=== PATIENT | female | born 2000 | race Hispanic/Latino ===

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

== ENCOUNTER 2021-02-25 15:21 | Emergency (ER) | payer OTHER, SELFPAY ==
--- NOTE | ~2021-02-25 | CT_ITS ---
EXAMINATION: CT abdomen pelvis w con INDICATION: Abdominal pain TECHNIQUE: Computed tomographic images of the abdomen and pelvis were obtained after the administrati on of 100 cc of Omnipaque 350 intravenous contrast. The dose-length product (DLP) was 337.17 mGy-cm. Automated exposure control and iterative reconstruction technique were employed. COMPARISON: None available FINDINGS: The lung bases are clear. The heart size is normal. The liver, spleen, pancreas, gallbladde r, and adrenal glands are normal. The kidneys are unremarkable. No pathologically enlarged abdominal or pelvic lymph nodes are identified. There is no free intraperitoneal gas or evidence of bowel obstr uction. The appendix is normal. A retroaortic left renal vein is noted. IMPRESSION: 1. No CT correlate for the patient's symptoms. Reviewed, dictated and finalized at location A.
[2021-02-25 15:35] VITALS: BP 112/77; PULSE 81; RESP 16; TEMP 37.3; O2SAT 98
--- NOTE | 2021-02-25 15:57 | ED.ABDPAIN ---
HPI - Abdominal Pain General Chief Complaint: Abdominal Pain Stated Complaint: chest pains Time Seen by Provider: 02/25/21 15:42 Source: RN notes reviewed History of Present Illness HPI narrative: Patient presents emergency department from home for abdominal pain. Patient states symptoms began approximately 6 days ago. The pain is located in the epigastric left upper quadrant right upper quadrant described as cramping and burning in nature states that it is associated diarrhea and she had had nausea vomiting earlier but none currently she states she has taken ibuprofen the pain minimally. She denies any fevers or chills, chest pain shortness of breath or any other symptoms Related Data Allergies Allergy/AdvReac Type Severity Reaction Status Date / Time No Known Allergies Allergy Verified 02/25/21 16:06 Review of Systems Review of Systems: Gen.: Denies fevers or chills ENT: Denies congestion Respiratory: Denies shortness of breath or cough CV: Denies chest pain or palpitations GI: See HPI denies burning, urgency, frequency or hematuria Musculoskeletal: Denies back pain or muscle pain Neuro: Denies numbness, tingling, weakness or focal weakness Skin: Denies rash Except as documented, all other systems reviewed and negative [facility] Past Medical History Medical History (Updated 02/25/21 @ 19:00 by Fabrice Magdaleno DO) History of use of contraceptive intrauterine device (IUD) Tonsillitis Surgical History Surgical History No significant past surgical history Social History Social History Smoking status: Never smoker Substance use: never Gender identity (if verbalized by the patient): Female Spiritual care concerns: No Exam Narrative: APPEARANCE: No acute distress, nontoxic, resting in bed HEENT: Normocephalic, atraumatic, OMM RESPIRATORY: No respiratory distress, clear to auscultation bilaterally with no rhonchi wheezing or rales CARDIOVASCULAR: RRR s murmur ABDOMINAL: Soft nondistended tender palpation epigastric and right upper quadrant left upper quadrant no tenderness right lower quadrant left lower quadrant no rebound or guarding MUSCULOSKELETAl: Moves all extremities. No clubbing, cyanosis or edema. NEURO: Awake and alert. Following commands, speech normal, no focal deficits SKIN:: Warm, dry. Normal Color PSYCHIATRIC: Normal affect/mood Course Course Emergency Course: Patient states that they are feeling much better at this time. States abdominal pain has improved. Repeat abdominal exam shows the patient's abdomen to be soft with no surgical present discussed with patient results of workup and diagnosis. Discussed need for follow-up with primary care physician, reasons to return to the emergency department in proper use of medication. Patient understands and agrees to current treatment plan discussed with patient mildly elevated liver enzymes need for follow-up as an outpatient Vital Signs Vital signs: Vital Signs Temperature 99.1 F 02/25/21 15:35 Pulse Rate 81 02/25/21 15:35 Respiratory Rate 16 02/25/21 15:35 Blood Pressure 112/77 02/25/21 15:35 Pulse Oximetry 98 02/25/21 15:35 Temperature 99.1 F 02/25/21 15:35 Pulse Rate 84 02/25/21 17:43 Respiratory Rate 14 02/25/21 17:43 Blood Pressure 112/65 02/25/21 17:43 Pulse Oximetry 99 02/25/21 17:43 MDM - Abdominal Pain MDM Narrative Medical decision making narrative: Patient's abdomen is soft without significant pain or signs of surgical abdomen on serial exams. Lab and x-ray evaluations are reviewed and patient is felt to be a reasonable candidate for outpatient management. Patient was instructed as to limitations of x-ray and laboratory evaluation and encouraged to return to ED or primary physician for repeat exam in 12 hours if continued or worsening pain Lab Data Result diagrams: 02/25/21 15:55
[2021-02-25 16:02] LABS: Basophils Percent Auto 0.5 % (0.2-1.2); Eosinophils Absolute Auto 0.1 K/mm3 (0-0.3); Eosinophils Percent Auto 1.8 % (0-4.4); Hematocrit 43.9 % (37.0-47.0); Hemoglobin 15.1 g/dL (12.0-15.0); Immature Granulocyte Absolute 0.01 K/mm3 (0.00-0.031); Immature Granulocyte Percent A 0.2 % (0-0.5); Lymphocytes Absolute Auto 2.26 K/mm3 (0.9-3.2); Lymphocytes Percent Auto 37.5 % (18.3-44.2); Mean Corpuscular HGB Conc 34.4 g/dl (32-36); Mean Corpuscular Hemoglobin 28.7 pg (26-34); Mean Corpuscular Volume 83.5 fl (80-100); Mean Platelet Volume 10.3 fl (7.4-10.4); Monocytes Absolute Auto 0.7 K/mm3 (0.1-0.6); Platelet Count Result 227 k/mm3 (150-375); Red Blood Count 5.26 M/mm3 (4.2-5.4); Red Cell Distribution Width 13.2 % (11.5-14.5)
[2021-02-25] MEDS: FAMOTIDINE 20 MG/2 ML VIAL IV PUSH (16:11)
[2021-02-25] MEDS: SODIUM CHLORIDE 0.9% IV 1,000 ML 999 ML IV CONT (16:11)
[2021-02-25 16:20] LABS: Add Urine Microscopic? NO; Appearance Urine Clear (Clear); Bilirubin Urine Negative (Negative); Blood Urine Negative (Negative); Color Urine Yellow (Yellow); Glucose Urine UA Negative (Negative); Ketones Urine Negative (Negative); Leukocyte Esterase Ur Negative LEU/UL (Negative); Nitrate Urine Negative (Negative); Protein Urine Negative (Negative); Specific Grav Ur 1.018 (1.001-1.035); Urobilinogen Urine Negative mg/dL (<2.0)
[2021-02-25 16:24] LABS: Alanine Aminotransferase 162 U/L (4-35); Albumin Level 4.6 g/dL (3.7-5.6); Alkaline Phosphatase 64 U/L (45-116); Anion Gap 13 mmol/L (8-16); Aspartate Amino Transferase 108 U/L (14-36); Bilirubin,Total 0.8 mg/dL (0.2-1.3); Blood Urea Nitrogen 10 mg/dL (8-21); Calcium 9.4 mg/dL (8.9-10.7); Carbon Dioxide 22 mmol/L (22-30); Chloride 104 mmol/L (98-107); Estimated CRCL calculation 66 ml/min; Estimated Glomerular Filt Rate > 60; Glucose 94 mg/dL (65-110); Lipase 55 U/L (23-300); Sodium 139 mmol/L (134-143)
--- NOTE | 2021-02-25 17:29 | PC.NURSE ---
Pt report no relief from pain, some nausea after scan. Pt informed CT scan is clear. MD aware of complaints.
[2021-02-25] MEDS: ONDANSETRON INJ 4 MG/2 ML VIAL IV PUSH (17:36)
[2021-02-25 17:43] VITALS: BP 112/65; PULSE 84; RESP 14; O2SAT 99
[2021-02-25 19:15] VITALS: BP 122/74; PULSE 77; RESP 16; TEMP 36.6; O2SAT 98
== END 2021-02-25 19:15 | disposition home or self-care (01) ==
PROVIDERS: Emergency Provider Emergency Medicine; PCP Family Medicine
DX: R10.13 Epigastric pain (principal)
CPT/HCPCS: 36415; 74177; 80053; 81003; 81025; 83690; 85025; 96365; 96375; 99284; A9270; J0131; J2405; J7030; Q9967

== ENCOUNTER 2021-10-08 09:28 | Emergency (ER) | payer OTHER, SELFPAY ==
[2021-10-08] VITALS (15 sets, daily range): BP systolic 99–137; BP diastolic 61–84; PULSE 61–89; RESP 16–30; TEMP 36.1–36.8; O2SAT 95–99
--- NOTE | ~2021-10-08 | CT_ITS ---
EXAMINATION: CT abdomen pelvis w con EXAM DATE: 10/08/2021 11:14 INDICATION: Abdominal pain, N/V, UTI TECHNIQUE: Spiral CT of the abdomen and pelvis was performed following intravenous injection of 100 m L Omnipaque 350. Axial, coronal and sagittal images of the abdomen and pelvis were reviewed. The do se-length product (DLP) for this examination was 300.28 mGy-cm. The exposure was tailored according to patient size (auto mA exposure control), and iterative reconstruction (ASIR) was used as additiona l dose reduction technique. Comparison is made to prior examination from 02/25/2021. FINDINGS: The liver, spleen, adrenal glands and pancreas are unremarkable. Gallbladder is unremarkab le. No biliary obstruction. Portal and splenic veins are patent. Kidneys enhance symmetrically. T here is no hydronephrosis. The uterus is anteverted and morphologically normal. The bladder is un remarkable. There is no retroperitoneal or pelvic lymphadenopathy. The appendix is normal. The stomach and small bowel are unremarkable. There is colonic fluid, corre late for diarrhea. No free intraperitoneal gas. The heart is normal in size. There are no perica rdial or pleural effusions. The lung bases are unremarkable. The bones are unremarkable. IMPRESSION: Colonic fluid, correlate for diarrhea or gastroenteritis. Reviewed, dictated and finalized at location A. IC AFFAIRS OFFICER
--- NOTE | ~2021-10-08 | CT_ITS ---
EXAMINATION: CTA chest PE protocol DATE: 10/08/2021 12:53 INDICATION: Pleuritic chest pain. TECHNIQUE: Computed tomography angiography (CTA) of the chest was performed with 100 mL Omnipaque-350 intravenous contrast timed to evaluate the pulmonary arteries. Coronal maximum intensity projection 3D-reconstructions were created by the technologist. Automated exposure control and iterative reconst ruction technique were employed. The dose-length product was 196.98 mGy-cm. COMPARISON: CT abdomen and pelvis 02/25/2021 FINDINGS: The lungs demonstrate mild atelectasis. No pleural effusion. The heart size is normal. No p ericardial effusion. There is no pulmonary embolus. The bones are unremarkable. IMPRESSION: 1. No pulmonary embolus. Reviewed, dictated and finalized at location A. [place] IMPRESSION: 1. No pulmonary embolus.
[2021-10-08 09:46] LABS: Basophils Percent Auto 0.4 % (0.2-1.2); Eosinophils Percent Auto 0.7 % (0-4.4); Hematocrit 49.6 % (37.0-47.0); Hemoglobin 16.6 g/dL (12.0-15.0); Immature Granulocyte Absolute 0.01 K/mm3 (0.00-0.031); Immature Granulocyte Percent A 0.2 % (0-0.5); Lymphocytes Absolute Auto 1.03 K/mm3 (0.9-3.2); Lymphocytes Percent Auto 18.5 % (18.3-44.2); Mean Corpuscular HGB Conc 33.5 g/dl (32-36); Mean Corpuscular Hemoglobin 29.3 pg (26-34); Mean Corpuscular Volume 87.6 fl (80-100); Mean Platelet Volume 10.4 fl (7.4-10.4); Monocytes Absolute Auto 0.4 K/mm3 (0.1-0.6); Monocytes Percent Auto 7.6 % (2.6-8.5); Neutrophils Percent Auto 72.6 % (45.5-73.1); Platelet Count Result 180 k/mm3 (150-375); Red Blood Count 5.66 M/mm3 (4.2-5.4); Red Cell Distribution Width 13.6 % (11.5-14.5); White Blood Count 5.6 K/mm3 (4.5-10.0)
--- NOTE | 2021-10-08 09:52 | ED.ABDPAIN ---
HPI - Abdominal Pain General Chief Complaint: Abdominal Pain Stated Complaint: Flank Pain Time Seen by Provider: 10/08/21 09:51 Source: patient Mode of arrival: ambulatory Limitations: no limitations History of Present Illness HPI narrative: Patient is a 21-year-old female who presents to the ED with complaints of diffuse epigastric abdominal pain x2 days. Patient describes the pain as a sharp sensation and states it radiates to her left upper quadrant/lower left chest down her left-sided abdomen and into her left lower back. Patient also reports having SOB due to the pain, nausea, and 1 episode of vomiting 2 days ago. She has Zofran at home and has been using this with some relief of her nausea. Patient states her urine has been darker than usual, but she denies any dysuria, urinary frequency, hematuria. She also denies any diarrhea, fever, chills, chest pain, cough, cold symptoms. Related Data Allergies Allergy/AdvReac Type Severity Reaction Status Date / Time No Known Allergies Allergy Verified 02/25/21 16:06 Review of Systems Review of Systems: CONSTITUTIONAL: Denies fever, chills, or sweats. ENT: Denies rhinorrhea, congestion. CARDIOVASCULAR: Reports left lower chest pain. Denies palpitations, or BLE edema. RESPIRATORY: Reports shortness of breath due to pain. Denies cough. GASTROINTESTINAL: Reports epigastric abdominal pain, radiating to left upper quadrant, nausea, vomiting. Denies diarrhea, constipation, rectal bleeding GENITOURINARY: Denies dysuria, urinary frequency, or hematuria. MUSCULOSKELETAL: Reports left lower back pain. Denies joint pain, or myalgia. NEUROLOGIC: Denies headache, numbness, or weakness. All systems reviewed & are unremarkable except as noted in HPI and below [facility] Past Medical History Medical History (Updated 10/08/21 @ 13:23 by Edna Stone PA-C) History of use of contraceptive intrauterine device (IUD) Tonsillitis Surgical History Surgical History (Updated 10/08/21 @ 10:35 by Edna Stone PA-C) Hx of tonsillectomy No significant past surgical history Social History Social History Smoking status: Never smoker Substance use: never Gender identity (if verbalized by the patient): Female Spiritual care concerns: No Exam Narrative: GENERAL: Well appearing, well-nourished, non-toxic, in no acute distress. HEAD: Normocephalic, atraumatic. EYES: EOMI, conjunctivae clear bilaterally. THROAT: Pharynx clear, no exudate. MMs slightly dry. NECK: Supple. No adenopathy, no masses. RESPIRATORY: Airway patent, respirations nonlabored. Clear to auscultation bilaterally, no rales, rhonchi, wheezing. CARDIOVASCULAR: Regular rate and rhythm without murmurs, rubs, or gallops. Radial and DP pulses 2+ and equal bilaterally. ABDOMINAL: Soft, tenderness to palpation of epigastric region, left upper quadrant, right lower quadrant. Nondistended, no hepatosplenomegaly. Normoactive BS. L CVA tenderness to percussion. MUSCULOSKELETAL: Moves all extremities. Strength/ROM intact without gross deformities. No edema. Tenderness to palpation of left lower back. SKIN: Warm, dry, normal color. No rashes. NEURO: A&O X3. Speech clear. Cranial nerves II-XII grossly intact. Steady gait. No ataxic movements. PSYCHIATRIC: Flat affect. Appropriate mood. Normal interaction. Course Reevaluation(s) Reevaluation #1: Patient request to use the bathroom prior to discharge. She began lightheaded and sweaty after standing up. Orthostatics were ordered, however patient was unable to complete them due to feeling lightheaded. EKG ordered. Date: 10/08/21 Time: 15:00 Reevaluation #2: Patient feeling better after eating crackers and peanut butter. No further vomiting. Blood pressure improved. She feels comfortable going home and will be discharged. Date: 10/08/21 Time: 15:30 Vital Signs Vital signs: Vital Signs Temperature 97 F L 10/08/21 09:34 Pulse Rate 84
[2021-10-08 09:58] LABS: Alanine Aminotransferase 23 U/L (4-35); Albumin Level 4.8 g/dL (3.5-5.1); Alkaline Phosphatase 72 U/L (38-126); Anion Gap 11 mmol/L (8-16); Aspartate Amino Transferase 38 U/L (14-36); Bilirubin,Total 1.5 mg/dL (0.2-1.3); Blood Urea Nitrogen 20 mg/dL (7-17); Calcium 9.1 mg/dL (8.4-10.2); Carbon Dioxide 21 mmol/L (22-30); Chloride 106 mmol/L (98-107); Estimated CRCL calculation 79 ml/min; Estimated Glomerular Filt Rate > 60; Glucose 80 mg/dL (65-110); Potassium 4.1 mmol/L (3.4-5.0); Sodium 138 mmol/L (137-145)
[2021-10-08] MEDS: ONDANSETRON INJ 4 MG/2 ML VIAL IV PUSH (10:24)
[2021-10-08] MEDS: SODIUM CHLORIDE 0.9% IV 1,000 ML 999 ML IV CONT ×2 (10:24→13:22)
[2021-10-08] MEDS: KETOROLAC 30 MG/ML VIAL (*BKC) IV PUSH (10:29)
[2021-10-08 10:36] LABS: Lipase 36 U/L (23-300)
[2021-10-08 10:48] LABS: Add Urine Microscopic? YES; Appearance Urine Cloudy (Clear); Bilirubin Urine Negative (Negative); Blood Urine Negative (Negative); Color Urine Amber (Yellow); Glucose Urine UA Negative (Negative); Ketones Urine 1+ mg/dL (Negative); Leukocyte Esterase Ur 1+ LEU/UL (Negative); Mucus Urine Heavy /lpf; Nitrate Urine Negative (Negative); Protein Urine 1+ mg/dL (Negative); Squamous Epithelial Cell Urine Many /hpf (Few)
[2021-10-08 10:52] LABS: Specific Grav Ur 1.031 (1.001-1.035)
[2021-10-08 12:13] LABS: D Dimer 1.08 ug/mL (<0.48)
--- NOTE | 2021-10-08 15:03 | ECG_ITS ---
Measurements Intervals [place] Rate: 57 P: 58 NV: 149 QRS: 62 QRSD: 94 T: 54 QT: 465 QTc: 456 Interpretive Statements SINUS BRADYCARDIA WITH SINUS ARRHYTHMIA BASELINE ARTIFACT BORDERLINE ECG NO PREVIOUS ECG AVAILABLE FOR COMPARISON Electronically Signed On 10-08-2021 16:20:13 [employer]ANCE BRIDGE INSPECTOR by Ankur Bolden M.D.
== END 2021-10-08 15:38 | disposition home or self-care (01) ==
PROVIDERS: Physician Assistant; Emergency Provider Emergency Medicine; PCP Family Medicine
DX: K52.9 Noninfective gastroenteritis and colitis, unspecified (principal); R79.1 Abnormal coagulation profile; R00.1 Bradycardia, unspecified
CPT/HCPCS: 36415; 51701; 71275; 74177; 80053; 81001; 81025; 83690; 85025; 85380; 87086; 93005; 96361; 96365; 96366; 96375; 99284; J0131; J1885; J2405; J7030; Q9967

== ENCOUNTER 2024-03-24 08:31 | Outpatient (CLI) | payer OTHER, SELFPAY ==
[2024-03-26 16:29] LABS: Progesterone 11.3 ng/mL
== END 2024-03-24 08:32 | disposition home or self-care (01) ==
LOC: ANHLAB 08:34
PROVIDERS: PCP Family Medicine; Visit Provider Advanced Practice Midwife
DX: Z31.9 Encounter for procreative management, unspecified (principal)
CPT/HCPCS: 36415; 84144

== ENCOUNTER 2024-04-02 08:22 | Emergency (ER) | payer OTHER, SELFPAY ==
--- NOTE | ~2024-04-02 | US_ITS ---
Pelvic ultrasound. Clinical History: Positive test, pain, evaluate for ectopic Technique: Realtime transabdominal and transvaginal scanning of the pelvis was performed. Color flow Doppler and Doppler spectral analysis were performed. Findings: The uterus is anteverted. The endometrial stripe has a thickness of 13 mm. No intrauterine gestational sac is identified. The right ovary measures 3.0 x 2.0 x 2.6 cm. No significant right ovarian or adnexal mass is seen. The left ovary measures 2.4 x 1.6 x 2.0 cm. No significant left ovarian or adnexal mass is seen. There is small amount of free fluid in the cul de sac. Impression: Positive test without intrauterine gestation. Differential diagnosis includes early normal , spontaneous , or nonvisualized ectopic . Correlate clinically. Continued follow-up with serial beta hCG, and repeat ultrasound as warranted, is advised. Reviewed, dictated and finalized at [facility]. Impression: Positive test without intrauterine gestation. Differential diagnosis includes early normal , spontaneous , or nonvisualized ectopic . Correlate clinically. Continued follow-up with serial beta hCG, and repeat ultrasound as warranted, is advised.
[2024-04-02 08:27] VITALS: BP 116/75; PULSE 69; RESP 20; TEMP 36.4; O2SAT 99
--- NOTE | 2024-04-02 08:27 | ED.FEMALEGU ---
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 Patient has been seen her Ob Gyne Oriana Bay for the past urine half given their fertility issues and she was about to start IVF. She then took a home test 2 days ago was positive as or multiple subsequent others. She has not yet established with Dr Bay for this . She had complications with premature labor with her 1st child in 2019 but ultimately no complications during delivery. She knows that her blood type is O negative and she required Rhogam before. She denies any vaginal bleeding describes the abdominal pain as a slight cramping. She has not yet taken anything for pain. She has had some slight nausea but denies any vomiting. Her last bowel movement was today and normal without diarrhea, constipation, or blood. Her last oral intake was this morning her appetite has been okay. No prior abdominal surgeries. She has had some normal scant vaginal discharge. Related Data Allergies Allergy/AdvReac Type Severity Reaction Status Date / Time No Known Allergies Allergy Verified 02/25/21 16:06 [facility] Past Medical History Medical History (Updated 04/02/24 @ 12:12 by Cassandra Simon MD) History of use of contraceptive intrauterine device (IUD) Tonsillitis Surgical History Surgical History Hx of tonsillectomy Social History Social History Smoking status: Never smoker Substance use: never Gender identity (if verbalized by the patient): Female Spiritual care concerns: No Exam Narrative: GENERAL: Well-appearing, well-nourished, and in no acute distress. HEAD: Normocephalic, atraumatic. EYES: Non injected, non icteric ENT: Nares clear, no rhinorrhea or epistaxis. NECK: Supple. CHEST: Speaking in full sentences. No respiratory distress. HEART: Regular rate and rhythm. . ABDOMEN: Soft, nondistended. No tenderness to palpation. Abdomen is without rigidity or guarding. Not peritoneal. EXTREMITIES: Normal range of motion. No lower extremity edema. SKIN: Warm, dry, no rash. NEURO: No focal deficits. Alert and oriented x3. PSYCH: Normal mood and affect. Course Vital Signs Vital signs: Vital Signs Temperature 97.5 F L 04/02/24 08:27 Pulse Rate 69 04/02/24 08:27 Respiratory Rate 20 04/02/24 08:27 Blood Pressure 116/75 04/02/24 08:27 Pulse Oximetry 99 04/02/24 08:27 Oxygen Delivery Room Air 04/02/24 08:27 Temperature 97.5 F L 04/02/24 12:26 Pulse Rate 71 04/02/24 12:26 Respiratory Rate 16 04/02/24 12:26 Blood Pressure 124/68 04/02/24 12:26 Pulse Oximetry 100 04/02/24 12:26 Oxygen Delivery Room Air 04/02/24 08:27 MDM - Female Genitourinary MDM Narrative Medical decision making narrative: This is a 23 yo patient at 4weeks/0 days gestational age by LMP 03/05/24 presenting with low abdominal pain. Has not establisher with her ObGyn for this ; currently a of indeterminant location. Associated with nausea. In the emergency department they are afebrile with vital signs within normal limits. DIFFERENTIAL DIAGNOSIS Considered ectopic , spectrum of miscarriage/ (threatened, inevitable, incomplete, complete, septic) as well as causes of female-specific abdominal pain unrelated to (e.g., pelvic inflammatory disease with or without tubo-ovarian abscess, [id number], UTI, ovarian torsion, etc.). Also considered causes of abdominal pain that are not gender-specific (e.g., appendicitis, volvulus, small bowel obstruction, mesenteric adenitis, nephrolithi
[2024-04-02 08:43] LABS: BEDSIDEPREGUCG Positive
[2024-04-02 09:16] LABS: Basophils Percent Auto 0.4 % (0.2-1.2); Eosinophils Absolute Auto 0.1 K/mm3 (0-0.3); Eosinophils Percent Auto 0.9 % (0-4.4); Hematocrit 45.6 % (37.0-47.0); Hemoglobin 15.7 g/dL (12.0-15.0); Immature Granulocyte Absolute 0.02 K/mm3 (0.00-0.031); Immature Granulocyte Percent A 0.3 % (0-0.5); Mean Corpuscular HGB Conc 34.4 g/dl (32-36); Mean Corpuscular Hemoglobin 29.7 pg (26-34); Mean Corpuscular Volume 86.4 fl (80-100); Mean Platelet Volume 10.5 fl (7.4-10.4); Monocytes Absolute Auto 0.6 K/mm3 (0.1-0.6); Monocytes Percent Auto 7.3 % (2.6-8.5); Neutrophils Absolute Auto 5.7 K/mm3 (1.3-6.7); Neutrophils Percent Auto 72.1 % (45.5-73.1); Platelet Count Result 223 k/mm3 (150-375); Red Blood Count 5.28 M/mm3 (4.2-5.4); Red Cell Distribution Width 13.2 % (11.5-14.5); White Blood Count 7.9 K/mm3 (4.5-10.0)
[2024-04-02] MEDS: ACETAMINOPHEN 500 MG TABLET 1000 MG PO (09:22)
[2024-04-02 09:25] LABS: Sodium 136 mmol/L (137-145)
[2024-04-02 09:27] LABS: Alanine Aminotransferase 32 U/L (6-35); Albumin Level 4.6 g/dL (3.5-5.1); Alkaline Phosphatase 54 U/L (38-126); Anion Gap 13 mmol/L (4-12); Aspartate Amino Transferase 34 U/L (14-36); Bilirubin,Total 1.4 mg/dL (0.2-1.3); Blood Urea Nitrogen 14 mg/dL (7-17); Calcium 9.1 mg/dL (8.4-10.2); Carbon Dioxide 19 mmol/L (22-30); Chloride 104 mmol/L (98-107); Estimated CRCL calculation 98 ml/min; Estimated Glomerular Filt Rate > 60; Glucose 94 mg/dL (65-110); Potassium 3.8 mmol/L (3.4-5.0)
[2024-04-02 09:29] LABS: Color Urine Yellow (Yellow)
[2024-04-02 09:30] LABS: Add Urine Microscopic? YES; Appearance Urine Clear (Clear); Bilirubin Urine 1+ (Negative); Blood Urine Negative (Negative); Glucose Urine UA Negative (Negative); Ketones Urine Negative (Negative); Leukocyte Esterase Ur Negative LEU/UL (Negative); Nitrate Urine Negative (Negative); Protein Urine Negative (Negative); Urobilinogen Urine 0.2 mg/dL (<2.0)
[2024-04-02 09:35] LABS: Bacteria Urine None Seen /hpf; Non Pathogenic Casts 0-2; RBC Urine 0-2 /hpf (0-2); Squamous Epithelial Cell Urine None Seen /hpf (Few); WBC Urine 0-5 /hpf (0-3)
[2024-04-02 09:42] LABS: Beta HCG Quantitative 421.26 mIU/ML
[2024-04-02 10:12] LABS: INR 1.1; Prothrombin Time 14.7 Seconds (11.1-14.7)
[2024-04-02 10:13] LABS: Partial Thromboplastin Time 31.9 Seconds (22.3-36.8)
[2024-04-02] MEDS: RHO(D) IMMUNE GLOBULIN 300 MCG/2 ML SYRINGE 50 MCG IM (12:15)
[2024-04-02 12:26] VITALS: BP 124/68; PULSE 71; RESP 16; TEMP 36.4; O2SAT 100
== END 2024-04-02 12:27 | disposition home or self-care (01) ==
PROVIDERS: Emergency Provider Student in an Organized Health Care Education/Training Program; PCP Family Medicine
DX: O26.91 Pregnancy related conditions, unspecified, first trimester (principal); R10.9 Unspecified abdominal pain
CPT/HCPCS: 36415; 76817; 80053; 81001; 81025; 84702; 85025; 85461; 85610; 85730; 86850; 86900; 86901; 90384; 96372; 99284; A9270; J2790

== ENCOUNTER 2024-04-04 11:44 | Outpatient (CLI) | payer OTHER, SELFPAY ==
[2024-04-04 12:28] LABS: Beta HCG Quantitative 837.05 mIU/ML
== END 2024-04-04 11:45 | disposition home or self-care (01) ==
LOC: ANHLAB 11:50
PROVIDERS: Visit Provider Advanced Practice Midwife
DX: Z32.01 Encounter for pregnancy test, result positive (principal)
CPT/HCPCS: 36415; 84702

== ENCOUNTER 2024-04-17 12:36 | Emergency (ER) | payer OTHER, SELFPAY ==
--- NOTE | ~2024-04-17 | XR_ITS ---
EXAMINATION: XR chest 1V portable DATE: 04/17/2024 16:51 INDICATION: Dyspnea. . TECHNIQUE: A single frontal view of the chest was obtained. COMPARISON: None. FINDINGS: There is no pneumonia, pleural effusion, or pneumothorax. The heart size is normal. IMPRESSION: 1. No acute cardiopulmonary disease. Reviewed, dictated and finalized at location A.
[2024-04-17 12:51] VITALS: BP 116/61; PULSE 76; RESP 16; TEMP 36.6; O2SAT 100
--- NOTE | 2024-04-17 14:27 | ED.DIZZY ---
HPI - Dizziness General Chief Complaint: Dizziness Stated Complaint: lightheaded, 6 weeks Time Seen by Provider: 04/17/24 14:23 Source: patient Mode of arrival: ambulatory Limitations: no limitations History of Present Illness HPI Narrative: this is a 23-year-old female who presents to the ED with chief complaint of lightheadedness over the past couple of days. Reports she is around 6 weeks With last LMP 03/05/24 - 03/08/24. patient states that yesterday she started having some lightheadedness and shortness of breath this seemed a little worse with exertion. 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 Also reports intermittent epigastric /central chest pain that comes on for few minutes and then goes away on its own. Does not seem associated with exertion. Also endorsing nausea and headaches. Denies vertigo symptoms, fevers, chills, cough, recent illness, vomiting, diarrhea, abdominal pain, vaginal symptoms, back pain, urinary symptoms. Related Data Allergies Allergy/AdvReac Type Severity Reaction Status Date / Time No Known Allergies Allergy Verified 04/17/24 14:58 Review of Systems Review of Systems: All systems as dictated in HPI PMFSH Past Medical History Medical History (Updated 04/17/24 @ 16:58 by Leonid Allen PA-C) History of use of contraceptive intrauterine device (IUD) Tonsillitis Surgical History Surgical History Hx of tonsillectomy Social History Social History Smoking status: Never smoker Substance use: never Gender identity (if verbalized by the patient): Female Spiritual care concerns: No Exam Narrative: GENERAL: Well-appearing, well-nourished, and in no acute distress. HEAD: Normocephalic, atraumatic. EYES: PERRLA and EOMI. ENT: Nares clear, no rhinorrhea or epistaxis. Mucous membranes moist. Oropharynx without tonsillar hypertrophy exudate or other lesions. NECK: Supple. No adenopathy or masses. CHEST: No respiratory distress. Clear to auscultation. No wheezes rales or rhonchi HEART: Regular rate and rhythm. No murmur heard. Normal peripheral pulses. ABDOMEN: Soft, nontender, nondistended, normal active bowel sounds. MSK: Normal range of motion. No edema. SKIN: Warm, dry, no rash. NEURO: Alert and oriented x4. No focal deficits. PSYCH: Normal mood and affect. Course Vital Signs Vital signs: Vital Signs Temperature 98 F 04/17/24 12:51 Pulse Rate 76 04/17/24 12:51 Respiratory Rate 16 04/17/24 12:51 Blood Pressure 116/61 04/17/24 12:51 Pulse Oximetry 100 04/17/24 12:51 Oxygen Delivery Room Air 04/17/24 12:51 Temperature 97.6 F 04/17/24 17:07 Pulse Rate 77 04/17/24 17:07 Respiratory Rate 18 04/17/24 17:07 Blood Pressure 108/73 04/17/24 17:07 Pulse Oximetry 100 04/17/24 17:07 Oxygen Delivery Room Air 04/17/24 12:51 MDM - Dizziness MDM Narrative Medical decision making narrative: this is a 23-year-old female who presents to the ED with multiple complaints id chief complaint of lightheadedness. She is approximately 6 weeks . Vitals are normal. Exam is benign overall. EKG shows normal sinus rhythm. Lab work is unremarkable overall. Troponin and D-dimer are negative. Urinalysis does show 2+ ketones, symptoms may be consistent with some slight dehydration. She was given fluids and Tylenol here. Pt will be discharged in stable condition. Return precautions given and supportive measures discussed. Pt is understanding and agreeable with plan for discharge and follow-up with PCP/ OB Lab Data 04/17/24 14:50 04/17/24 14:50 Labs: Lab Results 04/17/24 Range/Units 14:50 WBC 11.6 H (4.5-10.0) K/mm3 RBC 4.83 (4.2-5.4) M/mm3 Hgb 14.3 (12.0-15.0) g/dL Hct 42.1 (37.0-47.0) % MCV
--- NOTE | 2024-04-17 14:36 | ECG_ITS ---
Test Date: 2024-04-17 14:54:20 Measurements Intervals [place] Rate: 57 P: 34 NM: 160 QRS: 9 QRSD: 99 T: 16 QT: 410 QTc: 399 Interpretive Statements SINUS BRADYCARDIA BORDERLINE ECG No previous ECG available for comparison Electronically Signed On 04-17-2024 15:02:28 CDT by Neo Johnson D.O.
[2024-04-17 15:04] LABS: Basophils Percent Auto 0.3 % (0.2-1.2); Eosinophils Percent Auto 0.3 % (0-4.4); Hematocrit 42.1 % (37.0-47.0); Hemoglobin 14.3 g/dL (12.0-15.0); Immature Granulocyte Absolute 0.03 K/mm3 (0.00-0.031); Immature Granulocyte Percent A 0.3 % (0-0.5); Lymphocytes Absolute Auto 1.26 K/mm3 (0.9-3.2); Lymphocytes Percent Auto 10.9 % (18.3-44.2); Mean Corpuscular Hemoglobin 29.6 pg (26-34); Mean Corpuscular Volume 87.2 fl (80-100); Mean Platelet Volume 10.9 fl (7.4-10.4); Monocytes Absolute Auto 0.7 K/mm3 (0.1-0.6); Monocytes Percent Auto 5.7 % (2.6-8.5); Neutrophils Absolute Auto 9.6 K/mm3 (1.3-6.7); Neutrophils Percent Auto 82.5 % (45.5-73.1); Platelet Count Result 216 k/mm3 (150-375); Red Blood Count 4.83 M/mm3 (4.2-5.4); Red Cell Distribution Width 13.1 % (11.5-14.5); White Blood Count 11.6 K/mm3 (4.5-10.0)
[2024-04-17] MEDS: ACETAMINOPHEN 500 MG TABLET 1000 MG PO (15:04)
[2024-04-17] MEDS: SODIUM CHLORIDE 0.9% IV 1,000 ML 999 ML IV CONT (15:04)
[2024-04-17 15:05] VITALS: BP 107/71; PULSE 66; RESP 19; O2SAT 98
[2024-04-17 15:08] LABS: Add Urine Microscopic? NO; Appearance Urine Clear (Clear); Bilirubin Urine Negative (Negative); Blood Urine Negative (Negative); Color Urine Yellow (Yellow); Glucose Urine UA Negative (Negative); Ketones Urine 2+ mg/dL (Negative); Leukocyte Esterase Ur Negative LEU/UL (Negative); Nitrate Urine Negative (Negative); Protein Urine Negative (Negative); Specific Grav Ur 1.024 (1.001-1.035); Urobilinogen Urine 0.2 mg/dL (<2.0); pH Urine 5.5 (5.0-9.0)
[2024-04-17 15:14] LABS: Alanine Aminotransferase 91 U/L (6-35); Albumin Level 4.4 g/dL (3.5-5.1); Alkaline Phosphatase 50 U/L (38-126); Anion Gap 11 mmol/L (4-12); Aspartate Amino Transferase 47 U/L (14-36); Bilirubin,Total 0.7 mg/dL (0.2-1.3); Blood Urea Nitrogen 16 mg/dL (7-17); Carbon Dioxide 22 mmol/L (22-30); Chloride 101 mmol/L (98-107); Estimated CRCL calculation 98 ml/min; Estimated Glomerular Filt Rate > 60; Glucose 96 mg/dL (65-110); Lipase 40 U/L (23-300); Sodium 134 mmol/L (137-145)
[2024-04-17 15:16] LABS: INR 1.2; Prothrombin Time 15.2 Seconds (11.1-14.7)
[2024-04-17 15:17] LABS: Partial Thromboplastin Time 30.2 Seconds (22.3-36.8)
[2024-04-17 15:23] LABS: D Dimer 0.27 ug/mL (<0.48)
[2024-04-17 15:25] LABS: NT Pro B Type Natriuretic Pept 119 pg/mL (19.9-100); Troponin I < 0.012 ng/mL (0.000-0.034)
[2024-04-17 17:07] VITALS: BP 108/73; PULSE 77; RESP 18; TEMP 36.4; O2SAT 100
== END 2024-04-17 17:09 | disposition home or self-care (01) ==
PROVIDERS: Emergency Provider Physician Assistant
DX: O26.891 Other specified pregnancy related conditions, first trimester (principal); R42 Dizziness and giddiness; O99.891 Other specified diseases and conditions complicating pregnancy; R00.1 Bradycardia, unspecified; Z3A.01 Less than 8 weeks gestation of pregnancy
CPT/HCPCS: 36415; 71045; 80053; 81003; 83690; 83880; 84484; 85025; 85380; 85610; 85730; 93005; 96360; 99284; A9270; J7030

== ENCOUNTER 2024-07-25 19:37 | Observation (INO) | payer OTHER, SELFPAY ==
[2024-07-25 20:13] VITALS: BMI 26.4
--- NOTE | 2024-07-25 20:13 | OBADM ---
This patient, Michelle Olivas, admitted to the OB room Labor/Delivery/Recovery 118 for observation. Patient/family oriented to hospital policies and general routines including ID bracelet, bed and alarms, visiting hours, pain management, procedures, bathroom and other care routines, personal items, smoking policy, room service/diet, and visiting hours. Patient/Family are encouraged to report perceived risks to care and to ask questions if they do not understand what they are told or what they should do.
[2024-07-25 20:16] LABS: Basophils Percent Auto 0.3 % (0.2-1.2); Eosinophils Absolute Auto 0.1 K/mm3 (0-0.3); Eosinophils Percent Auto 1.2 % (0-4.4); Hematocrit 37.6 % (37.0-47.0); Hemoglobin 13.1 g/dL (12.0-15.0); Immature Granulocyte Absolute 0.03 K/mm3 (0.00-0.031); Immature Granulocyte Percent A 0.3 % (0-0.5); Lymphocytes Absolute Auto 2.11 K/mm3 (0.9-3.2); Mean Corpuscular HGB Conc 34.8 g/dl (32-36); Mean Corpuscular Hemoglobin 30.4 pg (26-34); Mean Corpuscular Volume 87.2 fl (80-100); Mean Platelet Volume 10.5 fl (7.4-10.4); Monocytes Absolute Auto 0.9 K/mm3 (0.1-0.6); Monocytes Percent Auto 9.5 % (2.6-8.5); Neutrophils Percent Auto 65.7 % (45.5-73.1); Platelet Count Result 206 k/mm3 (150-375); Red Blood Count 4.31 M/mm3 (4.2-5.4); Red Cell Distribution Width 13.7 % (11.5-14.5); White Blood Count 9.2 K/mm3 (4.5-10.0)
[2024-07-25 20:24] VITALS: BP 99/60; PULSE 83; TEMP 36.6
[2024-07-25 20:25] LABS: Add Urine Microscopic? YES; Appearance Urine Clear (Clear); Bacteria Urine None Seen /hpf; Bilirubin Urine Negative (Negative); Blood Urine Negative (Negative); Color Urine Yellow (Yellow); Glucose Urine UA Negative (Negative); Ketones Urine Negative (Negative); Leukocyte Esterase Ur Negative LEU/UL (Negative); Nitrate Urine Negative (Negative); Non Pathogenic Casts 0-2; Protein Urine Trace mg/dL (Negative); RBC Urine 0-2 /hpf (0-2); Specific Grav Ur 1.032 (1.001-1.035); Squamous Epithelial Cell Urine Occasional /hpf (Few); WBC Urine 0-5 /hpf (0-3)
[2024-07-25 20:27] LABS: Alanine Aminotransferase 15 U/L (6-35); Albumin Level 3.6 g/dL (3.5-5.1); Alkaline Phosphatase 68 U/L (38-126); Amylase 76 U/L (30-110); Anion Gap 4 mmol/L (4-12); Aspartate Amino Transferase 21 U/L (14-36); Bilirubin,Total 0.4 mg/dL (0.2-1.3); Blood Urea Nitrogen 15 mg/dL (7-17); Calcium 8.9 mg/dL (8.4-10.2); Carbon Dioxide 21 mmol/L (22-30); Chloride 108 mmol/L (98-107); Estimated CRCL calculation 98 ml/min; Estimated Glomerular Filt Rate > 60; Glucose 90 mg/dL (65-110); Lipase 55 U/L (23-300); Potassium 3.7 mmol/L (3.4-5.0); Sodium 133 mmol/L (137-145)
--- NOTE | 2024-07-26 11:15 | PM.OBTRLD ---
OB - Triage/Final Diagnosis Visit Information Date of evaluation: 07/25/24 Reason for evaluation: other (abd pain) Comments/Additional reasons for admission: I have assessed the risk for this patient, Michelle Olivas, and determined that she would benefit from observation care. Evaluation Laboratory results: Laboratory Tests 07/25/24 07/25/24 07/25/24 20:00 20:00 20:00 WBC 9.2 RBC 4.31 Hgb 13.1 Hct 37.6 MCV 87.2 MCH 30.4 MCHC 34.8 RDW 13.7 Plt Count 206 MPV 10.5 H Immature Gran % (Auto) 0.3 Neut % (Auto) 65.7 Lymph % (Auto) 23.0 Schleicher % (Auto) 9.5 H Eos % (Auto) 1.2 Baso % (Auto) 0.3 Lymph # (Auto) 2.11 Schleicher # (Auto) 0.9 H Eos # (Auto) 0.1 Baso # (Auto) 0.0 Abs Immat Gran (auto) 0.03 Absolute Neuts (auto) 6.0 Absolute Nucleated RBC 0.000 Nucleated RBC % 0.0 Sodium Cancelled 133 L Potassium Cancelled 3.7 Chloride Cancelled Carbon Dioxide Anion Gap BUN Creatinine Estim Creat Clear Calc Estimated GFR Glucose Calcium Total Bilirubin AST ALT Alkaline Phosphatase Total Protein Albumin Amylase Lipase Urine Color Urine Appearance Urine pH Ur Specific [place] Urine Protein Urine Glucose (UA) Urine Ketones Ur Blood (Man) Urine Nitrate Urine Bilirubin Urine Urobilinogen Leukocyte Esterase Rfl Urine RBC Urine WBC Ur Squamous Epith Cells Urine Bacteria Urine Casts 07/25/24 07/25/24 07/25/24 20:00 20:00 20:00 WBC RBC Hgb Hct MCV MCH MCHC RDW Plt Count MPV Immature Gran % (Auto) Neut % (Auto) Lymph % (Auto) Schleicher % (Auto) Eos % (Auto) Baso % (Auto) Lymph # (Auto) Schleicher # (Auto) Eos # (Auto) Baso # (Auto) Abs Immat Gran (auto) Absolute Neuts (auto) Absolute Nucleated RBC Nucleated RBC % Sodium Potassium Chloride 108 H Carbon Dioxide Cancelled 21 L Anion Gap Cancelled 4 BUN Cancelled Creatinine Estim Creat Clear Calc Estimated GFR Glucose Calcium Total Bilirubin AST ALT Alkaline Phosphatase Total Protein Albumin Amylase Lipase Urine Color Urine Appearance Urine pH Ur Specific [place] Urine Protein Urine Glucose (UA) Urine Ketones Ur Blood (Man) Urine Nitrate Urine Bilirubin Urine Urobilinogen Leukocyte Esterase Rfl Urine RBC Urine WBC Ur Squamous Epith Cells Urine Bacteria Urine Casts 07/25/24 07/25/24 07/25/24 20:00 20:00 20:00 WBC RBC Hgb Hct MCV MCH MCHC RDW Plt Count MPV Immature Gran % (Auto) Neut % (Auto) Lymph % (Auto) Schleicher % (Auto) Eos % (Auto) Baso % (Auto) Lymph # (Auto) Schleicher # (Auto) Eos # (Auto) Baso # (Auto) Abs Immat Gran (auto) Absolute Neuts (auto) Absolute Nucleated RBC Nucleated RBC % Sodium Potassium Chloride Carbon Dioxide Anion Gap BUN 15 Creatinine Cancelled 0.70 Estim Creat Clear Calc Cancelled 98 Estimated GFR Cancelled Glucose Calcium Total Bilirubin AST ALT Alkaline Phosphatase Total Protein Albumin Amylase Lipase Urine Color Urine Appearance Urine pH Ur Specific [place] Urine Protein Urine Glucose (UA) Urine Ketones Ur Blood (Man) Urine Nitrate Urine Bilirubin Urine Urobilinogen Leukocyte Esterase Rfl Urine RBC Urine WBC Ur Squamous Epith Cells Urine Bacteria Urine Casts 07/25/24 07/25/24 07/25/24 20:00 20:00 20:00 WBC RBC Hgb Hct MCV MCH MCHC RDW Plt Count MPV Immature Gran % (Auto) Neut % (Auto) Lymph % (Auto) Schleicher % (Auto) Eos % (Auto) Baso % (Auto) Lymph # (Auto) Schleicher # (Auto) Eos # (Auto) Baso # (Auto) Abs Immat Gran (auto) Absolute Neuts (auto) Absolute Nucleated RBC Nucleated RBC % Sodium Potassium Chloride Carbon Dioxide Anion Gap BUN Creatinine Estim Creat Clear Calc Estimated GFR > 60 Glucose Cancelled 90 Calcium Cancelled 8.9 Total Bilirubin Cancelled AST ALT Alkaline Phosphatase Total Protein Albumin Amylase Lipase Urine Color Urine Appearance Urine pH Ur Specific [place] Urine Protein Urine Glucose (UA) Urine Ketones Ur Blood (Man) Urine Nitrate Urine Bilirubin Urine Urobilinogen Leukocyte Esterase Rfl Urine RBC Urine WBC Ur Squamous Epith Cells Urine Bacteria Urine Casts 07/25/24 07/25/24 07/25/24 20:00 20:00 20:00 WBC RBC Hgb Hct MCV MCH MCHC RDW Plt Count MPV Immature Gran % (Auto) Neut % (Auto) Lymph % (Auto) Schleicher % (Auto) Eos % (Auto) Baso % (Auto) Lymph # (Auto) Schleicher # (Auto) Eos # (Auto) Baso # (Auto) Abs Immat Gran (auto) Absolute Neuts (auto) Absolute Nucleated RBC Nucleated RBC % Sodium Potassium Chloride Carbon Dioxide Anion Gap BUN Creatinine Estim Creat Clear Calc Estimated GFR Glucose Calcium Total Bilirubin 0.4 AST Cancelled 21 ALT Cancelled 15 Alkaline Phosphatase Cancelled Total Protein Albumin Amylase Lipase Urine Color Urine Appearance Urine pH Ur Specific [place] Urine Protein Urine Glucose (UA) Urine Ketones Ur Blood (Man) Urine Nitrate Urine Bilirubin Urine Urobilinogen Leukocyte Esterase Rfl Urine RBC Urine WBC Ur Squamous Epith Cells Urine Bacteria Urine Casts 07/25/24 07/25/24 07/25/24 20:00 20:00 20:00 WBC RBC Hgb Hct MCV MCH MCHC RDW Plt Count MPV Immature Gran % (Auto) Neut % (Auto) Lymph % (Auto) Schleicher % (Auto) Eos % (Auto) Baso % (Auto) Lymph # (Auto) Schleicher # (Auto) Eos # (Auto) Baso # (Auto) Abs Immat Gran (auto) Absolute Neuts (auto) Absolute Nucleated RBC Nucleated RBC % Sodium Potassium Chloride Carbon Dioxide Anion Gap BUN Creatinine Estim Creat Clear Calc Estimated GFR Glucose Calcium Total Bilirubin AST ALT Alkaline Phosphatase 68 Total Protein Cancelled 7.0 Albumin Cancelled 3.6 Amylase 76 Lipase 55 Urine Color Yellow Urine Appearance Clear Urine pH 6.0 Ur Specific [place] 1.032 Urine Protein Trace Urine Glucose (UA) Negative Urine Ketones Negative Ur Blood (Man) Negative Urine Nitrate Negative Urine Bilirubin Negative Urine Urobilinogen 1.0 Leukocyte Esterase Rfl Negative Urine RBC 0-2 Urine WBC 0-5 Ur Squamous Epith Cells Occasional Urine Bacteria None seen Urine Casts 0-2 Vital signs: Vital Signs - 24 hr 07/25/24 20:24 Temperature 36.6 C Pulse Rate 83 Blood Pressure 99/60 L
== END 2024-07-25 20:47 | disposition home or self-care (01) ==
PROVIDERS: Admitting Provider Obstetrics & Gynecology; Referring Provider Advanced Practice Midwife; Visit Provider Obstetrics & Gynecology
DX: O26.892 Other specified pregnancy related conditions, second trimester (principal); R10.9 Unspecified abdominal pain; Z3A.20 20 weeks gestation of pregnancy
CPT/HCPCS: 36415; 80053; 81001; 82150; 83690; 85025; G0378; G0379

== ENCOUNTER 2024-08-13 09:10 | Observation (INO) | payer OTHER, SELFPAY ==
[2024-08-13 10:15] VITALS: BP 105/65; PULSE 82
[2024-08-13 10:30] VITALS: BP 112/72; PULSE 89
[2024-08-13 11:05] VITALS: BMI 26.6
--- NOTE | 2024-08-13 11:05 | OBADM ---
This patient, Michelle Olivas, admitted to the OB room OB Post 116 for observation. Patient/family oriented to hospital policies and general routines including ID bracelet, bed and alarms, visiting hours, pain management, procedures, bathroom and other care routines, personal items, smoking policy, room service/diet, and visiting hours. Patient/Family are encouraged to report perceived risks to care and to ask questions if they do not understand what they are told or what they should do. Pt. presents to LD unit via ambulation with reports of having fallen on her R. side, she deniesandy bleeding or leaking of fluid, she also denies abdominal tenderness.
[2024-08-13] MEDS: RHO(D) IMMUNE GLOBULIN 300 MCG/2 ML SYRINGE IM (12:45)
--- NOTE | 2024-08-14 14:56 | PM.OBTRLD ---
OB - Triage/Final Diagnosis Visit Information Date of evaluation: 08/13/24 Reason for evaluation: other (fall) Comments/Additional reasons for admission: I have assessed the risk for this patient, Michelle Olivas, and determined that she would benefit from observation care. Evaluation Laboratory results: Laboratory Tests 08/13/24 10:25 Blood Type O Negative Antibody Screen Negative Screen Negative Baby's Blood Type Not Reportable Baby's KYLE Not Reportable KB Hemoglobin Negative Doses of RhIg Required 1
== END 2024-08-13 14:02 | disposition home or self-care (01) ==
LOC: ANHOBOP 09:21 → ANHOBPP 10:45
PROVIDERS: Admitting Provider Obstetrics & Gynecology; Visit Provider Obstetrics & Gynecology
DX: O26.892 Other specified pregnancy related conditions, second trimester (principal); W19.XXXA Unspecified fall, initial encounter; Z3A.23 23 weeks gestation of pregnancy
CPT/HCPCS: 36415; 85460; 85461; 86850; 86900; 86901; 90384; 96372; G0378; G0379; J2790

== ENCOUNTER 2024-08-21 08:24 | Emergency (ER) | payer OTHER, SELFPAY ==
[2024-08-21 08:35] VITALS: BP 120/83; PULSE 88; RESP 16; TEMP 36.6; O2SAT 96
--- NOTE | 2024-08-21 09:14 | ED_ITS ---
HPI - Epistaxis General Chief complaint: Epistaxis <Lori Jordan PA-C - Last Filed: 08/21/24 09:26> Stated complaint: 24wk preg coughing up blood and prolonged no bleed <LISSET Brewster - Last Filed: 08/21/24 09:26> Time Seen by Provider: 08/21/24 09:02 <Lori Jordan PA-C - Last Filed: 08/21/24 09:26> History of Present Illness HPI Narrative: 23-year-old female who is 24 weeks presents to the emergency department for epistaxis intermittently for 3 days. Patient states she has passed some clots with bleeding. She is not actively bleeding. She denies injury or trauma to her nose. She states she has been using humidifiers in her home. She has no known bleeding disorders. No abdominal pain, vaginal bleeding. She states today she coughed a scant amount of blood which prompted her to come to the ED. no chest pain, no history of VTE, no surgeries or hospitalizations in the past 4 weeks, no fevers, prior history of VTE. Her OBGYN is [facility]. She has an appointment tomorrow. <ZAK Brewster Last Filed: 08/21/24 09:26> Related Data Home medications: Home Medications ?Medication ?Instructions ?Recorded ?Confirmed ?Last Taken ?Type cyclobenzaprine 5 mg tablet 5 mg PO .TID PRN PRN back pain 08/13/24 08/13/24 08/10/24 History <Lori Jordan PA-C - Last Filed: 08/21/24 09:26> Allergies/adverse reactions: Allergies Allergy/AdvReac Type Severity Reaction Status Date / Time No Known Allergies Allergy Verified 08/21/24 08:25 <ZAK Brewster Last Filed: 08/21/24 09:26> Review of Systems Review of Systems: All systems reviewed & are unremarkable except as noted in HPI and below <ZAK Brewster Last Filed: 08/21/24 09:26> PMFSH Past Medical History Medical History: Medical History History of use of contraceptive intrauterine device (IUD) Tonsillitis <Lori Jordan PA-C - Last Filed: 08/21/24 09:26> Surgical History Surgical History: Surgical History Hx of tonsillectomy <Lori Jordan PA-C - Last Filed: 08/21/24 09:26> Social History Social History: Social History Smoking status: Never smoker Substance use: never Gender identity (if verbalized by the patient): Female Spiritual care concerns: No <Lori Jordan PA-C - Last Filed: 08/21/24 09:26> Exam Narrative: GENERAL: Well-appearing, well-nourished, and in no acute distress. HEAD: Normocephalic, atraumatic. EYES: EOMI. ENT:Mucous membranes moist. Friable tissue to the septum of bilateral naris with no active bleeding, no clots. Posterior pharynx is unremarkable with no blood NECK: Supple. CHEST: Clear to auscultation. No respiratory distress. HEART: Regular rate and rhythm. No murmur heard. Normal peripheral pulses. ABDOMEN: Normoactive bowel sounds. Abdomen soft, gravid, nontender, nondistended EXTREMITIES: Normal range of motion. No edema. Negative Homans bilaterally SKIN: Warm, dry, no rash. NEURO: No focal deficits. Alert and oriented x3 <Lori Jordan PA-C - Last Filed: 08/21/24 09:26> Course [employer]PERVISOR/PA Physician Supervision For this patient encounter, I reviewed the [employer] SUPERVISOR or PA documentation, treatment plan, and medical decision making; and I had [id number] time with t his patient. <Asher Alvarenga MD - Last Filed: 08/21/24 18:01> Vital Signs Vital signs: Vital Signs Temperature 97.8 F 08/21/24 08:35 Pulse Rate 88 08/21/24 08:35 Respiratory Rate 16 08/21/24 08:35 Blood Pressure 120/83 08/21/24 08:35 Pulse Oximetry 96 08/21/24 08:35 Oxygen Delivery Room Air 08/21/24 08:35 Temperature 97.9 F 08/21/24 09:40 Pulse Rate 88 08/21/24 09:40 Respiratory Rate 16 08/21/24 09:40 Blood Pressure 110/76 08/21/24 09:40 Pulse Oximetry 97 08/21/24 09:40 Oxygen Delivery Room Air 08/21/24 08:35 <Lori Jordan PA-C - Last Filed: 08/21/24 09:26> Vital Signs Temperature 97.8 F 08/21/24 08:35 Pulse Rate 88 08/21/24 08:35 Respiratory Rate 16 08/21/24 08:35 Blood Pressure 120/83 08/21/24 08:35 Pulse Oximetry 96 08/21/24 08:35 Oxygen Delivery Room Air 08/21/24 08:35 Temperature 97.9 F 08/21/24 09:40 Pulse Rate 88 08/21/24 09:40 Respiratory Rate 16 08/21/24 09:40 Blood Pressure 110/76 08/21/24 09:40 Pulse Oximetry 97 08/21/24 09:40 Oxygen Delivery Room Air 08/21/24 08:35 <Asher Alvarenga MD - Last Filed: 08/21/24 18:01> MDM - Epistaxis MDM Narrative Medical decision making narrative: 23-year-old female who is 24 weeks presents to the emergency department for intermittent epistaxis for the past 3 days, coughed up a scant amount of blood today triage vitals are stable. She is afebrile, nontoxic appearing. No tachycardia, no tachypnea, no hypoxia. She is resting comfortably in exam bed. Exam is significant for friable and inflamed nasal mucosa along the nasal septum in bilateral nares with no active bleeding. No blood to the posterior pharynx. No airway compromise. Discussed symptomatic control of epistaxis with humidifiers, nasal clamp, topical emollients such as Vaseline. Discussed epistaxis is likely source of blood-tinged sputum. Shared decision making regarding further workup for PE. Patient agrees to refrain from further workup including CTA chest due to risks of radiating fetus and will follow-up closely with her OBGYN at her appointment. Return precautions discussed. She is agreeable with the plan verbalized understanding. Discharged in stable condition. <ZAK Brewster Last Filed: 08/21/24 09:26> Discharge Plan Discharge Clinical Impression: Epistaxis <ZAK Brewster Last Filed: 08/21/24 09:26> Patient Disposition: Home, Self-Care <ZAK Brewster Last Filed: 08/21/24 09:26> Condition: Stable <ZAK Brewster Last Filed: 08/21/24 09:26> Instructions: Antibiotic Form, Nosebleed (ED) <ZAK Brewster Last Filed: 08/21/24 09:26> Additional Instructions: You were evaluated in the emergency department for intermittent nose bleeds. Your not actively bleeding at of your nose be do have inflamed tissue which is likely the source of bleeding. Please use topical emollients such as Vaseline as discussed. If he began to have a heavier bleed, clamp your nose for 20 minutes. If bleeding is not controlled or your passing large blood, return to the emergency department. As discussed, I suspect the blood tinged sputum you coughed up this morning was due to nose bleeding down the back of your throat. Please follow-up with your OBGYN regarding this. If you develop chest pain, shortness of breath, fever or other concerning symptoms, return to the emergency department immediately. <ZAK Brewster Last Filed: 08/21/24 09:26> Patient Language: Welsh <ZAK Brewster Last Filed: 08/21/24 09:26> Prescriptions: No Action acetaminophen 500 mg capsule 1,000 mg PO Q6H PRN (Reason: pain) Qty: 30 0RF cyclobenzaprine 5 mg tablet 5 mg PO .TID PRN PRN (Reason: back pain) <ZAK Brewster Last Filed: 08/21/24 09:26> Follow-up/Referrals: [facility] CNM [Certified Nurse Asphalt Engineer] - UNKNOWN,DOCTOR [Primary Care Provider] - <ZAK Brewster Last Filed: 08/21/24 09:26>
[2024-08-21 09:40] VITALS: BP 110/76; PULSE 88; RESP 16; TEMP 36.6; O2SAT 97
--- OUTSIDE RECORDS SUMMARY | 2024-08-23 16:11 | XMS_ITS | Data Portability ---
Author Organization [facility] Address [address] [address] [place] [address] Assessment Encounter Date Assessment Date Assessment LastModified by Organization Details LastModified Time 07/06/2024 07/06/2024 Patient is __17_weeks . Discussed plan. Not available 07/06/2024 10:44:34 07/27/2024 07/27/2024 Patient is _20__weeks . Discussed plan. [email or web address] Not available 07/27/2024 14:10:03 08/22/2024 08/22/2024 Patient is _24__weeks . Discussed plan. [email or web address] Not available 08/22/2024 19:00:36 Plan of Treatment Reminders Order Date Submit Date Provider Last Modified By Organization Details Last Modified Time Details Appointments OB ROUTINE 2024 09:15A M Aylin Bay CNM Not available Not available Not available Lab None recorded. Referral None recorded. Procedures None recorded. Surgeries None recorded. Imaging US, obstetric , 2nd or 3rd trimester 2023 024 [email or web address] [place], [place], [address], 07/29/2024 14:15:03 US, obstetric , follow-up 2024 025 [email or web address] [place], [address], [place], [address], 08/22/2024 21:50:37 Medication Orders None recorded. Patient TargetsNo targets recorded. Patient InstructionsNo instructions recorded. Reason for Referral None Reported. Results Created Date Observation Date Name Description Value Unit Range Abnormal Flag Note LastModifiedBy Organization Detail LastModifiedTime 06/24/2006/24/2024 [UNIT Y] FERNANDO Garcia sickle cell disease/beta -thalassemia /hemoglobino pathies carrier screen NEGATI VE normal Not Available [facility] [address], [place], [address], 06/24/2024 08:10:46 06/24/20 24 06/24/2024 [UNIT Y] FERNANDO HAMLIN Eli alpha-thalas semia carrier screen NEGATI VE normal Not Available [facility] [address], [place], [address], 06/24/2024 08:10:46 06/24/20 24 06/24/2024 [UNIT Y] FERNANDO HAMLIN Eli cystic fibrosis carrier screen NEGATI VE normal Not Available [facility] [address], [place], [address], 06/24/2024 08:10:46 06/24/20 24 06/24/2024 [UNIT Y] FERNANDO HAMLIN Eli spinal muscular atrophy carrier screen NEGATI VE 2 SMN1 copies , SNP not presen t normal Not Available [facility] [address], [place], [address], 06/24/2024 08:10:46 06/24/20 24 06/24/2024 [UNIT Y] FERNANDO HAMLIN Eli for detailed report, see pdf See PDF normal Not Available [facility] [address], [place], [address], 06/24/2024 08:10:46 06/08/2006/08/2024 CULTU RE: URINE result report SEE RESULT S BELOW Test: Cultu re: Urine Speci men Sourc e: Urine - Clean Catch Speci men Type: Urine Speci men Date: 2023 1326 Resul t Date: 06/11 1334 Resul t Statu s: Final resul t Abnor mal: No Resul burke Lab: [facility] [address] [facility] [address] Tel: CULTU RE ----- ----- ----- --- Organ ism(s ) consi stent with uroge nital or skin sonja . Repea t cultu re if sympt oms indic ate. Not Available [facility] (Lab) [address], [place], [address], 06/11/2024 14:37:47 06/08/20 24 06/08/2024 CBC W/DIF F WBC 11.0 10'3/ uL 3.5-10 .5 high Not Available [facility] (Lab) [address], [place], [address], 06/13/2024 14:06:52 06/08/20 24 06/08/2024 CBC W/DIF F RBC 5.11 10'6/ uL (based on docume nted legal sex) 3.80-5 .20 Not Available [facility] (Lab) [address], [place], [address], 06/13/2024 14:06:52 06/08/20 24 06/08/2024 CBC W/DIF F HGB 15.1 g/dL (based on docume nted legal sex) 11.6-1 5.4 Not Available [facility] (Lab) [address] [place], [address], 06/13/2024 14:06:52 06/08/20 24 06/08/2024 CBC W/DIF F HCT 45.4 % (based on docume nted legal sex) 34.0-4 5.0 high Not Available [facility] (Lab) [address], [place], [address], 06/13/2024 14:06:52 06/08/20 24 06/08/2024 CBC W/DIF F MCV 88.8 fL 80.0-9 9.0 Not Available [facility] (Lab) [address], [place], [address], 06/13/2024 14:06:52 06/08/20 24 06/08/2024 CBC W/DIF F MCH 29.5 pg 27.0-3 4.0 Not Available [facility] (Lab) [address], [place], [address], 06/13/2024 14:06:52 06/08/20 24 06/08/2024 CBC W/DIF F MCHC 33.3 g/dL 32.0-3 5.5 Not Available [facility] (Lab) [address], [place], [address], 06/13/2024 14:06:52 06/08/20 24 06/08/2024 CBC W/DIF F RDW 13.8 % 11.0-1 5.0 Not Available [facility] (Lab) [address], [place], [address], 06/13/2024 14:06:52 06/08/20 24 06/08/2024 CBC W/DIF F plt 215 10'3/ uL 150-40 0 Not Available [facility] (Lab) [address], [place], [address], 06/13/2024 14:06:52 06/08/20 24 06/08/2024 CBC W/DIF F MPV 12.8 fL 8.8-12 .1 high Not Available [facility] (Lab) [address], [place], [address], 06/13/2024 14:06:52 06/08/20 24 06/08/2024 CBC W/DIF F NRBC's 0.0 % 0.0 Not Available [facility] (Lab) [address], [place], [address], 06/13/2024 14:06:52 06/08/20 24 06/08/2024 CBC W/DIF F absolute NRBCs 0.0 10'3/ uL no refere nce range establ ished Not Available [facility] (Lab) [address], [place], [address], 06/13/2024 14:06:52 06/08/20 24 06/08/2024 CBC W/DIF F neutrophils 80.1 % 34.0-7 3.0 high Not Available [facility] (Lab) [address], [place], [address], 06/13/2024 14:06:52 06/08/20 24 06/08/2024 CBC W/DIF F lymphocytes 12.8 % 15.0-5 0.0 low Not Available [facility] (Lab) [address], [place], [address], 06/13/2024 14:06:52 06/08/20 24 06/08/2024 CBC W/DIF F monocytes 5.8 % 1.0-15 .0 Not Available [facility] (Lab) [address], [place], [address], 06/13/2024 14:06:52 06/08/20 24 06/08/2024 CBC W/DIF F eosinophils 0.6 % 0.0-8. 0 Not Available [facility] (Lab) [address], [place], [address], 06/13/2024 14:06:52 06/08/20 24 06/08/2024 CBC W/DIF F basophils 0.3 % 0.0-2. 0 Not Available [facility] (Lab) [address], [place], [address], 06/13/2024 14:06:52 06/08/20 24 06/08/2024 CBC W/DIF F immature granulocytes 0.4 % no define d refere nce range Not Available [facility] (Lab) [address] [place], [address], 06/13/2024 14:06:52 06/08/20 24 06/08/2024 CBC W/DIF F absolute neutrophils 8.8 10'3/ uL 1.5-8. 0 high Not Available [facility] (Lab) [address], [place], [address], 06/13/2024 14:06:52 06/08/20 24 06/08/2024 CBC W/DIF F absolute lymphocytes 1.4 10'3/ uL 1.0-4. 0 Not Available [facility] (Lab) [address], [place], [address], 06/13/2024 14:06:52 06/08/20 24 06/08/2024 CBC W/DIF F absolute monocytes 0.6 10'3/ uL 0.2-1. 0 Not Available [facility] (Lab) [address], [place], [address], 06/13/2024 14:06:52 06/08/20 24 06/08/2024 CBC W/DIF F absolute eosinophils 0.1 10'3/ uL 0.0-0. 6 Not Available [facility] (Lab) [address], [place], [address], 06/13/2024 14:06:52 06/08/20 24 06/08/2024 CBC W/DIF F absolute basophils 0.0 10'3/ uL 0.0-0. 3 Not Available [facility] (Lab) [address], [place], [address], 06/13/2024 14:06:52 06/08/20 24 06/08/2024 CBC W/DIF F absolute immature granulocytes 0.0 10'3/ uL 0.00-0 .10 2023 7:04 AM: P indic ates parti al resul ts on a panel have been relea sed. Addit ional resul ts will follo w. 2023 7:04 AM: This resul t has been final verif ied. No addit ional or baum ed resul ts are expec rosalie. Not Available [facility] (Lab) [address], [place], [address], 06/13/2024 14:06:52 06/08/20 24 06/08/2024 HIV 1/2 ANTIG EN/AN TIBOD Y, REFLE X CONFI RMATI ON HIV antigen/anti body Nonrea ctive nonrea ctive HIV-1 antig en and HIV-1 /HIV- 2 antib odies were not detec rosalie. No labor atory evide nce of HIV infec tion. Not Available [facility] (Lab) [address], [place], [address], 06/13/2024 14:06:52 06/08/20 24 06/08/2024 HEPAT ITIS B SURFA CE ANTIG EN hepatitis B surface antigen Non-re active non-re active This assay was perfo rmed using [employer] ratio n reage nts and test kits. Value s obtai jeanine with other assay metho ds or kits canno t be used inter baum eably . Not Available [facility] (Lab) [address], [place], [address], 06/13/2024 14:06:53 06/08/20 24 06/08/2024 HEPAT ITIS C ANTIB VARINDER SCREE N, REFLE X TO CONFI RMATI ON hepatitis C antibody Non-re active non-re active Antib odies to HCV Not Detec rosalie, does not exclu de the possi bilit y of expos ure to HCV. Not Available [facility] (Lab) [address], [place], [address], 06/13/2024 14:06:53 06/08/20 24 06/08/2024 HEMOG LOBIN A1C hemoglobin A1C 4.7 % 0-5.6 The Ameri can [employer] radha [employer] iatio n recom mends that a prima ry goal of thera py shoul d be a HBA1C of < 7% and that physi cians shoul d reeva luate the treat ment regim en in patie nts with HBA1C value s consi stent ly > 8%. <5.7% Mindy l 5.7 - 6.4% Incre ased risk for diabe radha >=6.5 % Diagn ostic of diabe radha <7.0% Goal of thera py >8.0% Actio n sugge sted Not Available [facility] (Lab) [address], [place], [address], 06/13/2024 14:06:54 06/08/20 24 06/08/2024 RUBEL LA IGG ANTIB VARINDER, QUANT rubella antibodies, IgG Reacti ve reacti ve Not Available [facility] (Lab) [address], [place], [address], 06/13/2024 14:06:54 06/08/20 24 06/08/2024 RUBEL LA IGG ANTIB VARINDER, QUANT rubella antibodies, IgG quant 63.1 IU/mL >=10 Non-r eacti ve (Non- Immun e) <10 IU/mL React raissa (Immu ne) > or = 10 IU/mL Not Available [facility] (Lab) [address], [place], [address], 06/13/2024 14:06:54 06/08/20 24 06/08/2024 TYPE/ RH/SC REEN ABO/Rh type O NEG Not Available [facility] (Lab) [address] [place], [address], 06/13/2024 14:06:55 06/08/20 24 06/08/2024 TYPE/ RH/SC REEN antibody screen POS abnormal Previ ously : NoNTI 06/09 10:22 Not Available [facility] (Lab) [address], [place], [address], 06/13/2024 14:06:55 06/08/20 24 06/08/2024 TYPE/ RH/SC REEN exp date 2023 23:59 Not Available [facility] (Lab) [address], [place], [address], 06/13/2024 14:06:55 06/08/20 24 06/08/2024 COOMB S, DIREC T ANTIG LOBUL IN direct antiglobulin test - polyspecific NEG Not Available [facility] (Lab) [address], [place], [address], 06/13/2024 14:06:55 06/08/20 24 06/08/2024 ANTIB VARINDER SCREE N - PEG absc peg interpretati on NEG Not Available [facility] (Lab) [address], [place], [address], 06/13/2024 14:06:56 06/08/20 24 06/08/2024 ANTIB VARINDER IDENT IFICA TION antibody id POS, Non-Sp ecific Antibo dy The patie nt's plasm a react ed with some of the reage nt red cells . All clini margot signi fican t alloa ntibo dies have been ruled out shelley g the antib varinder inves tigat ion. Due to the non-s pecif ic natur e of the antib varinder, a titer will not be perfo rmed. Speci ficit y of the antib varinder canno t be ascer taine d, pleas e submi t a new speci men in 2-4 weeks . Not Available [facility] (Lab) [address], [place], [address], 06/13/2024 14:06:56 06/08/20 24 06/08/2024 RPR SCREE N, REFLE X TITER /CONF IRMAT ION RPR screen Nonrea ctive nonrea ctive Not Available [facility] (Lab) [address], [place], [address], 06/13/2024 14:06:57 06/08/20 24 06/08/2024 ANTIB VARINDER INVES TIGAT ION CONSU LT Ab investigatio n interpretati on There is a nonspe cific agglut inatio n patter n (1 of 2 solid phase screen ing cells, 0 of 14 solid phase test cells, PEG screen negati ve) which may reflec t an emergi ng antibo dy in the plasma of this 23-yea r-old female patien t. Antibo dy specif icity may become clear upon future testin g. All clinic ally signif icant alloan tibodi es have been ruled out during the antibo dy invest igatio n and a solid- phase direct antigl obulin test was negati ve. A comple te antigl [facility]ulin [facility] is necess rupesh and extra time will be requir ed to find compat ible blood. Inter prete d By: Lena Irving MD 06/13 13:03 Not Available [facility] (Lab) [address], [place], [address], 06/13/2024 14:06:57 06/08/20 24 06/08/2024 drug scree n, urine Amphetamines : negati ve Not Available [place] [address], [place], [address], 06/08/2024 12:14:32 06/08/20 24 06/08/2024 drug scree n, urine Cannabinoids : negati ve Not Available [place] [address], [place], [address], 06/08/2024 12:14:32 06/08/20 24 06/08/2024 drug scree n, urine Cocaine: negati ve Not Available [place] [address], [place], [address], 06/08/2024 12:14:32 06/08/20 24 06/08/2024 drug scree n, urine Opiates: negati ve Not Available [place] [address], [place], [address], 06/08/2024 12:14:32 06/08/20 24 06/08/2024 drug scree n, urine Phenocyclidi ne: negati ve Not Available [place] [address], [place], [address], 06/08/2024 12:14:32 06/08/20 24 06/08/2024 drug scree n, urine Barbiturates : negati ve Not Available [place] [address], [place], [address], 06/08/2024 12:14:32 06/08/20 24 06/08/2024 drug scree n, urine Benzodiazepi yuridia: negati ve Not Available [place] [address], [place], [address], 06/08/2024 12:14:32 06/08/20 24 06/08/2024 drug scree n, urine Ethanol: negati ve Not Available [place] [address], [place], [address], 06/08/2024 12:14:32 06/08/20 24 06/08/2024 drug scree n, urine Hallucinogen s: negati ve Not Available [place] [address], [place], [address], 06/08/2024 12:14:32 06/08/20 24 06/08/2024 drug scree n, urine Inhalants: negati ve Not Available [place] [address], [place], [address], 06/08/2024 12:14:32 06/08/20 24 06/08/2024 drug scree n, urine Anabolic Steroids: negati ve Not Available [place] [address], [place], [address], 06/08/2024 12:14:32 06/08/20 24 06/08/2024 drug scree n, urine Other: negati ve Not Available [place] [address], [place], [address], 06/08/2024 12:14:32 07/06/20 24 07/06/2024 ANTIB VARINDER SCREE N antibody screen NEG Previ ously ident ified antib varinder has dropp ed below detec table level s Not Available [facility] (Lab) [address], [place], [address], 07/07/2024 08:48:08 06/08/20 24 06/08/2024 US, obste tric, nucha l trans lucen cy No observ ation record ed. [email or web address] [place] [address], [place], [address], 06/08/2024 13:01:59 06/08/20 24 06/08/2024 US, obste tric, nucha l trans lucen cy No observ ation record ed. [email or web address] [address], [place], [address], 06/09/2024 14:52:07 07/27/20 24 07/27/2024 US, obste tric, 2nd or 3rd trime ster No observ ation record ed. [email or web address] [place] [address], [place], [address], 07/27/2024 17:24:31 07/27/20 24 07/27/2024 US, obste tric, follo w-up No observ ation record ed. [email or web address] [address], [place], [address], 07/30/2024 09:15:54 08/22/19 25 08/22/2024 US, obste tric, follo w-up No observ ation record ed. [email or web address] [place] [address], [place], [address], 08/22/2024 18:46:26 08/22/19 25 08/22/2024 US, obste tric, follo w-up No observ ation record ed. [email or web address] [address], [place], [address], 08/22/2024 23:11:58 Result Notes None recorded. Problems Name Problem SNOMED Code Status Onset Date Resolution Date Notes Provider Name and Address Organization Details Recorded Time Twin pregnanc y 46861688 Active 2023 Lupe nguyen, [facility] 4 18:31:24 Asthma 104887645 Active 2023 Lupe nguyen, [facility] 4 18:31:52 Pregnanc y 46855968 Active 2023 Lupe nguyen, [facility] 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 4 12:51:43 Maureenn g twin syndrome 000679109 Active Aylin Bay CNM [address], [place], [address], [facility] 4 12:51:43 Pregnanc y 07968964 Completed 201906/04/2020 Lupe nguyen, [facility] 4 12:17:22 Problem Notes None recorded. Procedures Surgical History Date Name Laterality Status Provider Name and Address Organization Details Recorded Time 11/03/19 24 Date of Last Pap Smear completed Lupe Kumar [facility] 03/28/2024 20:37:26 08/01/19 14 tonsillectomy completed Lupe Kumar [facility] 03/28/2020 10:00:48 Imaging Results Imaging Date Name Status LastModified by Organization Details LastModified Time 06/08/2024 US, obstetric, nuchal translucency completed [email or web address] [place] [address], [place], [address], 06/08/2024 13:01:59 06/08/2024 US, obstetric, nuchal translucency completed [email or web address], [place], [address], 06/09/2024 14:52:07 07/27/2024 US, obstetric, 2nd [facility]rd [email or web address] [address], [place], [address], 07/27/2024 17:24:31 07/27/2024 US, obstetric, follow-up completed [email or web address] [address], [place], [address], 07/30/2024 09:15:54 08/22/2024 US, obstetric, follow-up completed [email or web address] [place] [address], [place], [address], 08/22/2024 18:46:26 08/22/2024 US, obstetric, follow-up active [email or web address] [address], [place], [address], 08/22/2024 23:11:58 Procedure Notes None recorded. Medical Equipment None Reported. Allergies No known drug allergies Medications Name Sig Start Date Stop Date Status Note LastModified by Organization Details LastModified Time cyclobenzap rine 10 mg tablet 03/29 completed Not Available Not Available Not Available amoxicillin 500 mg capsule active Not Available Not Available Not Available azithromyci n 250 mg tablet 08/25 completed Not Available Not Available Not Available sumatriptan 25 mg tablet 1 tablet q 8 prn migraine active Not Available Not Available No t Available ondansetron HCl 4 mg tablet active Not Available Not Available Not Available famotidine 40 mg tablet 08/25 completed Not Available Not Available Not Available prednisone 20 mg tablet 08/25 completed Not Available Not Available Not Available metronidazo le 500 mg tablet 03/29 completed Not Available Not Available Not Available acetaminoph en 500 mg tablet 04/25 completed Not Available Not Available Not Available famotidine 20 mg tablet 08/25 completed Not Available Not Available Not Available dicyclomine 20 mg tablet 03/29 completed Not Available Not Available Not Available pantoprazol e 40 mg tablet,cherrie yed release 08/25 completed Not Available Not Available Not Available ranitidine 150 mg tablet 01/09 completed Not Available Not Available Not Available ibuprofen 600 mg tablet 03/29 completed Not Available Not Available Not Available methylpredn isolone 4 mg tablets in a dose pack 04/25 completed Not Available Not Available Not Available albuterol sulfate HFA 90 mcg/actuati on aerosol inhaler 04/25 completed Not Available Not Available Not Available ondansetron 4 mg disintegrat ing tablet 08/25 completed Not Available Not Available Not Available medroxyprog esterone 150 mg/mL intramuscul ar suspension INJECT 1 ML INTRAMUSC ULARLY EVERY 3 MONTHS 08/25 completed Not Available Not Available Not Available neomycin-po lymyxin-hyd rocort 3.5 mg-10,000 unit/mL-1 % ear drops,susp 03/29 completed Not Available Not Available Not Available cyclobenzap rine 5 mg tablet 2024 active Not Available Not Available Not Avai lable 03/29 completed Not Available Not Available Not Available Vitals Date Recorded Body height Body mass index (BMI) Body weight Systolic blood pressure Diastolic blood pressure Provider Name and Address Organization Details Last Updated DateTime 07/06/2024 166.37 cm 25.6 kg/m2 54490.40 972 g 119 mm[Hg] 78 mm[Hg] Lupe Kumar [facility] 10:43:05 Date Recorded Body weight Body mass index (BMI) Body height Systolic blood pressure Diastolic blood pressure Provider Name and Address Organization Details Last Updated DateTime 07/27/2024 53402.37 157 g 26.4 kg/m2 166.37 cm 126 mm[Hg] 85 mm[Hg] Lupe Kumar [facility] 4 14:04:00 Date Recorded Body weight Body mass index (BMI) Body height Systolic blood pressure Diastolic blood pressure Provider Name and Address Organization Details Last Updated DateTime 08/22/2024 13141.51 816 g 27.5 kg/m2 166.37 cm 132 mm[Hg] 84 mm[Hg] Lupe Kumar [facility] 5 18:29:54 Social History Question Answer Notes LastModified by Organizat ion Details LastModified Time Tobacco Smoking Status Never Smoker Not Available [email or web address] 06/03/2020 03:28:11 What Is Your Level Of Alcohol Consumption? None [id number] Information not available 06/03/2020 If You Are , What Was Your Level Of Alcohol Consumption Prior To ? None [email or web address] Information not available 04/25/2024 Are You Blind Or Do You Have Difficulty Seeing? No Information not available 03/29/2022 What Is Your Level Of Caffeine Consumption? Occasional [email or web address] Information not available 04/25/2024 In The 14 Days Before Symptom Onset, Have You Had Close Contact With A Laboratory-confir med COVID-19 While That Case Was Ill? No Information not available 11/03/2023 In The 14 Days Before Symptom Onset, Have You Had Close Contact With A Person Who Is Under Investigation For COVID-19 While That Person Was Ill? No Information not available 11/03/2023 Have You Been To An Area Known To Be High Risk For COVID-19? No Information not available 11/03/2023 Are You Deaf Or Do You Have Serious Difficulty Hearing? No Information not available 03/29/2022 What Type Of Diet Are You Following? REGULAR Information not available 03/29/2022 Do You Or Have You Ever Used E-cigarettes Or Vape? Never Used Electronic Cigarettes [id number] Information not available 06/03/2020 What Was The Date Of Your Most Recent Tobacco Screening? 07/27/2024 [email or web address] Information not available 07/27/2024 Do You Have Smoke And Carbon Monoxide Detectors In Your Home? Yes [email or web address] Information not available 04/25/2024 Do You Or Have You Ever Used Smokeless Tobacco? Never Used Smokeless Tobacco [id number] Information not available 06/03/2020 How Much Tobacco Do You Smoke? No [id number] Information not available 06/03/2020 Do You Use Any Illicit Or Recreational Drugs? Yes Marijuana [email or web address] Information not available 04/25/2024 Do You Use Sunscreen Routinely? Yes [email or web address] Information not available 04/25/2024 Sex: Unknown Functional Status Question Answer Note LastModified by Organizat ion Details LastModified Time Do you have difficulty walking or climbing stairs? No Information not available 03/29/2022 Are you able to walk? [email or web address] Information not available 03/29/2022 Are you able to care for yourself? Yes Information not available 03/29/2022 Do you have difficulty dressing or bathing? No Information not available 03/29/2022 What is your exercise level? Occasional [id number] Information not available 06/03/2020 Mental Status None recorded. Family History Relationship Description Onset Age of this Age Resolved Age Notes LastModified by Organization Details LastModified Time Paternal Grandmother Diabetes mellitus terrimatt l Not available 11/16/2019 12:15:06 Paternal Grandmother Hypertensive disorder cory l Not available 11/16/2019 12:15:18 Notes:Paternal grandmother: Hypertension, Diabetes mellitus Medical History Condition Response Allergies (Food, seasonal, environmental ) Y Other Y Blood Transfusion N Drug/Latex Allergies/Reactions N Breast Cancer N Dermatologic Disorders N Lung Disease N Defects or Inherited Disease N Breast Problem N Gestational Diabetes N Hematologic disorders N Anesthesia Complications N History of STI N Deep Vein Thrombosis N Polycystic ovary syndrome N Anxiety Disorder N Autoimmune disease N Arthritis N Infertility N Polyps N Acid Reflux (GERD) N History of abnormal pap N Cancer N Stroke N Varicosities N Neurologic/Epilepsy N Endometriosis N High Cholesterol N Headaches Y Fibromyalgia N Kidney Disease N Heart Problems N Kidney or Bladder Problems N Thyroid Problems N GI Problems N Eating Disorder N Anemia N Art (IVF or FET) N Psychiatric Illness N Ovarian Cancer N Diabetes N Pulmonary (TB, Asthma) N Hepatitis/Liver Disease N Eczema N Urinary Tract Infection N Abuse/Domestic Violence N Asthma Y Trauma/Violence N Depression/ depression N Heart Disease N Pre-Eclampsia N Hypertension N Osteoporosis N Thrombophilias N Gynecological History Statement/Question Response Abnormal Pap N Date of Last Mammogram Date of LMP 03/05/2024 On BCP's at Conception? N Was last menstrual period normal N STIs/STDs N HPV Vaccine Y Current Control Method Age at First Child 21 Are cycles usually normal N Date of Last Colonoscopy Sexually Active? Y Menses Monthly Y Date of DEXA bone scan Age of first menstrual cycle 12 Date of Last Pap Smear 11/03/2023 Sexual Problems? N LMP Unknown Obstetrics History GPAL:G 2 P 1 0 0 1 Type Value Full Term 1 Living 1 Total 2 Past Encounters Encounter ID Performer Location Encounter Start Date Encounter Closed Date Diagnosis/Indication Diagnosis SNOMED-CT Code Diagnosis ICD10 Code Diagnosis Note [id number] [place] [address],[place] [address] 11/20/2019 10:07:21 11/20/2019 10:57:25 Routine care 114595616 Z34.02 [id number] Sylvie Garvey [place] [address],[place] [address] 12/18/2019 11:14:00 12/18/2019 13:03:19 screening for malformation 497362913 Z36.3 [id number] [place] [address],[place] [address] 12/18/2019 11:14:32 12/18/2019 13:02:41 Normal [id number] Z34.92 [id number] Chandu Monson MD [place] [address],[place] [address] 01/10/2020 11:42:10 01/10/2020 18:04:09 Routine care 671248997 Z34.02 [id number] Aylin Bay CNM [place] [address],[place] [address] 02/05/2020 10:54:42 02/05/2020 11:31:54 Routine care 415680721 Z34.93 [id number] Chandu Monson MD [place] [address],[place] [address] 02/19/2020 11:50:36 02/19/2020 12:38:13 Large for gestation age fetus 708178611 O35.8XX9 [id number] Gabi Duque [place] [address],[place] [address] 02/28/2020 10:50:40 02/28/2020 11:56:08 Uterine size for dates discrepancy 600635656 O26.843 Z3A.31 [id number] Chandu Monson MD [place] [address],[place] [address] 03/06/2020 12:10:22 03/06/2020 12:42:34 Routine care 917609678 Z34.02 [id number] [address],[place] [address] 03/19/2020 11:38:56 03/19/2020 15:28:29 Routine care 001370025 Z34.93 [id number] Aylin Bay [facility] [address],[place] [address] 03/28/2020 09:41:26 03/28/2020 10:25:38 Routine care 186848819 Z34.93 [id number] Aylin Bay [facility] [address],[place] [address] 04/02/2020 12:44:30 04/02/2020 13:46:48 Routine care 324485656 Z34.93 [id number] [facility] [address],[place] [address] 04/09/2020 12:12:16 04/10/2020 15:39:22 Routine care 260859760 Z34.93 [id number] Donita Hemphill [facility] [address],[place] [address] 04/09/2020 12:54:51 04/09/2020 13:29:44 Reduced movement 392922739 O36.8130 [id number] [facility] [address],[place] [address] 04/14/2020 16:51:08 04/14/2020 17:48:58 Routine care 749694834 Z34.93 [id number] [facility] [address],[place] [address] 06/04/2020 09:22:06 06/04/2020 11:37:23 state 94940100 Z39.2 Continue to watch for signs/symp toms of post depression . Return one year from last pap smear for a well woman exam. Pt planning on pcp managing contracept ion. Patient received above instructio ns, and questions have been answered. If you have any questions please call or respond to this email. Patient was made aware of the patient portal and may obtain a paper copy of today's plan if desiredp Abnormal v aginal bleeding 506874466 N93.9 Abnormal bleeding may be due to depo provera. Will check u/s and labs. [id number] [facility] [address],[place] [address] 06/05/2020 10:16:39 06/05/2020 10:57:21 Abnormal vaginal bleeding 979895776 N93.9 [id number] ENRIQUE Manley [place] [address],[place] [address] 03/29/2022 09:58:08 03/29/2022 11:15:57 Contraception care management 479542839 Z30.9 We discussed normal to have some spotting episodes while on Depo-Prove raShe is no longer bleeding, will have patient monitor spotting and call the office with any prolonged spotting or heavy vaginal bleeding.S TI testing declined todayUrine hcg (-) todayUA today (-)We discussed pelvic cramping, option of monitoring to see if it continues vs pelvic u/s. She would like to monitor it for now and call the office if it continues. She is not currently having any pain.ED precaution s discussed Time spent in visit is a total of 25 mins with at least 50% of visit consisting of counseling and review of plan of care. Abdominal pain 19298054 R10.9 [id number] ENRIQUE Manley [place] [address],[place] [address] 08/25/2023 09:51:13 08/25/2023 14:05:25 Missed period 32349163 N92.5 UPT (-)[facility] ordered[place] cussed her period hx, reviewed timed IC, encouraged daily PNV starting nowcontinu e to track cycles, recommend returning in 1 month for WWE - due for primary pap Time spent in visit is a total of 18 mins with at least 50% of visit consisting of counseling and review of plan of care. Reproducti ve care management 121169843 Z31.9 [id number] ENRIQUE Manley [place] [address],[place] [address] 11/03/2023 09:40:36 11/03/2023 13:57:25 Screening procedure 70560350 Z13.9 Gynecologi c examination 59707284 Z01.419 Z11.3 Z11.8 WWEBC - none. TTCdiscuss ed timed IC, daily PNVpap updateddec lined STI screenenco uraged annual exam with PCP Take Calcium with Vitamin D daily if not receiving in daily diet.It is strongly advised to have an annual flu shot and up can obtain at most pharmacies . If you have not had a TDap shot in the last 10 years you should obtain one as well. Discussed with patient & provided with informatio n regarding Gardisil vaccine to prevent the 4 strains for HPV that cause cervical cancer if under age 26.Encoura ge safe sexual practices, to use condoms and limit partners if not already in a monogamous relationsh ip.Do monthly self breast exams. BRCA testing is now available for patients with strong genetic history of female cancer. If interested contact the office. Engage in regular exercise. Avoid tobacco and illicit drugs. This lifestyle behavior pattern will lead to less health conditions and longer life span. If BMI greater than 25 dietary consult advised. Patient received above instructio ns, and questions have been answered. If you have any questions please call or respond to this email. Patient was made aware of the patient portal and may obtain a paper copy of today's plan if desired. [id number] Aylin Bay CNM [place] [address],[place] [address] 03/16/2024 14:08:22 03/16/2024 15:25:22 Trying to conceive 577908537 Z31.9 take vitamin dailycheck labs todayplan mid luteal progestero ne day 21 or 7 days after + ovulationd iscussed COST, handout given, will acquire semen analysis records Anovulation 91206501 N97 .0 check mid [place]gester[place] [id number] [facility] [address],[place] [address] 04/19/2024 11:11:20 04/19/2024 13:13:24 Uterine size for dates discrepancy 444623047 O26.841 O30.041 O36.80X0 Z3A.[id number] [facility] [address],[place] [address] 04/25/2024 16:48:55 04/26/2024 01:49:01 Uncertain viability of [id number] O36.80X0 O30.041 Z3A.01 [id number] [facility] [address],[place] [address] 04/25/2024 16:49:26 04/27/2024 09:25:08 Amenorrhea 50761660 N91.2 Twin 43809904 O30.009 continue to monitor growthpren atal vitamin dailyok for zofran if needed Migraine 48000396 G43.90 9 try exedrin migraine if [facility] [id number] [facility] [address],[place] [address] 05/10/2024 14:51:05 05/10/2024 15:24:11 Uncertain viability of [id number] O36.80X0 O31.10X9 Z3A.09 [id number] [facility] [address],[place] [address] 05/11/2024 09:11:35 05/11/2024 11:31:30 Missed miscarriage 99116041 O02.1 twin B Amenorrhea 61078008 N91. 2 twin A +FHR, will continue to monitorpap up to datereview ed education and precaution sf/u 12 weeks new ob and first look, will determine when genetics may be collected for NIPT [id number] [facility] [address],[place] [address] 05/16/2024 14:16:45 05/16/2024 14:53:41 Abdominal pain in 673667521 O99.891 O31.11X0 Z3A.10 [id number] Aylin Bay [facility] [address],[place] [address] 05/16/2024 14:44:18 05/16/2024 16:56:25 Pain in pelvis 72574099 R10.2 Abdominal pain 74412136 R10.[id number] [facility] [address],[place] [address] 06/08/2024 11:12:53 06/08/2024 11:57:37 screening 577269349 Z36.82 O31.10X9 Z3A.13 [id number] Aylin Bay [facility] [address],[place] [address] 06/08/2024 11:13:15 06/08/2024 12:37:51 Gestation period, 13 weeks 08033958 Z3A.13 Routine an tenatal care 971053414 Z34.93 [facility] [id number] G43.90 9 [id number] Aylin Bay [facility] [address],[place] [address] 07/06/2024 10:23:36 07/06/2024 13:25:04 Gestation period, 17 weeks 05062733 Z3A.17 continue vitamin [id number] [facility] [address],[place] [address] 07/27/2024 11:49:24 07/27/2024 14:42:58 screening for malformation 853670475 Z36.3 Z3A.20 [id number] Aylin Bay [facility] [address],[facility] [place] [address] 07/27/2024 11:49:36 07/27/2024 14:42:49 Gestation period, 20 weeks 55082703 Z3A.20 [id number] Gabi Duque [place] [address],[facility] [place] [address] 08/22/2024 17:23:27 08/22/2024 18:34:48 screening 243275550 Z36.2 Z3A.24 [id number] Aylin Bay [facility] [address],[place] [address] 08/22/2024 17:23:43 08/23/2024 12:50:34 Gestation period, 24 weeks 980351727 Z3A.24 Recurrent bleeding of nose 4649058401 102 R04.0 plan saline spray daily Health Concerns Section Related Observation LastModified by Organization Detai ls LastModified Time None Recorded Concern Status LastModified by Organization Details LastModified Time None Recorded Advance Directives Directive None Recorded Payers Encounter Date Sequence Insurance Name Policy Number Policy Barrett Covered Member ID Barrett Member ID Guarantor Name 07/06/2024 1 [facility] ON OR AFTER 01/29/21 (MEDICAID REPLACEMENT - HMO) Michelle Olivas [id number] Michelle Olivas 07/27/2024 1 [facility] ON OR AFTER 01/29/21 (MEDICAID REPLACEMENT - HMO) Michelle Olivas [id number] Michelle Olivas 07/27/2024 1 [facility] ON OR AFTER 01/29/21 (MEDICAID REPLACEMENT - HMO) Michelle Olivas [id number] Michelle Olivas 08/22/2024 1 [facility] ON OR AFTER 01/29/21 (MEDICAID REPLACEMENT - HMO) Michelle Olivas [id number] Michelle Olivas 08/22/2024 1 [facility] ON OR AFTER 01/29/21 (MEDICAID REPLACEMENT - HMO) Michelle Olivas [id number] Michelle Olivas OBGyn Episode Ob Episode Information Episode Created Date Number of Fetuses Patient Bloodtype Patient rh Status Prepregnancy Weight lbs Domestic Partner Domestic Partner Phone Father Name Advertising Assistant Status 11/20/19 20 1 O Negative 150 CLOSED Fetus Data First Name Last Name Admitted to NICU Weight (g) Sex Living Outcome Pediatric Complications Fetus ID Race Codes Race Delivery Type 3600.38 65 M true Full Term 667 Vaginal Delivery Jam Calculation Initial Jam Date Initial Exam Date Initial Exam Provider Initial Ultrasound Date Last Menstrual Period Date Ultra Sound Weeks Gestation 04/27/2020 11/20/2019 09/27/2019 07/22/2019 9 Eighteen To Twenty Week Jam Update Ultra Sound Date Fundal Height At Umbil Quickening Date Ultra Sound Latest Weeks Gestation Final Jam Confirmed By Final Jam Confirmed Date Final Jam Date Ultra Sound Latest Days Gestation 0 [email or web address] 01/10/2020 04/27/20 20 0 Pre- Flowsheet Flowsheet Date 11/20/2019 Serna Score Blood Edema Fundus Height Fundus Units Glucose Ketones Leukocytes Nitrite Labor Signs Protein Cervic Dilation Cervic Effacement Cervic Station none 18 trace Type Weight in lbs Pre/Post Dialysis Refused Weight 149.266311518135 BP Diastolic BP Location Tested BP Systolic BP Type 80 121 Fetus Heart Rate Present A 150 Fetus Movement A Yes Comments neg glucose. No nausea excep t after taking PNV at night with snack. Try taking it with larger meal at lunch or dinner. Seq 2 today. Flowsheet Date 12/18/2019 Serna Score Blood Edema Fundus Height Fundus Units Glucose Ketones Leukocytes Nitrite Labor Signs Protein Cervic Dilation Cervic Effacement Cervic Station Type Weight in lbs Pre/Post Dialysis Refused BP Diastolic BP Location Tested BP Systolic BP Type Fetus Heart Rate Present Fetus Movement Comments Flowsheet Date 12/18/2019 Serna Score Blood Edema Fundus Height Fundus Units Glucose Ketones Leukocytes Nitrite Labor Signs Protein Cervic Dilation Cervic Effacement Cervic Station none 22 cm trace Type Weight in lbs Pre/Post Dialysis Refused Weight 153.698499116583 BP Diastolic BP Location Tested BP Systolic BP Type 83 R arm 126 sitting Fetus Heart Rate Present A 145 Fetus Movement A Yes Comments Glucose negative. bc, rma No complaints. Has gender in envelope! Flowsheet Date 10/23/2019 Serna Score Blood Edema Fundus Height Fundus Units Glucose Ketones Leukocytes Nitrite Labor Signs Protein Cervic Dilation Cervic Effacement Cervic Station none 12 trace Type Weight in lbs Pre/Post Dialysis Refused Weight 150.937161685893 BP Diastolic BP Location Tested BP Systolic BP Type 82 127 sitting Fetus Heart Rate Present A 155 Fetus Movement A No Comments G1 at 13+2 by sure LMP = 9 w ugashik U/S. She has MOREIRA about every other day relieved with Tylenol. Nausea but no emesis. She had spotting in early September but none since Flowsheet Date 01/10/2020 Serna Score Blood Edema Fundus Height Fundus Units Glucose Ketones Leukocytes Nitrite Labor Signs Protein Cervic Dilation Cervic Effacement Cervic Station 25 trace Type Weight in lbs Pre/Post Dialysis Refused Weight 157.938582103845 BP Diastolic BP Location Tested BP Systolic BP Type 76 127 Fetus Heart Rate Present A 155 Fetus Movement A Yes Comments Flowsheet Date 02/05/2020 Serna Score Blood Edema Fundus Height Fundus Units Glucose Ketones Leukocytes Nitrite Labor Signs Protein Cervic Dilation Cervic Effacement Cervic Station neg trace 27 trace Type Weight in lbs Pre/Post Dialysis Refused Weight 160.559215490657 BP Diastolic BP Location Tested BP Systolic BP Type 75 114 Fetus Heart Rate Present A 156 Present Fetus Movement A Yes Comments PATIENT STATES THAT HAVING S WELLING, swelling resolves by am, monitor at home, rx for GCT and rhogam givenfox [place] Flowsheet Date 02/19/2020 Serna Score Blood Edema Fundus Height Fundus Units Glucose Ketones Leukocytes Nitrite Labor Signs Protein Cervic Dilation Cervic Effacement Cervic Station 33 trace Type Weight in lbs Pre/Post Dialysis Refused Weight 162.207899863421 BP Diastolic BP Location Tested BP Systolic BP Type 78 123 Fetus Heart Rate Present A 145 Fetus Movement A Yes Comments s?d -ultrasound to check growth Flowsheet Date 02/28/2020 Serna Score Blood Edema Fundus Height Fundus Units Glucose Ketones Leukocytes Nitrite Labor Signs Protein Cervic Dilation Cervic Effacement Cervic Station Type Weight in lbs Pre/Post Dialysis Refused BP Diastolic BP Location Tested BP Systolic BP Type Fetus Heart Rate Present Fetus Movement Comments Flowsheet Date 03/06/2020 Serna Score Blood Edema Fundus Height Fundus Units Glucose Ketones Leukocytes Nitrite Labor Signs Protein Cervic Dilation Cervic Effacement Cervic Station 34 trace Type Weight in lbs Pre/Post Dialysis Refused Weight 166.460910086969 BP Diastolic BP Location Tested BP Systolic BP Type 79 127 Fetus Heart Rate Present A 145 Fetus Movement A Yes Comments normal blood sugars Flowsheet Date 03/19/2020 Serna Score Blood Edema Fundus Height Fundus Units Glucose Ketones Leukocytes Nitrite Labor Signs Protein Cervic Dilation Cervic Effacement Cervic Station neg trace 35 trace Type Weight in lbs Pre/Post Dialysis Refused Weight 171.651051401571 BP Diastolic BP Location Tested BP Systolic BP Type 84 132 Fetus Heart Rate Present A 140 Fetus Movement A Yes Comments patient states that was in l abor and delivery on Tuesday and Tuesday with discharge and contractions and is having some swelling. Contractions occasional. PTL precautions discussed. Flowsheet Date 03/28/2020 Serna Score Blood Edema Fundus Height Fundus Units Glucose Ketones Leukocytes Nitrite Labor Signs Protein Cervic Dilation Cervic Effacement Cervic Station neg trace 32 trace 3cm 70% -2 Type Weight in lbs Pre/Post Dialysis Refused Weight 167.849218509989 BP Diastolic BP Location Tested BP Systolic BP Type 85 125 Fetus Heart Rate Present A 155 Present Fetus Movement A Yes Comments Patient is here for low pelv ic pain , back pain, contractions, discharge, and swelling Flowsheet Date 04/02/2020 Serna Score Blood Edema Fundus Height Fundus Units Glucose Ketones Leukocytes Nitrite Labor Signs Protein Cervic Dilation Cervic Effacement Cervic Station neg trace 33 trace 3cm 70% -1 Type Weight in lbs Pre/Post Dialysis Refused Weight 168.139678624699 BP Diastolic BP Location Tested BP Systolic BP Type 84 127 Fetus Heart Rate Present A 144 Fetus Movement A Yes Comments patient states that having p ain, contractions, discharge and swelling, labor precautions Flowsheet Date 04/09/2020 Serna Score Blood Edema Fundus Height Fundus Units Glucose Ketones Leukocytes Nitrite Labor Signs Protein Cervic Dilation Cervic Effacement Cervic Station 37 trace 4cm 70% -2 Type Weight in lbs Pre/Post Dialysis Refused Weight 172.039380999085 BP Diastolic BP Location Tested BP Systolic BP Type 89 L arm 137 sitting Fetus Heart Rate Present A 148 Fetus Movement A Yes Comments Pt doing well. Maybe a littl e decrease in movement. Discussed importance of normal movement and kick counts in great detail. Will do an NST today. Labor precautions also discussed. Flowsheet Date 04/09/2020 Serna Score Blood Edema Fundus Height Fundus Units Glucose Ketones Leukocytes Nitrite Labor Signs Protein Cervic Dilation Cervic Effacement Cervic Station Type Weight in lbs Pre/Post Dialysis Refused BP Diastolic BP Location Tested BP Systolic BP Type Fetus Heart Rate Present Fetus Movement Comments Flowsheet Date 04/14/2020 Serna Score Blood Edema Fundus Height Fundus Units Glucose Ketones Leukocytes Nitrite Labor Signs Protein Cervic Dilation Cervic Effacement Cervic Station trace 37 trace Type Weight in lbs Pre/Post Dialysis Refused Weight 173.242238646092 BP Diastolic BP Location Tested BP Systolic BP Type 93 L arm 142 sitting Fetus Heart Rate Present A 140 Fetus Movement A Yes Comments Elevated bp. Denies h/a, v/d , e/p. Pt sent to L&D for pih evaluation. Flowsheet Date 06/04/2020 Serna Score Blood Edema Fundus Height Fundus Units Glucose Ketones Leukocytes Nitrite Labor Signs Protein Cervic Dilation Cervic Effacement Cervic Station Type Weight in lbs Pre/Post Dialysis Refused Weight 153.285963022085 BP Diastolic BP Location Tested BP Systolic BP Type 75 L arm 118 sitting Fetus Heart Rate Present Fetus Movement Comments Menstrual History Last Menstrual Date Menses Monthly On Bcp Conception Prior Menses Frequency Hcg Plus Date Menarche Onset Age 1207/22/2019 Genetic Screening And Infection History Question Response Note Mental Retardation/Autism false Patient's Age Will Be 35 Years Or Older At Estim ated Date of Delivery false Thalassemia (Turkish, Guamanian, Mediterranean, Or Background): MCV < 80 false Neural Tube Defect (Meningomyelocele, Spina Bifi da, Or Anencephaly) false Congenital Heart Defect false Down Syndrome false Buster-Sachs (eg, Synagogue, Cajun, Mosotho[place]) f alse Manpreet Disease false Sickle Cell Disease Or Trait () false Hemophilia Or Other Blood Disorders false Muscular Dystrophy false Cystic Fibrosis false [place]'s Chorea false Intellectual Disability/Autism false If Yes, Was Person Tested For Fragile X? false Other Inherited Genetic Or Chromosomal Disorder false Maternal Metabolic Disorder (eg, Type 1 Diabetes , PKU) false Patient Or Baby's Father Had A Child With Defects Not Listed Above false Recurrent Loss, Or A Stillbirth false Medications (including Suppl ements, Vitamins, Herbs, OTC Drugs), Illicit/Recreational Drugs, Alcohol false If Yes, Agent(s) And Strength/Dosage false Any Other Genetic History false Live With Someone With TB Or Exposed To TB false Patient Or Partner Has History Of Genital Herpes false Rash Or Viral Illness Since Last Menstrual Perio d false History Of STD, Gonorrhea, Chlamydia, HPV, Syphi lis false Other Infection History false History of HIV false History of Hepatitis false Prior GBS-infected child false Hemoglobinopathy Or Carrier false Other Structural Defect false Recent Travel History Outside of Country false Delivery Information Delivery Date Delivery Type Labor Anesthesia Weeks Gestation Incision Type Labor Labor Length Hrs Delivered By Post Complications Tubal Sterilization Discharge Date Comments 0 Sponta neous None 38.2 kpanyik precipito us labor Discharge Information Feeding Method Contraceptive Method Maternal HG B and HCT Levels Ob Episode Information Episode Created Date Number of Fetuses Patient Bloodtype Patient rh Status Prepregnancy Weight lbs Domestic Partner Domestic Partner Phone Father Name Advertising Assistant Status 04/25/20 1 DELETED Jam Calculation Initial Jam Date Initial Exam Date Initial Exam Provider Initial Ultrasound Date Last Menstrual Period Date Ultra Sound Weeks Gestation 0 Eighteen To Twenty Week Jam Update Ultra Sound Date Fundal Height At Umbil Quickening Date Ultra Sound Latest Weeks Gestation Final Jam Confirmed By Final Jam Confirmed Date Final Jam Date Ultra Sound Latest Days Gestation 0 0 Menstrual History Last Menstrual Date Menses Monthly On Bcp Conception Prior Menses Frequency Hcg Plus Date Menarche Onset Age Delivery Information Delivery Date Delivery Type Labor Anesthesia Weeks Gestation Incision Type Labor Labor Length Hrs Delivered By Post Complications Tubal Sterilization Discharge Date Comments 0 38.2 Discharge Information Feeding Method Contraceptive Method Maternal HG B and HCT Levels Ob Episode Information Episode Created Date Number of Fetuses Patient Bloodtype Patient rh Status Prepregnancy Weight lbs Domestic Partner Domestic Partner Phone Father Name Advertising Assistant Status 06/08/20 1 O Negative 153 Home [employer] OPEN Fetus Data First Name Last Name Admitted to NICU Weight (g) Sex Living Outcome Pediatric Complications Fetus ID Race Codes Race Delivery Type [id number] Problems Problem Notes rhogam 04/02/24 Problem Name Start Date End Date Resolution Snomed Code Not e 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 [id number] james pregn ya Vanishing twin syndrome [id number] Jam Calculation Initial Jam Date Initial Exam Date Initial Exam Provider Initial Ultrasound Date Last Menstrual Period Date Ultra Sound Weeks Gestation 12/10/2024 05/10/2024 [place] 05/10/2024 03/05/2024 9 Eighteen To Twenty Week Jam Update Ultra Sound Date Fundal Height At Umbil Quickening Date Ultra Sound Latest Weeks Gestation Final Jam Confirmed By Final Jam Confirmed Date Final Jam Date Ultra Sound Latest Days Gestation 0 0 Pre- Flowsheet Flowsheet Date 06/08/2024 Serna Score Blood Edema Fundus Height Fundus Units Glucose Ketones Leukocytes Nitrite Labor Signs Protein Cervic Dilation Cervic Effacement Cervic Station neg trace none trace Type Weight in lbs Pre/Post Dialysis Refused Weight 153.642553884959 BP Diastolic BP Location Tested BP Systolic BP Type 78 137 Fetus Heart Rate Present Fetus Movement A No B No Comments patient is having rib pain, headache, cramping, swelling and nausea. Flowsheet Date 07/06/2024 Serna Score Blood Edema Fundus Height Fundus Units Glucose Ketones Leukocytes Nitrite Labor Signs Protein Cervic Dilation Cervic Effacement Cervic Station trace Type Weight in lbs Pre/Post Dialysis Refused 156.148866807312 BP Diastolic BP Location Tested BP Systolic BP Type 78 119 Fetus Heart Rate Present Fetus Movement A No B No Comments Patient is having headaches, pressure, discharge, swelling, nausea and vomiting. reviewed precautions, ice ok for ligament pain order new maternity belt at 24 weeks, f/u anatomy scan as scheduled Flowsheet Date 07/27/2024 Serna Score Blood Edema Fundus Height Fundus Units Glucose Ketones Leukocytes Nitrite Labor Signs Protein Cervic Dilation Cervic Effacement Cervic Station Type Weight in lbs Pre/Post Dialysis Refused BP Diastolic BP Location Tested BP Systolic BP Type Fetus Heart Rate Present Fetus Movement Comments Flowsheet Date 07/27/2024 Serna Score Blood Edema Fundus Height Fundus Units Glucose Ketones Leukocytes Nitrite Labor Signs Protein Cervic Dilation Cervic Effacement Cervic Station Type Weight in lbs Pre/Post Dialysis Refused 161.284107593321 BP Diastolic BP Location Tested BP Systolic BP Type 85 126 Fetus Heart Rate Present Fetus Movement A Yes Comments Patient is having back pain, cramping, swelling, nausea and vomiting. anatomy incomplete f/u 4 weeksback pain still bothersome cant walk, discussed sitting on support pillow, PT referral and flexeril refill, maternity belt ordered Flowsheet Date 08/22/2024 Serna Score Blood Edema Fundus Height Fundus Units Glucose Ketones Leukocytes Nitrite Labor Signs Protein Cervic Dilation Cervic Effacement Cervic Station Type Weight in lbs Pre/Post Dialysis Refused BP Diastolic BP Location Tested BP Systolic BP Type Fetus Heart Rate Present Fetus Movement Comments Flowsheet Date 08/22/2024 Serna Score Blood Edema Fundus Height Fundus Units Glucose Ketones Leukocytes Nitrite Labor Signs Protein Cervic Dilation Cervic Effacement Cervic Station trace Type Weight in lbs Pre/Post Dialysis Refused 168.644006826224 BP Diastolic BP Location Tested BP Systolic BP Type 84 132 Fetus Heart Rate Present Fetus Movement A Yes Comments patient is having nose bleed s, cough up blood, BH contractions, discharge and swelling. nasasl spray daily, ptl precautions, gct at next visit, mfm consult for prominent aortic root, f/u here in 4 weeks, wearing support belt and is helping Menstrual History Last Menstrual Date Menses Monthly On Bcp Conception Prior Menses Frequency Hcg Plus Date Menarche Onset Age 0803/05/20[birth year] Delivery Information Delivery Date Delivery Type Labor Anesthesia Weeks Gestation Incision Type Labor Labor Length Hrs Delivered By Post Complications Tubal Sterilization Discharge Date Comments Discharge Information Feeding Method Contraceptive Method Maternal HG B and HCT Levels
--- OUTSIDE RECORDS SUMMARY | 2024-08-23 16:11 | XMS_ITS | Referral Summary ---
Author Organization [facility] Address [address] [place] [address] Care Team Providers Care Blood Bank Business Manager Name Role Phone Sydney Rush MD Primary Care Provider [phone] Source Comments [facility],non-owned Affiliates and Associated Physician Practices is amultiple site organization consisting of ambulatory clinics and hospital sitesin [place], [place], [place] and [place]. This disclosure is being madepursuant to the Care Everywhere program and may not contain all information available regarding this patient. Last updated 18.[facility] Allergies No known active allergies Medications * Be aware that medications may not be up to date on this document. Alwaysverify current medications with the patient. Medication Sig Dispensed Refills Start Date End Date Status ibuprofen (MOTRIN) 600 MG tablet Take 600 mg by mouth every 6 hours as needed for Pain Active Other White dissolving pill for nausea Active cyproheptadine (PERIACTIN) 4 MG tablet Take 1 Tab by mouth at bedtime 30 Tab 2 01/12/2017 Active Active Problems Problem Noted Date Diagnosed Date Pain, abdominal, generalized 01/12/2017 Social History Tobacco Use Types Packs/Day Years Used Date Smoking Tobacco: Never Smokeless Tobacco: Never Alcohol Use Standard Drinks/Week Comments No 0 (1 standard drink = 0.6 oz pur e alcohol) Sex and Gender Information Value Date Recorded Sex Assigned at Not on file Gender Identity Not on file Sexual Orientation Not on file Last Filed Vital Signs Vital Sign Reading Time Taken Comments Blood Pressure 110/70 01/21/2017 10:09 AM CDT Pulse 64 01/12/2017 11:15 AM CDT Temperature 36.3 ??C (97.3 ??F) 01/12/2017 10:45 AM C DT Respiratory Rate 16 01/12/2017 11:15 AM CDT Oxygen Saturation 97% 01/12/2017 11:00 AM CDT Inhaled Oxygen Concentration 100% 01/12/2017 1 0:45 AM CDT Weight 65.5 kg (144 lb 6.4 oz) 01/21/2017 10:09 AM CDT Height 166 cm (5' 5.35 ) 01/21/2017 10:09 AM CDT Body Mass Index 23.77 01/21/2017 10:09 AM CDT Functional Status Functional Status Response Date of Assess ment Is person deaf or have serious hearing difficult y? No 01/12/2017 Is person blind or have serious difficulty seein g? No 01/12/2017 Does person have serious dif ficulty walking/climbing stairs? No 01/12/2017 Does person have difficulty dressing/bathing? No 01/12/2017 Does person have difficulty doing errands alone? No 01/12/2017 Cognitive Status Response Date of Assessm ent Does person have difficulty concentrating/remembering/making decisions? No 01/12/2017 Plan of Treatment Not on file Care Teams Blood Bank Business Manager Relationship Specialty Start Date End Date Sydney Rush MD [address] [place] [address] [place] [phone] PCP - General Family Medicine 07/10/13
--- OUTSIDE RECORDS SUMMARY | 2024-08-23 16:11 | XMS_ITS | Patient Health Summary ---
Author Organization [facility] Address [address] [place] [address] Care Team Providers Care Wilderness Guide Name Role Phone Sydney Rush MD Primary Care Provider [phone] Note from [facility],non-owned Affiliates and Associated Physician Practices is amultiple site organization consisting of ambulatory clinics and hospital sitesin [place], [place], [place] and [place]. This disclosure is being madepursuant to the Care Everywhere program and may not contain all information available regarding this patient. Last updated 18.[facility] Allergies No known active allergies Medications * Be aware that medications may not be up to date on this document. Alwaysverify current medications with the patient. * ibuprofen (MOTRIN) 600 MG tablet Take 600 mg by mouth every 6 hours as needed for Pain * Other White dissolving pill for nausea * cyproheptadine (PERIACTIN) 4 MG tablet(Started 01/12/2017) Take 1 Tab by mouth at bedtime 2 refills remaining Active Problems Problem Noted Date Diagnosed Date [...] Mass Index 23.77 01/21/2017 10:09 AM CDT Procedures * US ABDOMEN LIMITED(Performed 01/21/2017) Performed for Abdominal pain, unspecified location * PATHOLOGY TISSUE EXAM (STL)(Performed 01/12/2017) Performed for Pain, abdominal, generalized * HELICOBACTER PYLORI UREASE (STL)(Performed 01/12/2017) Performed for Generalized abdominal pain * ESOPHAGOGASTRODUODENOSCOPY (EGD) BIOPSY(Performed 01/12/2017) Performed for Pain, abdominal, generalized * HCG URINE QUALITATIVE - POCT (IP) BEAKER(Performed 01/12/2017) * EGD(Performed 01/12/2017) Performed for Generalized abdominal pain * TISSUE TRANSGLUTAMINASE AB IGA(Performed 12/16/2016) Performed for Generalized abdominal pain * ERYTHROCYTE SEDIMENTATION RATE(Performed 12/16/2016) Performed for Generalized abdominal pain * IGA BLOOD(Performed 12/16/2016) Performed for Generalized abdominal pain * C-REACTIVE PROTEIN(Performed 12/16/2016) Performed for Generalized abdominal pain * COMPREHENSIVE METABOLIC PANEL(Performed 12/16/2016) Performed for Generalized abdominal pain * CBC W AUTO DIFFERENTIAL(Performed 12/16/2016) Performed for Generalized abdominal pain Results * US ABDOMEN LIMITED (01/21/2017 9:54 AM CDT) Anatomical Region Laterality Modality Abdomen Ultrasound 01/21/2017 9:56 AM CDT Impressions 01/21/2017 10:00 AM CDT 1. No sonographic evidence of cholelithiasis. 2. Heterogeneous appearance of the spleen which is at the upper limits of normal in length for the patient's age and is of uncertain clinical significance. Narrative 01/21/2017 10:00 AM CDT EXAMINATION: ??ABDOMINAL ULTRASOUND LIMITED-RIGHT UPPER QUADRANT HISTORY: ??16-year-old with abdominal pain. COMPARISON: None. FINDINGS: ??Multiple, real-time images of the right upper quadrant are obtained. Ultrasound examination shows a normal appearing liver. There is no liver surface nodularity. The gallbladder is normal. There is no pericholecystic fluid. ??There is no biliary dilatation. ??The common duct measures 3 mm in diameter, which is within normal limits. The imaged portions of the right kidney are normal without hydronephrosis. The spleen measures 12.6 cm in length which is at the upper limits of normal for the patient's age. The spleen is also somewhat heterogeneous in appearance. Procedure Note Asiya Britt MD - 01/21/2017 EXAMINATION: ABDOMINAL ULTRASOUND LIMITED-RIGHT UPPER QUADRANT HISTORY: 16-year-old with abdominal pain. COMPARISON: None. FINDINGS: Multiple, real-time images of the right upper quadrant are obtained. Ultrasound examination shows a normal appearing liver. There is no liver surface nodularity. The gallbladder is normal. There is no pericholecystic fluid. There is no biliary dilatation. The common duct measures 3 mm in diameter, which is within normal limits. The imaged portions of the right kidney are normal without hydronephrosis. The spleen measures 12.6 cm in length which is at the upper limits of normal for the patient's age. The spleen is also somewhat heterogeneous in appearance. IMPRESSION 1. No sonographic evidence of cholelithiasis. 2. Heterogeneous appearance of the spleen which is at the upper limits of normal in length for the patient's age and is of uncertain clinical significance. Trena Tanner MD ORDERABLES * GROSS + MICRO EXAM (STL) (01/12/2017 10:19 AM CDT) Case Report Surgical Pathology Report ? Case: [id number] ? Authorizing Provider: ??Trena Tanner MD ?Collected: ? 01/12/2017 10:19 AM ? Ordering Location: ? [facility] ?Received: ?01/12/2017 11:08 AM ? Pathologist: ? Juan Jones MD ? Specimens: ?? A) - Duodenal Biopsy ? B) - Stomach Biopsy ? C) - Esophageal Biopsy, distal ? D) - Esophageal Biopsy, proximal ? 01/17/2017 10:21 AM CDT [facility] Final Diagnosis A. DUODENUM, BIOPSY: -NO SIGNIFICANT HISTOPATHOLOGICAL CHANGES B. STOMACH, BIOPSY: -NO SIGNIFICANT HISTOPATHOLOGICAL CHANGES C. ESOPHAGUS, DISTAL, BIOPSY: -MINIMAL HISTOLOGICAL ABNORMALITIES -SEE MICROSCOPIC DESCRIPTION D. ESOPHAGUS, PROXIMAL, BIOPSY: -MINIMAL HISTOLOGICAL ABNORMALITIES -SEE MICROSCOPIC DESCRIPTION 01/17/2017 10:21 AM [facility] Clinical History The patient is a 16-year-old girl with abdominal pain and dysphagia who underwent upper endoscopy which was found to be normal. 01/17/2017 10:21 AM [facility] Gross Description The specimens are received fixed in formalin in four containers for gross and microscopic examination. All containers are labeled with the patient's name, Michelle Olivas. Specimen A, duodenal biopsy, consists of two 4 mm soft, yellow-mcdaniel tissue fragments submitted in toto as A1. Specimen B, stomach biopsy, consists of two soft, yellow-mcdaniel tissue fragments, 3 mm and 4 mm in greatest dimension. The specimen is submitted in toto as B1. Specimen C, distal esophageal biopsy, consists of two soft, gaston-pink tissue fragments, 2 mm and 4 mm in greatest dimension. The specimen is submitted in toto as C1. Specimen D, proximal esophageal biopsy, consists of two soft, gaston-pink tissue fragments, 3 mm and 5 mm in greatest dimension. The specimen is submitted in toto as D1. (CT/ns) 01/17/2017 10:21 AM [facility] Microscopic Description 12 H&E Sections of the duodenal biopsy show unremarkable small bowel mucosa with no significant inflammation. No parasites are seen. Sections of the stomach biopsy show antral-type mucosa with focal mild chronic inflammation. No microorganisms are seen. Sections of the distal and proximal biopsies show squamous mucosa with glycogenated cells and rare intraepithelial eosinophils, up to one (1) in a high power field. 01/17/2017 10:21 AM [facility] Disclaimer The performance characteristics of all immunohistochemical and indirect immunofluorescence stains (if any) cited in this report were determined by the [facility]opathology [facility] of [facility]. Some of these tests were developed by our own laboratory and have not been cleared or approved by the US Food and Drug Administration (FDA). The FDA does not require this test to go through premarket FDA review. These tests are used for clinical purposes. They should not be regarded as investigational or for research. This laboratory is certified under the Clinical Laboratory Improvement Amendments (CLIA) as qualified to perform high complexity clinical laboratory testing. This case has been personally reviewed and interpreted by the attending (teaching) pathologist. 01/17/2017 10:21 AM CDT [facility] Embedded Images 01/17/2017 10:21 AM CDT [facility] Pathology/Cytology DUODENAL BIOPSY SPECIMEN / Unknown 01/12/2017 10:19 AM CDT 01/12/2017 11:08 AM CDT Miscellaneous samples (specimen) BIOPSY OF STOMACH / Unknown 01/12/2017 10:19 AM CDT 01/12/2017 11:08 AM CDT Miscellaneous samples (specimen) ESOPHAGEAL BIOPSY SPECIMEN / Unknown 01/12/2017 10:20 AM CDT 01/12/2017 11:08 AM CDT Miscellaneous samples (specimen) ESOPHAGEAL BIOPSY SPECIMEN / Unknown 01/12/2017 10:20 AM CDT 01/12/2017 11:08 AM CDT Trena Tanner MD LAB - PATHOLOGY/CYTO LOGY ORDERABLES Performing Organization Address City/[facility] Co de Phone Number [facility] [address] [place] [address] * HELICOBACTER PYLORI UREASE (STL) (01/12/2017 10:19 AM CDT) Helicobacter pylori Urease Initial Negative Negative 01/13/2017 3:29 PM CDT [facility] Helicobacter pylori Urease Final Negative Negative 01/13/2017 3:29 PM CDT [facility] Comment:This is an appended report. These results have been appended to a previously preliminary verified report. Microbiology GASTRIC ANTRAL BIOPSY SPECIMEN / Unknown 01/12/2017 10:19 AM CDT 01/12/2017 10:31 AM CDT Trena Tanner MD LAB - MICROBIOLOGY O RDERABLES Performing Organization Address City/[facility] Co de Phone Number [facility] [address] [place] [address] * HCG URINE QUALITATIVE - POCT (IP) BEAKER (01/12/2017 9:00 AM CDT) HCG Qual Urine Negative Negative [facility] QC Verified Yes Yes [facility] TESTING Urine URINE / Unknown 01/12/2017 9 :00 AM CDT Trena Tanner MD LAB - POINT OF CARE ORDERABLES Performing Organization Address City/State/ZIP Id de Phone Number [facility] [address] [facility]. [address] [phone] * EGD (01/12/2017 7:05 AM CDT) Report Endoscopy POC _ Patient Name: Michelle Olivas ? Date of : 2000 ? Admit Type: Outpatient Age: 16 ? Gender: Female Attending MD: Trena Tanner MD ??Order #: [id number] _ Procedure: ? Upper GI endoscopy Indications: ? Generalized abdominal pain, Dysphagia Providers: ? Trena Tanner MD Referring MD: ?Sydney Rush MD Medicines: ? General Anesthesia Complications: ? No immediate complications. _ Procedure: ? After obtaining informed consent, the endoscope was passed ? under direct vision. Throughout the procedure, the ? patient's blood pressure, pulse, and oxygen saturations ? were monitored continuously. The Endoscope was introduced ? through the mouth, and advanced to the third part of ? duodenum. The upper GI endoscopy was accomplished without ? difficulty. The patient tolerated the procedure well. Findings: ? The examined esophagus was normal. Biopsies were taken with a cold ? forceps for histology from the proximal and distal esophagus. ? The entire examined stomach was normal. Biopsies were taken with a cold ? forceps for histology. Biopsies were taken with a cold forceps for ? Helicobacter pylori testing using CLOtest. ? The examined duodenum was normal. Biopsies were taken with a cold ? forceps for histology. Impression: ?- Normal esophagus. Biopsied. ? - Normal stomach. Biopsied. ? - Normal examined duodenum. Biopsied. Recommendation: ?- Await pathology results. ? - Discharge patient to home (with parent). ? - Start Periactin 4mg qhs ? - Gallbladder ultrasound ? Procedure Code(s): ? --- Professional --- ? 20130, Esophagogastrodu odenoscopy, flexible, transoral; with biopsy, ? single or multiple ? --- Technical --- ? 08613, Esophagogastrodu odenoscopy, flexible, transoral; with biopsy, ? single or multiple Diagnosis Code(s): ? --- Professional --- ? R10.84, Generalized abdominal pain ? R13.10, Dysphagia, unspecified ? --- Technical --- ? R10.84, Generalized abdominal pain ? R13.10, Dysphagia, unspecified CPT copyright 2015 [employer]. All rights reserved. The codes documented in this report are preliminary and upon sock mender review may be revised to meet current compliance requirements. Dr. Trena Tanner MD Trena Tanner MD 01/12/2017 10:38:42 AM Number of Addenda: 0 Note Initiated On: 01/12/2017 7:05 AM Procedure Date: ? 01/12/2017 7:05:47 AM ? This report has been signed electronically. [facility] 01/12/2017 7:05 AM CDT Trena Tanner MD GI PROCEDURE ORDERAB LES [facility] [address] [place] [place] [address] * TISSUE TRANSGLUTAMINASE AB IGA (12/16/2016 4:06 PM CDT) TTG Antibody IgA <2 0 - 3 U/mL 12/17/2016 2:12 PM CDT [facility] ([facility]) Comment: ?Negative ?0 - ??3 ?Weak Positive ?? 4 - 10 ?Positive ? >10 Tissue Transglutaminase (tTG) has been identified as the endomysial antigen. ??Studies have demonstr- ated that endomysial IgA antibodies have over 99% specificity for gluten sensitive enteropathy. Blood BLOOD SPECIMEN / Unknown Lab Venipuncture / Unknown 12/16/2016 4:06 PM CDT 12/16/2016 4:27 PM CDT Narrative [facility] ([facility]) - 12/17/2016 2:12 PM CDT Performed at: ??01 - [facility] [address] [place], [place] ??[id number] Photograph Mounter: Jeffery Perkins PhD, Phone: ??[phone] Trena Tanner MD LAB - SEROLOGY ORDER RA[facility]L [facility] ([facility]) [address] [place] [address] * C-REACTIVE PROTEIN (12/16/2016 4:06 PM CDT) C-Reactive Protein <0.20 <=0.50 mg/dL 12/16/2016 4:55 PM CDT [facility] Blood BLOOD SPECIMEN / Unknown Lab Venipuncture / Unknown 12/16/2016 4:06 PM CDT 12/16/2016 4:26 PM CDT Trena Tanner MD LAB - CHEMISTRY ORDE CARMELINA Performing Organization Address City/[facility]/ZIP Co de Phone Number [facility] [address] [place] [address] * SED RATE WESTERGREN (12/16/2016 4:06 PM CDT) [facility] Erythrocyte Sedimentation Rate Westergren 3 0 - 12 mm/hr 12/16/2016 5:38 PM CDT [facility] Blood BLOOD SPECIMEN / Unknown Lab Venipuncture / Unknown 12/16/2016 4:06 PM CDT 12/16/2016 4:26 PM CDT Trena Tanner MD LAB - HEMATOLOGY ORD MUKUL Performing Organization Address [facility]/ZIP Co de Phone Number [facility] [address] [place] [phone] * (ABNORMAL) CBC W AUTO DIFFERENTIAL (12/16/2016 4:06 PM CDT) [facility] WBC 7.4 4.5 - 14.5 x10E9/L 12/16/2016 4:44 PM CDT [facility] WBC Corrected x10E9/L 12/16/2016 4:44 PM CDT [facility] RBC 5.30(H) 4.10 - 5.10 x10E12/L 12/16/2016 4:44 PM CDT [facility] Hemoglobin 15.8 12.0 - 16.0 gm/dL 12/16/2016 4:44 PM CDT [facility] Hematocrit 44.7 36.0 - 47.0 % 12/16/2016 4:44 PM CDT [facility] MCV 84.3 78.0 - 98.0 fl 12/16/2016 4:44 PM CDT [facility] MCH 29.8 25.0 - 35.0 pg 12/16/2016 4:44 PM CDT [facility] MCHC 35.3 31.0 - 37.0 gm/dL 12/16/2016 4:44 PM CDT [facility] Platelet Count 224 100 - 400 x10E9/L 12/16/2016 4:44 PM T [facility] RDW-CV 12.9 11.5 - 14.0 % 12/16/2016 4:44 PM CDT [facility] MPV 10.8(H) 6.0 - 9.5 fl 12/16/2016 4:44 PM CDT [facility] Neutrophils % 57.6 24.0 - 66.0 % 12/16/2016 4:44 PM CDT [facility] Lymphocytes % 31.6 22.0 - 61.0 % 12/16/2016 4:44 PM CDT [facility] Monocytes % 7.9 3.0 - 15.0 % 12/16/2016 4:44 PM CDT [facility] Eosinophils % 2.3 0.0 - 10.0 % 12/16/2016 4:44 PM CDT [facility] Basophils % 0.3 % 12/16/2016 4:44 PM CDT [facility] Immature Granulocytes 0.3 % 12/16/2016 4:44 PM CDT [facility] Neutrophil Absolute 4.24 x10E9/L 12/16/2016 4:44 PM CDT [facility] Lymphocytes Absolute 2.32 x10E9/L 12/16/2016 4:44 PM CDT [facility] Monocytes Absolute 0.58 x10E9/L 12/16/2016 4:44 PM CDT [facility] Eosinophils Absolute 0.17 x10E9/L 12/16/2016 4:44 PM CDT [facility] Basophils Absolute 0.02 x10E9/L 12/16/2016 4:44 PM CDT [facility] Immature Granulocytes Absolute 0.02 x10E9/L 12/16/2016 4:44 PM CDT [facility] nRBC Auto 0 /100 WBC 12/16/2016 4:44 PM CDT [facility] Blood BLOOD SPECIMEN / Unknown Lab Venipuncture / Unknown 12/16/2016 4:06 PM CDT 12/16/2016 4:26 PM CDT Trena Tanner MD LAB - HEMATOLOGY ORD ERABLES [facility] [address] [place] [address] * (ABNORMAL) COMPREHENSIVE METABOLIC PANEL (12/16/2016 4:06 PM CDT) [facility] Glucose 77 70 - 105 mg/dL 12/16/2016 5:20 PM [facility] Sodium 139 136 - 145 mmol/L 12/16/2016 5:20 PM [facility] Potassium 4.2 3.5 - 5.1 mmol/L 12/16/2016 5:20 PM [facility] Chloride 107 98 - 107 mmol/L 12/16/2016 5:20 PM [facility] CO2 25 20 - 28 mmol/L 12/16/2016 5:20 PM [facility] Calcium 9.34 9.08 - 10.48 mg/dL 12/16/2016 5:20 PM [facility] Anion Gap 7 5 - 20 mmol/L 12/16/2016 5:20 PM [facility] BUN 17.4 5.3 - 18.7 mg/dL 12/16/2016 5:20 PM [facility] Creatinine 0.84 0.61 - 1.07 mg/dL 12/16/2016 5:20 PM [facility] Alkaline Phosphatase 69(L) 100 - 390 U/L 12/16/2016 5:20 PM [facility] ALT 18 8 - 65 U/L 12/16/2016 5:20 PM [facility] AST 23 3 - 35 U/L 12/16/2016 5:20 PM [facility] Protein Total 7.7 6.3 - 8.2 gm/dL 12/16/2016 5:20 PM [facility] Albumin 4.4 3.3 - 4.9 gm/dL 12/16/2016 5:20 PM [facility] Bilirubin Total 0.6 0.3 - 1.2 mg/dL 12/16/2016 5:20 PM [facility] eGFR by MDRD mL/min/1.7 3m2 12/16/2016 5:20 PM [facility] Comment: eGFR calculations are not performed for children under 18 years old. eGFR by MDRD mL/min/1.7 3m2 12/16/2016 5:20 PM [facility] Comment: eGFR calculations are not performed for children under 18 years old. Blood BLOOD SPECIMEN / Unknown Lab Venipuncture / Unknown 12/16/2016 4:06 PM CDT 12/16/2016 4:26 PM CDT Trena Tanner MD LAB - CHEMISTRY CHERELLE COSME Performing Organization Address City/[facility]/ZIP Co de Phone Number [facility] [place] [address] * IGA BLOOD (12/16/2016 4:06 PM CDT) IgA 113 65 - 421 mg/dL 12/16/2016 5:20 PM CDT [facility] Blood BLOOD SPECIMEN / Unknown Lab Venipuncture / Unknown 12/16/2016 4:06 PM CDT 12/16/2016 4:26 PM CDT Trena Tanner MD LAB - CHEMISTRY CHERELLE COSME Performing Organization Address [facility] Co de Phone Number [facility] [address] [place] [phone] Care Teams Wilderness Guide Relationship Specialty Start Date End Date Sydney Rush MD [address] [place] [address] PADMINI Garcia [phone] PCP - General Family Medicine 07/10/13
--- OUTSIDE RECORDS SUMMARY | 2024-08-23 16:11 | XMS_ITS | Data Portability ---
Author Organization [facility] [employer], Main Office Address [address] [place] [address] Assessment No assessment recorded. Plan of Treatment Reminders Order Date Submit Date Provider Last Modified By Organization Details Last Modified Time Details Appointments None recorded. Lab CBC w/ auto diff [address] (Lab), [address] [place], [address], 3 13:45:41 TSH, serum or plasma [address] (Lab), [address] [place], [address], 3 13:51:17 glycohemogl obin, total, blood [address] (Lab), [address] [place], [address], 3 13:51:41 iron + total iron-bindin g capacity (TIBC), serum [address] (Lab), [address] [place], [address], 3 13:52:49 ferritin, serum or plasma [address] (Lab), [address] [place], [address], 3 13:53:13 vitamin B12, serum [address] (Lab), [address] [place], [address], 3 13:53:57 folate, serum [address] (Lab), [address] [place], [address], 3 13:55:59 CMP, serum or plasma [address] (Lab), [address] [place], [address], 3 13:57:00 test, serum or plasma [address] (Lab), [address] [place], [address], 3 13:57:47 CBC w/ auto diff 2022 023 [facility] (Lab), [address] [place], [address], 3 20:11:38 folate, serum 2022 023 [facility] (Lab), [address] [place], [address], 3 12:11:10 vitamin B12, serum 2022 023 [facility] (Lab), [address] [place], [address], 3 12:11:15 test, serum or plasma 2022 023 [facility] (Lab), [address] [place], [address], 3 21:39:45 rf (rheumatoid factor), serum 2022 023 [facility] (Lab), [address] [place], [address], 3 21:21:23 uric acid, serum or plasma 2022 023 [facility] (Lab), [address] [place], [address], 3 21:26:42 ESR (erythrocyt e sedimentati on rate), blood 2022 023 [facility] (Lab), [address] [place], [address], 3 20:49:08 PATRICIA (antinuclea r antibodies) screen, serum 2022 023 [facility] (Lab), [address] [place], [address], 3 13:33:53 CBC w/ auto diff 2022 023 [facility] (Lab), [address] [place], [address], 3 20:48:44 folate, serum 2022 023 [facility] (Lab), [address] [place], [address], 3 22:23:47 vitamin B12, serum 2022 023 [facility] (Lab), [address] [place], [address], 3 22:23:52 Referral gastroenter ologist referral 2022 023 [email or web address] [id number] [facility], [address], [address], [place], [address], 3 10:46:44 gastroenter ologist referral 2022 023 [email or web address] [facility], [address], [address], [place], [address], 4 17:52:18 Procedures None recorded. Surgeries None recorded. Imaging None recorded. Medication Orders pantoprazol e 40 mg tablet,cherrie yed release 2022 [address] [id number], [address] [place], [place], [id number], 3 18:48:05 famotidine 20 mg tablet 2022 023 [id number], [address] [place], [place], [id number], 3 12:38:44 pantoprazol e 40 mg tablet,cherrie yed release 2022 023 [place] [facility] [facility] #61760, [address] [place], [place], [id number], 3 08:54:29 famotidine 20 mg tablet 2022 023 [place] [facility] #89836, [address] [place], [place], [id number], 3 08:54:28 cyanocobala min (vit B-12) 1,000 mcg/mL injection solution 2022 023 [email or web address] [id number] Not available 3 09:38:30 cyanocobala min (vit B-12) 1,000 mcg/mL injection solution 2022 023 [email or web address] [id number] Not available 16:58:26 ProAir HFA 90 mcg/actuati on aerosol inhaler 2022 023 [facility][id number], [address] [place], [place], [id number], 3 15:50:44 prednisone 20 mg tablet 2022 023 [place] [id number], [address] [place], [place], [id number], 3 15:50:48 Patient TargetsNo targets recorded. Patient InstructionsNo instructions recorded. Reason for Referral [employer] Referral for Gastroesophageal reflux disease without esophagitis Referring Physician: Sydney Rush, [facility], Encounter Date: 01/13/2023 [employer] Referral for Gastroesophageal reflux disease without esophagitis Referring Physician: Sonal Bear [facility], Encounter Date: 06/06/2023 Results Created Date Observation Date Name Description Value Unit Range Abnormal Flag Note LastModifiedBy Organization Detail LastModifiedTime 12/03/1912/02/2022 CBC/C OMPLE TE BLD COUNT W/DIF F white blood cells 7.2 x10'3 /uL 4.2-10 .8 Not Available [facility] (Lab) [address] [place], [address], 12/02/2022 19:37:18 12/03/1912/02/2022 CBC/C OMPLE TE BLD COUNT W/DIF F red blood cells 5.52 x10'6 /uL 3.80-5 .20 high Not Available [facility] (Lab) [address] [place], [address], 12/02/2022 19:37:18 12/03/19 23 12/02/2022 CBC/C OMPLE TE BLD COUNT W/DIF F hemoglobin 16.1 g/dL 12.0-1 5.6 high Not Available [facility] (Lab) [address] [place], [address], 12/02/2022 19:37:18 12/03/19 23 12/02/2022 CBC/C OMPLE TE BLD COUNT W/DIF F hematocrit 48.7 % 35.7-4 5.7 high Not Available [facility] (Lab) [address] [place], [address], 12/02/2022 19:37:18 12/03/19 23 12/02/2022 CBC/C OMPLE TE BLD COUNT W/DIF F mean red cell volume 88.2 fL 82.0-9 9.0 Not Available [facility] (Lab) [address] [place], [address], 12/02/2022 19:37:18 12/03/19 23 12/02/2022 CBC/C OMPLE TE BLD COUNT W/DIF F mean red cell hemoglobin 29.2 pg 27.0-3 3.0 Not Available [facility] (Lab) [address] [place], [address], 12/02/2022 19:37:18 12/03/19 23 12/02/2022 CBC/C OMPLE TE BLD COUNT W/DIF F mean RBC HGB concentratio n 33.1 g/dL 31.0-3 6.0 Not Available [facility] (Lab) [address] [place], [address], 12/02/2022 19:37:18 12/03/19 23 12/02/2022 CBC/C OMPLE TE BLD COUNT W/DIF F red cell distribution width 13.1 % 11.8-1 5.5 Not Available [facility] (Lab) [address] [place], [address], 12/02/2022 19:37:18 12/03/19 23 12/02/2022 CBC/C OMPLE TE BLD COUNT W/DIF F platelets 253 x10'3 /uL 150-40 0 Not Available [facility] (Lab) [address] [place], [address], 12/02/2022 19:37:18 12/03/1912/02/2022 CBC/C OMPLE TE BLD COUNT W/DIF F mean platelet volume 12.3 fL 9.0-12 .4 Not Available [facility] (Lab) [address] [place], [address], 12/02/2022 19:37:18 12/03/19 23 12/02/2022 CBC/C OMPLE TE BLD COUNT W/DIF F neutrophils 65.2 % 39.0-7 2.0 Not Available [facility] (Lab) [address] [place], [address], 12/02/2022 19:37:18 12/03/19 23 12/02/2022 CBC/C OMPLE TE BLD COUNT W/DIF F lymphocytes 25.7 % 16.0-4 7.0 Not Available [facility] (Lab) [address] [place], [address], 12/02/2022 19:37:18 12/03/1912/02/2022 CBC/C OMPLE TE BLD COUNT W/DIF F monocytes 7.2 % 5.0-12 .0 Not Available [facility] (Lab) [address] [place], [address], 12/02/2022 19:37:18 12/03/19 23 12/02/2022 CBC/C OMPLE TE BLD COUNT W/DIF F eosinophils 1.2 % 1.0-7. 0 Not Available [facility] (Lab) [address] [place], [address], 12/02/2022 19:37:18 12/03/19 23 12/02/2022 CBC/C OMPLE TE BLD COUNT W/DIF F basophils 0.4 % 0.0-2. 0 Not Available [facility] (Lab) [address] [place], [address], 12/02/2022 19:37:18 12/03/1912/02/2022 CBC/C OMPLE TE BLD COUNT W/DIF F immature granulocytes 0.3 % 0.00-0 .50 Not Available [facility] (Lab) [address] [place], [address], 12/02/2022 19:37:18 12/03/19 23 12/02/2022 CBC/C OMPLE TE BLD COUNT W/DIF F neutrophils, absolute count 4.70 x10'3 /uL 1.5-8. 0 Not Available [facility] (Lab) [address] [place], [address], 12/02/2022 19:37:18 12/03/1912/02/2022 CBC/C OMPLE TE BLD COUNT W/DIF F lymphocytes, absolute count 1.85 x10'3 /uL 1.07-3 .43 Not Available [facility] (Lab) [address] [place], [address], 12/02/2022 19:37:18 12/03/1912/02/2022 CBC/C OMPLE TE BLD COUNT W/DIF F monocytes, absolute count 0.52 x10'3 /uL 0.29-0 .99 Not Available [facility] (Lab) [address] [place], [address], 12/02/2022 19:37:18 12/03/19 23 12/02/2022 CBC/C OMPLE TE BLD COUNT W/DIF F eosinophils, absolute count 0.09 x10'3 /uL 0.02-0 .53 Not Available [facility] (Lab) [address] [place], [address], 12/02/2022 19:37:18 12/03/19 23 12/02/2022 CBC/C OMPLE TE BLD COUNT W/DIF F basophils, absolute count 0.03 x10'3 /uL 0.01-0 .08 Not Available [facility] (Lab) [address] [place], [address], 12/02/2022 19:37:18 12/03/19 23 12/02/2022 CBC/C OMPLE TE BLD COUNT W/DIF F immature granulocytes ,absolute 0.02 x10'3 /uL 0.00-0 .05 Not Available [facility] (Lab) [address] [place], [address], 12/02/2022 19:37:18 12/03/19 23 12/02/2022 CBC/C OMPLE TE BLD COUNT W/DIF F nucleated red blood cells 0.0 % -[address] [facility] (Lab) [address] [place], [address], 12/02/2022 19:37:18 12/03/19 23 12/02/2022 CBC/C OMPLE TE BLD COUNT W/DIF F NRBC# 0.00 x10'3 /uL Not Available [facility] (Lab) [address] [place], [address], 12/02/2022 19:37:18 12/03/19 23 12/02/2022 IRON/ TIBC PANEL total iron binding capacity 335 mcg/d L 265-47 5 Not Available [facility] (Lab) [address] [place], [address], 12/02/2022 20:10:08 12/03/19 23 12/02/2022 IRON/ TIBC PANEL % transferrin saturation 40 % 20-55 Not Available [facility] (Lab) [address] [place], [address], 12/02/2022 20:10:08 12/03/19 23 12/02/2022 IRON/ TIBC PANEL unsaturated iron bind capacity 201 mcg/d L 126-38 2 Not Available [facility] (Lab) [address] [place], [address], 12/02/2022 20:10:08 12/03/19 23 12/02/2022 IRON/ TIBC PANEL iron 134 mcg/d L 42-175 Not Available [facility] (Lab) [address] [facility] [place], [address], 12/02/2022 20:10:08 12/03/19 23 12/02/2022 COMPR EHENS PETE METAB OLIC PANEL sodium 140 mmol/ L 137-14 5 Not Available [facility] (Lab) [address] [place], [address], 12/02/2022 20:03:27 12/03/19 23 12/02/2022 COMPR EHENS PETE METAB OLIC PANEL potassium 4.3 mmol/ L 3.5-5. 1 Not Available [facility] (Lab) [address] [place], [address], 12/02/2022 20:03:27 12/03/19 23 12/02/2022 COMPR EHENS PETE METAB OLIC PANEL chloride 105 mmol/ L 98-107 Not Available [facility] (Lab) [address] [place], [address], 12/02/2022 20:03:27 12/03/19 23 12/02/2022 COMPR EHENS PETE METAB OLIC PANEL carbon dioxide 23 mmol/ L 22-30 Not Available [facility] (Lab) [address] [place], [address], 12/02/2022 20:03:27 12/03/19 23 12/02/2022 COMPR EHENS PETE METAB OLIC PANEL anion gap 16.3 mmol/ L 14-22 Not Available [facility] (Lab) [address] [place], [address], 12/02/2022 20:03:27 12/03/19 23 12/02/2022 COMPR EHENS PETE METAB OLIC PANEL glucose 86 mg/dL 70-99 Not Available [facility] (Lab) [address] [place], [address], 12/02/2022 20:03:27 12/03/19 23 12/02/2022 COMPR EHENS PETE METAB OLIC PANEL BUN 19 mg/dL 8-19 Not Available [facility] (Lab) [address] [place], [address], 12/02/2022 20:03:27 12/03/19 23 12/02/2022 COMPR EHENS PETE METAB OLIC PANEL creatinine 1.00 mg/dL 0.66-1 .25 Not Available [facility] (Lab) [address] [place], [address], 12/02/2022 20:03:27 12/03/19 23 12/02/2022 COMPR EHENS PETE METAB OLIC PANEL GFR >60 Refer ence Range : [place]ann[place] ge GFR Healt hy Adult : >60 mL/mi n/1.7 3 m2 Chron ic Kidne y Disea se: 15-60 mL/mi n/1.7 3 m2 Kidne y Failu re: <15/m L/min /1.73 m2 www.n iddk. nih.g ov The MDRD study equat ion has not been valid ated in child karen <18 years of age; pregn ant women ; the elder ly >85 years of age; or in some racia l or ethni c subgr oups, such as Hispa nics. Outsi de the valid ated sravani eters , estim ated GFR is less accur ate, requi ring clini matty judgm ent on a case- by-ca se basis . Clini matty inter preta tion for other races and ages must be made by the clini lorna. The MDRD study equat ion has not been valid ated for the evalu ation of serum creat inine relat ed to nutri amilcar l statu s or medic ation usage . For perso ns <18 years of age, a pedia tric GFR calcu lator is avail able on the [facility] websi te: https ://ruben moss.mary jo johnson/yolanda rizvial s/kdo qi/gf r_cal culat or Not Available [facility] (Lab) [address] [place], [address], 12/02/2022 20:03:27 12/03/19 23 12/02/2022 COMPR EHENS PETE METAB OLIC PANEL alkaline phosphatase 55 U/L 38-126 Not Available [facility] (Lab) [address] [place], [address], 12/02/2022 20:03:27 12/03/19 23 12/02/2022 COMPR EHENS PETE METAB OLIC PANEL alanine aminotransfe rase 27 U/L 0-[address] [facility] (Lab) [address] [place], [address], 12/02/2022 20:03:27 12/03/19 23 12/02/2022 COMPR EHENS PETE METAB OLIC PANEL aspartate aminotransfe rase 28 U/L 15-[address] [facility] (Lab) [address] [place], [address], 12/02/2022 20:03:27 12/03/19 23 12/02/2022 COMPR EHENS PETE METAB OLIC PANEL bilirubin, total 0.70 mg/dL 0.20-1 .30 Not Available [facility] (Lab) [address] [place], [address], 12/02/2022 20:03:27 12/03/19 23 12/02/2022 COMPR EHENS PETE METAB OLIC PANEL calcium 9.5 mg/dL 8.4-10 .2 Not Available [facility] (Lab) [address] [place], [address], 12/02/2022 20:03:27 12/03/19 23 12/02/2022 COMPR EHENS PETE METAB OLIC PANEL total protein 7.9 g/dL 6.3-8. 2 Not Available [facility] (Lab) [address] [place], [address], 12/02/2022 20:03:27 12/03/19 23 12/02/2022 COMPR EHENS PETE METAB OLIC PANEL albumin 4.9 g/dL 3.4-5. 0 Not Available [facility] (Lab) [address] [place], [address], 12/02/2022 20:03:27 12/03/19 23 12/02/2022 COMPR EHENS PETE METAB OLIC PANEL globulin 3.0 g/dL 2.6-4. 2 Not Available [facility] (Lab) [address] [place], [address], 12/02/2022 20:03:27 12/03/19 23 12/02/2022 COMPR EHENS PETE METAB OLIC PANEL A/G ratio 1.6 ratio 1.0-2. 0 Not Available [facility] (Lab) [address] [place], [address], 12/02/2022 20:03:27 12/03/19 23 12/02/2022 B-HCG TOTAL , QUANT ITATI VE human chorionic gonadotropin <2.39 mIU/m L 0.00-4 .82 WEEKS OF PREGN CORI REFER ENCE RANGE S 4 420 TO 6,230 5 620 TO 29,30 0 6 3,660 TO 108,0 00 7 10,90 0 TO 148,0 00 8 30,70 0 TO 184,0 00 9 67,20 0 TO 169,0 00 10 30,00 0 TO 167,0 00 14 15,00 0 TO 92,10 0 15 10,60 0 TO 64,20 0 16 9,000 TO 52,80 0 17 6,700 TO 47,10 0 18 6,100 TO 42,10 0 19 6,800 TO 42,90 0 Not Available [facility] (Lab) [address] [place], [address], 12/02/2022 20:11:09 12/03/19 23 12/02/2022 TSH thyroid-stim ulating hormone 1.030 uIU/m L 0.465- 4.680 Not Available [facility] (Lab) [address] [place], [address], 12/02/2022 20:41:34 12/03/19 23 12/02/2022 AGUSTO TIN ferritin 45 NG/mL 6.24-1 37 Not Available [facility] (Lab) [address] [place], [address], 12/02/2022 20:42:15 12/03/19 23 12/02/2022 FOLAT E, SERUM /PLAS MA folate 8.88 NG/mL 2.76-2 0.0 Not Available [facility] (Lab) [address] [place], [address], 12/02/2022 21:07:41 12/03/19 23 12/02/2022 HEMOG LOBIN A1C HA1C 4.7 % 4.0-6. 0 Diabe radha Scree peter Crite maggy: <5.7% Consi stent with absen ce of diabe radha 5.7-6 .4% Consi stent with incre ased risk for diabe radha (pred iabet es) >OR=6 .5% Consi stent with diabe radha REFER ENCE: Diabe radah Care 2016, 39(Gr ppl.1 ):s13 -s22 Not Available [facility] (Lab) [address] [place], [address], 12/02/2022 21:34:26 12/03/19 23 12/02/2022 VITAM IN B12 (LUZMARIA LUPIS ) vb12 233 pg/mL 239-93 1 low Not Available [facility] (Lab) [address] [place], [address], 12/02/2022 22:36:37 01/14/20 23 01/13/2023 CBC/C OMPLE TE BLD COUNT W/DIF F white blood cells 5.8 x10'3 /uL 4.2-10 .8 Not Available [facility] (Lab) [address] [place], [address], 01/13/2023 20:11:38 01/14/20 23 01/13/2023 CBC/C OMPLE TE BLD COUNT W/DIF F red blood cells 5.10 x10'6 /uL 3.80-5 .20 Not Available [facility] (Lab) [address] [place], [address], 01/13/2023 20:11:38 01/14/20 23 01/13/2023 CBC/C OMPLE TE BLD COUNT W/DIF F hemoglobin 15.0 g/dL 12.0-1 5.6 Not Available [facility] (Lab) [address] [place], [address], 01/13/2023 20:11:38 01/14/20 23 01/13/2023 CBC/C OMPLE TE BLD COUNT W/DIF F hematocrit 45.1 % 35.7-4 5.7 Not Available [facility] (Lab) [address] [place], [address], 01/13/2023 20:11:38 01/14/20 23 01/13/2023 CBC/C OMPLE TE BLD COUNT W/DIF F mean red cell volume 88.4 fL 82.0-9 9.0 Not Available [facility] (Lab) [address] [place], [address], 01/13/2023 20:11:38 01/14/20 23 01/13/2023 CBC/C OMPLE TE BLD COUNT W/DIF F mean red cell hemoglobin 29.4 pg 27.0-3 3.0 Not Available [facility] (Lab) [address] [place], [address], 01/13/2023 20:11:38 01/14/20 23 01/13/2023 CBC/C OMPLE TE BLD COUNT W/DIF F mean RBC HGB concentratio n 33.3 g/dL 31.0-3 6.0 Not Available [facility] (Lab) [address] [facility] [place], [address], 01/13/2023 20:11:38 01/14/20 23 01/13/2023 CBC/C OMPLE TE BLD COUNT W/DIF F red cell distribution width 13.0 % 11.8-1 5.5 Not Available [facility] (Lab) [address] [place], [address], 01/13/2023 20:11:38 01/14/20 23 01/13/2023 CBC/C OMPLE TE BLD COUNT W/DIF F platelets 217 x10'3 /uL 150-40 0 Not Available [facility] (Lab) [address] [place], [address], 01/13/2023 20:11:38 01/14/20 23 01/13/2023 CBC/C OMPLE TE BLD COUNT W/DIF F neutrophils 64.3 % 39.0-7 2.0 Not Available [facility] (Lab) [address] [place], [address], 01/13/2023 20:11:38 01/14/20 23 01/13/2023 CBC/C OMPLE TE BLD COUNT W/DIF F lymphocytes 27.1 % 16.0-4 7.0 Not Available [facility] (Lab) [address] [place], [address], 01/13/2023 20:11:38 01/14/20 23 01/13/2023 CBC/C OMPLE TE BLD COUNT W/DIF F monocytes 6.4 % 5.0-12 .0 Not Available [facility] (Lab) [address] [place], [address], 01/13/2023 20:11:38 01/14/20 23 01/13/2023 CBC/C OMPLE TE BLD COUNT W/DIF F eosinophils 1.4 % 1.0-7. 0 Not Available [facility] (Lab) [address] [place], [address], 01/13/2023 20:11:38 01/14/20 23 01/13/2023 CBC/C OMPLE TE BLD COUNT W/DIF F basophils 0.5 % 0.0-2. 0 Not Available [facility] (Lab) [address] [place], [address], 01/13/2023 20:11:38 01/14/20 23 01/13/2023 CBC/C OMPLE TE BLD COUNT W/DIF F immature granulocytes 0.3 % 0.00-0 .50 Not Available [facility] (Lab) [address] [place], [address], 01/13/2023 20:11:38 01/14/20 23 01/13/2023 CBC/C OMPLE TE BLD COUNT W/DIF F neutrophils, absolute count 3.72 x10'3 /uL 1.5-8. 0 Not Available [facility] (Lab) [address] [place], [address], 01/13/2023 20:11:38 01/14/20 23 01/13/2023 CBC/C OMPLE TE BLD COUNT W/DIF F lymphocytes, absolute count 1.57 x10'3 /uL 1.07-3 .43 Not Available [facility] (Lab) [address] [place], [address], 01/13/2023 20:11:38 01/14/20 23 01/13/2023 CBC/C OMPLE TE BLD COUNT W/DIF F monocytes, absolute count 0.37 x10'3 /uL 0.29-0 .99 Not Available [facility] (Lab) [address] [place], [address], 01/13/2023 20:11:38 01/14/20 23 01/13/2023 CBC/C OMPLE TE BLD COUNT W/DIF F eosinophils, absolute count 0.08 x10'3 /uL 0.02-0 .53 Not Available [facility] (Lab) [address] [place], [address], 01/13/2023 20:11:38 01/14/20 23 01/13/2023 CBC/C OMPLE TE BLD COUNT W/DIF F basophils, absolute count 0.03 x10'3 /uL 0.01-0 .08 Not Available [facility] (Lab) [address] [place], [address], 01/13/2023 20:11:38 01/14/20 23 01/13/2023 CBC/C OMPLE TE BLD COUNT W/DIF F immature granulocytes ,absolute 0.02 x10'3 /uL 0.00-0 .05 Not Available [facility] (Lab) [address] [place], [address], 01/13/2023 20:11:38 01/14/20 23 01/13/2023 CBC/C OMPLE TE BLD COUNT W/DIF F nucleated red blood cells 0.0 % -[address] [facility] (Lab) [address] [place], [address], 01/13/2023 20:11:38 01/14/20 23 01/13/2023 CBC/C OMPLE TE BLD COUNT W/DIF F NRBC# 0.00 x10'3 /uL Not Available [facility] (Lab) [address] [place], [address], 01/13/2023 20:11:38 01/14/20 23 01/14/2023 FOLAT E, SERUM /PLAS MA folate 5.91 NG/mL 2.76-2 0.0 Not Available [facility] (Lab) [address] [place], [address], 01/14/2023 12:11:10 01/14/20 23 01/14/2023 VITAM IN B12 (LUZMARIA LUPIS ) vb12 484 pg/mL 239-93 1 Not Available [facility] [place] (Lab) [address] [place], [address], 01/14/2023 12:11:15 03/03/20 23 03/03/2023 CBC/C OMPLE TE BLD COUNT W/DIF F white blood cells 5.4 x10'3 /uL 4.2-10 .8 Not Available [facility] [place] (Lab) [address] [place], [address], 03/03/2023 20:48:44 03/03/20 23 03/03/2023 CBC/C OMPLE TE BLD COUNT W/DIF F red blood cells 5.35 x10'6 /uL 3.80-5 .20 high Not Available [facility] [place] (Lab) [address] [place], [address], 03/03/2023 20:48:44 03/03/20 23 03/03/2023 CBC/C OMPLE TE BLD COUNT W/DIF F hemoglobin 15.6 g/dL 12.0-1 5.6 Not Available [facility] [place] (Lab) [address] [place], [address], 03/03/2023 20:48:44 03/03/20 23 03/03/2023 CBC/C OMPLE TE BLD COUNT W/DIF F hematocrit 47.6 % 35.7-4 5.7 high Not Available [facility] [place] (Lab) [address] [place], [address], 03/03/2023 20:48:44 03/03/20 23 03/03/2023 CBC/C OMPLE TE BLD COUNT W/DIF F mean red cell volume 89.0 fL 82.0-9 9.0 Not Available [facility] (Lab) [address] [facility] [place], [address], 03/03/2023 20:48:44 03/03/20 23 03/03/2023 CBC/C OMPLE TE BLD COUNT W/DIF F mean red cell hemoglobin 29.2 pg 27.0-3 3.0 Not Available [facility] (Lab) [address] [place], [address], 03/03/2023 20:48:44 03/03/20 23 03/03/2023 CBC/C OMPLE TE BLD COUNT W/DIF F mean RBC HGB concentratio n 32.8 g/dL 31.0-3 6.0 Not Available [facility] (Lab) [address] [place], [address], 03/03/2023 20:48:44 03/03/20 23 03/03/2023 CBC/C OMPLE TE BLD COUNT W/DIF F red cell distribution width 13.2 % 11.8-1 5.5 Not Available [facility] (Lab) [address] [place], [address], 03/03/2023 20:48:44 03/03/20 23 03/03/2023 CBC/C OMPLE TE BLD COUNT W/DIF F platelets 223 x10'3 /uL 150-40 0 Not Available [facility] (Lab) [address] [place], [address], 03/03/2023 20:48:44 03/03/20 23 03/03/2023 CBC/C OMPLE TE BLD COUNT W/DIF F mean platelet volume 12.9 fL 9.0-12 .4 high Not Available [facility] (Lab) [address] [place], [address], 03/03/2023 20:48:44 03/03/20 23 03/03/2023 CBC/C OMPLE TE BLD COUNT W/DIF F neutrophils 62.4 % 39.0-7 2.0 Not Available [facility] (Lab) [address] [place], [address], 03/03/2023 20:48:44 03/03/20 23 03/03/2023 CBC/C OMPLE TE BLD COUNT W/DIF F lymphocytes 28.7 % 16.0-4 7.0 Not Available [facility] (Lab) [address] [place], [address], 03/03/2023 20:48:44 03/03/20 23 03/03/2023 CBC/C OMPLE TE BLD COUNT W/DIF F monocytes 7.2 % 5.0-12 .0 Not Available [facility] [place] (Lab) [address] [place], [address], 03/03/2023 20:48:44 03/03/20 23 03/03/2023 CBC/C OMPLE TE BLD COUNT W/DIF F eosinophils 1.1 % 1.0-7. 0 Not Available [facility] (Lab) [address] [place], [address], 03/03/2023 20:48:44 03/03/2003/03/2023 CBC/C OMPLE TE BLD COUNT W/DIF F basophils 0.4 % 0.0-2. 0 Not Available [facility] (Lab) [address] [place], [address], 03/03/2023 20:48:44 03/03/20 23 03/03/2023 CBC/C OMPLE TE BLD COUNT W/DIF F immature granulocytes 0.2 % 0.00-0 .50 Not Available [facility] (Lab) [address] [place], [address], 03/03/2023 20:48:44 03/03/20 23 03/03/2023 CBC/C OMPLE TE BLD COUNT W/DIF F neutrophils, absolute count 3.40 x10'3 /uL 1.5-8. 0 Not Available [facility] (Lab) [address] [place], [address], 03/03/2023 20:48:44 03/03/20 23 03/03/2023 CBC/C OMPLE TE BLD COUNT W/DIF F lymphocytes, absolute count 1.56 x10'3 /uL 1.07-3 .43 Not Available [facility] (Lab) [address] [place], [address], 03/03/2023 20:48:44 03/03/20 23 03/03/2023 CBC/C OMPLE TE BLD COUNT W/DIF F monocytes, absolute count 0.39 x10'3 /uL 0.29-0 .99 Not Available [facility] (Lab) [address] [place], [address], 03/03/2023 20:48:44 03/03/20 23 03/03/2023 CBC/C OMPLE TE BLD COUNT W/DIF F eosinophils, absolute count 0.06 x10'3 /uL 0.02-0 .53 Not Available [facility] (Lab) [address] [place], [address], 03/03/2023 20:48:44 03/03/20 23 03/03/2023 CBC/C OMPLE TE BLD COUNT W/DIF F basophils, absolute count 0.02 x10'3 /uL 0.01-0 .08 Not Available [facility] (Lab) [address] [place], [address], 03/03/2023 20:48:44 03/03/20 23 03/03/2023 CBC/C OMPLE TE BLD COUNT W/DIF F immature granulocytes ,absolute 0.01 x10'3 /uL 0.00-0 .05 Not Available [facility] (Lab) [address] [place], [address], 03/03/2023 20:48:44 03/03/20 23 03/03/2023 CBC/C OMPLE TE BLD COUNT W/DIF F nucleated red blood cells 0.0 % -[address] [facility] (Lab) [address] [place], [address], 03/03/2023 20:48:44 03/03/20 23 03/03/2023 CBC/C OMPLE TE BLD COUNT W/DIF F NRBC# 0.00 x10'3 /uL Not Available [facility] (Lab) [address] [place], [address], 03/03/2023 20:48:44 03/03/20 23 03/03/2023 SEDIM ENTAT ION RATE erythrocyte sedimentatio n rate 13 mm/HR 0-[address] [facility] (Lab) [address] [place], [address], 03/03/2023 20:49:08 03/03/2003/03/2023 RHEUM ATOID FACTO R rf <8.6 IU/mL 0.0-11 .9 Not Available [facility] (Lab) [address] [place], [address], 03/03/2023 21:21:23 03/03/2003/03/2023 URIC ACID SERUM uric acid 6.2 mg/dL 2.5-6. 2 Not Available [facility] (Lab) [address] [place], [address], 03/03/2023 21:26:42 03/03/20 23 03/03/2023 B-HCG TOTAL , QUANT ITATI VE human chorionic gonadotropin <2.39 mIU/m L 0.00-4 .82 WEEKS OF PREGN CORI REFER ENCE RANGE S 4 420 TO 6,230 5 620 TO 29,30 0 6 3,660 TO 108,0 00 7 10,90 0 TO 148,0 00 8 30,70 0 TO 184,0 00 9 67,20 0 TO 169,0 00 10 30,00 0 TO 167,0 00 14 15,00 0 TO 92,10 0 15 10,60 0 TO 64,20 0 16 9,000 TO 52,80 0 17 6,700 TO 47,10 0 18 6,100 TO 42,10 0 19 6,800 TO 42,90 0 Not Available [facility] (Lab) [address] [place], [address], 03/03/2023 21:39:45 03/03/20 23 03/03/2023 FOLAT E, SERUM /PLAS MA folate 8.64 NG/mL 2.76-2 0.0 Not Available [facility] (Lab) [address] [place], [address], 03/03/2023 22:23:47 03/03/20 23 03/03/2023 VITAM IN B12 (LUZMARIA LUPIS ) vb12 925 pg/mL 239-93 1 Not Available [facility] [place] (Lab) [address] [place], [address], 03/03/2023 22:23:52 03/03/20 23 03/07/2023 PATRICIA BY IFA RFX TITER /STEPHEN JUAN DANIEL antinuclear antibodies, ifa Negati ve Negat pete <1:80 Borde rline 1:80 Posit pete >1:80 ICAP nomen jeffrey re: AC-0 For more infor dorian benitez about Hep-2 cell patte rns use ANApa ttern s.org , the offic nemesio day for the Inter natio nal Conse nsus on Antin uclea r Antib allan (PATRICIA) Patte rns (ICAP ). Perfo rmed at: [facility] [address], [place] [address] [address] Lab Direc tor: Ronal tilley PhD, Phone : [phone] Not Available [facility] (Lab) [address] [place], [address], 03/07/2023 13:08:50 03/16/20 23 MRI, brain , w/wo contr ast [facility] [address] [place] [address] Patien t Name: PEARL OLIVAS Access ion #: [id number] Sex: F : 2000 1 Dictat ed By: Gisell bardales Attend ing Physic gregorio: SCOTT LUDWIG Orderi ng Physic gregorio: SCOTT LUDWIG Exam Date: 2022 09:32 AM Exam Name: MRI BRAIN W/WO Admitt ing Diagno sis(es ): CLINIC AL INDICA TION: Headac hes. Parest hesias of skin in the right arm. Leg numbne ss. COMPAR MICHELLE: None. TECHNI QUE: Multis equenc e multip lanar MRI images of the brain were obtain ed prior to and after the uneven tful admini strati on of 14 mL of MultiH ance contra st. FINDIN GS:No acute infarc t or hemorr alejo. No mass or midlin e shift. No abnorm al parenc hymal or mening eal enhanc ement. Ventri cles and sulci are within normal limits . Basal cister ns are patent . Cerebe llum, brains tem, and midlin e struct ures are within normal limits . Parana ham sinuse s are clear. Orbits are grossl y unrema rkable . IMPRES CRISTY: No acute intrac ranial abnorm ality. No mass or abnorm al postco ntrast enhanc ement. Electr onical ly Signed by: Gisell bardales at 2022 11:14: 31 AM Page 1 [email or web address] [facility] (Imaging) [address] [place], [address], 03/22/2023 11:25:57 04/02/20 24 04/02/2024 US, doppl er, echoc ardio gram, w/ color flow No observ ation record ed. [email or web address] [facility] [address], [place], [address], 04/04/2024 10:48:56 Result Notes None recorded. Problems Name Problem SNOMED Code Status Onset Date Resolution Date Notes Provider Name and Address Organization Details Recorded Time Well child 346070730 Active Not Available [facility] 3 15:16:21 Painful mouth 544369774 Active Not Available [facility] 3 15:16:21 Sprain of right ankle 32023891095 617519 Active Not Available [facility] 3 15:16:22 Injury of ankle 640476294 Active Not Available [facility] 3 15:16:22 Otalgia 37522696 Active Not Available [facility] 3 15:16:22 Pain in throat 236444285 Active Not Available [facility] 3 15:16:22 Heartburn 29940467 Active Not Available [facility] 3 15:16:22 Adjustmen t disorder 39154951 Active Not Available [facility] 3 15:16:22 Ankle pain 546207151 Active Not Available [facility] 3 15:16:22 Insect sting 636662473 Active Not Available [facility] 3 15:16:22 Knee pain Active Not Available [facility] 3 15:16:22 Acute pharyngit is 336139880 Active Not Available [facility] 3 15:16:22 Menorrhag ia 708885651 Active Not Available [facility] 3 15:16:22 Pharyngit is 523227317 Active Not Available [facility] 3 15:16:23 Mood disorder 62826027 Active Not Available [facility] 3 15:16:23 Hip pain 75069626 Completed Not Available [facility] 3 15:16:23 Verruca vulgaris 32505846 Active Not Available [facility] 3 15:16:23 Pain in limb 06477309 Completed Not Available [facility] 3 15:16:23 Gastroeso phageal reflux disease without esophagit is 892852469 Active 2022 Sydney Rush MD [address], [place], [address] , [employer] 3 12:30:24 Fatigue 80728886 Active 2022 Sydney Rush MD [address], [place], [address] , [employer] 3 12:31:59 Cobalamin deficienc y 497597940 Active 2022 Sydney Rush MD [address], [place], [address] , [employer] 3 11:46:44 Multiple joint pain 68788253 Active 2022 Sydney Rush MD [address], [place], [address] , [employer] 3 09:40:52 Paresthes ia 24626438 Active 2022 Sydney Rush MD [address], [place], [address] , [employer] 3 09:41:25 Amenorrhe a 63393384 Active 2022 Sydney Rush MD [address], [place], [address] , [employer] 3 09:43:05 Dyspnea 517480938 Active 2022 SARAH Schreiber [address], [place], [address] , [employer] [facility] 3 15:45:35 Problem Notes None recorded. Procedures Surgical History None recorded. Imaging Results Imaging Date Name Status LastModified by Organiz ation Details LastModified Time 03/16/2023 MRI, brain, w/wo contrast completed [email or web address] [facility] (Imaging) [address] [place], [address], 03/22/2023 11:25:57 04/02/2024 US, doppler, echocardiogra m, w/ color flow completed [email or web address] [facility] [address], [place], [address], 04/04/2024 10:48:56 Procedure Notes None recorded. Medical Equipment None Reported. Allergies Allergen ID Allergen Name Allergen Category Reaction Reaction Severity Criticality Documentation Date Start Date Code Code System Note Provider Name and Address Organization Details Recorded Time 48053 escitalop carolyn Not available Not available Not available Not available 2022 26011 8 RxNorm Suici lauren ideat ions Not Available [facility] 15:19:28 Medications Name Sig Start Date Stop Date Status Note LastModified by Organization Details LastModified Time diclofena c 75 mg-misopr ostol 200 mcg tablet,im mediate,d elayed release Take 1 po daily as needed 12/02 completed Not Available Not Available Not Available cyclobenz aprine 10 mg tablet Take 1 tablet 3 times a day by oral route for 30 days. 12/02 completed Not Available Not Available Not Available amoxicill in 500 mg capsule Take 1 capsule twice a day by oral route for 10 days. 12/02 completed Not Available Not Available Not Available Xylocaine with Epinephri ne 2 %-1:100,0 00 injection solution 2 ml subq x 1 08/02 completed [facility]# [id number] 27 Not Available Not Available Not Available venlafaxi ne ER 37.5 mg capsule,e xtended release 24 hr Take 1 capsule every day by oral route for 30 days. active Not Available Not Available No t Available venlafaxi ne ER 75 mg capsule,e xtended release 24 hr Take 1 capsule every day by oral route for 30 days. active Not Available Not Available No t Available valacyclo vir 1 gram tablet Take 1 tablet every 12 hours by oral route. 2012 active Not Available Not Available Not Avai lable Loestrin Fe 08/20 (28-Day) 1 mg-20 mcg (21)/75 mg (7) tablet Take 1 tablet every day by oral route. active Not Available Not Available No t Available ondansetr on HCl 8 mg tablet Take one tablet TID PRN 12/13 completed Not Available Not Available Not Available ondansetr on HCl 4 mg tablet Take 1 tablet twice a day by oral route as needed. active Not Available Not Available No t Available famotidin e 40 mg tablet Take 1 tablet every day by oral route in the evening for 30 days. 12/02 completed Not Available Not Available Not Available prednison e 20 mg tablet 3 po qday x 3 days then 2 po qday x 3 days then 1 po qday x 3 days then 1/2 tab po qday x 3 days then stop active Not Available Not Available No t Available Debrox 6.5 % ear drops INSTILL 5 DROPS INTO AFFECTED EAR(S) BY OTIC ROUTE 2 TIMES PER DAY x 4 days 10/12 completed Not Available Not Available Not Available Zithromax Z-Michael 250 mg tablet TAKE 2 TABLETS (500 MG) BY ORAL ROUTE ONCE DAILY FOR 1 DAY THEN 1 TABLET (250 MG) BY ORAL ROUTE ONCE DAILY FOR 4 DAYS 12/02 completed Not Available Not Available Not Available venlafaxi ne ER 150 mg capsule,e xtended release 24 hr Take 1 capsule every day by oral route. 05/01 completed Not Available Not Available Not Available sumatript an 50 mg tablet Take 1 tablet twice a day by oral route as needed for 30 days. active Not Available Not Available No t Available metronida zole 500 mg tablet Take 1 tablet every 12 hours by oral route for 10 days. 12/02 completed Not Available Not Available Not Available lidocaine HCl 2 % mucosal jelly apply to sore areas up to 4x per day as needed 05/22 completed Not Available Not Available Not Available dextromet horphan-g uaifenesi n 10 mg-100 mg/5 mL oral syrup Take 10 mL 3 times a day by oral route as needed. 09/26 completed Not Available Not Available Not Available sulfameth oxazole 800 mg-trimet hoprim 160 mg tablet Take 1 tablet every 12 hours by oral route for 3 days. active Not Available Not Available No t Available triamcino lone acetonide 0.1 % topical cream APPLY A THIN LAYER TO THE AFFECTED AREA(S) BY TOPICAL ROUTE 2 TIMES PER DAY prn rash active Not Available Not Available No t Available amoxicill in 500 mg tablet Take 1 tablet twice a day by oral route for 7 days. 06/06 completed Not Available Not Available Not Available ketorolac 10 mg tablet 11/28 completed Not Available Not Available Not Available cyprohept adine 4 mg tablet 11/18 completed Not Available Not Available Not Available amoxicill in 875 mg tablet Take 1 tablet every 12 hours by oral route for 7 days. active Not Available Not Available No t Available famotidin e 20 mg tablet Take 1 tablet twice a day by oral route as needed. active Not Available Not Available No t Available Depo-Prov era 150 mg/mL intramusc ular suspensio n Inject 1 mL every 3 months by intramus cular route. 12/02 completed Not Available Not Available Not Available Lice Treatment (permethr in) 1 % topical liquid apply to scalp x 1. Rinse thorough ly 11/05 completed Not Available Not Available Not Available dicyclomi ne 20 mg tablet 1 po q6 hours prn abd pain 12/02 completed Not Available Not Available Not Available amoxicill in 250 mg/5 mL oral suspensio n SW AND G ADRIONNA 5 ML PO TID FOR 10 DAYS 05/22 completed Not Available Not Available Not Available cephalexi n 500 mg capsule Take 1 capsule every 12 hours by oral route for 7 days. 10/12 completed Not Available Not Available Not Available pantopraz ole 40 mg tablet,de layed release Take 1 tablet every day by oral route in the morning for 90 days. active Not Available Not Available No t Available erythromy manjit 5 mg/gram (0.5 %) eye ointment APPLY 1 CM RIBBON INTO THE LOWER CONJUNCT IVAL SAC(S) IN THE AFFECTED EYE(S) BY OPHTHALM IC ROUTE 3 TIMES PER DAY active Not Available Not Available No t Available cyanocoba lupis (vit B-12) 1,000 mcg/mL injection solution Inject 1 mL every month by subcutan eous route. 2022 active Not Available Not Available Not Avai lable triamcino lone acetonide 0.1 % topical ointment Apply 1 applicat ion twice a day by topical route as needed for 7 days. 05/06 completed Not Available Not Available Not Available ranitidin e 150 mg tablet TAKE 1 TABLET BY MOUTH TWICE DAILY NEEDED active Not Available Not Available No t Available lansopraz ole 30 mg capsule,d elayed release 09/26 completed Not Available Not Available Not Available promethaz ine 25 mg tablet Take 1 tablet every 6 hours by oral route as needed. 05/01 completed Not Available Not Available Not Available lidocaine HCl 2 % mucosal solution active Not Available Not Available Not Available Xylocaine with Epinephri ne 1 %-1:100,0 00 injection solution 1 ml injected at base of lesion x 1 03/03 completed Not Available Not Available Not Available cyanocoba lupis (vit B-12) 1,000 mcg sublingua l tablet 1 sl qday 2022 active Not Available Not Available Not Avai lable ibuprofen 600 mg tablet TAKE ONE TABLET BY MOUTH THREE TIMES DAILY NEEDED FOR 30 DAYS active Not Available Not Available No t Available polyethyl jennifer glycol 3350 17 gram/dose oral powder 1 capful in liquid po qday prn constipa tion 10/12 completed Not Available Not Available Not Available albuterol sulfate HFA 90 mcg/actua tion aerosol inhaler Inhale 2 puffs every 4 hours by inhalati on route as needed. active Not Available Not Available No t Available ondansetr on 4 mg disintegr ating tablet 1-2 tabs TID PRN 12/02 completed Not Available Not Available Not Available fluticaso ne propionat e 50 mcg/actua tion nasal spray,isha pension 2 sprays each nostril qday active Not Available Not Available No t Available dicyclomi ne 10 mg capsule Take 1 capsule 3 times a day by oral route as needed for 10 days. active Not Available Not Available No t Available amoxicill in 500 mg-potass ium clavulana te 125 mg tablet Take 1 tablet twice a day by oral route for 7 days. 08/03 completed Not Available Not Available Not Available neomycin- polymyxin -hydrocor t 3.5 mg-10,000 unit/mL-1 % ear drops,isha p INSTILL 4 DROPS INTO AFFECTED EAR(S) BY OTIC ROUTE 3 TIMES PER DAY x 7 days active Not Available Not Available No t Available Depo-Prov era 150 mg/mL intramusc ular syringe Inject 1 mL every 3 months by intramus cular route. 05/04 /2023 completed Not Available Not Available Not Available Sprintec (28) 0.25 mg-35 mcg tablet 1 po qday 05/01 completed Not Available Not Available Not Available escitalop carolyn 5 mg tablet Take 1 tablet every day by oral route. 05/22 completed Not Available Not Available Not Available hydrocodo ne 7.5 mg-acetam inophen 325 mg/15 mL oral solution G ADRIONNA 10 ML PO Q 4 HOURS PRN 05/22 completed Not Available Not Available Not Available nitrofura ntoin monohydra te/macroc rystals 100 mg capsule 08/03 completed Not Available Not Available Not Available Mucinex D 60 mg-600 mg tablet,ex tended release 1-2 tabs po bid prn cough 08/26 completed Not Available Not Available Not Available mvi, pedi no.1 with vit K 05/06 completed Not Available Not Available Not Available venlafaxi ne ER 37.5 mg tablet,ex tended release 24 hr Take 1 tablet every day by oral route. 12/08 completed Not Available Not Available Not Available Dexilant 60 mg capsule, delayed release 1 po qday 11/18 completed Not Available Not Available Not Available Nexplanon 68 mg subdermal implant Inject by subcutan eous route. 05/01 completed Planned Parentho od Not Available Not Available Not Available Vitals Date Recorded Body height Provider Name an d Address Organization Details Last Updated DateTime 11/10/2022 165.1 cm Ailyn Smart CMA [employer] 11/10/2022 10:37:07 Date Recorded Body height Body mass index (BMI) Body weight Body temperature Oxygen saturation Oxygen saturation in Arterial blood by Pulse oximetry Heart rate Systolic blood pressure Diastolic blood pressure Provider Name and Address Organization Details Last Updated DateTime 3 165.1 cm 25.5 kg/m2 87912.6 3 g 98.1 [degF] 97 % 97 % 67 /min 116 mm[Hg] 74 mm[Hg] Ann Chun MA [employer] 3 12:18:43 Date Recorded Body height Body mass index (BMI) Body weight Body temperature Heart rate Oxygen saturation Oxygen saturation in Arterial blood by Pulse oximetry Systolic blood pressure Diastolic blood pressure Provider Name and Address Organization Details Last Updated DateTime 3 165.1 cm 26 kg/m2 84040.4 1 g 97.2 [degF] 67 /min 98 % 98 % 118 mm[Hg] 78 mm[Hg] Robby Warren RN [facility] [employer] [facility] 3 08:44:58 Date Recorded Body height Body mass index (BMI) Body weight Body temperature Heart rate Oxygen saturation Oxygen saturation in Arterial blood by Pulse oximetry Systolic blood pressure Diastolic blood pressure Provider Name and Address Organization Details Last Updated DateTime 3 165.1 cm 25.6 kg/m2 43665.2 2 g 97.8 [degF] 102 /min 91 % 91 % 114 mm[Hg] 68 mm[Hg] Robby Warren RN [facility] [employer] [facility] 3 09:31:40 Date Recorded Body height Body mass index (BMI) Body weight Body temperature Heart rate Oxygen saturation Oxygen saturation in Arterial blood by Pulse oximetry Systolic blood pressure Diastolic blood pressure Provider Name and Address Organization Details Last Updated DateTime 3 165.1 cm 25.6 kg/m2 63531.2 2 g 98.5 [degF] 83 /min 97 % 97 % 104 mm[Hg] 62 mm[Hg] Heather Ortiz LPN [facility] [employer] [facility] 3 15:15:17 Social History Question Answer Notes LastModified by Organizat ion Details LastModified Time Tobacco Smoking Status Never Smoker Not Available [facility] 2022 15:13:27 What Is Your Level Of Alcohol Consumption? None [id number] Information not available 2022 Do You Wear A Helmet When Biking? Yes [id number] Information not available 2022 What Is Your Level Of Caffeine Consumption? Heavy [id number] Information not available 2022 In The 14 Days Before Symptom Onset, Have You Had Close Contact With A Laboratory-confir med COVID-19 While That Case Was Ill? No [id number] Information not available 2022 In The 14 Days Before Symptom Onset, Have You Had Close Contact With A Person Who Is Under Investigation For COVID-19 While That Person Was Ill? No [id number] Information not available 2022 What Type Of Diet Are You Following? REGULAR [id number] Information not available 2022 Which Illicit Or Recreational Drugs Have You Used? [place] Information not available 12/02/2022 Are There Any Guns Present In Your Home? No MIGRATION.49487 77224 Information not available 2022 Do You Use Insect Repellent Routinely? No MIGRATION.91919 24181 Information not available 2022 Where Do You Live? [place] MIGRATION.64865 18255 Information not available 2022 Do You Have Any Pets? No MIGRATION.03448 26158 Information not available 2022 What Is Your Relationship Status? Single MIGRATION.66726 16754 Information not available 2022 Do You Use Your Seat Belt Or Car Seat Routinely? Yes MIGRATION.35183 62333 Information not available 2022 Do You Have Smoke And Carbon Monoxide Detectors In Your Home? Yes MIGRATION.82702 19597 Information not available 2022 Are You Passively Exposed To Smoke? No MIGRATION.29968 66417 Information not available 2022 Are There Any Smokers In Your House? No MIGRATION.24619 10801 Information not available 2022 Do You Participate In Social Media? No MIGRATION.65403 32580 Information not available 2022 Do You Feel Stressed (tense, Restless, Nervous, Or Anxious, Or Unable To Sleep At Night)? [id number] MIGRATION.00322 24694 Information not available 2022 Do You Use Any Illicit Or Recreational Drugs? Yes [email or web address] Information not available 12/02/2022 Do You Use Sunscreen Routinely? No MIGRATION.22782 06616 Information not available 2022 Have You Recently Traveled Abroad? No MIGRATION.90509 85268 Information not available 2022 Have You Used IV Drugs? No [email or web address] Information not available 12/02/2022 Are You Currently In School? No MIGRATION.29827 99257 Information not available 2022 Do You Have Any Dietary Restrictions? No MIGRATION.19003 67007 Information not available 2022 Sex: Unknown Functional Status Question Answer Note LastModified by Organizat ion Details LastModified Time What is your exercise level? Heavy MIGRATION.[id number] Information not available 2022 Mental Status None recorded. Family History Relationship Description Onset Age of this Age Resolved Age Notes LastModified by Organization Details LastModified Time Maternal Grandmother Diabetes mellitus MIGRATION.875 [id number] Not available 2022 15:13:38 Maternal Grandmother Hypertensive disorder MIGRATION.900 [id number] Not available 2022 15:13:38 Maternal Grandfather Diabetes mellitus MIGRATION.454 [id number] Not available 2022 15:13:38 Maternal Grandfather Hypertensive disorder MIGRATION.154 [id number] Not available 2022 15:13:38 Medical History No medical history recorded. Gynecological History Statement/Question Response Dislike of Light during Menstrual Headac he N How many live births 1 Abnormal Pap N Current Control Method Depo-Nitro Man a Breast Problems NO Weight gain N Obstetrics History GPAL:G 1 P 1 0 0 1 Type Value Full Term 1 Living 1 Total 1 Immunizations Vaccine Type Date Status Note Provider Nam e and Address Organization Details Recorded Time meningococcal MCV4P 5 completed Not Available [facility] 2022 15:19:24 Tdap 5 completed Not Available [facility] 2022 15:19:24 HPV, quadrivalent 6 completed Not Available [facility] 2022 15:19:24 HPV, quadrivalent 5 completed Not Available [facility] 2022 15:19:24 Influenza, live, quadrivalent, intranasal 5 completed Not Available [facility] 2022 15:19:24 HPV, quadrivalent 5 completed Not Available [facility] 2022 15:19:25 DTaP, 5 pertussis antigens 3 completed Not Available [facility] 2022 15:19:25 Past Encounters Encounter ID Performer Location Encounter Start Date Encounter Closed Date Diagnosis/Indication Diagnosis SNOMED-CT Code Diagnosis ICD10 Code Diagnosis Note [id number] [facility] [address] [facility] [address] [place] [address] 10/21/2020 00:00:00 10/27/2020 20:57:34 [id number] [facility] [place] [address] [place] [address] 01/22/2021 00:00:00 01/22/2021 15:41:45 [id number] [facility] [place] [address] [place] [address] 03/03/2021 00:00:00 03/03/2021 09:34:38 [id number] [facility] [place] [address] [place] [address] 04/24/2021 00:00:00 04/24/2021 09:33:13 [id number] [facility] [place] [address] [place] [address] 06/01/2021 00:00:00 06/01/2021 11:59:53 [id number] [facility] [place] [address] [place] [address] 07/23/2021 00:00:00 07/23/2021 13:27:01 [id number] [facility] [place] [address] [place] [address] 10/12/2021 00:00:00 10/12/2021 10:46:02 [id number] [facility] [place] [address] [place] [address] 10/22/2021 00:00:00 10/22/2021 09:49:45 [id number] [facility] [place] [address] [place] [address] 01/22/2022 00:00:00 03/31/2022 13:28:57 [id number] [facility] [place] [address] [place] [address] 05/17/2022 00:00:00 05/17/2022 13:47:44 [id number] [facility] [place] [address] [facility] [address] [place] [address] 08/13/2022 00:00:00 08/13/2022 18:04:14 [id number] JONATHAN Salazar [facility] [place] [address] [facility] [address] [place] [address] 11/10/2022 10:01:55 11/10/2022 10:49:25 [id number] Sydney Rush MD [facility] [place] [address] [facility] [address] [place] [address] 12/02/2022 12:03:59 12/02/2022 12:46:48 Gastroesophageal reflux disease without esophagitis 330414343 K21.9 Fatigue 25711599 R53.83 R58 [id number] Sydney Rush MD [facility] [place] [address] [facility] [address] [place] [address] 01/13/2023 08:41:45 01/13/2023 09:07:32 Gastroesophageal reflux disease without esophagitis 699539442 K21.9 no improvemen t yetcontinu e PPI and famotidine 20 mg bidAvoid greasy/spi cy/acidic foodEat small, frequent mealsGI referral given Cobalamin deficiency 190 902520 E53.8 likely GI relatedGI Referral givenok to continue oral b12 [id number] 1000 mcg IM x 1 [id number] Sydney Rush MD [facility] [place] [address] [facility] [address] [place] [address] 03/03/2023 09:26:34 03/03/2023 09:56:14 Gastroesophageal reflux disease without esophagitis 610920082 K21.9 no improvemen t yetcontinu e PPI and famotidine 20 mg bidAvoid greasy/spi cy/acidic foodEat small, frequent mealsGI referral given Cobalamin deficiency 190 199990 E53.8 likely GI relatedGI Referral givenok to continue oral b12 audkan35 1000 mcg IM x 1 Multiple joint pain 3567 8005 M25.50 Paresthesia 92950896 R20 .2 R51.9 Check b12 level, if low, continue to work on replacemen tIf normal, plan MRI brain Amenorrhea 63623442 N91. 2 [id number] SARAH Schreiber [facility] [place] [address] [facility] [address] [place] [address] 06/06/2023 15:07:40 06/06/2023 17:16:26 Gastroesophageal reflux disease without esophagitis 636611673 K21.9 Pt. still struggling with daily reflux.She was given GI referral but never received a phone call to schedule, she was given informatio n today to call and make appointmen t. Dyspnea 159815095 R06.00 New problem. Could possibly be related to her GERD.Will do course of steroids and albuterol inhaler as needed. Health Concerns Section Related Observation LastModified by Organization Detai ls LastModified Time None Recorded Concern Status LastModified by Organization Details LastModified Time None Recorded Advance Directives Directive None Recorded Payers Encounter Date Sequence Insurance Name Policy Number Policy Barrett Covered Member ID Barrett Member ID Guarantor Name 11/10/2022 1 [facility] ON OR AFTER 01/29/21 (MEDICAID REPLACEMENT - HMO) Michelle Olivas [id number] Michelle Olivas 12/02/2022 1 [facility] ON OR AFTER 01/29/21 (MEDICAID REPLACEMENT - HMO) Michelle Olivas [id number] Michelle Benitez Olivas 01/13/2023 1 [facility] ON OR AFTER 01/29/21 (MEDICAID REPLACEMENT - HMO) Michelle Olivas [id number] Guya Eli Olivas 03/03/2023 1 [facility] ON OR AFTER 01/29/21 (MEDICAID REPLACEMENT - HMO) Michelle Olivas [id number] Michelle Benitez Olivas 06/06/2023 1 [facility] ON OR AFTER 01/29/21 (MEDICAID REPLACEMENT - HMO) Michelle Olivas [id number] Michelle Olivas Notes Date Note Type Note Provider Name and Address Organization Details Recorded Time 12/02/2022 text/html since last depo shot she has had cramping, spotting, easy bruising without injury that she knows. In AM she feels sick. She wakes around 4 AM, tosses and turns. When she wakes up she feels nauseated. No vomiting. +heartburn/reflu x. No diarrhea, no blood in stools. Sometimes feels more tired than she should. Her body feels worn out/drained. She took home test and it was negative. She is ready to d/c her depo because she would like to pursue another . Spicy and acidic foods make it worse. Sydney Rush MD [address] [facility] [facility] [address], [place], [address], [facility] [employer] 12/29/2022 18:48:36 01/13/2023 text/html since last depo shot she has had cramping, spotting, easy bruising without injury that she knows. In AM she feels sick. She wakes around 4 AM, tosses and turns. When she wakes up she feels nauseated. No vomiting. +heartburn/reflu x. No diarrhea, no blood in stools. Sometimes feels more tired than she should. Her body feels worn out/drained. She took home test and it was negative. She is ready to d/c her depo because she would like to pursue another . Spicy and acidic foods make it worse. update 01/13/23: No interval improvement. Sydney Rush MD [address] [facility] [facility] [address], [place], [address], [facility] [employer] 01/13/2023 08:57:59 03/03/2023 text/html since last depo shot she has had cramping, spotting, easy bruising without injury that she knows. In AM she feels sick. She wakes around 4 AM, tosses and turns. When she wakes up she feels nauseated. No vomiting. +heartburn/reflu x. No diarrhea, no blood in stools. Sometimes feels more tired than she should. Her body feels worn out/drained. She took home test and it was negative. She is ready to d/c her depo because she would like to pursue another . Spicy and acidic foods make it worse. update 01/13/23: No interval improvement. update 03/03/23: No interval improvement, yesterday she had to stop twice to vomit while driving. Right arm and right leg painful x 1 week. Right leg is tingling across whole leg. Right arm is painful throughout, started in elbow but now radiates up and down. She has been having headaches, activity makes it worse. No gait disturbance, no decreased strength. Her joints can get painful, feet can swell. Off control trying to conceive, no period yet since d/c control. Took home urine hcg and it was invalid . Sydney Rush MD [address], [place], [address], [employer] 03/03/2023 09:44:44 06/06/2023 text/html Pt. states this morning she started getting wheezy. She has noticed that it also feels like she can't eat and drink without feeling she is going to throw up. She threw up twice today. She has noticed over the last few weeks when she walks up the stairs she has become more short of breath. SARAH Schreiber [address], [place], [address], [employer] 06/06/2023 18:12:43 OBGyn Episode No OBEpisode recorded.
--- OUTSIDE RECORDS SUMMARY | 2024-08-23 16:11 | XMS_ITS | Clinical Summary ---
Author Organization [facility] Address [address] [facility] [place] [address] Care Team Providers Care Spa Experience Coordinator Name Role Phone Sydney Rush MD Primary Care Provider [phone] Source Comments [facility],non-owned Affiliates and Associated Physician Practices is amultiple site organization consisting of ambulatory clinics and hospital sitesin [place], [place], [place] and [place]. This disclosure is being madepursuant to the Care Everywhere program and may not contain all information available regarding this patient. Last updated 18.[facility] Allergies No known active allergies Medications * [...] Date Diagnosed Date Pain, abdominal, generalized 01/12/2017 Family History Medical History Relation Name Comments Celiac Disease Neg Hx Crohn's Disease Neg Hx Social History Tobacco Use Types Packs/Day Years [...] Mass Index 23.77 01/21/2017 10:09 AM CDT Plan of Treatment Health Maintenance Due Date Last Done Comments PAP SMEAR 2001 HIV SCREENING 2016 HPV VACCINE (1 - 3-dose series) 2016 CHLAMYDIA/GONORRHEA SCREENING 2017 MENINGOCOCCAL (Group B) VACC INE (1 of 2 - Standard) 2017 HEPATITIS C SCREENING 09/25/2019 DTAP/TDAP/TD VACCINES (1 - Tdap) 2020 HEPATITIS B VACCINE (1 of 3 - 19+ 3-dose series) 2020 COVID-19 VACCINE (1 - 2023-2 5 season) 2024 INFLUENZA VACCINE (#1) 2024 DEPRESSION SCREENING 08/01/2024 ZOSTER VACCINE (1 of 2) 09/30/2051 HIB VACCINE Aged Out No longer eligi ble based on patient's age to complete this topic MENINGOCOCCAL VACCINE Aged Out No yolis shantel eligible based on patient's age to complete this topic PNEUMOCOCCAL VACCINE Aged Out No long er eligible based on patient's age to complete this topic Care Teams Spa Experience Coordinator Relationship Specialty Start Date End Date Syndey Rush MD [address] [place] [address] [place] [id number] PCP - General Family Medicine 07/10/13
--- OUTSIDE RECORDS SUMMARY | 2024-08-23 16:11 | XMS_ITS | Clinical Summary ---
Author Organization [facility] Address [address] [place] [address]. [place], [place] [address] [place] [address] Care Team Providers Care Regional Clinical Research Associate Name Role Phone Sydney Rush MD Primary Care Provider [phone] Allergies No known active allergies Medications methylPREDNISol one, SANJU, (MEDROL DOSEPAK) 4 MG tablet Take 1 tablet (4 mg total) by mouth daily. 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 Gender Identity Not on file Sexual Orientation Not on file Last Filed Vital Signs Vital Sign Reading Time Taken Comments Blood Pressure 112/72 11/21/2023 10:49 AM CDT Pulse 64 11/21/2023 10:49 AM CDT Temperature 36.8 ??C (98.2 ??F) 11/21/2023 10:49 AM C DT Respiratory Rate 16 11/21/2023 10:49 AM CDT Oxygen Saturation 100% 11/21/2023 10:49 AM CDT Inhaled Oxygen Concentration - - Weight 72.6 kg (160 lb) 11/21/2023 10:49 AM CDT Height 165.1 cm (5' 5 ) 11/21/2023 10:49 AM CDT Body Mass Index 26.63 11/21/2023 10:49 AM CDT Plan of Treatment Health Maintenance Due Date Last Done Comments Annual Physical 2004 Hepatitis C 09/30/2019 COVID-19 Vaccine ( season) 2024 Influenza Adult (#1) 2024 05/06/2015 Chlamydia Screening Females ages 16-24 11/02/2024 11/03/2023 Cervical Cancer Screening Pap Smear (Age 21 to 29) Every 3 Years 11/02/2026 11/03/2023, 11/03/2023, 11/03/2023 Cervical Cancer Screening 11/02/2026 DTaP, Tdap and Td Vaccines (9 - Td or Tdap) 04/16/2030 04/16/2020, 02/18/2015, 03/12/2013, Additional history exists Hepatitis B Vaccines Completed 09/03/2002, 2001, 2001 Pneumococcal Vaccine: Pediatrics (0 to 5 Years) and At-Risk Patients (6 to 64 Years) Aged Out 05/20/2003, 05/03/2002, 01/29/2002, Additional history exists No longer eligible based on patient's age to complete this topic Meningococcal Vaccine Aged Out 05/06/2015 No yolis shantel eligible based on patient's age to complete this topic HPV Vaccines Completed 11/05/2015, 11/0 09/2014, 05/06/2015 RSV Immunizations Under 20 Months Aged Out No longer eligible based on patient's age to complete this topic Insurance Care Teams Regional Clinical Research Associate Relationship Specialty Start Date End Date Sydney Rush MD [address] [place] [id number] PCP - General FAMILY PRACTICE 06/27/23
--- OUTSIDE RECORDS SUMMARY | 2024-08-23 16:39 | XMS_ITS | Clinical Summary ---
Author Organization [facility] [employer] Address [address] [facility] [place] [address] Care Team Providers Care Medical Claims Processor Name Role Phone Sydney Rush MD Primary Care Provider [phone] Source Comments [facility] [employer],non-owned Affiliates and Associated Physician Practices is amultiple site organization consisting of ambulatory clinics and hospital sitesin [place], [place], [place] and [place]. This disclosure is being madepursuant to the Care Everywhere program and may not contain all information available regarding this patient. Last updated 18.[facility] [employer] Allergies No known active allergies Medications * [...] age to complete this topic Care Teams Medical Claims Processor Relationship Specialty Start Date End Date Sydney Rush MD [address] [place] [address] [place] [phone] PCP - General Family Medicine 07/10/13
--- OUTSIDE RECORDS SUMMARY | 2024-08-23 16:39 | XMS_ITS | Referral Summary ---
Author Organization [facility] Address [address] [facility] [place] [address] Care Team Providers Care Electrical Tester Battery Name Role Phone Sydney Rush MD Primary Care Provider [phone] Source Comments [facility],non-owned Affiliates and Associated Physician Practices is amultiple site organization consisting of ambulatory clinics and hospital sitesin [place], [place], [place] and [place]. This disclosure is being madepursuant to the Care Everywhere program and may not contain all information available regarding this patient. Last updated 18.[facility] Allergies No known active allergies Medications * [...] of Treatment Not on file Care Teams Electrical Tester Battery Relationship Specialty Start Date End Date Sydney Rush MD [address] [place] [address] [place] [address] PCP - General Family Medicine 07/10/13
--- OUTSIDE RECORDS SUMMARY | 2024-08-23 16:40 | XMS_ITS | Patient Health Summary ---
Author Organization [facility] Address [address] [place] [address] Care Team Providers Care Header Operator Name Role Phone Sydney Rush MD Primary Care Provider [phone] [facility],non-owned Affiliates and Associated Physician Practices is amultiple site organization consisting of ambulatory clinics and hospital sitesin [place], [place] and [place]. This disclosure is being madepursuant to the Care Everywhere program and may not contain all information available regarding this patient. Last updated 18.[facility] Allergies No known active allergies Medications * [...] Case Report Surgical Pathology Report ? Case: [id number] ? Authorizing Provider: ??Trena Tanner MD ?Collected: ? 01/12/2017 10:19 AM ? Ordering Location: ? [facility] ?Received: ?01/12/2017 11:08 AM ? Pathologist: ? Juan Jones MD ? Specimens: ?? A) - Duodenal Biopsy ? B) - Stomach Biopsy ? C) - Esophageal Biopsy, distal ? D) - Esophageal Biopsy, proximal ? 01/17/2017 10:21 AM CDT [facility] Final Diagnosis A. DUODENUM, BIOPSY: -NO SIGNIFICANT HISTOPATHOLOGICAL CHANGES B. STOMACH, BIOPSY: -NO SIGNIFICANT HISTOPATHOLOGICAL CHANGES C. ESOPHAGUS, DISTAL, BIOPSY: -MINIMAL HISTOLOGICAL ABNORMALITIES -SEE MICROSCOPIC DESCRIPTION D. ESOPHAGUS, PROXIMAL, BIOPSY: -MINIMAL HISTOLOGICAL ABNORMALITIES -SEE MICROSCOPIC DESCRIPTION 01/17/2017 10:21 AM [facility] Clinical History The patient is a 16-year-old girl with abdominal pain and dysphagia who underwent upper endoscopy which was found to be normal. 01/17/2017 10:21 AM [facility] Gross Description The specimens are received [...] toto as D1. (CT/ns) 01/17/2017 10:21 AM [facility] Microscopic Description 12 H&E Sections of [...] a high power field. 01/17/2017 10:21 AM [facility] Disclaimer The performance characteristics of all immunohistochemical and indirect immunofluorescence stains (if any) cited in this report were determined by the Histopathology Laboratory of [facility]. Some of these tests were developed by [...] attending (teaching) pathologist. 01/17/2017 10:21 AM CDT [facility] Embedded Images 01/17/2017 10:21 AM CDT [facility] Pathology/Cytology DUODENAL BIOPSY SPECIMEN / [...] - PATHOLOGY/CYTO LOGY ORDERABLES Performing Organization Address City/[facility]/[place] Co de Phone Number [facility] [address] [place] [address] * HELICOBACTER PYLORI UREASE (STL) (01/12/2017 10:19 AM CDT) Helicobacter pylori Urease Initial Negative Negative 01/13/2017 3:29 PM CDT [facility] Helicobacter pylori Urease Final Negative Negative 01/13/2017 3:29 PM CDT [facility] Comment:This is an appended report. These results have been appended to a previously preliminary verified report. Microbiology GASTRIC ANTRAL BIOPSY SPECIMEN / Unknown 01/12/2017 10:19 AM CDT 01/12/2017 10:31 AM CDT Trena Tanner MD LAB - MICROBIOLOGY O RDERABLES Performing Organization Address City/[facility]/[place] Co de Phone Number [facility] [address] [place] [address] * HCG URINE QUALITATIVE - POCT (IP) BEAKER (01/12/2017 9:00 AM CDT) HCG Qual Urine Negative Negative [facility] QC Verified Yes Yes [facility] PO CT TESTING Urine URINE / Unknown 01/12/2017 9 :00 AM CDT Trena Tanner MD LAB - POINT OF CARE ORDERABLES Performing Organization Address City/State/ZIP Dc de Phone Number [facility] [address] [facility] [phone] * EGD (01/12/2017 7:05 AM CDT) Report Endoscopy POC _ Patient Name: Michelle Olivas ? Date of : 2000 ? Admit Type: Outpatient Age: 16 ? Gender: Female Attending MD: Trena Tanner MD ??Order #: [id number] _ Procedure: ? Upper GI endoscopy Indications: [...] Procedure Code(s): ? --- Professional --- ? 55926, Esophagogastrodu odenoscopy, flexible, transoral; with biopsy, ? single or multiple ? --- Technical --- ? 66873, Esophagogastrodu odenoscopy, flexible, transoral; with biopsy, ? single or multiple Diagnosis Code(s): ? --- Professional --- ? R10.84, Generalized abdominal pain ? R13.10, Dysphagia, unspecified ? --- Technical --- ? R10.84, Generalized abdominal pain ? R13.10, Dysphagia, unspecified CPT copyright 2015 [employer]. All rights reserved. The codes documented in this report are preliminary and upon electrocardiograph technician review may be revised to meet current compliance requirements. Dr. Trena Tanner MD Trena Tanner MD 01/12/2017 10:38:42 AM Number of Addenda: 0 Note Initiated On: 01/12/2017 7:05 AM Procedure Date: ? 01/12/2017 7:05:47 AM ? This report has been signed electronically. [facility] 01/12/2017 7:05 AM CDT Trena Tanner MD GI PROCEDURE ORDERAB LES [facility] [address] [place] [address] * TISSUE TRANSGLUTAMINASE AB IGA (12/16/2016 4:06 PM CDT) TTG Antibody IgA <2 0 - 3 U/mL 12/17/2016 2:12 PM CDT [facility] ([facility]) Comment: ?Negative ?0 - ??3 ?Weak Positive ?? 4 - 10 ?Positive ? >10 Tissue Transglutaminase (tTG) has been identified as the endomysial antigen. ??Studies have demonstr- ated that endomysial IgA antibodies have over 99% specificity for gluten sensitive enteropathy. Blood BLOOD SPECIMEN / Unknown Lab Venipuncture / Unknown 12/16/2016 4:06 PM CDT 12/16/2016 4:27 PM CDT Narrative [facility] ([facility]) - 12/17/2016 2:12 PM CDT Performed at: ??01 - [facility] [address] [place], [place] ??[id number] [employer] Coach: Jeffery Perkins PhD, Phone: ??[phone] Trena Tanner MD LAB - SEROLOGY ORDER [facility] ([facility]) [address] [place] [address] * C-REACTIVE PROTEIN (12/16/2016 4:06 PM CDT) C-Reactive Protein <0.20 <=0.50 mg/dL 12/16/2016 4:55 PM CDT [facility] Blood BLOOD SPECIMEN / Unknown Lab Venipuncture / Unknown 12/16/2016 4:06 PM CDT 12/16/2016 4:26 PM CDT Trena Tanner MD LAB - CHEMISTRY ORDE CARMELINA Performing Organization Address City/[facility]/ZIP Co de Phone Number [facility] [address] [place] [address] * SED RATE WESTERGREN (12/16/2016 4:06 PM CDT) [facility] Erythrocyte Sedimentation Rate Westergren 3 0 - 12 mm/hr 12/16/2016 5:38 PM CDT [facility] Blood BLOOD SPECIMEN / Unknown Lab Venipuncture / Unknown 12/16/2016 4:06 PM CDT 12/16/2016 4:26 PM CDT Trena Tanner MD LAB - HEMATOLOGY ORD MUKUL Performing Organization Address [facility]/ZIP Co de Phone Number [facility] [address] [place] [phone] * (ABNORMAL) CBC W AUTO DIFFERENTIAL (12/16/2016 4:06 PM CDT) [facility] WBC 7.4 4.5 - 14.5 x10E9/L 12/16/2016 4:44 PM CDT [facility] WBC Corrected x10E9/L 12/16/2016 4:44 PM CDT [facility] RBC 5.30(H) 4.10 - 5.10 x10E12/L 12/16/2016 4:44 PM CDT [facility] Hemoglobin 15.8 12.0 - 16.0 gm/dL 12/16/2016 4:44 PM CDT [facility] Hematocrit 44.7 36.0 - 47.0 % 12/16/2016 4:44 PM CDT [facility] MCV 84.3 78.0 - 98.0 fl 12/16/2016 4:44 PM CDT [facility] MCH 29.8 25.0 - 35.0 pg 12/16/2016 4:44 PM CDT [facility] MCHC 35.3 31.0 - 37.0 gm/dL 12/16/2016 4:44 PM CDT [facility] Platelet Count 224 100 - 400 x10E9/L 12/16/2016 4:44 PM T [facility] RDW-CV 12.9 11.5 - 14.0 % 12/16/2016 4:44 PM CDT [facility] MPV 10.8(H) 6.0 - 9.5 fl 12/16/2016 4:44 PM CDT [facility] Neutrophils % 57.6 24.0 - 66.0 % 12/16/2016 4:44 PM CDT [facility] Lymphocytes % 31.6 22.0 - 61.0 % 12/16/2016 4:44 PM CDT [facility] Monocytes % 7.9 3.0 - 15.0 % 12/16/2016 4:44 PM CDT [facility] Eosinophils % 2.3 0.0 - 10.0 % 12/16/2016 4:44 PM CDT [facility] Basophils % 0.3 % 12/16/2016 4:44 PM CDT [facility] Immature Granulocytes 0.3 % 12/16/2016 4:44 PM CDT [facility] Neutrophil Absolute 4.24 x10E9/L 12/16/2016 4:44 PM CDT [facility] Lymphocytes Absolute 2.32 x10E9/L 12/16/2016 4:44 PM CDT [facility] Monocytes Absolute 0.58 x10E9/L 12/16/2016 4:44 PM CDT [facility] Eosinophils Absolute 0.17 x10E9/L 12/16/2016 4:44 PM CDT [facility] Basophils Absolute 0.02 x10E9/L 12/16/2016 4:44 PM CDT [facility] Immature Granulocytes Absolute 0.02 x10E9/L 12/16/2016 4:44 PM CDT [facility] nRBC Auto 0 /100 WBC 12/16/2016 4:44 PM CDT [facility] Blood BLOOD SPECIMEN / Unknown Lab Venipuncture / Unknown 12/16/2016 4:06 PM CDT 12/16/2016 4:26 PM CDT Trena Tanner MD LAB - HEMATOLOGY ORD ERABLES [facility] [address] [place] [address] * (ABNORMAL) COMPREHENSIVE METABOLIC PANEL (12/16/2016 4:06 PM CDT) [facility] Glucose 77 70 - 105 mg/dL 12/16/2016 5:20 PM [facility] Sodium 139 136 - 145 mmol/L 12/16/2016 5:20 PM [facility] Potassium 4.2 3.5 - 5.1 mmol/L 12/16/2016 5:20 PM [facility] Chloride 107 98 - 107 mmol/L 12/16/2016 5:20 PM [facility] CO2 25 20 - 28 mmol/L 12/16/2016 5:20 PM [facility] Calcium 9.34 9.08 - 10.48 mg/dL 12/16/2016 5:20 PM [facility] Anion Gap 7 5 - 20 mmol/L 12/16/2016 5:20 PM [facility] BUN 17.4 5.3 - 18.7 mg/dL 12/16/2016 5:20 PM [facility] Creatinine 0.84 0.61 - 1.07 mg/dL 12/16/2016 5:20 PM [facility] Alkaline Phosphatase 69(L) 100 - 390 U/L 12/16/2016 5:20 PM [facility] ALT 18 8 - 65 U/L 12/16/2016 5:20 PM [facility] AST 23 3 - 35 U/L 12/16/2016 5:20 PM [facility] Protein Total 7.7 6.3 - 8.2 gm/dL 12/16/2016 5:20 PM [facility] Albumin 4.4 3.3 - 4.9 gm/dL 12/16/2016 5:20 PM [facility] Bilirubin Total 0.6 0.3 - 1.2 mg/dL 12/16/2016 5:20 PM [facility] eGFR by MDRD mL/min/1.7 3m2 12/16/2016 5:20 PM [facility] Comment: eGFR calculations are not performed for children under 18 years old. eGFR by MDRD mL/min/1.7 3m2 12/16/2016 5:20 PM [facility] Comment: eGFR calculations are not performed for children under 18 years old. Blood BLOOD SPECIMEN / Unknown Lab Venipuncture / Unknown 12/16/2016 4:06 PM CDT 12/16/2016 4:26 PM CDT Trena Tanner MD LAB - CHEMISTRY CHERELLE COSME Performing Organization Address City/[facility]/ZIP Co de Phone Number [facility] [place] [address] * IGA BLOOD (12/16/2016 4:06 PM CDT) IgA 113 65 - 421 mg/dL 12/16/2016 5:20 PM CDT [facility] Blood BLOOD SPECIMEN / Unknown Lab Venipuncture / Unknown 12/16/2016 4:06 PM CDT 12/16/2016 4:26 PM CDT Trena Tanner MD LAB - CHEMISTRY CHERELLE COSME Performing Organization Address [facility]/[place] Co de Phone Number [facility] [address] [place] [address] Care Teams Header Operator Relationship Specialty Start Date End Date Sydney Rush MD [address] [place] [address] PADMINI Garcia [phone] PCP - General Family Medicine 07/10/13
--- OUTSIDE RECORDS SUMMARY | 2024-08-23 16:40 | XMS_ITS | Clinical Summary ---
Author Organization [facility] Address [address] [place] [address]. 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
== END 2024-08-21 09:40 | disposition home or self-care (01) ==
PROVIDERS: Emergency Provider Physician Assistant
DX: O99.891 Other specified diseases and conditions complicating pregnancy (principal); R04.0 Epistaxis; Z3A.24 24 weeks gestation of pregnancy
CPT/HCPCS: 99281

== ENCOUNTER 2024-09-06 14:28 | Outpatient (CLI) | payer OTHER, SELFPAY ==
[2024-09-06] VITALS (10 sets, daily range): BP systolic 89–118; BP diastolic 55–68; PULSE 78–116; BMI 27.8
--- OUTSIDE RECORDS SUMMARY | 2024-09-06 14:46 | XMS_ITS | Data Portability ---
Author Organization [facility] [place] Address [address] [place] [address] [place] [address] Assessment Encounter Date Assessment Date Assessment LastModified by Organization Details LastModified Time 07/06/2024 07/06/2024 Patient is __17_weeks . Discussed plan. Not available 07/06/2024 10:44:34 07/27/2024 07/27/2024 Patient is _20__weeks . Discussed plan. Not available 07/27/2024 14:10:03 08/22/2024 08/22/2024 Patient is _24__weeks . Discussed plan. [email or web address] Not available 08/22/2024 19:00:36 Plan of Treatment Reminders Order Date Submit Date Provider Last Modified By Organization Details Last Modified Time Details Appointments OB ROUTINE 2024 09:15A M Aylin Bay CNM Not available Not available Not available Lab None recorded. Referral None recorded. Procedures None recorded. Surgeries None recorded. Imaging US, obstetric , 2nd or 3rd trimester 2023 024 [email or web address] [place], [address], [place], [address], 07/29/2024 14:15:03 US, obstetric , follow-up 2024 025 [email or web address] [place], [address], [place], [address], 08/22/2024 21:50:37 Medication Orders None recorded. Patient TargetsNo targets recorded. Patient InstructionsNo instructions recorded. Reason for Referral None Reported. Results Created Date Observation Date Name Description Value Unit Range Abnormal Flag Note LastModifiedBy Organization Detail LastModifiedTime 06/24/2006/24/2024 [UNIT Y] FERNANDO Garcia sickle cell disease/beta -thalassemia /hemoglobino pathies carrier screen NEGATI VE normal Not Available [facility] [address], [place], [address], 06/24/2024 08:10:46 06/24/20 24 06/24/2024 [UNIT Y] FERNANDO HAMLIN Jose alpha-thalas semia carrier screen NEGATI VE normal Not Available [facility] [address], [place], [address], 06/24/2024 08:10:46 06/24/20 24 06/24/2024 [UNIT Y] FERNANDO HAMLIN Jose cystic fibrosis carrier screen NEGATI VE normal Not Available [facility] [address], [place], [address], 06/24/2024 08:10:46 06/24/20 24 06/24/2024 [UNIT Y] FERNANDO HAMLIN Jose spinal muscular atrophy carrier screen NEGATI VE 2 SMN1 copies , SNP not presen t normal Not Available [facility] [address], [place], [address], 06/24/2024 08:10:46 06/24/20 24 06/24/2024 [UNIT Y] FERNANDO HAMLIN Jose for detailed report, see pdf See PDF normal Not Available [facility] [address], [place], [address], 06/24/2024 08:10:46 06/08/2006/08/2024 CULTU RE: URINE result report SEE RESULT S BELOW Test: Cultu re: Urine Speci men Sourc e: Urine - Clean Catch Speci men Type: Urine Speci men Date: 2023 1326 Resul t Date: 06/11 1334 Resul t Statu s: Final resul t Abnor mal: No Resul burke Lab: [facility] [address] [facility] [address] Tel: CULTU RE ----- ----- ----- --- Organ ism(s ) consi stent with uroge nital or skin sonja . Repea t cultu re if sympt oms indic ate. Not Available [facility] (Lab) [address] [facility] [address], [place], [address], 06/11/2024 14:37:47 06/08/20 24 06/08/2024 CBC W/DIF F WBC 11.0 10'3/ uL 3.5-10 [address] [facility] (Lab) [address] [facility] [address], [place], [address], 06/13/2024 14:06:52 06/08/20 24 06/08/2024 CBC W/DIF F RBC 5.11 10'6/ uL (based on docume nted legal sex) 3.80-[address] [facility] (Lab) [address] [facility] [address], [place], [address], 06/13/2024 14:06:52 06/08/20 24 06/08/2024 CBC W/DIF F HGB 15.1 g/dL (based on docume nted legal sex) 11.6-[address] [facility] (Lab) [address] [place], [address], 06/13/2024 14:06:52 06/08/20 24 06/08/2024 CBC W/DIF F HCT 45.4 % (based on docume nted legal sex) 34.0-4 [address] [facility] (Lab) [address] [facility] [address], [place], [address], 06/13/2024 14:06:52 06/08/20 24 06/08/2024 CBC W/DIF F MCV 88.8 fL 80.0-[address] [facility] (Lab) [address] [facility] [address], [place], [address], 06/13/2024 14:06:52 06/08/20 24 06/08/2024 CBC W/DIF F MCH 29.5 pg 27.0-[address] [facility] (Lab) [address] [facility] [address], [place], [address], 06/13/2024 14:06:52 06/08/20 24 06/08/2024 CBC W/DIF F MCHC 33.3 g/dL 32.0-[address] [facility] (Lab) [address] [facility] [address], [place], [address], 06/13/2024 14:06:52 06/08/20 24 06/08/2024 CBC W/DIF F RDW 13.8 % 11.0-[address] [facility] (Lab) [address] [facility] [address] [address], [place], [address], 06/13/2024 14:06:52 06/08/20 24 06/08/2024 CBC W/DIF F plt 215 10'3/ uL 150-[address] [facility] (Lab) [address] [facility] [address], [place], [address], 06/13/2024 14:06:52 06/08/20 24 06/08/2024 CBC W/DIF F MPV 12.8 fL 8.8-12 .[address] [facility] (Lab) [address] [facility] [address], [place], [address], 06/13/2024 14:06:52 06/08/20 24 06/08/2024 CBC W/DIF F NRBC's 0.0 % 0.[address] [facility] (Lab) [address] [facility] [address], [place], [address], 06/13/2024 14:06:52 06/08/20 24 06/08/2024 CBC W/DIF F absolute NRBCs 0.0 10'3/ uL no refere nce range establ ished Not Available [facility] (Lab) [address] [facility] [address], [place], [address], 06/13/2024 14:06:52 06/08/20 24 06/08/2024 CBC W/DIF F neutrophils 80.1 % 34.0-7 3[address] [facility] (Lab) [address] [facility], [place], [address], 06/13/2024 14:06:52 06/08/20 24 06/08/2024 CBC W/DIF F lymphocytes 12.8 % 15.0-5 0.[address] [facility] (Lab) [address] [facility] [address] [address], [place], [address], 06/13/2024 14:06:52 06/08/20 24 06/08/2024 CBC W/DIF F monocytes 5.8 % 1.0-[address] [facility] (Lab) [address] [facility], [place], [address], 06/13/2024 14:06:52 06/08/20 24 06/08/2024 CBC W/DIF F eosinophils 0.6 % 0.0-8. [address] [facility] (Lab) [address] [facility] [address] [address], [place], [address], 06/13/2024 14:06:52 06/08/20 24 06/08/2024 CBC W/DIF F basophils 0.3 % 0.0-2. [address] [facility] (Lab) [address] [facility] [address] [address], [place], [address], 06/13/2024 14:06:52 06/08/20 24 06/08/2024 CBC W/DIF F immature granulocytes 0.4 % no define d refere nce range Not Available [facility] (Lab) [address] [place], [address], 06/13/2024 14:06:52 06/08/20 24 06/08/2024 CBC W/DIF F absolute neutrophils 8.8 10'3/ uL 1.5-8. [address] [facility] (Lab) [address] [facility] [address] [address], [place], [address], 06/13/2024 14:06:52 06/08/20 24 06/08/2024 CBC W/DIF F absolute lymphocytes 1.4 10'3/ uL 1.0-4. [address] [facility] (Lab) [address] [facility], [place], [address], 06/13/2024 14:06:52 06/08/20 24 06/08/2024 CBC W/DIF F absolute monocytes 0.6 10'3/ uL 0.2-1. [address] [facility] (Lab) [address] [facility] [address] [address], [place], [address], 06/13/2024 14:06:52 06/08/20 24 06/08/2024 CBC W/DIF F absolute eosinophils 0.1 10'3/ uL 0.0-0. [address] [facility] (Lab) [address] [facility], [place], [address], 06/13/2024 14:06:52 06/08/20 24 06/08/2024 CBC W/DIF F absolute basophils 0.0 10'3/ uL 0.0-0. [address] [facility] (Lab) [address] [facility], [place], [address], 06/13/2024 14:06:52 06/08/20 24 06/08/2024 CBC W/DIF [...] resul ts are expec rosalie. Not Available [facility] (Lab) [address] [facility], [place], [address], 06/13/2024 14:06:52 06/08/20 24 06/08/2024 HIV 1/2 ANTIG EN/AN TIBOD Y, REFLE X CONFI RMATI ON HIV antigen/anti body Nonrea ctive nonrea ctive HIV-1 antig en and HIV-1 /HIV- 2 antib odies were not detec rosalie. No labor atory evide nce of HIV infec tion. Not Available [facility] (Lab) [address] [facility] [address], [place], [address], 06/13/2024 14:06:52 06/08/20 24 06/08/2024 HEPAT ITIS B SURFA CE ANTIG EN hepatitis B surface antigen Non-re active non-re active This assay was perfo rmed using [employer] ratio n reage nts and test kits. Value s obtai jeanine with other assay metho ds or kits canno t be used inter buam eably . Not Available [facility] (Lab) [address] [facility] [address], [place], [address], 06/13/2024 14:06:53 06/08/20 24 06/08/2024 HEPAT ITIS C ANTIB VARINDER SCREE N, REFLE X TO CONFI RMATI ON hepatitis C antibody Non-re active non-re active Antib odies to HCV Not Detec rosalie, does not exclu de the possi bilit y of expos ure to HCV. Not Available [facility] (Lab) [address] [facility] [address], [place], [address], 06/13/2024 14:06:53 06/08/20 24 06/08/2024 HEMOG LOBIN [...] >8.0% Actio n sugge sted Not Available [facility] (Lab) [address], [place], [address], 06/13/2024 14:06:54 06/08/20 24 06/08/2024 RUBEL LA IGG ANTIB VARINDER, QUANT rubella antibodies, IgG Reacti ve reacti ve Not Available [facility] (Lab) [address], [place], [address], 06/13/2024 14:06:54 06/08/20 24 06/08/2024 RUBEL LA IGG ANTIB VARINDER, QUANT rubella antibodies, IgG quant 63.1 IU/mL >=10 Non-r eacti ve (Non- Immun e) <10 IU/mL React raissa (Immu ne) > or = 10 IU/mL Not Available [facility] (Lab) [address], [place], [address], 06/13/2024 14:06:54 06/08/20 24 06/08/2024 TYPE/ RH/SC REEN ABO/Rh type O NEG Not Available [facility] (Lab) [address] [place], [address], 06/13/2024 14:06:55 06/08/20 24 06/08/2024 TYPE/ RH/SC REEN antibody screen POS abnormal Previ ously : NoNTI 06/09 10:[address] [facility] (Lab) [address], [place], [address], 06/13/2024 14:06:55 06/08/20 24 06/08/2024 TYPE/ RH/SC REEN exp date 2023 23:[address] [facility] (Lab) [address], [place], [address], 06/13/2024 14:06:55 06/08/20 24 06/08/2024 COOMB S, DIREC T ANTIG LOBUL IN direct antiglobulin test - polyspecific NEG Not Available [facility] (Lab) [address] [facility] [address], [place], [address], 06/13/2024 14:06:55 06/08/20 24 06/08/2024 ANTIB VARINDER SCREE N - PEG absc peg interpretati on NEG Not Available [facility] (Lab) [address] [facility] [address], [place], [address], 06/13/2024 14:06:56 06/08/20 24 06/08/2024 ANTIB VARINDER [...] men in 2-[address] [facility] (Lab) [address] [facility], [place], [address], 06/13/2024 14:06:56 06/08/20 24 06/08/2024 RPR SCREE N, REFLE X TITER /CONF IRMAT ION RPR screen Nonrea ctive nonrea ctive Not Available [facility] (Lab) [address] [facility] [address], [place], [address], 06/13/2024 14:06:57 06/08/20 24 06/08/2024 ANTIB VRAINDER INVES TIGAT ION CONSU LT Ab investigatio [...] ve. A comple te antigl obulin crossm day [facility] is necess rupesh and extra time will be requir ed to find compat ible blood. Inter prete d By: Lena Irving MD 06/13 13:[address] [facility] (Lab) [address] [facility] [address], [place], [address], 06/13/2024 14:06:57 06/08/20 24 06/08/2024 drug scree n, urine Amphetamines : negati ve Not Available [place] [address], [place], [address], 06/08/2024 12:14:32 06/08/20 24 06/08/2024 drug scree n, urine Cannabinoids : negati ve Not Available [place] [address], [place], [address], 06/08/2024 12:14:32 06/08/20 24 06/08/2024 drug scree n, urine Cocaine: negati ve Not Available [place] [address], [place], [address], 06/08/2024 12:14:32 06/08/20 24 06/08/2024 drug scree n, urine Opiates: negati ve Not Available [place] [address], [place], [address], 06/08/2024 12:14:32 06/08/20 24 06/08/2024 drug scree n, urine Phenocyclidi ne: negati ve Not Available [place] [address], [place], [address], 06/08/2024 12:14:32 06/08/20 24 06/08/2024 drug scree n, urine Barbiturates : negati ve Not Available [place] [address], [place], [address], 06/08/2024 12:14:32 06/08/20 24 06/08/2024 drug scree n, urine Benzodiazepi yuridia: negati ve Not Available [place] [address], [place], [address], 06/08/2024 12:14:32 06/08/20 24 06/08/2024 drug scree n, urine Ethanol: negati ve Not Available [place] [address], [place], [address], 06/08/2024 12:14:32 06/08/20 24 06/08/2024 drug scree n, urine Hallucinogen s: negati ve Not Available [place] [address], [place], [address], 06/08/2024 12:14:32 06/08/20 24 06/08/2024 drug scree n, urine Inhalants: negati ve Not Available [place] [address], [place], [address], 06/08/2024 12:14:32 06/08/20 24 06/08/2024 drug scree n, urine Anabolic Steroids: negati ve Not Available [place] [address], [place], [address], 06/08/2024 12:14:32 06/08/20 24 06/08/2024 drug scree n, urine Other: negati ve Not Available [place] [address], [place], [address], 06/08/2024 12:14:32 07/06/20 24 07/06/2024 ANTIB VARINDER SCREE N antibody screen NEG Previ ously ident ified antib varinder has dropp ed below detec table level s Not Available [facility] (Lab) [address], [place], [address], 07/07/2024 08:48:08 06/08/20 24 06/08/2024 US, obste tric, nucha l trans lucen cy No observ ation record ed. [email or web address] [place] [address], [place], [address], 06/08/2024 13:01:59 06/08/20 24 06/08/2024 US, obste tric, nucha l trans lucen cy No observ ation record ed. [email or web address] [address] [facility], [place], [address], 06/09/2024 14:52:07 07/27/20 24 07/27/2024 US, obste tric, 2nd or 3rd trime ster No observ ation record ed. [email or web address] [place] [address], [place], [address], 07/27/2024 17:24:31 07/27/20 24 07/27/2024 US, obste tric, follo w-up No observ ation record ed. [address], [place], [address], 07/30/2024 09:15:54 08/22/19 25 08/22/2024 US, obste tric, follo w-up No observ ation record ed. [email or web address] [place] [address], [place], [address], 08/22/2024 18:46:26 08/22/19 25 08/22/2024 US, obste tric, follo w-up No observ ation record ed. [email or web address] [address], [place], [address], 08/24/2024 09:29:33 08/29/19 25 08/29/2024 US, obste tric, follo w-up No observ ation record ed. [email or web address] [facility] [address], [place], [address], 09/02/2024 22:49:33 08/31/1908/29/2024 US, obste tric, follo w-up No observ ation record ed. [email or web address] [facility] [address] [facility] [place], [address], 09/05/2024 09:15:26 Result Notes None recorded. 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 4 18:31:24 Asthma 347507951 Active 2023 Lupe nguyen, [facility] 4 18:31:52 Pregnanc y 01154266 Active 2023 Lupe nguyen, [facility] 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 4 12:51:43 Vanishin g twin syndrome 285491693 Active Aylin Bay CNM [address], [place], [address], [place] [facility] 4 12:51:43 Aortic root finding 333391253 Active mildly prominen t - Referral faxed to [facility] 08/24 Level iI 08/29 [facility] 09/20 1045 US/ echo and office visit Carine Carlos MA, [facility] 5 09:16:20 Aortic root finding 890155150 Active mildly prominen t - Referral faxed to [facility] 08/24 Level iI 08/29 [facility] 09/20 1045 US/ echo and office visit Carine Carlos MA, [facility] 5 09:16:20 Pregnanc y 91801113 Completed 201906/04/2020 Lupe nguyen, [facility] 4 12:17:22 Problem Notes None recorded. Procedures Surgical History Date Name Laterality Status Provider Name and Address Organization Details Recorded Time 11/03/19 24 Date of Last Pap Smear completed Lupe Kumar [facility] 03/28/2024 20:37:26 08/01/19 14 tonsillectomy completed Lupeyulissa Kumar [facility] 03/28/2020 10:00:48 Imaging Results Imaging Date Name Status LastModified by Organization Details LastModified Time 06/08/2024 US, obstetric, nuchal translucency completed [address], [place], [address], 06/08/2024 13:01:59 06/08/2024 US, obstetric, nuchal translucency completed [email or web address], [place], [address], 06/09/2024 14:52:07 07/27/2024 US, obstetric, 2nd or 3rd trimester completed [email or web address] [place] [address], [place], [address], 07/27/2024 17:24:31 07/27/2024 US, obstetric, follow-up completed [address], [place], [address], 07/30/2024 09:15:54 08/22/2024 US, obstetric, follow-up completed [email or web address] [place] [address], [place], [address], 08/22/2024 18:46:26 08/22/2024 US, obstetric, follow-up completed [email or web address] [address], [place], [address], 08/24/2024 09:29:33 08/29/2024 US, obstetric, follow-up completed [email or web address] [facility] [address], [place], [address], 09/02/2024 22:49:33 08/29/2024 US, obstetric, follow-up completed [facility] [address], [place], [address], 09/05/2024 09:15:26 Procedure Notes None recorded. Medical Equipment None [...] Updated DateTime 07/06/2024 166.37 cm 25.6 kg/m2 09769.40 972 g 119 mm[Hg] 78 mm[Hg] Lupe Kumar [facility] 4 10:43:05 Date Recorded Body weight Body mass index (BMI) Body height Systolic blood pressure Diastolic blood pressure Provider Name and Address Organization Details Last Updated DateTime 07/27/2024 70941.37 157 g 26.4 kg/m2 166.37 cm 126 mm[Hg] 85 mm[Hg] Lupe Kumar [facility] 4 14:04:00 Date Recorded Body weight Body mass index (BMI) Body height Systolic blood pressure Diastolic blood pressure Provider Name and Address Organization Details Last Updated DateTime 08/22/2024 11595.51 816 g 27.5 kg/m2 166.37 cm 132 mm[Hg] 84 mm[Hg] Lupe Kumar [facility] 18:29:54 Social History Question Answer Notes LastModified by Organizat ion Details LastModified Time Tobacco Smoking Status Never Smoker Not Available [facility] 06/03/2020 03:28:11 What Is Your Level Of Alcohol Consumption? None [id number] Information not available 06/03/2020 If You Are , What Was Your Level Of Alcohol Consumption Prior To ? None [email or web address] Information not available 04/25/2024 Are You Blind Or Do You Have Difficulty Seeing? No Information not available 03/29/2022 What Is Your Level Of Caffeine Consumption? Occasional [email or web address] Information not available 04/25/2024 In The 14 [...] E-cigarettes Or Vape? Never Used Electronic Cigarettes [id number] Information not available 06/03/2020 What Was The Date Of Your Most Recent Tobacco Screening? 07/27/2024 [email or web address] Information not available 07/27/2024 Do You Have Smoke And Carbon Monoxide Detectors In Your Home? Yes [email or web address] Information not available 04/25/2024 Do You Or Have You Ever Used Smokeless Tobacco? Never Used Smokeless Tobacco [id number] Information not available 06/03/2020 How Much Tobacco Do You Smoke? No [id number] Information not available 06/03/2020 Do You Use Any Illicit Or Recreational Drugs? Yes Marijuana [email or web address] Information not available 04/25/2024 Do You Use Sunscreen Routinely? Yes [email or web address] Information not available 04/25/2024 Sex: Unknown Functional [...] 03/29/2022 What is your exercise level? Occasional [id number] Information not available 06/03/2020 Mental Status None recorded. Family History Relationship Description Onset Age of this Age Resolved Age Notes LastModified by Organization Details LastModified Time Paternal Grandmother Diabetes mellitus mistiu l Not available 11/16/2019 12:15:06 Paternal Grandmother Hypertensive disorder [email or web address] l Not available 11/16/2019 12:15:18 Notes:Paternal grandmother: Hypertension, Diabetes mellitus Medical History Condition Response Allergies (Food, seasonal, environmental ) Y Other Y Breast Cancer N Drug/Latex Allergies/Reactions N Blood Transfusion N Dermatologic Disorders N Lung Disease N [...] ICD10 Code Diagnosis Note [address] [place] [address],[place] [address] 11/20/2019 10:07:21 11/20/2019 10:57:25 Routine care 030443236 Z34.02 4721 Sylvie Garvey [place] [address],[place] [address] 12/18/2019 11:14:00 12/18/2019 13:03:19 screening for malformation 773958326 Z36.[address] [place] [address],[place] [address] 12/18/2019 11:14:32 12/18/2019 13:02:41 Normal 78168579 Z34.92 7548 Chandu Monson MD [place] [address],[place] [address] 01/10/2020 11:42:10 01/10/2020 18:04:09 Routine care 903861846 Z34.02 90304 Aylin Bay CNM [place] [address],[place] [address] 02/05/2020 10:54:42 02/05/2020 11:31:54 Routine care 900128939 Z34.93 08296 Chandu Monson MD [place] [address],[place] [address] 02/19/2020 11:50:36 02/19/2020 12:38:13 Large for gestation age fetus 501768063 O35.8XX9 41976 Gabi [facility] [address],[place] [address] 02/28/2020 10:50:40 02/28/2020 11:56:08 Uterine size for dates discrepancy 425983853 O26.843 Z3A.31 06172 Chandu Monson MD [place] [address],[place] [address] 03/06/2020 12:10:22 03/06/2020 12:42:34 Routine care 902673748 Z34.02 24008 [facility] [address],[place] [address] 03/19/2020 11:38:56 03/19/2020 15:28:29 Routine care 355217156 Z34.93 96120 Aylin Bay [facility] [address],[place] [address] 03/28/2020 09:41:26 03/28/2020 10:25:38 Routine care 768511473 Z34.93 70431 Aylin Bay [facility] [address],[place] [address] 04/02/2020 12:44:30 04/02/2020 13:46:48 Routine care 954098625 Z34.93 19463 [facility] [address],[place] [address] 04/09/2020 12:12:16 04/10/2020 15:39:22 Routine care 857883889 Z34.93 54353 Donita Hemphill [facility] [address],[place] [address] 04/09/2020 12:54:51 04/09/2020 13:29:44 Reduced movement 763070199 O36.8130 93775 [facility] [address],[place] [address] 04/14/2020 16:51:08 04/14/2020 17:48:58 Routine care 505948131 Z34.93 58256 [facility] [address] [address] 06/04/2020 09:22:06 06/04/2020 11:37:23 state 43689855 Z39.2 Continue to watch for signs/symp toms [...] plan if desiredp Abnormal v aginal bleeding 469009082 N93.9 Abnormal bleeding may be due to depo provera. Will check u/s and labs. [address]84 Sylvie Garvey [place] [address],[facility] [place] [address] 06/05/2020 10:16:39 06/05/2020 10:57:21 Abnormal vaginal bleeding 260153272 N93.9 [id number] ENRIQUE Manley [place] [address],[place] [address] 03/29/2022 09:58:08 03/29/2022 11:15:57 Contraception care management 452917014 Z30.9 We discussed normal to have some [...] review of plan of care. Abdominal pain [id number] R10.9 [id number] ENRIQUE Manley [place] [address] [address] 08/25/2023 09:51:13 08/25/2023 14:05:25 Missed period [id number] N92.5 UPT (-[place] ordered[place] cussed her period hx, reviewed timed IC, encouraged daily PNV starting nowcontinu e to track cycles, recommend returning in 1 month for WWE - due for primary pap Time spent in visit is a total of 18 mins with at least 50% of visit consisting of counseling and review of plan of care. Reproducti ve care management [id number] Z31.9 [id number] ENRIQUE Manley [place] [address] [address] 11/03/2023 09:40:36 11/03/2023 13:57:25 Screening procedure 41729271 Z13.9 Gynecologi c examination 79656100 Z01.419 Z11.3 Z11.8 WWEBC - none. TTCdiscuss [...] paper copy of today's plan if desired. [id number] Aylin Bay CNM [place] [address],[place] [address] 03/16/2024 14:08:22 03/16/2024 15:25:22 Trying to conceive 837189148 Z31.9 take vitamin dailycheck labs todayplan mid luteal progestero ne day 21 or 7 days after + ovulationd iscussed COST, handout given, will acquire semen analysis records Anovulation 93988725 N97 .0 check mid luteal progestero ne [id number] [facility] [address],[place] [address] 04/19/2024 11:11:20 04/19/2024 13:13:24 Uterine size for dates discrepancy 182510742 O26.841 O30.041 O36.80X0 Z3A.01 [id number] [facility] [address],[place] [address] 04/25/2024 16:48:55 04/26/2024 01:49:01 Uncertain viability of 954733169 O36.80X0 O30.041 Z3A.01 [id number] Aylin Bay [facility] [address],[place] [address] 04/25/2024 16:49:26 04/27/2024 09:25:08 Amenorrhea 92134013 N91.2 Twin 55804456 O30.009 continue to monitor growthpren atal vitamin dailyok for zofran if needed Migraine 71787768 G43.90 9 try exedrin migraine if no relief fioricet ok [id number] [facility] [address],[place] [address] 05/10/2024 14:51:05 05/10/2024 15:24:11 Uncertain viability of 907946485 O36.80X0 O31.10X9 Z3A.09 [id number] Aylin Bay [facility] [address],[place] [address] 05/11/2024 09:11:35 05/11/2024 11:31:30 Missed miscarriage 87201641 O02.1 twin B Amenorrhea 75682839 N91. 2 twin A +FHR, will continue to monitorpap up to datereview ed education and precaution sf/u 12 weeks new ob and first look, will determine when genetics may be collected for NIPT [id number] [facility] [address],[place] [address] 05/16/2024 14:16:45 05/16/2024 14:53:41 Abdominal pain in 419029805 O99.891 O31.11X0 Z3A.10 [id number] Aylin Bay [facility] [address],[place] [address] 05/16/2024 14:44:18 05/16/2024 16:56:25 Pain in pelvis 01675492 R10.2 Abdominal pain 20518197 R10.9 [id number] [facility] [address],[place] [address] 06/08/2024 11:12:53 06/08/2024 11:57:37 screening 753262718 Z36.82 O31.10X9 Z3A.13 [id number] Aylin Bay [facility] [address],[place] [address] 06/08/2024 11:13:15 06/08/2024 12:37:51 Gestation period, 13 weeks 11769004 Z3A.13 Routine an tenatal care 768113642 Z34.93 Migraine 62996770 G43.90 9 [id number] Aylin Bay [facility] [address],[place] [address] 07/06/2024 10:23:36 07/06/2024 13:25:04 Gestation period, 17 weeks 68506216 Z3A.17 continue vitamin [id number] [facility] [address],[place] [address] 07/27/2024 11:49:24 07/27/2024 14:42:58 screening for malformation 316536417 Z36.3 Z3A.20 [id number] Aylin Bay [facility] [address],[place] [address] 07/27/2024 11:49:36 07/27/2024 14:42:49 Gestation period, 20 weeks 29825389 Z3A.20 [id number] Gabi Duque [place] [address] [address] 08/22/2024 17:23:27 08/22/2024 18:34:48 screening 247889058 Z36.2 Z3A.24 [id number] Aylin GuoSoraya Bay CNM [place] [address] [address] 08/22/2024 17:23:43 08/24/2024 05:14:19 Gestation period, 24 weeks 076651603 Z3A.24 Recurrent bleeding of nose 2080688152 102 R04.0 plan saline spray daily Health Concerns Section Related Observation LastModified by Organization Detai ls LastModified Time None Recorded Concern Status LastModified by Organization Details LastModified Time None Recorded Advance Directives Directive None Recorded Payers Encounter Date Sequence Insurance Name Policy Number Policy Barrett Covered Member ID Barrett Member ID Guarantor Name 07/06/2024 1 [facility] ON OR AFTER 01/29/21 (MEDICAID REPLACEMENT - HMO) Michelle Olivas [id number] Guya Olivas 07/27/2024 1 [facility] ON OR AFTER 01/29/21 (MEDICAID REPLACEMENT - HMO) Michelle Olivas [id number] Adrionna Olivas 07/27/2024 1 [facility] ON OR AFTER 01/29/21 (MEDICAID REPLACEMENT - HMO) Michelle Olivas [id number] Guya Olivas 08/22/2024 1 [facility] ON OR AFTER 01/29/21 (MEDICAID REPLACEMENT - HMO) Michelle Olivas [id number] Adrionna Olivas 08/22/2024 1 [facility] ON OR AFTER 01/29/21 (MEDICAID REPLACEMENT - HMO) Michelle Olivas [id number] Michelle Olivas OBGyn Episode Ob Episode Information Episode Created Date Number of Fetuses Patient Bloodtype Patient rh Status Prepregnancy Weight lbs Domestic Partner Domestic Partner Phone Father Name Sample Tester Status 11/20/19 20 1 O Negative 150 [...] Gestation 0 [email or web address] 01/10/2020 04/27/20 20 0 Pre-ghassan Flowsheet Flowsheet Date 11/20/2019 Serna Score Blood Edema Fundus Height Fundus Units Glucose Ketones Leukocytes Nitrite Labor Signs Protein Cervic Dilation Cervic Effacement Cervic Station none 18 trace Type Weight in lbs Pre/Post Dialysis Refused Weight 149.551672937022 BP Diastolic BP Location Tested BP Systolic [...] Weight in lbs Pre/Post Dialysis Refused Weight 153.278692176936 BP Diastolic BP Location Tested BP Systolic [...] Weight in lbs Pre/Post Dialysis Refused Weight 150.478388963623 BP Diastolic BP Location Tested BP Systolic BP Type 82 127 sitting Fetus Heart Rate Present A 155 Fetus Movement A No Comments G1 at 13+2 by sure LMP = 9 w pala U/S. She has MOREIRA about every other day relieved with Tylenol. Nausea but no emesis. She had spotting in early September but none since Flowsheet Date 01/10/2020 Serna Score Blood Edema Fundus Height Fundus Units Glucose Ketones Leukocytes Nitrite Labor Signs Protein Cervic Dilation Cervic Effacement Cervic Station 25 trace Type Weight in lbs Pre/Post Dialysis Refused Weight 157.120822450582 BP Diastolic BP Location Tested BP Systolic BP Type 76 127 Fetus Heart Rate Present A 155 Fetus Movement A Yes Comments Flowsheet Date 02/05/2020 Serna Score Blood Edema Fundus Height Fundus Units Glucose Ketones Leukocytes Nitrite Labor Signs Protein Cervic Dilation Cervic Effacement Cervic Station neg trace 27 trace Type Weight in lbs Pre/Post Dialysis Refused Weight 160.023070166300 BP Diastolic BP Location Tested BP Systolic [...] Weight in lbs Pre/Post Dialysis Refused Weight 162.872320452293 BP Diastolic BP Location Tested BP Systolic BP Type 78 123 Fetus Heart Rate Present A 145 Fetus Movement A Yes Comments s d -ultrasound to check growth Flowsheet Date 02/28/2020 [...] Weight in lbs Pre/Post Dialysis Refused Weight 166.851492751355 BP Diastolic BP Location Tested BP Systolic BP Type 79 127 Fetus Heart Rate Present A 145 Fetus Movement A Yes Comments normal blood sugars Flowsheet Date 03/19/2020 Serna Score Blood Edema Fundus Height Fundus Units Glucose Ketones Leukocytes Nitrite Labor Signs Protein Cervic Dilation Cervic Effacement Cervic Station neg trace 35 trace Type Weight in lbs Pre/Post Dialysis Refused Weight 171.654969234960 BP Diastolic BP Location Tested BP Systolic [...] Weight in lbs Pre/Post Dialysis Refused Weight 167.016127808303 BP Diastolic BP Location Tested BP Systolic [...] Weight in lbs Pre/Post Dialysis Refused Weight 168.009497409010 BP Diastolic BP Location Tested BP Systolic [...] Weight in lbs Pre/Post Dialysis Refused Weight 172.178024885257 BP Diastolic BP Location Tested BP Systolic [...] Weight in lbs Pre/Post Dialysis Refused Weight 173.675483437412 BP Diastolic BP Location Tested BP Systolic [...] Weight in lbs Pre/Post Dialysis Refused Weight 153.333887772574 BP Diastolic BP Location Tested BP Systolic [...] Estim ated Date of Delivery false Thalassemia (Afghan, Mongolian, Mediterranean, Or Background): MCV < 80 false Neural Tube Defect (Meningomyelocele, Spina Bifi da, Or Anencephaly) false Congenital Heart Defect false Down Syndrome false Buster-Sachs (eg, Caodaism, Cajun, Pashto-Tajik) f alse Manpreet Disease false Sickle Cell Disease Or Trait () false Hemophilia Or Other Blood Disorders false Muscular Dystrophy false Cystic Fibrosis false Jeffrey's Chorea false Intellectual Disability/Autism false If Yes, [...] Domestic Partner Domestic Partner Phone Father Name Sample Tester Status 04/25/20 1 DELETED Jam Calculation Initial [...] Domestic Partner Domestic Partner Phone Father Name Sample Tester Status 06/08/20 1 O Negative 153 Home [employer] OPEN Fetus Data First Name Last Name Admitted to NICU Weight (g) Sex Living Outcome Pediatric Complications Fetus ID Race Codes Race Delivery Type [id number] Problems Problem Notes rhogam 04/02/24 Problem Name Start Date End Date Resolution Snomed Code Not e 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 and office visit LISBET Carlos Jam Calculation Initial Jam Date Initial Exam [...] Ultra Sound Latest Days Gestation 0 0 Pre-ghassan Flowsheet Flowsheet Date 06/08/2024 Serna Score Blood Edema Fundus Height Fundus Units Glucose Ketones Leukocytes Nitrite Labor Signs Protein Cervic Dilation Cervic Effacement Cervic Station neg trace none trace Type Weight in lbs Pre/Post Dialysis Refused Weight 153.224537938687 BP Diastolic BP Location Tested BP Systolic [...] Type Weight in lbs Pre/Post Dialysis Refused 156.251896335594 BP Diastolic BP Location Tested BP Systolic [...] Type Weight in lbs Pre/Post Dialysis Refused 161.046395253467 BP Diastolic BP Location Tested BP Systolic [...] Type Weight in lbs Pre/Post Dialysis Refused 168.193651371264 BP Diastolic BP Location Tested BP Systolic [...]
--- OUTSIDE RECORDS SUMMARY | 2024-09-06 14:47 | XMS_ITS | Patient Health Summary ---
Author Organization [facility] Address [address] [place] [address] Care Team Providers Care Stone Hand Name Role Phone Sydney Rush MD Primary Care Provider [phone] Note from [facility] [place] [facility] [place]non-owned Affiliates and Associated Physician Practices is amultiple site organization consisting of ambulatory clinics and hospital sitesin [place], [place], [place] and [place]. This disclosure is being madepursuant to the Care Everywhere program and may not contain all information available regarding this patient. Last updated 18.[facility] Allergies No known active allergies Medications * Be aware that medications may not be up to date on this document. Alwaysverify current medications with the patient. * Other White dissolving pill for nausea * Vit-DSS-Fe Fum-FA ( vitamin with iron) tablet Take 1 (one) tablet by mouth once daily Reasons: * ondansetron (Zofran) 4 MG tablet Take 1 (one) tablet by mouth every 6 hours as needed for Nausea/Vomiting Reasons: Nausea and Vomiting in * lvwykfz-symzqucvoppqp-mxrvnxuv 250-250-65 MG tablet Take 1 (one) tablet by mouth every 6 hours as needed for Headache * cyclobenzaprine (Flexeril) 10 MG tablet Take 1 (one) tablet by mouth 3 times daily as needed for Muscle Spasms Reasons: Muscle Spasm Ended Medications* ibuprofen (MOTRIN) 600 MG tablet(Discontinued) Take 600 mg by mouth every 6 hours as needed for Pain * cyproheptadine (PERIACTIN) 4 MG tablet(Started 01/12/2017)(Discontinued) Take 1 Tab by mouth at bedtime 2 refills remaining Active Problems Problem Noted Date Diagnosed Date Pain, abdominal, generalized 01/12/2017 Social History Tobacco Use Types Packs/Day Years Used Date Smoking Tobacco: Never Smokeless Tobacco: Never Alcohol Use Standard Drinks/Week Comments No 0 (1 standard drink = 0.6 oz pur e alcohol) Estimated Date of Delivery Comme nts Yes 12/10/2024 Based on last me nstrual period of 03/05/2024 Sex and Gender Information Value Date Recorded Sex Assigned at Not on file Gender Identity Not on file Sexual Orientation Not on file Last Filed Vital Signs Vital Sign Reading Time Taken Comments Blood Pressure 115/73 08/29/2024 2:35 PM MULTIMEDIA COORDINATOR Pulse 71 08/29/2024 2:35 PM MULTIMEDIA COORDINATOR Temperature 36.3 C (97.3 F) 01/12/2017 10:45 AM CDT Respiratory Rate 16 01/12/2017 11:15 AM CDT Oxygen Saturation 97% 01/12/2017 11:00 AM CDT Inhaled Oxygen Concentration 100% 01/12/2017 1 0:45 AM CDT Weight 76.2 kg (168 lb) 08/29/2024 2:35 PM MULTIMEDIA COORDINATOR Height 165.1 cm (5' 5 ) 08/29/2024 2:35 PM MULTIMEDIA COORDINATOR Body Mass Index 27.96 08/29/2024 2:35 PM MULTIMEDIA COORDINATOR Procedures * SONOGRAM - COMPLETE(Performed 08/29/2024) Performed for Encounter for anatomic survey (HCC), Abnormal ultrasound, Vanishing twin syndrome (HCC), 25 weeks gestation of (HCC) * US ABDOMEN LIMITED(Performed 01/21/2017) Performed for [...] Performed for Generalized abdominal pain Results * SONOGRAM - COMPLETE (08/29/2024 1:43 PM MULTIMEDIA COORDINATOR) Linked Results Indication ======== Mildly dilated aortic arch on outside scan, Reportedly low-risk cf-DNA 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 Para 1 [id number] 1. live 2019. Gest. age 39 w + 2 d. Weight 2,693 g. Sex of child: male. Details: Lab Tests Test Date Result NIPT Low risk per patient Maternal Assessment Physical Exam Height 165 cm, 5 ft 5 in. Initial weight 76 kg, 168 lb. Initial BMI 27.96 kg/m Method ====== Transabdominal ultrasound. View: Good view ========= James . Number of fetuses: 1 Dating ====== Date Details Gest. age FRED LMP 03/05/2024 25 w + 2 d 12/10/2024 U/S 08/29/2024 based upon AC, BPD, Femur, HC 26 w + 2 d 12/03/2024 Assigned dating based on the LMP, selected on 08/29/2024 25 w + 2 d 12/10/2024 General Evaluation Cardiac activity present. FHR 146 bpm. Presentation: cephalic Placenta: Placental site: anterior Umbilical cord: Cord vessels: 3 vessel cord. Insertion site: normal insertion Amniotic fluid: Amount of AF: normal Biometry BPD 68.3 mm 27w 3d 96% Hadlock HC 241.7 mm 26w 2d 63% Hadlock Cerebellum tr 29.2 mm 75% [place] AC 220.8 mm 26w 4d 78% Hadlock Femur 45.3 mm 25w 0d 27% Hadlock Humerus 41.5 mm 25w 0d 33% Bonita HC / AC 1.09 -/- Hadlock Weight Calculation: EFW 880 g 70% Hadlock EFW (lb,oz) 1 lb 15 oz EFW by Hadlock ([id number]) Head / Face / Neck Biometry: CM 6.2 mm 51% Nicolaides appropriate Growth Overview Exam date GA BPD (mm) HC (mm) AC (mm) FL (mm) HL (mm) EFW (g) 08/29/2024 25w 2d 68.3 96% 241.7 63% 220.8 78% 45.3 27% 41.5 33% 880 70% Anatomy The following structures appear normal: Head / Neck Cranium. Lateral ventricles. Choroid plexus. Midline falx. Cavum septi pellucidi. Cerebellum. Cisterna magna. Face Orbits. Heart / Thorax 4-chamber view. RVOT view. LVOT view. 3-vessel view. 9-qhdrys-jilxhgd view. Situs. Aortic arch view. Bicaval view. Ductal arch view. Great vessels. Right lung. Left lung. Diaphragm. Abdomen Cord insertion. Stomach. Kidneys. Bladder. Genitals. Spine Cervical spine. Thoracic spine. Lumbar spine. Sacral spine. Extremities / Skeleton Arms. Hands. Legs. Feet. The following structures could not be adequately visualized: Face Lips. Profile. Nose. sex: male. 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) on outside U/S * Today's ultrasound (U/S) findings: Living james intrauterine fetus growth is in the normal range Amniotic fluid volume appears normal Placenta location appears normal Comprehensive anatomic survey is incomplete Acending aorta is subjectively mildly dilated Aortic Valve 4.8 mm Z +2.5 Ascending Aorta 5.8 mm Z +2.1 Aortic Isthmus 4.1 mm Z +3.2 Descending Aorta 4.0 mm Z -0.7 ASSESSMENT James IUP at 25 weeks of gestation by stated EDC from LMP & early U/S Today's U/S shows mildly dilated ascending aorta COUNSELING & RECOMMENDATIONS (PLEASE SEE FULL CONSULT IN EPIC) * In my best medical opinion, I would advise: Refer to Pediatric Cardiology for echocardiogram Follow-up U/S for growth & development at 32 weeks testing (e.g. NST+BPP) if later indicated Delivery planning (timing, mode, location): too early to determine at present Please notify the baby's X Ray Equipment Mechanic of the above history Follow-up ======== U/S at 32 weeks Coding ====== Procedures [id number]: US Preg Uterus Detailed Airpersons PACS Anatomical Region Laterality Modality Other 08/29/2024 1:43 PM MULTIMEDIA COORDINATOR R Ishaan Monson MD [facility] ORDERABLES * US ABDOMEN LIMITED (01/21/2017 9:54 AM CDT) Anatomical Region Laterality Modality Abdomen Ultrasound 01/21/2017 9:56 AM CDT Impressions 01/21/2017 10:00 AM CDT 1. No sonographic evidence of cholelithiasis. 2. Heterogeneous appearance of the spleen which is at the upper limits of normal in length for the patient's age and is of uncertain clinical significance. Narrative 01/21/2017 10:00 AM CDT EXAMINATION: ABDOMINAL ULTRASOUND LIMITED-RIGHT UPPER QUADRANT HISTORY: [...] AM CDT) Case Report Surgical Pathology Report Case: [id number] Authorizing Provider: Trena Tanner MD Collected: 01/12/2017 10:19 AM Ordering Location: ENDOSCOPY SERVICES Received: 01/12/2017 11:08 AM Pathologist: Juan Jones MD Specimens: A) - Duodenal Biopsy B) - Stomach Biopsy C) - Esophageal Biopsy, distal D) - Esophageal Biopsy, proximal 01/17/2017 10:21 AM [facility] Final Diagnosis A. DUODENUM, BIOPSY: -NO SIGNIFICANT HISTOPATHOLOGICAL CHANGES B. STOMACH, BIOPSY: -NO SIGNIFICANT HISTOPATHOLOGICAL CHANGES C. ESOPHAGUS, DISTAL, BIOPSY: -MINIMAL HISTOLOGICAL ABNORMALITIES -SEE MICROSCOPIC DESCRIPTION D. ESOPHAGUS, PROXIMAL, BIOPSY: -MINIMAL HISTOLOGICAL ABNORMALITIES -SEE MICROSCOPIC DESCRIPTION 01/17/2017 10:21 AM [facility] Clinical History The patient is a 16-year-old girl with abdominal pain and dysphagia who underwent upper endoscopy which was found to be normal. 01/17/2017 10:21 AM [facility] Gross Description The specimens [...] toto as D1. (CT/ns) 01/17/2017 10:21 AM [facility] Microscopic Description 12 H&E [...] a high power field. 01/17/2017 10:21 AM [facility] Disclaimer The performance characteristics of all immunohistochemical and indirect immunofluorescence stains (if any) cited in this report were determined by the Histopathology Laboratory of [facility]. Some of these tests were developed by [...] the attending (teaching) pathologist. 01/17/2017 10:21 AM [facility] Embedded Images 01/17/2017 10:21 AM CDT [facility] Pathology/Cytology DUODENAL BIOPSY SPECIMEN / [...] - PATHOLOGY/CYTO LOGY ORDERABLES Performing Organization Address [facility] Co de Phone Number [facility] [place] [address] * HELICOBACTER PYLORI UREASE (STL) (01/12/2017 10:19 AM CDT) Helicobacter pylori Urease Initial Negative Negative 01/13/2017 3:29 PM CDT [facility] Helicobacter pylori Urease Final Negative Negative 01/13/2017 3:29 PM CDT [facility] Comment:This is an appended report. These results have been appended to a previously preliminary verified report. Microbiology GASTRIC ANTRAL BIOPSY SPECIMEN / Unknown 01/12/2017 10:19 AM CDT 01/12/2017 10:31 AM CDT Trena Tanner MD LAB - MICROBIOLOGY O RDERABLES Performing Organization Address City/[facility]/ZIP Co de Phone Number [facility] [address] [place] [address] * HCG URINE QUALITATIVE - POCT (IP) BEAKER (01/12/2017 9:00 AM CDT) HCG Qual Urine Negative Negative [facility] POCT TESTING QC Verified Yes Yes [facility] PO CT TESTING Urine URINE / Unknown 01/12/2017 9 :00 AM CDT Trena Tanner MD LAB - POINT OF CARE ORDERABLES [facility] POCT TESTING [address] [place], [place] [address] [phone] * EGD (01/12/2017 7:05 AM CDT) Report Endoscopy POC _ Patient Name: Michelle Olivas Date of : 2000 Admit Type: Outpatient Age: 16 Gender: Female Attending MD: Trena Tanner MD Order #: [id number] _ Procedure: Upper GI endoscopy Indications: Generalized abdominal pain, Dysphagia Providers: Trena Tanner MD Referring MD: Sydney Rush MD Medicines: General Anesthesia Complications: No immediate complications. _ Procedure: After obtaining informed consent, the endoscope was passed under direct vision. Throughout the procedure, the patient's blood pressure, pulse, and oxygen saturations were monitored continuously. The Endoscope was introduced through the mouth, and advanced to the third part of duodenum. The upper GI endoscopy was accomplished without difficulty. The patient tolerated the procedure well. Findings: The examined esophagus was normal. Biopsies were taken with a cold forceps for histology from the proximal and distal esophagus. The entire examined stomach was normal. Biopsies were taken with a cold forceps for histology. Biopsies were taken with a cold forceps for Helicobacter pylori testing using CLOtest. The examined duodenum was normal. Biopsies were taken with a cold forceps for histology. Impression: - Normal esophagus. Biopsied. - Normal stomach. Biopsied. - Normal examined duodenum. Biopsied. Recommendation: - Await pathology results. - Discharge patient to home (with parent). - Start Periactin 4mg qhs - Gallbladder ultrasound Procedure Code(s): --- Professional --- 23550, Esophagogastrodu odenoscopy, flexible, transoral; with biopsy, single or multiple --- Technical --- 17805, Esophagogastrodu odenoscopy, flexible, transoral; with biopsy, single or multiple Diagnosis Code(s): --- Professional --- R10.84, Generalized abdominal pain R13.10, Dysphagia, unspecified --- Technical --- R10.84, Generalized abdominal pain R13.10, Dysphagia, unspecified CPT copyright 2015 [employer]. All rights reserved. The codes documented in this report are preliminary and upon director global review may be revised to meet current compliance requirements. Dr. Trena Tanner MD Trena Tanner MD 01/12/2017 10:38:42 AM Number of Addenda: 0 Note Initiated On: 01/12/2017 7:05 AM Procedure Date: 01/12/2017 7:05:47 AM This report has been signed electronically. [facility] 01/12/2017 7:05 AM CDT Trena Tanner MD GI PROCEDURE ORDERAB LES [facility] [address] [place] [address] * TISSUE TRANSGLUTAMINASE AB IGA (12/16/2016 4:06 PM CDT) TTG Antibody IgA <2 0 - 3 U/mL 12/17/2016 2:12 PM CDT [facility] ([facility]) Comment: Negative 0 - 3 Weak Positive 4 - 10 Positive >10 Tissue Transglutaminase (tTG) has been identified as the endomysial antigen. Studies have demonstr- ated that endomysial IgA antibodies have over 99% specificity for gluten sensitive enteropathy. Blood BLOOD SPECIMEN / Unknown Lab Venipuncture / Unknown 12/16/2016 4:06 PM CDT 12/16/2016 4:27 PM CDT Narrative [facility] ([facility]) - 12/17/2016 2:12 PM CDT Performed at: [facility] [address] [place], [place] [id number] Email Operations Manager: Jeffery Perkins PhD, Phone: [phone] Trena Tanner MD LAB - SEROLOGY ORDER RAOUL Performing Organization Address City/[facility] Co de Phone Number [facility] [address] [place] [address] * C-REACTIVE PROTEIN (12/16/2016 4:06 PM CDT) C-Reactive Protein <0.20 <=0.50 mg/dL 12/16/2016 4:55 PM CDT [facility] Blood BLOOD SPECIMEN / Unknown Lab Venipuncture / Unknown 12/16/2016 4:06 PM CDT 12/16/2016 4:26 PM CDT Trena Tanner MD LAB - CHEMISTRY CHERELLE COSME Performing Organization Address City/[facility]/ZIP Co de Phone Number [facility] [address] [place] [phone] * SED RATE WESTERGREN (12/16/2016 4:06 PM CDT) Erythrocyte Sedimentation Rate Westergren 3 0 - 12 mm/hr 12/16/2016 5:38 PM CDT [facility] Blood BLOOD SPECIMEN / Unknown Lab Venipuncture / Unknown 12/16/2016 4:06 PM CDT 12/16/2016 4:26 PM CDT Trena Tanner MD LAB - HEMATOLOGY ORD ERABLES [facility] [place] [address] * (ABNORMAL) CBC W AUTO DIFFERENTIAL (12/16/2016 4:06 PM CDT) WBC 7.4 4.5 - 14.5 x10E9/L 12/16/2016 4:44 PM CDT [facility] WBC Corrected x10E9/L 12/16/2016 4:44 PM CDT [facility] RBC 5.30(H) 4.10 - 5.10 x10E12/L 12/16/2016 4:44 PM CDT [facility] Hemoglobin 15.8 12.0 - 16.0 gm/dL 12/16/2016 4:44 PM CDT [facility] Hematocrit 44.7 36.0 - 47.0 % 12/16/2016 4:44 PM CDT [facility] MCV 84.3 78.0 - 98.0 fl 12/16/2016 4:44 PM CDT [facility] MCH 29.8 25.0 - 35.0 pg 12/16/2016 4:44 PM CDT [facility] MCHC 35.3 31.0 - 37.0 gm/dL 12/16/2016 4:44 PM CDT [facility] Platelet Count 224 100 - 400 x10E9/L 12/16/2016 4:44 PM CDT [facility] RDW-CV 12.9 11.5 - 14.0 % 12/16/2016 4:44 PM CDT [facility] MPV 10.8(H) 6.0 - 9.5 fl 12/16/2016 4:44 PM CDT [facility] Neutrophils % 57.6 24.0 - 66.0 % 12/16/2016 4:44 PM CDT [facility] Lymphocytes % 31.6 22.0 - 61.0 % 12/16/2016 4:44 PM CDT [facility] Monocytes % 7.9 3.0 - 15.0 % 12/16/2016 4:44 PM CDT [facility] Eosinophils % 2.3 0.0 - 10.0 % 12/16/2016 4:44 PM CDT [facility] Basophils % 0.3 % 12/16/2016 4:44 PM CDT [facility] Immature Granulocytes 0.3 % 12/16/2016 4:44 PM CDT [facility] Neutrophil Absolute 4.24 x10E9/L 12/16/2016 4:44 PM CDT [facility] Lymphocytes Absolute 2.32 x10E9/L 12/16/2016 4:44 PM CDT [facility] Monocytes Absolute 0.58 x10E9/L 12/16/2016 4:44 PM CDT [facility] Eosinophils Absolute 0.17 x10E9/L 12/16/2016 4:44 PM CDT [facility] Basophils Absolute 0.02 x10E9/L 12/16/2016 4:44 PM CDT [facility] Immature Granulocytes Absolute 0.02 x10E9/L 12/16/2016 4:44 PM CDT [facility] nRBC Auto 0 /100 WBC 12/16/2016 4:44 PM CDT [facility] Blood BLOOD SPECIMEN / Unknown Lab Venipuncture / Unknown 12/16/2016 4:06 PM CDT 12/16/2016 4:26 PM CDT Trena Tanner MD LAB - HEMATOLOGY ORD ERABLES Performing Organization Address City/State/[facility] Co de Phone Number [facility] [address] [place] [address] * (ABNORMAL) COMPREHENSIVE METABOLIC PANEL (12/16/2016 4:06 PM CDT) [facility] Glucose 77 70 - 105 mg/dL 12/16/2016 5:20 PM CDT [facility] Sodium 139 136 - 145 mmol/L 12/16/2016 5:20 PM CDT [facility] Potassium 4.2 3.5 - 5.1 mmol/L 12/16/2016 5:20 PM CDT [facility] Chloride 107 98 - 107 mmol/L 12/16/2016 5:20 PM CDT [facility] CO2 25 20 - 28 mmol/L 12/16/2016 5:20 PM CDT [facility] Calcium 9.34 9.08 - 10.48 mg/dL 12/16/2016 5:20 PM CDT [facility] Anion Gap 7 5 - 20 mmol/L 12/16/2016 5:20 PM CDT [facility] BUN 17.4 5.3 - 18.7 mg/dL 12/16/2016 5:20 PM CDT [facility] Creatinine 0.84 0.61 - 1.07 mg/dL 12/16/2016 5:20 PM CDT [facility] Alkaline Phosphatase 69(L) 100 - 390 U/L 12/16/2016 5:20 PM CDT [facility] ALT 18 8 - 65 U/L 12/16/2016 5:20 PM T [facility] AST 23 3 - 35 U/L 12/16/2016 5:20 PM T [facility] Protein Total 7.7 6.3 - 8.2 gm/dL 12/16/2016 5:20 PM CDT [facility] Albumin 4.4 3.3 - 4.9 gm/dL 12/16/2016 5:20 PM T [facility] Bilirubin Total 0.6 0.3 - 1.2 mg/dL 12/16/2016 5:20 PM T [facility] eGFR by MDRD mL/min/1.7 3m2 12/16/2016 5:20 PM T [facility] Comment: eGFR calculations are not performed for children under 18 years old. eGFR by MDRD mL/min/1.7 3m2 12/16/2016 5:20 PM T [facility] Comment: eGFR calculations are not performed for children under 18 years old. Blood BLOOD SPECIMEN / Unknown Lab Venipuncture / Unknown 12/16/2016 4:06 PM CDT 12/16/2016 4:26 PM CDT Trena Tanner MD LAB - CHEMISTRY CHERELLE COSME [facility] Organization Address City/State/[facility] Co de Phone Number [facility] [address] [place], [place] [id number] * IGA BLOOD (12/16/2016 4:06 PM CDT) IgA 113 65 - 421 mg/dL 12/16/2016 5:20 PM T [facility] Blood BLOOD SPECIMEN / Unknown Lab Venipuncture / Unknown 12/16/2016 4:06 PM CDT 12/16/2016 4:26 PM CDT Trena Tanner MD LAB - CHEMISTRY CHERELLE COSME [facility] Organization Address City/State/ZIP Co de Phone Number [facility] [address] [place] [address] Care Teams Stone Hand Relationship Specialty Start Date End Date Sydney Rush MD [address] [place] [id number] PCP - General Family Medicine 07/10/13
--- OUTSIDE RECORDS SUMMARY | 2024-09-06 14:47 | XMS_ITS | Clinical Summary ---
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 Gender Identity Not on file Sexual Orientation Not on file Last Filed Vital Signs Vital Sign Reading Time Taken Comments Blood Pressure 112/72 11/21/2023 10:49 AM CDT Pulse 64 11/21/2023 10:49 AM CDT Temperature 36.8 C (98.2 F) 11/21/2023 10:49 AM CDT Respiratory Rate 16 11/21/2023 10:49 AM CDT Oxygen Saturation 100% 11/21/2023 10:49 AM CDT Inhaled Oxygen Concentration - - Weight 72.6 kg (160 lb) 11/21/2023 10:49 AM CDT Height 165.1 cm (5' 5 ) 11/21/2023 10:49 AM CDT Body Mass Index 26.63 11/21/2023 10:49 AM CDT Plan of Treatment Health Maintenance Due Date Last Done Comments Annual Physical 2004 Meningococcal B Vaccine (1 of 2 - Standard) 2017 Hepatitis C 09/30/2019 COVID-19 Vaccine (1 - 2023- season) 2024 Influenza Adult (#1) 2024 05/06/2015 [...] to complete this topic Insurance Care Teams Cook Candy Relationship Specialty Start Date End Date Sydney Rush MD [address] [place] [address] [place] [id number] PCP - General FAMILY PRACTICE 06/27/23
--- OUTSIDE RECORDS SUMMARY | 2024-09-06 14:47 | XMS_ITS | Clinical Summary ---
Author Organization [facility] [employer] Address [address] [place] [address] Care Team Providers Care Head Well Puller Name Role Phone Sydney Rush MD Primary Care Provider [phone] Source Comments [facility] [employer],non-owned Affiliates and Associated Physician Practices is amultiple site organization consisting of ambulatory clinics and hospital sitesin [place], [place], [place] and [place]. This disclosure is being madepursuant to the Care Everywhere program and may not contain all information available regarding this patient. Last updated 18.[facility] [employer] Allergies No known active allergies Medications * Be aware that medications may not be up to date on this document. Alwaysverify current medications with the patient. Medication Sig Dispensed Refills Start Date End Date Status Other White dissolving pill for nausea Active Vit-DSS-Fe Fum-FA ( vitamin with iron) tabletIndications : Take 1 (one) tablet by mouth once daily Reasons: Active ondansetron (Zofran) 4 MG tabletIndications :Nausea and/or Vomiting in Take 1 (one) tablet by mouth every 6 hours as needed for Nausea/Vomiting Reasons: Nausea and Vomiting in Active aspirin-acetamino phen-caffeine 250-250-65 MG tablet Take 1 (one) tablet by mouth every 6 hours as needed for Headache Active cyclobenzaprine (Flexeril) 10 MG tabletIndications :Muscle Spasm Take 1 (one) tablet by mouth 3 times daily as needed for Muscle Spasms Reasons: Muscle Spasm Active ibuprofen (MOTRIN) 600 MG tablet Take 600 mg by mouth every 6 hours as needed for Pain 08/29/2024 Discontinued (List Clean-Up) cyproheptadine (PERIACTIN) 4 MG tablet Take 1 Tab by mouth at bedtime 30 Tab 2 01/12/2017 08/29/2024 Discontinued (Tx Complete) Active Problems Problem Noted Date Diagnosed Date Pain, abdominal, generalized 01/12/2017 Estimated Date of Delivery Comme nts Yes 12/10/2024 Based on last me nstrual period of 03/05/2024 Encounters Date Type Department Care Team Description 08/29/2024 1:32 PM MUSIC INSTRUCTOR - 08/29/2024 11:59 PM [facility] Hospital Encounter [facility] [address] [place] [phone] Truman Ledezma MD Discharge Disposition: Home or Self Care 08/29/2024 1:31 PM [facility] Hospital Encounter [facility] [address] [place] [phone] Truman Ledezma MD Discharge Disposition: Home or Self Care 08/29/[address] [address] Angelina Andujar Future Appointment 08/27/2024 Travel 08/27/2024 Telephone [facility] [address] [place] [phone] Roberta De La Vega Appointment (LM for pt to C/S appt) from Last 3 Months Family History Medical History Relation Name Comments [...] Comments Blood Pressure 115/73 08/29/2024 2:35 PM MUSIC INSTRUCTOR Pulse 71 08/29/2024 2:35 PM MUSIC INSTRUCTOR Temperature 36.3 C (97.3 F) 01/12/2017 10:45 AM CDT Respiratory Rate 16 01/12/2017 11:15 AM CDT Oxygen Saturation 97% 01/12/2017 11:00 AM CDT Inhaled Oxygen Concentration 100% 01/12/2017 1 0:45 AM CDT Weight 76.2 kg (168 lb) 08/29/2024 2:35 PM MUSIC INSTRUCTOR Height 165.1 cm (5' 5 ) 08/29/2024 2:35 PM MUSIC INSTRUCTOR Body Mass Index 27.96 08/29/2024 2:35 PM MUSIC INSTRUCTOR Plan of Treatment Upcoming Encounters Date Type Department Care Team (Late st Contact Info) Description 09/20/2024 10:45 AM MUSIC INSTRUCTOR Appointment [address] [address] Truman Ledezma MD [address] [phone] 09/20/2024 10:45 AM MUSIC INSTRUCTOR Appointment [address] [address] Health Maintenance Due Date Last Done Comments PAP SMEAR 2001 HIV SCREENING 2016 HPV VACCINE (1 - 3-dose series) 2016 CHLAMYDIA/GONORRHEA SCREENING 2017 MENINGOCOCCAL (Group B) VACCINE (1 of 2 - Standard) 2017 HEPATITIS C SCREENING 09/25/2019 DTAP/TDAP/TD VACCINES (1 - Tdap) 2020 HEPATITIS B VACCINE (1 of 3 - 19+ 3-dose series) 2020 COVID-19 VACCINE (1 - 2023-2 5 season) 2024 INFLUENZA VACCINE (#1) 2024 5, 07/01/2012, 05/21/2011 DEPRESSION SCREENING 08/01/2024 OB-ONE HOUR GLUCOSE 09/03/2024 OB-TDAP CURRENT 09/10/2024 OB-RHOGAM INJECTION 09/17/2024 ZOSTER VACCINE (1 of 2) 09/30/2051 HIB VACCINE Aged Out No longer eligi ble based on patient's age to complete this topic MENINGOCOCCAL VACCINE Aged Out No yolis shantel eligible based on patient's age to complete this topic PNEUMOCOCCAL VACCINE Aged Out No long er eligible based on patient's age to complete this topic Respiratory Syncytial Virus (RSV) Vaccine Pt: or over 60 yrs (No Doses Required) Completed Procedures Procedure Name Priority Date/Time Associated Diagnosis Comments SONOGRAM - COMPLETE Routine 08/29/2024 1 :43 PM MUSIC INSTRUCTOR Encounter for anatomic survey (HCC) Abnormal ultrasound 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 Para 1 [id number] 1. live 2019. Gest. age 39 w [...] 1 lb 15 oz EFW by Hadlock ([id number]-BF-FL) Head / Face / Neck Biometry: CM [...] view. RVOT view. LVOT view. 3-vessel view. 6-[id number] view. Situs. Aortic arch view. Bicaval view. [...] LMP & early U/S * Referred to [facility] for obstetrical U/S & request for [...] determine at present Please notify the baby's Meal Miller of the above history Follow-up ======== U/S at 32 weeks Coding ====== Procedures [id number]: US Preg Uterus Detailed [facility] Solexel PACS Anatomical Region Laterality Modality Other 08/29/2024 1:43 PM MUSIC INSTRUCTOR R Ishaan CHILDERS ORDERABLES from Last 3 Months Care Teams Head Well Puller Relationship Specialty Start Date End Date Sydney Rush MD [address] [place] [address] [place] [phone] PCP - General Family Medicine 07/10/13
--- OUTSIDE RECORDS SUMMARY | 2024-09-06 14:47 | XMS_ITS | Data Portability ---
Author Organization [facility] [employer], Main Office Address [address] [place] [address] Assessment No assessment recorded. Plan of Treatment Reminders Order Date Submit Date Provider Last Modified By Organization Details Last Modified Time Details Appointments None recorded. Lab CBC w/ auto diff [address] (Lab), [address] [place], [address], 3 13:45:41 TSH, serum or plasma [address] (Lab), [address] [place], [address], 3 13:51:17 glycohemogl obin, total, blood [address] (Lab), [address] [place], [address], 3 13:51:41 iron + total iron-bindin g capacity (TIBC), serum [address] (Lab), [address] [place], [address], 3 13:52:49 ferritin, serum or plasma [address] (Lab), [address] [place], [address], 3 13:53:13 vitamin B12, serum [address] (Lab), [address] [place], [address], 3 13:53:57 folate, serum [address] (Lab), [address] [place], [address], 3 13:55:59 CMP, serum or plasma [address] (Lab), [address] [place], [address], 3 13:57:00 test, serum or plasma [address] (Lab), [address] [place], [address], 3 13:57:47 CBC w/ auto diff 2022 023 [facility] (Lab), [address] [place], [address], 3 20:11:38 folate, serum 2022 023 [facility] (Lab), [address] [place], [address], 3 12:11:10 vitamin B12, serum 2022 023 [facility] (Lab), [address] [place], [address], 3 12:11:15 test, serum or plasma 2022 023 [facility] (Lab), [address] [place], [address], 3 21:39:45 rf (rheumatoid factor), serum 2022 023 [facility] (Lab), [address] [place], [address], 3 21:21:23 uric acid, serum or plasma 2022 023 [facility] (Lab), [address] [place], [address], 3 21:26:42 ESR (erythrocyt e sedimentati on rate), blood 2022 023 [facility] (Lab), [address] [place], [address], 3 20:49:08 PATRICIA (antinuclea r antibodies) screen, serum 2022 023 [facility] (Lab), [address] [place], [address], 3 13:33:53 CBC w/ auto diff 2022 023 [facility] (Lab), [address] [place], [address], 3 20:48:44 folate, serum 2022 023 [facility] (Lab), [address] [place], [address], 3 22:23:47 vitamin B12, serum 2022 023 [facility] (Lab), [address] [place], [address], 3 22:23:52 Referral gastroenter ologist referral 2022 023 [email or web address] [id number] [facility], [address], [address], [place], [address], 3 10:46:44 gastroenter ologist referral 2022 023 [email or web address] [facility], [address], [address], [place], [address], 4 17:52:18 Procedures None recorded. Surgeries None recorded. Imaging None recorded. Medication Orders pantoprazol e 40 mg tablet,cherrie yed release 2022 [id number], [address] [place], [place], [id number], 3 18:48:05 famotidine 20 mg tablet 2022 023 [facility]64967, [address] [place], [place], [id number], 3 12:38:44 pantoprazol e 40 mg tablet,cherrie yed release 2022 023 [facility] #89684, [address] [place], [place], [id number], 3 08:54:29 famotidine 20 mg tablet 2022 023 [facility] #61947, [address] [place], [place], [id number], 3 08:54:28 cyanocobala min (vit B-12) 1,000 mcg/mL injection solution 2022 023 [email or web address] Not available 3 09:38:30 cyanocobala min (vit B-12) 1,000 mcg/mL injection solution 2022 023 [email or web address] Not available 16:58:26 ProAir HFA 90 mcg/actuati on aerosol inhaler 2022 023 [facility] #[id number], [address] [place], [place], [id number], 3 15:50:44 prednisone 20 mg tablet 2022 023 [facility], [address] [place], [place], [id number], 3 15:50:48 Patient TargetsNo targets recorded. Patient InstructionsNo instructions recorded. Reason for Referral Basket Patcher Referral for Gastroesophageal reflux disease without esophagitis Referring Physician: Sydney Rush, [facility], Encounter Date: 01/13/2023 Basket Patcher Referral for Gastroesophageal reflux disease without esophagitis Referring Physician: Sonal Bear [facility], Encounter Date: 06/06/2023 Results Created Date Observation Date Name Description Value Unit Range Abnormal Flag Note LastModifiedBy Organization Detail LastModifiedTime 12/03/1912/02/2022 CBC/C OMPLE TE BLD COUNT W/DIF F white blood cells 7.2 x10'3 /uL 4.2-10 .8 Not Available [facility] (Lab) [address] [place], [address], 12/02/2022 19:37:18 12/03/1912/02/2022 CBC/C OMPLE TE BLD COUNT W/DIF F red blood cells 5.52 x10'6 /uL 3.80-5 .20 high Not Available [facility] (Lab) [address] [place], [address], 12/02/2022 19:37:18 12/03/19 23 12/02/2022 CBC/C OMPLE TE BLD COUNT W/DIF F hemoglobin 16.1 g/dL 12.0-1 5.6 high Not Available [facility] (Lab) [address] [facility] [place], [address], 12/02/2022 19:37:18 12/03/19 23 12/02/2022 CBC/C OMPLE TE BLD COUNT W/DIF F hematocrit 48.7 % 35.7-4 5.7 high Not Available [facility] (Lab) [address] [place], [address], 12/02/2022 19:37:18 12/03/19 23 12/02/2022 CBC/C OMPLE TE BLD COUNT W/DIF F mean red cell volume 88.2 fL 82.0-9 9.0 Not Available [facility] (Lab) [address] [place], [address], 12/02/2022 19:37:18 12/03/19 23 12/02/2022 CBC/C OMPLE TE BLD COUNT W/DIF F mean red cell hemoglobin 29.2 pg 27.0-3 3.0 Not Available [facility] (Lab) [address] [place], [address], 12/02/2022 19:37:18 12/03/19 23 12/02/2022 CBC/C OMPLE TE BLD COUNT W/DIF F mean RBC HGB concentratio n 33.1 g/dL 31.0-3 6.0 Not Available [facility] (Lab) [address] [place], [address], 12/02/2022 19:37:18 12/03/19 23 12/02/2022 CBC/C OMPLE TE BLD COUNT W/DIF F red cell distribution width 13.1 % 11.8-1 5.5 Not Available [facility] (Lab) [address] [place], [address], 12/02/2022 19:37:18 12/03/19 23 12/02/2022 CBC/C OMPLE TE BLD COUNT W/DIF F platelets 253 x10'3 /uL 150-40 0 Not Available [facility] (Lab) [address] [place], [address], 12/02/2022 19:37:18 12/03/1912/02/2022 CBC/C OMPLE TE BLD COUNT W/DIF F mean platelet volume 12.3 fL 9.0-12 .4 Not Available [facility] (Lab) [address] [place], [address], 12/02/2022 19:37:18 12/03/19 23 12/02/2022 CBC/C OMPLE TE BLD COUNT W/DIF F neutrophils 65.2 % 39.0-7 2.0 Not Available [facility] (Lab) [address] [place], [address], 12/02/2022 19:37:18 12/03/19 23 12/02/2022 CBC/C OMPLE TE BLD COUNT W/DIF F lymphocytes 25.7 % 16.0-4 7.0 Not Available [facility] (Lab) [address] [place], [address], 12/02/2022 19:37:18 12/03/1912/02/2022 CBC/C OMPLE TE BLD COUNT W/DIF F monocytes 7.2 % 5.0-12 .0 Not Available [facility] (Lab) [address] [place], [address], 12/02/2022 19:37:18 12/03/19 23 12/02/2022 CBC/C OMPLE TE BLD COUNT W/DIF F eosinophils 1.2 % 1.0-7. 0 Not Available [facility] (Lab) [address] [place], [address], 12/02/2022 19:37:18 12/03/19 23 12/02/2022 CBC/C OMPLE TE BLD COUNT W/DIF F basophils 0.4 % 0.0-2. 0 Not Available [facility] (Lab) [address] [place], [address], 12/02/2022 19:37:18 12/03/1912/02/2022 CBC/C OMPLE TE BLD COUNT W/DIF F immature granulocytes 0.3 % 0.00-0 .50 Not Available [facility] (Lab) [address] [place], [address], 12/02/2022 19:37:18 12/03/19 23 12/02/2022 CBC/C OMPLE TE BLD COUNT W/DIF F neutrophils, absolute count 4.70 x10'3 /uL 1.5-8. 0 Not Available [facility] (Lab) [address] [place], [address], 12/02/2022 19:37:18 12/03/1912/02/2022 CBC/C OMPLE TE BLD COUNT W/DIF F lymphocytes, absolute count 1.85 x10'3 /uL 1.07-3 .43 Not Available [facility] (Lab) [address] [place], [address], 12/02/2022 19:37:18 12/03/1912/02/2022 CBC/C OMPLE TE BLD COUNT W/DIF F monocytes, absolute count 0.52 x10'3 /uL 0.29-0 .99 Not Available [facility] (Lab) [address] [place], [address], 12/02/2022 19:37:18 12/03/19 23 12/02/2022 CBC/C OMPLE TE BLD COUNT W/DIF F eosinophils, absolute count 0.09 x10'3 /uL 0.02-0 .53 Not Available [facility] (Lab) [address] [place], [address], 12/02/2022 19:37:18 12/03/19 23 12/02/2022 CBC/C OMPLE TE BLD COUNT W/DIF F basophils, absolute count 0.03 x10'3 /uL 0.01-0 .08 Not Available [facility] (Lab) [address] [place], [address], 12/02/2022 19:37:18 12/03/19 23 12/02/2022 CBC/C OMPLE TE BLD COUNT W/DIF F immature granulocytes ,absolute 0.02 x10'3 /uL 0.00-0 .05 Not Available [facility] (Lab) [address] [place], [address], 12/02/2022 19:37:18 12/03/19 23 12/02/2022 CBC/C OMPLE TE BLD COUNT W/DIF F nucleated red blood cells 0.0 % -0 Not Available [facility] (Lab) [address] [place], [address], 12/02/2022 19:37:18 12/03/19 23 12/02/2022 CBC/C OMPLE TE BLD COUNT W/DIF F NRBC# 0.00 x10'3 /uL Not Available [facility] (Lab) [address] [place], [address], 12/02/2022 19:37:18 12/03/19 23 12/02/2022 IRON/ TIBC PANEL total iron binding capacity 335 mcg/d L 265-47 5 Not Available [facility] (Lab) [address] [place], [address], 12/02/2022 20:10:08 12/03/19 23 12/02/2022 IRON/ TIBC PANEL % transferrin saturation 40 % 20-55 Not Available [facility] (Lab) [address] [place], [address], 12/02/2022 20:10:08 12/03/19 23 12/02/2022 IRON/ TIBC PANEL unsaturated iron bind capacity 201 mcg/d L 126-38 2 Not Available [facility] (Lab) [address] [place], [address], 12/02/2022 20:10:08 12/03/19 23 12/02/2022 IRON/ TIBC PANEL iron 134 mcg/d L 42-175 Not Available [facility] (Lab) [address] [facility] [place], [address], 12/02/2022 20:10:08 12/03/19 23 12/02/2022 COMPR EHENS PETE METAB OLIC PANEL sodium 140 mmol/ L 137-14 5 Not Available [facility] (Lab) [address] [place], [address], 12/02/2022 20:03:27 12/03/19 23 12/02/2022 COMPR EHENS PETE METAB OLIC PANEL potassium 4.3 mmol/ L 3.5-5. 1 Not Available [facility] (Lab) [address] [place], [address], 12/02/2022 20:03:27 12/03/19 23 12/02/2022 COMPR EHENS PETE METAB OLIC PANEL chloride 105 mmol/ L 98-107 Not Available [facility] (Lab) [address] [place], [address], 12/02/2022 20:03:27 12/03/19 23 12/02/2022 COMPR EHENS PETE METAB OLIC PANEL carbon dioxide 23 mmol/ L 22-30 Not Available [facility] (Lab) [address] [place], [address], 12/02/2022 20:03:27 12/03/19 23 12/02/2022 COMPR EHENS PETE METAB OLIC PANEL anion gap 16.3 mmol/ L 14-22 Not Available [facility] (Lab) [address] [place], [address], 12/02/2022 20:03:27 12/03/19 23 12/02/2022 COMPR EHENS PETE METAB OLIC PANEL glucose 86 mg/dL 70-99 Not Available [facility] (Lab) [address] [place], [address], 12/02/2022 20:03:27 12/03/19 23 12/02/2022 COMPR EHENS PETE METAB OLIC PANEL BUN 19 mg/dL 8-19 Not Available [facility] (Lab) [address] [place], [address], 12/02/2022 20:03:27 12/03/19 23 12/02/2022 COMPR EHENS PETE METAB OLIC PANEL creatinine 1.00 mg/dL 0.66-1 .25 Not Available [facility] (Lab) [address] [place], [address], 12/02/2022 20:03:27 12/03/19 23 12/02/2022 COMPR EHENS PETE METAB OLIC PANEL GFR >60 Refer ence Range : Centrahoma ge GFR Healt hy Adult : >60 [...] calcu lator is avail able on the [facility] websi te: https :[email or web address] [email or web address] jo johnson/yolanda rizvial s/kdo qi/gf r_cal culat or Not Available [facility] (Lab) [address] [place], [address], 12/02/2022 20:03:27 12/03/19 23 12/02/2022 COMPR EHENS PETE METAB OLIC PANEL alkaline phosphatase 55 U/L 38-126 Not Available [facility] (Lab) [address] [place], [address], 12/02/2022 20:03:27 12/03/19 23 12/02/2022 COMPR EHENS PETE METAB OLIC PANEL alanine aminotransfe rase 27 U/L 0-35 Not Available [facility] (Lab) [address] [place], [address], 12/02/2022 20:03:27 12/03/19 23 12/02/2022 COMPR EHENS PETE METAB OLIC PANEL aspartate aminotransfe rase 28 U/L 15-37 Not Available [facility] (Lab) [address] [place], [address], 12/02/2022 20:03:27 12/03/19 23 12/02/2022 COMPR EHENS PETE METAB OLIC PANEL bilirubin, total 0.70 mg/dL 0.20-1 .30 Not Available [facility] (Lab) [address] [place], [address], 12/02/2022 20:03:27 12/03/19 23 12/02/2022 COMPR EHENS PETE METAB OLIC PANEL calcium 9.5 mg/dL 8.4-10 .2 Not Available [facility] (Lab) [address] [place], [address], 12/02/2022 20:03:27 12/03/19 23 12/02/2022 COMPR EHENS PETE METAB OLIC PANEL total protein 7.9 g/dL 6.3-8. 2 Not Available [facility] (Lab) [address] [place], [address], 12/02/2022 20:03:27 12/03/19 23 12/02/2022 COMPR EHENS PETE METAB OLIC PANEL albumin 4.9 g/dL 3.4-5. 0 Not Available [facility] (Lab) [address] [place], [address], 12/02/2022 20:03:27 12/03/19 23 12/02/2022 COMPR EHENS PETE METAB OLIC PANEL globulin 3.0 g/dL 2.6-4. 2 Not Available [facility] (Lab) [address] [place], [address], 12/02/2022 20:03:27 12/03/19 23 12/02/2022 COMPR EHENS PETE METAB OLIC PANEL A/G ratio 1.6 ratio 1.0-2. 0 Not Available [facility] (Lab) [address] [place], [address], 12/02/2022 20:03:27 12/03/19 23 12/02/2022 B-HCG TOTAL [...] 19 6,800 TO 42,90 0 Not Available [facility] (Lab) [address] [place], [address], 12/02/2022 20:11:09 12/03/19 23 12/02/2022 TSH thyroid-stim ulating hormone 1.030 uIU/m L 0.465- 4.680 Not Available [facility] (Lab) [address] [place], [address], 12/02/2022 20:41:34 12/03/19 23 12/02/2022 AGUSTO TIN ferritin 45 NG/mL 6.24-1 37 Not Available [facility] (Lab) [address] [place], [address], 12/02/2022 20:42:15 12/03/19 23 12/02/2022 FOLAT E, SERUM /PLAS MA folate 8.88 NG/mL 2.76-2 0.0 Not Available [facility] (Lab) [address] [place], [address], 12/02/2022 21:07:41 12/03/19 23 12/02/2022 HEMOG LOBIN A1C HA1C 4.7 % 4.0-6. 0 Diabe radha Scree peter Crite maggy: <5.7% Consi stent with absen ce of diabe radha 5.7-6 .4% Consi stent with incre ased risk for diabe radha (pred iabet es) >OR=6 .5% Consi stent with diabe radha REFER ENCE: Diabe radha Care 2016, 39(Gr ppl.1 ):s13 -s22 Not Available [facility] (Lab) [address] [place], [address], 12/02/2022 21:34:26 12/03/19 23 12/02/2022 VITAM IN B12 (LUZMARIA LUPIS ) vb12 233 pg/mL 239-93 1 low Not Available [facility] (Lab) [address] [place], [address], 12/02/2022 22:36:37 01/14/20 23 01/13/2023 CBC/C OMPLE TE BLD COUNT W/DIF F white blood cells 5.8 x10'3 /uL 4.2-10 .8 Not Available [facility] (Lab) [address] [place], [address], 01/13/2023 20:11:38 01/14/20 23 01/13/2023 CBC/C OMPLE TE BLD COUNT W/DIF F red blood cells 5.10 x10'6 /uL 3.80-5 .20 Not Available [facility] (Lab) [address] [place], [address], 01/13/2023 20:11:38 01/14/20 23 01/13/2023 CBC/C OMPLE TE BLD COUNT W/DIF F hemoglobin 15.0 g/dL 12.0-1 5.6 Not Available [facility] (Lab) [address] [place], [address], 01/13/2023 20:11:38 01/14/20 23 01/13/2023 CBC/C OMPLE TE BLD COUNT W/DIF F hematocrit 45.1 % 35.7-4 5.7 Not Available [facility] (Lab) [address] [place], [address], 01/13/2023 20:11:38 01/14/20 23 01/13/2023 CBC/C OMPLE TE BLD COUNT W/DIF F mean red cell volume 88.4 fL 82.0-9 9.0 Not Available [facility] (Lab) [address] [place], [address], 01/13/2023 20:11:38 01/14/20 23 01/13/2023 CBC/C OMPLE TE BLD COUNT W/DIF F mean red cell hemoglobin 29.4 pg 27.0-3 3.0 Not Available [facility] (Lab) [address] [place], [address], 01/13/2023 20:11:38 01/14/20 23 01/13/2023 CBC/C OMPLE TE BLD COUNT W/DIF F mean RBC HGB concentratio n 33.3 g/dL 31.0-3 6.0 Not Available [facility] (Lab) [address] [facility] [place], [address], 01/13/2023 20:11:38 01/14/20 23 01/13/2023 CBC/C OMPLE TE BLD COUNT W/DIF F red cell distribution width 13.0 % 11.8-1 5.5 Not Available [facility] (Lab) [address] [place], [address], 01/13/2023 20:11:38 01/14/20 23 01/13/2023 CBC/C OMPLE TE BLD COUNT W/DIF F platelets 217 x10'3 /uL 150-40 0 Not Available [facility] (Lab) [address] [place], [address], 01/13/2023 20:11:38 01/14/20 23 01/13/2023 CBC/C OMPLE TE BLD COUNT W/DIF F neutrophils 64.3 % 39.0-7 2.0 Not Available [facility] (Lab) [address] [place], [address], 01/13/2023 20:11:38 01/14/20 23 01/13/2023 CBC/C OMPLE TE BLD COUNT W/DIF F lymphocytes 27.1 % 16.0-4 7.0 Not Available [facility] (Lab) [address] [place], [address], 01/13/2023 20:11:38 01/14/20 23 01/13/2023 CBC/C OMPLE TE BLD COUNT W/DIF F monocytes 6.4 % 5.0-12 .0 Not Available [facility] (Lab) [address] [place], [address], 01/13/2023 20:11:38 01/14/20 23 01/13/2023 CBC/C OMPLE TE BLD COUNT W/DIF F eosinophils 1.4 % 1.0-7. 0 Not Available [facility] (Lab) [address] [place], [address], 01/13/2023 20:11:38 01/14/20 23 01/13/2023 CBC/C OMPLE TE BLD COUNT W/DIF F basophils 0.5 % 0.0-2. 0 Not Available [facility] (Lab) [address] [place], [address], 01/13/2023 20:11:38 01/14/20 23 01/13/2023 CBC/C OMPLE TE BLD COUNT W/DIF F immature granulocytes 0.3 % 0.00-0 .50 Not Available [facility] (Lab) [address] [place], [address], 01/13/2023 20:11:38 01/14/20 23 01/13/2023 CBC/C OMPLE TE BLD COUNT W/DIF F neutrophils, absolute count 3.72 x10'3 /uL 1.5-8. 0 Not Available [facility] (Lab) [address] [place], [address], 01/13/2023 20:11:38 01/14/20 23 01/13/2023 CBC/C OMPLE TE BLD COUNT W/DIF F lymphocytes, absolute count 1.57 x10'3 /uL 1.07-3 .43 Not Available [facility] (Lab) [address] [place], [address], 01/13/2023 20:11:38 01/14/20 23 01/13/2023 CBC/C OMPLE TE BLD COUNT W/DIF F monocytes, absolute count 0.37 x10'3 /uL 0.29-0 .99 Not Available [facility] (Lab) [address] [place], [address], 01/13/2023 20:11:38 01/14/20 23 01/13/2023 CBC/C OMPLE TE BLD COUNT W/DIF F eosinophils, absolute count 0.08 x10'3 /uL 0.02-0 .53 Not Available [facility] (Lab) [address] [place], [address], 01/13/2023 20:11:38 01/14/20 23 01/13/2023 CBC/C OMPLE TE BLD COUNT W/DIF F basophils, absolute count 0.03 x10'3 /uL 0.01-0 .08 Not Available [facility] (Lab) [address] [place], [address], 01/13/2023 20:11:38 01/14/20 23 01/13/2023 CBC/C OMPLE TE BLD COUNT W/DIF F immature granulocytes ,absolute 0.02 x10'3 /uL 0.00-0 .05 Not Available [facility] (Lab) [address] [place], [address], 01/13/2023 20:11:38 01/14/20 23 01/13/2023 CBC/C OMPLE TE BLD COUNT W/DIF F nucleated red blood cells 0.0 % -0 Not Available [facility] (Lab) [address] [place], [address], 01/13/2023 20:11:38 01/14/20 23 01/13/2023 CBC/C OMPLE TE BLD COUNT W/DIF F NRBC# 0.00 x10'3 /uL Not Available [facility] (Lab) [address] [place], [address], 01/13/2023 20:11:38 01/14/20 23 01/14/2023 FOLAT E, SERUM /PLAS MA folate 5.91 NG/mL 2.76-2 0.0 Not Available [facility] (Lab) [address] [place], [address], 01/14/2023 12:11:10 01/14/20 23 01/14/2023 VITAM IN B12 (LUZMARIA LUPIS ) vb12 484 pg/mL 239-93 1 Not Available [facility] (Lab) [address] [place], [address], 01/14/2023 12:11:15 03/03/20 23 03/03/2023 CBC/C OMPLE TE BLD COUNT W/DIF F white blood cells 5.4 x10'3 /uL 4.2-10 .8 Not Available [facility] (Lab) [address] [place], [address], 03/03/2023 20:48:44 03/03/20 23 03/03/2023 CBC/C OMPLE TE BLD COUNT W/DIF F red blood cells 5.35 x10'6 /uL 3.80-5 .20 high Not Available [facility] (Lab) [address] [place], [address], 03/03/2023 20:48:44 03/03/20 23 03/03/2023 CBC/C OMPLE TE BLD COUNT W/DIF F hemoglobin 15.6 g/dL 12.0-1 5.6 Not Available [facility] (Lab) [address] [place], [address], 03/03/2023 20:48:44 03/03/20 23 03/03/2023 CBC/C OMPLE TE BLD COUNT W/DIF F hematocrit 47.6 % 35.7-4 5.7 high Not Available [facility] (Lab) [address] [place], [address], 03/03/2023 20:48:44 03/03/20 23 03/03/2023 CBC/C OMPLE TE BLD COUNT W/DIF F mean red cell volume 89.0 fL 82.0-9 9.0 Not Available [facility] (Lab) [address] [facility] [place], [address], 03/03/2023 20:48:44 03/03/20 23 03/03/2023 CBC/C OMPLE TE BLD COUNT W/DIF F mean red cell hemoglobin 29.2 pg 27.0-3 3.0 Not Available [facility] (Lab) [address] [place], [address], 03/03/2023 20:48:44 03/03/20 23 03/03/2023 CBC/C OMPLE TE BLD COUNT W/DIF F mean RBC HGB concentratio n 32.8 g/dL 31.0-3 6.0 Not Available [facility] (Lab) [address] [place], [address], 03/03/2023 20:48:44 03/03/20 23 03/03/2023 CBC/C OMPLE TE BLD COUNT W/DIF F red cell distribution width 13.2 % 11.8-1 5.5 Not Available [facility] (Lab) [address] [place], [address], 03/03/2023 20:48:44 03/03/20 23 03/03/2023 CBC/C OMPLE TE BLD COUNT W/DIF F platelets 223 x10'3 /uL 150-40 0 Not Available [facility] (Lab) [address] [place], [address], 03/03/2023 20:48:44 03/03/20 23 03/03/2023 CBC/C OMPLE TE BLD COUNT W/DIF F mean platelet volume 12.9 fL 9.0-12 .4 high Not Available [facility] (Lab) [address] [place], [address], 03/03/2023 20:48:44 03/03/20 23 03/03/2023 CBC/C OMPLE TE BLD COUNT W/DIF F neutrophils 62.4 % 39.0-7 2.0 Not Available [facility] (Lab) [address] [place], [address], 03/03/2023 20:48:44 03/03/20 23 03/03/2023 CBC/C OMPLE TE BLD COUNT W/DIF F lymphocytes 28.7 % 16.0-4 7.0 Not Available [facility] (Lab) [address] [place], [address], 03/03/2023 20:48:44 03/03/20 23 03/03/2023 CBC/C OMPLE TE BLD COUNT W/DIF F monocytes 7.2 % 5.0-12 .0 Not Available [facility] (Lab) [address] [place], [id number], 03/03/2023 20:48:44 03/03/20 23 03/03/2023 CBC/C OMPLE TE BLD COUNT W/DIF F eosinophils 1.1 % 1.0-7. 0 Not Available [facility] (Lab) [address] [place], [address], 03/03/2023 20:48:44 03/03/2003/03/2023 CBC/C OMPLE TE BLD COUNT W/DIF F basophils 0.4 % 0.0-2. 0 Not Available [facility] (Lab) [address] [place], [address], 03/03/2023 20:48:44 03/03/20 23 03/03/2023 CBC/C OMPLE TE BLD COUNT W/DIF F immature granulocytes 0.2 % 0.00-0 .50 Not Available [facility] (Lab) [address] [place], [address], 03/03/2023 20:48:44 03/03/20 23 03/03/2023 CBC/C OMPLE TE BLD COUNT W/DIF F neutrophils, absolute count 3.40 x10'3 /uL 1.5-8. 0 Not Available [facility] (Lab) [address] [place], [address], 03/03/2023 20:48:44 03/03/20 23 03/03/2023 CBC/C OMPLE TE BLD COUNT W/DIF F lymphocytes, absolute count 1.56 x10'3 /uL 1.07-3 .43 Not Available [facility] (Lab) [address] [place], [address], 03/03/2023 20:48:44 03/03/20 23 03/03/2023 CBC/C OMPLE TE BLD COUNT W/DIF F monocytes, absolute count 0.39 x10'3 /uL 0.29-0 .99 Not Available [facility] (Lab) [address] [place], [address], 03/03/2023 20:48:44 03/03/20 23 03/03/2023 CBC/C OMPLE TE BLD COUNT W/DIF F eosinophils, absolute count 0.06 x10'3 /uL 0.02-0 .53 Not Available [facility] (Lab) [address] [place], [address], 03/03/2023 20:48:44 03/03/20 23 03/03/2023 CBC/C OMPLE TE BLD COUNT W/DIF F basophils, absolute count 0.02 x10'3 /uL 0.01-0 .08 Not Available [facility] (Lab) [address] [place], [address], 03/03/2023 20:48:44 03/03/20 23 03/03/2023 CBC/C OMPLE TE BLD COUNT W/DIF F immature granulocytes ,absolute 0.01 x10'3 /uL 0.00-0 .05 Not Available [facility] (Lab) [address] [place], [address], 03/03/2023 20:48:44 03/03/20 23 03/03/2023 CBC/C OMPLE TE BLD COUNT W/DIF F nucleated red blood cells 0.0 % -0 Not Available [facility] (Lab) [address] [place], [address], 03/03/2023 20:48:44 03/03/20 23 03/03/2023 CBC/C OMPLE TE BLD COUNT W/DIF F NRBC# 0.00 x10'3 /uL Not Available [facility] (Lab) [address] [place], [address], 03/03/2023 20:48:44 03/03/20 23 03/03/2023 SEDIM ENTAT ION RATE erythrocyte sedimentatio n rate 13 mm/HR 0-20 Not Available [facility] (Lab) [address] [place], [address], 03/03/2023 20:49:08 03/03/2003/03/2023 RHEUM ATOID FACTO R rf <8.6 IU/mL 0.0-11 .9 Not Available [facility] (Lab) [address] [place], [address], 03/03/2023 21:21:23 03/03/2003/03/2023 URIC ACID SERUM uric acid 6.2 mg/dL 2.5-6. 2 Not Available [facility] (Lab) [address] [place], [address], 03/03/2023 21:26:42 03/03/20 23 03/03/2023 B-HCG TOTAL [...] 19 6,800 TO 42,90 0 Not Available [facility] (Lab) [address] [place], [address], 03/03/2023 21:39:45 03/03/20 23 03/03/2023 FOLAT E, SERUM /PLAS MA folate 8.64 NG/mL 2.76-2 0.0 Not Available [facility] (Lab) [address] [place], [address], 03/03/2023 22:23:47 03/03/20 23 03/03/2023 VITAM IN B12 (LUZMARIA LUPIS ) vb12 925 pg/mL 239-93 1 Not Available [facility] (Lab) [address] [place], [address], 03/03/2023 22:23:52 03/03/20 23 03/07/2023 PATRICIA BY [...] ). Perfo rmed at: CB [facility] [address] [facility], [place] [address] Lab Direc tor: Ronal tilley PhD, Phone : [phone] Not Available [facility] (Lab) [address] [place], [address], 03/07/2023 13:08:50 03/16/20 23 MRI, brain , w/wo contr ast [facility] [address] [place] [address] Patien t Name: PEARL OLIVAS Access ion #: [id number] Sex: F : 2000 1 Dictat [...] at 2022 11:14: 31 AM Page 1 [email or web address] [facility] (Imaging) [address] [place], [address], 03/22/2023 11:25:57 04/02/20 24 04/02/2024 US, doppl er, echoc ardio gram, w/ color flow No observ ation record ed. [email or web address] [facility] [address], [place], [address], 04/04/2024 10:48:56 Result Notes None recorded. Problems Name Problem SNOMED Code Status Onset Date Resolution Date Notes Provider Name and Address Organization Details Recorded Time Well child 916063076 Active Not Available [facility] 3 15:16:21 Painful mouth 730214505 Active Not Available [facility] 3 15:16:21 Sprain of right ankle 26634023011 286121 Active Not Available [facility] 3 15:16:22 Injury of ankle 789531700 Active Not Available [facility] 3 15:16:22 Otalgia 39115720 Active Not Available [facility] 3 15:16:22 Pain in throat 322307261 Active Not Available [facility] 3 15:16:22 Heartburn 62043289 Active Not Available [facility] 3 15:16:22 Adjustmen t disorder 98389845 Active Not Available [facility] 3 15:16:22 Ankle pain 256635053 Active Not Available [employer] 3 15:16:22 Insect sting 764320156 Active Not Available [facility] 3 15:16:22 Knee pain Active Not Available [facility] 3 15:16:22 Acute pharyngit is 633111174 Active Not Available [facility] 3 15:16:22 Menorrhag ia 471269062 Active Not Available [facility] 3 15:16:22 Pharyngit is 156011110 Active Not Available [facility] 3 15:16:23 Mood disorder 04590210 Active Not Available [facility] 3 15:16:23 Hip pain 24990948 Completed Not Available [facility] 3 15:16:23 Verruca vulgaris 57562649 Active Not Available [facility] 3 15:16:23 Pain in limb 56063740 Completed Not Available [facility] 3 15:16:23 Gastroeso phageal reflux disease without esophagit is 808593896 Active 2022 Sydney Rush MD [address], [place], [address] , [employer] 3 12:30:24 Fatigue 56129796 Active 2022 Sydnye Rush MD [address], [place], [address] , [employer] 3 12:31:59 Cobalamin deficienc y 000758176 Active 2022 Sydney Rush MD [address], [place], [address] , [employer] 3 11:46:44 Multiple joint pain 07792256 Active 2022 Sydney Rush MD [address], [place], [address] , [employer] 3 09:40:52 Paresthes ia 92835085 Active 2022 Sydney Rush MD [address], [place], [address] , [employer] 3 09:41:25 Amenorrhe a 86662682 Active 2022 Sydney Rush MD [address], [place], [address] , [employer] 3 09:43:05 Dyspnea 297940729 Active 2022 SARAH Schreiber [address], [place], [address] , [employer] 3 15:45:35 Problem Notes None recorded. Procedures Surgical History None recorded. Imaging Results Imaging Date Name Status LastModified by Organiz ation Details LastModified Time 03/16/2023 MRI, brain, w/wo contrast completed [email or web address] [facility] (Imaging) [address] [place], [address], 03/22/2023 11:25:57 04/02/2024 US, doppler, echocardiogra m, w/ color flow completed [email or web address] [facility] [address], [place], [address], 04/04/2024 10:48:56 Procedure Notes None recorded. Medical Equipment None Reported. Allergies Allergen ID Allergen Name Allergen Category Reaction Reaction Severity Criticality Documentation Date Start Date Code Code System Note Provider Name and Address Organization Details Recorded Time 67323 escitalop carolyn Not available Not available Not available Not available 2022 09919 8 RxNorm Suici lauren ideat ions Not [...] 2 ml subq x 1 08/02 completed [facility]# [id number] 27 Not Available Not Available Not Available [...] DateTime 11/10/2022 165.1 cm Ailyn Smart CMA [employer] 11/10/2022 10:37:07 Date Recorded Body height Body mass index (BMI) Body weight Body temperature Oxygen saturation Oxygen saturation in Arterial blood by Pulse oximetry Heart rate Systolic blood pressure Diastolic blood pressure Provider Name and Address Organization Details Last Updated DateTime 3 165.1 cm 25.5 kg/m2 90916.6 3 g 98.1 [degF] 97 % 97 % 67 /min 116 mm[Hg] 74 mm[Hg] Ann Chun MA [employer] 3 12:18:43 Date Recorded Body height Body mass index (BMI) Body weight Body temperature Heart rate Oxygen saturation Oxygen saturation in Arterial blood by Pulse oximetry Systolic blood pressure Diastolic blood pressure Provider Name and Address Organization Details Last Updated DateTime 3 165.1 cm 26 kg/m2 60831.4 1 g 97.2 [degF] 67 /min 98 % 98 % 118 mm[Hg] 78 mm[Hg] Robby Warren RN [facility] 3 08:44:58 Date Recorded Body height Body mass index (BMI) Body weight Body temperature Heart rate Oxygen saturation Oxygen saturation in Arterial blood by Pulse oximetry Systolic blood pressure Diastolic blood pressure Provider Name and Address Organization Details Last Updated DateTime 3 165.1 cm 25.6 kg/m2 17360.2 2 g 97.8 [degF] 102 /min 91 % 91 % 114 mm[Hg] 68 mm[Hg] Robby Warren RN [facility] 3 09:31:40 Date Recorded Body height Body mass index (BMI) Body weight Body temperature Heart rate Oxygen saturation Oxygen saturation in Arterial blood by Pulse oximetry Systolic blood pressure Diastolic blood pressure Provider Name and Address Organization Details Last Updated DateTime 3 165.1 cm 25.6 kg/m2 85831.2 2 g 98.5 [degF] 83 /min 97 % 97 % 104 mm[Hg] 62 mm[Hg] Heather Ortiz LPN [facility] 3 15:15:17 Social History Question Answer Notes LastModified by Organizat ion Details LastModified Time Tobacco Smoking Status Never Smoker Not Available [facility] 2022 15:13:27 What Is Your Level Of Alcohol Consumption? None MIGRATION.39052 04170 Information not available 2022 Do You Wear A Helmet When Biking? Yes MIGRATION.43292 58279 Information not available 2022 What Is Your Level Of Caffeine Consumption? Heavy MIGRATION. 48194 Information not available 2022 In The 14 Days Before Symptom Onset, Have You Had Close Contact With A Laboratory-confir med COVID-19 While That Case Was Ill? No MIGRATION.57382 14381 Information not available 2022 In The 14 Days Before Symptom Onset, Have You Had Close Contact With A Person Who Is Under Investigation For COVID-19 While That Person Was Ill? No MIGRATION.87257 37395 Information not available 2022 What Type Of Diet Are You Following? REGULAR MIGRATION.68462 80528 Information not available 2022 Which Illicit Or Recreational Drugs Have You Used? [place] [email or web address] Information not available 12/02/2022 Are There Any Guns Present In Your Home? No MIGRATION.22298 12724 Information not available 2022 Do You Use Insect Repellent Routinely? No MIGRATION.78067 55921 Information not available 2022 Where Do You Live? [place] MIGRATION.76052 67645 Information not available 2022 Do You Have Any Pets? No MIGRATION.53994 26378 Information not available 2022 What Is Your Relationship Status? Single MIGRATION.95754 35564 Information not available 2022 Do You Use Your Seat Belt Or Car Seat Routinely? Yes MIGRATION.22619 73937 Information not available 2022 Do You Have Smoke And Carbon Monoxide Detectors In Your Home? Yes MIGRATION.55176 28719 Information not available 2022 Are You Passively Exposed To Smoke? No MIGRATION.85444 30811 Information not available 2022 Are There Any Smokers In Your House? No MIGRATION.97815 19321 Information not available 2022 Do You Participate In Social Media? No MIGRATION.08029 01873 Information not available 2022 Do You Feel Stressed (tense, Restless, Nervous, Or Anxious, Or Unable To Sleep At Night)? [id number] MIGRATION.81681 25017 Information not available 2022 Do You Use Any Illicit Or Recreational Drugs? Yes [email or web address] Information not available 12/02/2022 Do You Use Sunscreen Routinely? No MIGRATION.86236 68752 Information not available 2022 Have You Recently Traveled Abroad? No MIGRATION.87912 57628 Information not available 2022 Have You Used IV Drugs? No [email or web address] Information not available 12/02/2022 Are You Currently In School? No MIGRATION.89190 33668 Information not available 2022 Do You Have Any Dietary Restrictions? No MIGRATION.82850 63098 Information not available 2022 Sex: Unknown Functional Status Question Answer Note LastModified by Organizat ion Details LastModified Time What is your exercise level? Heavy MIGRATION.8407582666 Information not available 2022 Mental Status None recorded. Family History Relationship Description Onset Age of this Age Resolved Age Notes LastModified by Organization Details LastModified Time Maternal Grandmother Diabetes mellitus MIGRATION.439 [id number] Not available 2022 15:13:38 Maternal Grandmother Hypertensive disorder MIGRATION.921 [id number] Not available 2022 15:13:38 Maternal Grandfather Diabetes mellitus MIGRATION.033 0302257 Not available 2022 15:13:38 Maternal Grandfather Hypertensive disorder MIGRATION.662 [id number] Not available 2022 15:13:38 Medical History No medical history recorded. Gynecological History Statement/Question Response Dislike of Light during Menstrual Headac he N How many live births 1 Abnormal Pap N Current Control Method Depo-Tobacco Cloth Reclaimer a Breast Problems NO Weight gain N Obstetrics History GPAL:G 1 P 1 0 0 1 Type Value Full Term 1 Living 1 Total 1 Immunizations Vaccine Type Date Status Note Provider Nam e and Address Organization Details Recorded Time meningococcal MCV4P 5 completed Not Available [facility] 2022 15:19:24 Tdap 5 completed Not Available [facility] 2022 15:19:24 HPV, quadrivalent 6 completed Not Available [facility] 2022 15:19:24 HPV, quadrivalent 5 completed Not Available [facility] 2022 15:19:24 Influenza, live, quadrivalent, intranasal 5 completed Not Available [facility] 2022 15:19:24 HPV, quadrivalent 5 completed Not Available [facility] 2022 15:19:25 DTaP, 5 pertussis antigens 3 completed Not Available [facility] 2022 15:19:25 Past Encounters Encounter ID Performer Location Encounter Start Date Encounter Closed Date Diagnosis/Indication Diagnosis SNOMED-CT Code Diagnosis ICD10 Code Diagnosis Note [id number] [facility] [address] [facility] [address] [place] [address] 10/21/2020 00:00:00 10/27/2020 20:57:34 [id number] [facility] [place] [address] [place] [address] 01/22/2021 00:00:00 01/22/2021 15:41:45 [id number] [facility] [place] [address] [place] [address] 03/03/2021 00:00:00 03/03/2021 09:34:38 [id number] [facility] [place] [address] [place] [address] 04/24/2021 00:00:00 04/24/2021 09:33:13 [id number] [facility] [place] [address] [place] [address] 06/01/2021 00:00:00 06/01/2021 11:59:53 [id number] [facility] [place] [address] [place] [address] 07/23/2021 00:00:00 07/23/2021 13:27:01 [id number] [facility] [place] [address] [place] [address] 10/12/2021 00:00:00 10/12/2021 10:46:02 [id number] [facility] [place] [address] [place] [address] 10/22/2021 00:00:00 10/22/2021 09:49:45 [id number] [facility] [place] [address] [place] [address] 01/22/2022 00:00:00 03/31/2022 13:28:57 [id number] [facility] [place] [address] [place] [address] 05/17/2022 00:00:00 05/17/2022 13:47:44 [id number] [facility] Primary [facility] [place] [address] [address] [place] [address] 08/13/2022 00:00:00 08/13/2022 18:04:14 [id number] JONATHAN Salazar [facility] [place] [address] [facility] [address] [place] [address] 11/10/2022 10:01:55 11/10/2022 10:49:25 [id number] Sydney Rush MD [facility] [place] [address] [facility] [address] [place] [address] 12/02/2022 12:03:59 12/02/2022 12:46:48 Gastroesophageal reflux disease without esophagitis 512165502 K21.9 Fatigue 23577799 R53.83 R58 [id number] Sydney Rush MD [facility] [place] [address] [facility] [address] [place] [address] 01/13/2023 08:41:45 01/13/2023 09:07:32 Gastroesophageal reflux disease without esophagitis 001829764 K21.9 no improvemen t yetcontinu e PPI and famotidine 20 mg bidAvoid greasy/spi cy/acidic foodEat small, frequent mealsGI referral given Cobalamin deficiency 190 727688 E53.8 likely GI relatedGI Referral givenok to continue oral b12 qgyouj72 1000 mcg IM x 1 [id number] Sydney Rush MD [facility] [place] [address] [facility] [address] [place] [address] 03/03/2023 09:26:34 03/03/2023 09:56:14 Gastroesophageal reflux disease without esophagitis 642894323 K21.9 no improvemen t yetcontinu e PPI and famotidine 20 mg bidAvoid greasy/spi cy/acidic foodEat small, frequent mealsGI referral given Cobalamin deficiency 190 366540 E53.8 likely GI relatedGI Referral givenok to continue oral b12 [id number] 1000 mcg IM x 1 Multiple joint pain 3567 8005 M25.50 Paresthesia 51258619 R20 .2 R51.9 Check b12 level, if low, continue to work on replacemen tIf normal, plan MRI brain Amenorrhea 81915226 N91. 2 [id number] SARAH Schreiber [facility] [place] [address] [facility] [address] [place] [address] 06/06/2023 15:07:40 06/06/2023 17:16:26 Gastroesophageal reflux disease without esophagitis 303434307 K21.9 Pt. still struggling with daily reflux.She was given GI referral but never received a phone call to schedule, she was given informatio n today to call and make appointmen t. Dyspnea 334822115 R06.00 New problem. Could possibly be related [...] Barrett Member ID Guarantor Name 11/10/2022 1 [facility] ON OR AFTER 01/29/21 (MEDICAID REPLACEMENT - HMO) Michelle Olvias [id number] Michelle Olivas 12/02/2022 1 [facility] ON OR AFTER 01/29/21 (MEDICAID REPLACEMENT - HMO) Michelle Olivas [id number] Michelle Benitez Olivas 01/13/2023 1 [facility] ON OR AFTER 01/29/21 (MEDICAID REPLACEMENT - HMO) Michelle Olivas [id number] Guya Eli Olivas 03/03/2023 1 [facility] ON OR AFTER 01/29/21 (MEDICAID REPLACEMENT - HMO) Michelle Olivas [id number] Michelle Benitez Olivas 06/06/2023 1 [facility] ON OR AFTER 01/29/21 (MEDICAID REPLACEMENT - HMO) Michelle Olivas [id number] Michelle Olivas Notes Date Note Type Note [...] make it worse. Sydney Rush MD [address] [facility] [facility] [address], [place], [address], [employer] [facility] [employer] 12/29/2022 18:48:36 01/13/2023 text/html since last depo [...] No interval improvement. Sydney Rush MD [address] [facility], [facility] [address], [place], [address], [facility] [employer] 01/13/2023 08:57:59 03/03/2023 text/html since last depo [...] was invalid . Sydney Rush MD [address] [employer], [place], [address], [employer] 03/03/2023 09:44:44 06/06/2023 text/html Pt. states this morning she started getting wheezy. She has noticed that it also feels like she can't eat and drink without feeling she is going to throw up. She threw up twice today. She has noticed over the last few weeks when she walks up the stairs she has become more short of breath. SAARH Schreiber [address], [place], [address], [employer] 06/06/2023 18:12:43 OBGyn Episode No OBEpisode recorded.
--- OUTSIDE RECORDS SUMMARY | 2024-09-06 14:47 | XMS_ITS | Referral Summary ---
Author Organization [facility] Address [address] [place] [place] [address] Care Team Providers Care Psychopaedic Nurse Name Role Phone Sydney Rush MD Primary Care Provider [phone] Source Comments [facility],non-owned Affiliates and Associated Physician Practices is amultiple site organization consisting of ambulatory clinics and hospital sitesin [place], [place], [place] and [place]. This disclosure is being madepursuant to the Care Everywhere program and may not contain all information available regarding this patient. Last updated 18.[facility] Encounters Date Type Department Care Team Description 08/29/[address] [address] Angelina Andujar Future Appointment 08/29/2024 1:32 PM LOCKMAKER - 08/29/2024 11:59 PM LOCKMAKER Hospital Encounter [facility] [address] [place] [address] Truman Ledezma MD Discharge Disposition: Home or Self Care 08/29/2024 1:31 PM LOCKMAKER Hospital Encounter [facility] [address] [place] [id number] Truman Ledezma MD Discharge Disposition: Home or Self Care 08/27/2024 Travel 08/27/2024 Telephone [facility] [address] [place] [address] Roberta De La Vega A Appointment (LM for pt to C/S appt) from Last 3 Months Allergies No known active allergies Medications * [...] on last me nstrual period of 03/05/2024 Social History Tobacco Use Types Packs/Day Years [...] Comments Blood Pressure 115/73 08/29/2024 2:35 PM LOCKMAKER Pulse 71 08/29/2024 2:35 PM LOCKMAKER Temperature 36.3 C (97.3 F) 01/12/2017 10:45 AM CDT Respiratory Rate 16 01/12/2017 11:15 AM CDT Oxygen Saturation 97% 01/12/2017 11:00 AM CDT Inhaled Oxygen Concentration 100% 01/12/2017 1 0:45 AM CDT Weight 76.2 kg (168 lb) 08/29/2024 2:35 PM LOCKMAKER Height 165.1 cm (5' 5 ) 08/29/2024 2:35 PM LOCKMAKER Body Mass Index 27.96 08/29/2024 2:35 PM LOCKMAKER Functional Status Functional Status Response Date of [...] concentrating/remembering/making decisions? 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 Para 1 [id number] 1. live 2019. Gest. age 39 w [...] 1 lb 15 oz EFW by Hadlock ([id number]) Head / Face / Neck Biometry: CM [...] view. RVOT view. LVOT view. 3-vessel view. 4-kgiyka-maubzde view. Situs. Aortic arch view. Bicaval view. [...] LMP & early U/S * Referred to [facility] for obstetrical U/S & request for [...] determine at present Please notify the baby's Panel Maker of the above history Follow-up ======== U/S at 32 weeks Coding ====== Procedures 86295: US Preg Uterus Detailed [facility] [employer] PACS Anatomical Region Laterality Modality Other 08/29/2024 1:43 PM LOCKMAKER R Ishaan Monson MD [facility] ORDERABLES from Last 3 Months Care Teams Psychopaedic Nurse Relationship Specialty Start Date End Date Sydney Rush MD [address] [place] [address] [place] [address] PCP - General Family Medicine 07/10/13
[2024-09-06 15:04] LABS: Basophils Percent Auto 0.2 % (0.2-1.2); Eosinophils Absolute Auto 0.1 K/mm3 (0-0.3); Hematocrit 38.8 % (37.0-47.0); Hemoglobin 13.2 g/dL (12.0-15.0); Immature Granulocyte Absolute 0.06 K/mm3 (0.00-0.031); Immature Granulocyte Percent A 0.5 % (0-0.5); Lymphocytes Absolute Auto 1.72 K/mm3 (0.9-3.2); Lymphocytes Percent Auto 15.3 % (18.3-44.2); Mean Corpuscular Hemoglobin 30.2 pg (26-34); Mean Corpuscular Volume 88.8 fl (80-100); Mean Platelet Volume 10.8 fl (7.4-10.4); Monocytes Absolute Auto 0.8 K/mm3 (0.1-0.6); Monocytes Percent Auto 7.4 % (2.6-8.5); Neutrophils Absolute Auto 8.5 K/mm3 (1.3-6.7); Neutrophils Percent Auto 75.6 % (45.5-73.1); Platelet Count Result 190 k/mm3 (150-375); Red Blood Count 4.37 M/mm3 (4.2-5.4); Red Cell Distribution Width 13.7 % (11.5-14.5); White Blood Count 11.2 K/mm3 (4.5-10.0)
[2024-09-06 15:08] LABS: Add Urine Microscopic? YES; Appearance Urine Clear (Clear); Bacteria Urine None Seen /hpf; Bilirubin Urine Negative (Negative); Blood Urine Negative (Negative); Color Urine Yellow (Yellow); Glucose Urine UA Negative (Negative); Ketones Urine Negative (Negative); Leukocyte Esterase Ur Trace LEU/UL (Negative); Nitrate Urine Negative (Negative); Non Pathogenic Casts 0-2; Protein Urine Negative (Negative); RBC Urine 0-2 /hpf (0-2); Specific Grav Ur 1.007 (1.001-1.035); Squamous Epithelial Cell Urine None Seen /hpf (Few); Urobilinogen Urine 0.2 mg/dL (<2.0); WBC Urine 0-5 /hpf (0-3)
[2024-09-06 15:22] LABS: Alanine Aminotransferase 19 U/L (6-35); Albumin Level 3.4 g/dL (3.5-5.1); Alkaline Phosphatase 106 U/L (38-126); Anion Gap 7 mmol/L (4-12); Aspartate Amino Transferase 20 U/L (14-36); Bilirubin,Total 0.4 mg/dL (0.2-1.3); Blood Urea Nitrogen 13 mg/dL (7-17); Calcium 8.7 mg/dL (8.4-10.2); Carbon Dioxide 22 mmol/L (22-30); Chloride 106 mmol/L (98-107); Estimated Glomerular Filt Rate > 60; Glucose 101 mg/dL (65-110); Potassium 3.8 mmol/L (3.4-5.0); Sodium 135 mmol/L (137-145)
[2024-09-06] MEDS: ACETAMINOPHEN 500 MG TABLET 1000 MG PO (15:29)
[2024-09-06 15:33] LABS: Uric Acid 4.7 mg/dL (2.5-7.5)
--- NOTE | 2024-09-06 16:39 | PC.NURSE ---
Dee MONTAÑO updated on this 26 wk gestation pt's headache still an 8 out of 10 after Tylenol, BP's, FHT's 14 with 10 beat accels and a couple of drops in FHR, but appropriate for 26 wks, no contractions, and informed of lab results. Order received for Benadryl and Reglan for headache.
[2024-09-06 16:42] LABS: Creatinine Urine 26.9 mg/dL; Total Protein Urine Random 12 mg/dL; Ur Ttl Prot Creatinine Ratio 0.45 mg/mg (0-0.20)
[2024-09-06] MEDS: diphenhydrAMINE HCl CAP 25 MG CAPSULE PO (16:53)
--- NOTE | 2024-09-06 16:53 | PC.NURSE ---
Discussed Yousif and Matti for headache with pt. States her fiance gets off work at [address] her home.
[2024-09-06] MEDS: METOCLOPRAMIDE HCL 10 MG TABLET PO (16:54)
== END 2024-09-06 18:05 | disposition home or self-care (01) ==
LOC: ANHOBOP 14:35 → ANHOBPP 14:41
PROVIDERS: Visit Provider Advanced Practice Midwife
DX: O13.9 Gestational [pregnancy-induced] hypertension without significant proteinuria, unspecified trimester (principal); Z3A.00 Weeks of gestation of pregnancy not specified
CPT/HCPCS: 36415; 59025; 80053; 81001; 82570; 84156; 84550; 85025; 99199; A9270

== ENCOUNTER 2024-09-11 14:55 | Emergency (ER) | payer OTHER, SELFPAY ==
[2024-09-11] VITALS (22 sets, daily range): BP systolic 104–134; BP diastolic 58–84; PULSE 104–126; RESP 16–24; TEMP 37.2; O2SAT 92–99
--- OUTSIDE RECORDS SUMMARY | 2024-09-11 15:43 | XMS_ITS | Referral Summary ---
Author Organization [facility] Address [address] [place] [address] Care Team Providers Care Biostatistics Manager Name Role Phone Sydney Rush MD Primary Care Provider [phone] Source Comments [facility],non-owned Affiliates and Associated Physician Practices is amultiple site organization consisting of ambulatory clinics and hospital sitesin [place], [place], [place] and [place]. This disclosure is being madepursuant to the Care Everywhere program and may not contain all information available regarding this patient. Last updated 18.[facility] Encounters Date Type Department Care Team Description 08/29/[address] [address] Angelina Andujar Future Appointment 08/29/2024 1:32 PM ARTIST AGENT - 08/29/2024 11:59 PM ARTIST AGENT Hospital Encounter [facility] [address] [place] [address] Truman Ledezma MD Discharge Disposition: Home or Self Care 08/29/2024 1:31 PM ARTIST AGENT Hospital Encounter [facility] [address] [place] [address] Truman Ledezma MD Discharge Disposition: Home or Self Care 08/27/2024 Travel 08/27/2024 Telephone [facility] [address] [place] [address] Roberta De La Vega A [...] Comments Blood Pressure 115/73 08/29/2024 2:35 PM ARTIST AGENT Pulse 71 08/29/2024 2:35 PM ARTIST AGENT Temperature 36.3 C (97.3 F) 01/12/2017 10:45 AM CDT Respiratory Rate 16 01/12/2017 11:15 AM CDT Oxygen Saturation 97% 01/12/2017 11:00 AM CDT Inhaled Oxygen Concentration 100% 01/12/2017 1 0:45 AM CDT Weight 76.2 kg (168 lb) 08/29/2024 2:35 PM ARTIST AGENT Height 165.1 cm (5' 5 ) 08/29/2024 2:35 PM ARTIST AGENT Body Mass Index 27.96 08/29/2024 2:35 PM ARTIST AGENT Functional Status Functional Status Response Date of [...] st Contact Info) Description 09/20/2024 10:45 AM ARTIST AGENT Appointment [address] [address] Truman Ledezma MD [address] [facility] [address] [place] [phone] 09/20/2024 10:45 AM ARTIST AGENT Appointment [address] [address] Procedures Procedure Name Priority Date/Time Associated Diagnosis Comments SONOGRAM - COMPLETE Routine 08/29/2024 1 :43 PM ARTIST AGENT Encounter for anatomic survey (HCC) Abnormal ultrasound 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 Para 1 [id number] 1. live 2019. Gest. age 39 w [...] 1 lb 15 oz EFW by Hadlock ([id number]) Head / Face / Neck Biometry: CM [...] view. RVOT view. LVOT view. 3-vessel view. 2-rfauxq-ghqnbcv view. Situs. Aortic arch view. Bicaval view. [...] LMP & early U/S * Referred to [facility] for obstetrical U/S & request for [...] determine at present Please notify the baby's Automatic Dispenser Mechanic of the above history Follow-up ======== U/S at 32 weeks Coding ====== Procedures 72612: US Preg Uterus Detailed T [facility] Performance Technology PACS Anatomical Region Laterality Modality Other 08/29/2024 1:43 PM ARTIST AGENT R Ishaan Monson MD [facility] ORDERABLES from Last 3 Months Care Teams Biostatistics Manager Relationship Specialty Start Date End Date Sydney Rush MD [address] [place] [address] [place] [address] PCP - General Family Medicine 07/10/13
--- OUTSIDE RECORDS SUMMARY | 2024-09-11 15:43 | XMS_ITS | Patient Health Summary ---
Author Organization [facility] Address [address] [facility] [place] [address] Care Team Providers Care Rail Director Name Role Phone Sydney Rush MD Primary Care Provider [phone] Note from [facility],non-owned Affiliates and Associated Physician Practices is amultiple site organization consisting of ambulatory clinics and hospital sitesin [place], [place], [place] and [place]. This disclosure is being madepursuant to the Care Everywhere program and may not contain all information available regarding this patient. Last updated 18.[facility] Allergies No known active allergies Medications * [...] Nausea/Vomiting Reasons: Nausea and Vomiting in * pqgpejh-mgivcjuxcrctx-dgkkqwdu 250-250-65 MG tablet Take 1 (one) tablet [...] Comments Blood Pressure 115/73 08/29/2024 2:35 PM DRY CHARGE PROCESS ATTENDANT Pulse 71 08/29/2024 2:35 PM DRY CHARGE PROCESS ATTENDANT Temperature 36.3 C (97.3 F) 01/12/2017 10:45 AM CDT Respiratory Rate 16 01/12/2017 11:15 AM CDT Oxygen Saturation 97% 01/12/2017 11:00 AM CDT Inhaled Oxygen Concentration 100% 01/12/2017 1 0:45 AM CDT Weight 76.2 kg (168 lb) 08/29/2024 2:35 PM DRY CHARGE PROCESS ATTENDANT Height 165.1 cm (5' 5 ) 08/29/2024 2:35 PM DRY CHARGE PROCESS ATTENDANT Body Mass Index 27.96 08/29/2024 2:35 PM DRY CHARGE PROCESS ATTENDANT Procedures * SONOGRAM - COMPLETE(Performed 08/29/2024) Performed [...] * SONOGRAM - COMPLETE (08/29/2024 1:43 PM DRY CHARGE PROCESS ATTENDANT) Linked Results Indication ======== Mildly dilated aortic arch on outside scan, Reportedly low-risk cf-DNA 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 Para 1 [id number] 1. live 2019. Gest. age 39 w [...] 1 lb 15 oz EFW by Hadlock ([id number]-FL) Head / Face / Neck Biometry: CM [...] view. RVOT view. LVOT view. 3-vessel view. 9-ielqzs-esrkoie view. Situs. Aortic arch view. Bicaval view. [...] LMP & early U/S * Referred to [facility] for obstetrical U/S & request for [...] determine at present Please notify the baby's Road Packer Operator of the above history Follow-up ======== U/S at 32 weeks Coding ====== Procedures 92114: US Preg Uterus Detailed SpotOnWay PACS Anatomical Region Laterality Modality Other 08/29/2024 1:43 PM DRY CHARGE PROCESS ATTENDANT R Ishaan Monson MD [facility] ORDERABLES * US ABDOMEN LIMITED (01/21/2017 [...] somewhat heterogeneous in appearance. Procedure Note Asiya rBitt MD - 01/21/2017 EXAMINATION: ABDOMINAL ULTRASOUND LIMITED-RIGHT [...] CDT) Case Report Surgical Pathology Report Case: [id number] Authorizing Provider: Trena Tanner MD Collected: 01/12/2017 10:19 AM Ordering Location: ENDOSCOPY SERVICES Received: 01/12/2017 11:08 AM Pathologist: Juan Jones MD Specimens: A) - Duodenal Biopsy B) - Stomach Biopsy C) - Esophageal Biopsy, distal D) - Esophageal Biopsy, proximal 01/17/2017 10:21 AM [facility] Final Diagnosis A. DUODENUM, BIOPSY: -NO SIGNIFICANT HISTOPATHOLOGICAL CHANGES B. STOMACH, BIOPSY: -NO SIGNIFICANT HISTOPATHOLOGICAL CHANGES C. ESOPHAGUS, DISTAL, BIOPSY: -MINIMAL HISTOLOGICAL ABNORMALITIES -SEE MICROSCOPIC DESCRIPTION D. ESOPHAGUS, PROXIMAL, BIOPSY: -MINIMAL HISTOLOGICAL ABNORMALITIES -SEE MICROSCOPIC DESCRIPTION 01/17/2017 10:21 AM [facility] Clinical History The patient is a 16-year-old girl with abdominal pain and dysphagia who underwent upper endoscopy which was found to be normal. 01/17/2017 10:21 AM [facility] Gross Description The [...] toto as D1. (CT/ns) 01/17/2017 10:21 AM [facility] Microscopic Description 12 [...] a high power field. 01/17/2017 10:21 AM [facility] Disclaimer The performance characteristics of all immunohistochemical and indirect immunofluorescence stains (if any) cited in this report were determined by the Histopathology Laboratory of [facility]. Some of these tests were developed by [...] the attending (teaching) pathologist. 01/17/2017 10:21 AM [facility] Embedded Images 01/17/2017 10:21 AM CDT [facility] Pathology/Cytology DUODENAL BIOPSY SPECIMEN / [...] - PATHOLOGY/CYTO LOGY ORDERABLES Performing Organization Address [facility] Co de Phone Number [facility] [place] [address] * HELICOBACTER PYLORI UREASE (STL) (01/12/2017 10:19 AM CDT) Helicobacter pylori Urease Initial Negative Negative 01/13/2017 3:29 PM CDT [facility] Helicobacter pylori Urease Final Negative Negative 01/13/2017 3:29 PM CDT [facility] Comment:This is an appended report. These results have been appended to a previously preliminary verified report. Microbiology GASTRIC ANTRAL BIOPSY SPECIMEN / Unknown 01/12/2017 10:19 AM CDT 01/12/2017 10:31 AM CDT Trena Tanner MD LAB - MICROBIOLOGY O RDERABLES Performing Organization Address City/[facility]/ZIP Co de Phone Number [facility] [address] [place] [address] * HCG URINE QUALITATIVE - POCT (IP) BEAKER (01/12/2017 9:00 AM CDT) HCG Qual Urine Negative Negative [facility] POCT TESTING QC Verified Yes Yes [facility] PO CT TESTING Urine URINE / Unknown 01/12/2017 9 :00 AM CDT Trena Tanner MD LAB - POINT OF CARE ORDERABLES [facility] POCT TESTING [address] [place], [place] [address] [phone] * EGD (01/12/2017 7:05 AM CDT) Report Endoscopy POC _ Patient Name: Michelle Olivas Date of : 2000 Admit Type: Outpatient Age: 16 Gender: Female Attending MD: Trena Tanner MD Order #: [id number] _ Procedure: Upper GI endoscopy Indications: Generalized [...] Gallbladder ultrasound Procedure Code(s): --- Professional --- 50715, Esophagogastrodu odenoscopy, flexible, transoral; with biopsy, single or multiple --- Technical --- 27267, Esophagogastrodu odenoscopy, flexible, transoral; with biopsy, single or multiple Diagnosis Code(s): --- Professional --- R10.84, Generalized abdominal pain R13.10, Dysphagia, unspecified --- Technical --- R10.84, Generalized abdominal pain R13.10, Dysphagia, unspecified CPT copyright 2015 [employer]. All rights reserved. The codes documented in this report are preliminary and upon silverware assembler review may be revised to meet current compliance requirements. Dr. Trena Tanner MD Trena Tanner MD 01/12/2017 10:38:42 AM Number of Addenda: 0 Note Initiated On: 01/12/2017 7:05 AM Procedure Date: 01/12/2017 7:05:47 AM This report has been signed electronically. [facility] 01/12/2017 7:05 AM CDT Trena Tanner MD GI PROCEDURE ORDERAB LES [facility] [address] [place] [address] * TISSUE TRANSGLUTAMINASE AB IGA (12/16/2016 4:06 PM CDT) TTG Antibody IgA <2 0 - 3 U/mL 12/17/2016 2:12 PM CDT [facility] ([facility]) Comment: Negative 0 - 3 Weak Positive 4 - 10 Positive >10 Tissue Transglutaminase (tTG) has been identified as the endomysial antigen. Studies have demonstr- ated that endomysial IgA antibodies have over 99% specificity for gluten sensitive enteropathy. Blood BLOOD SPECIMEN / Unknown Lab Venipuncture / Unknown 12/16/2016 4:06 PM CDT 12/16/2016 4:27 PM CDT Narrative [facility] ([facility]) - 12/17/2016 2:12 PM CDT Performed at: [facility] [address] [place], [place] [id number] Cook Room Supervisor: Jeffery Perkins PhD, Phone: [phone] Trena Tanner MD LAB - SEROLOGY ORDER RAOUL Performing Organization Address City/[facility] Co de Phone Number [facility] [address] [place] [address] * C-REACTIVE PROTEIN (12/16/2016 4:06 PM CDT) C-Reactive Protein <0.20 <=0.50 mg/dL 12/16/2016 4:55 PM CDT [facility] Blood BLOOD SPECIMEN / Unknown Lab Venipuncture / Unknown 12/16/2016 4:06 PM CDT 12/16/2016 4:26 PM CDT Trena Tanner MD LAB - CHEMISTRY CHERELLE COSME Performing Organization Address City/[facility]/ZIP Co de Phone Number [facility] [address] [place] [phone] * SED RATE WESTERGREN (12/16/2016 4:06 PM CDT) Erythrocyte Sedimentation Rate Westergren 3 0 - 12 mm/hr 12/16/2016 5:38 PM CDT [facility] Blood BLOOD SPECIMEN / Unknown Lab Venipuncture / Unknown 12/16/2016 4:06 PM CDT 12/16/2016 4:26 PM CDT Trena Tanner MD LAB - HEMATOLOGY ORD ERABLES [facility] [place] [address] * (ABNORMAL) CBC W AUTO DIFFERENTIAL (12/16/2016 4:06 PM CDT) WBC 7.4 4.5 - 14.5 x10E9/L 12/16/2016 4:44 PM CDT [facility] WBC Corrected x10E9/L 12/16/2016 4:44 PM CDT [facility] RBC 5.30(H) 4.10 - 5.10 x10E12/L 12/16/2016 4:44 PM CDT [facility] Hemoglobin 15.8 12.0 - 16.0 gm/dL 12/16/2016 4:44 PM CDT [facility] Hematocrit 44.7 36.0 - 47.0 % 12/16/2016 4:44 PM CDT [facility] MCV 84.3 78.0 - 98.0 fl 12/16/2016 4:44 PM CDT [facility] MCH 29.8 25.0 - 35.0 pg 12/16/2016 4:44 PM CDT [facility] MCHC 35.3 31.0 - 37.0 gm/dL 12/16/2016 4:44 PM CDT [facility] Platelet Count 224 100 - 400 x10E9/L 12/16/2016 4:44 PM CDT [facility] RDW-CV 12.9 11.5 - 14.0 % 12/16/2016 4:44 PM CDT [facility] MPV 10.8(H) 6.0 - 9.5 fl 12/16/2016 4:44 PM CDT [facility] Neutrophils % 57.6 24.0 - 66.0 % 12/16/2016 4:44 PM CDT [facility] Lymphocytes % 31.6 22.0 - 61.0 % 12/16/2016 4:44 PM CDT [facility] Monocytes % 7.9 3.0 - 15.0 % 12/16/2016 4:44 PM CDT [facility] Eosinophils % 2.3 0.0 - 10.0 % 12/16/2016 4:44 PM CDT [facility] Basophils % 0.3 % 12/16/2016 4:44 PM CDT [facility] Immature Granulocytes 0.3 % 12/16/2016 4:44 PM CDT [facility] Neutrophil Absolute 4.24 x10E9/L 12/16/2016 4:44 PM CDT [facility] Lymphocytes Absolute 2.32 x10E9/L 12/16/2016 4:44 PM CDT [facility] Monocytes Absolute 0.58 x10E9/L 12/16/2016 4:44 PM CDT [facility] Eosinophils Absolute 0.17 x10E9/L 12/16/2016 4:44 PM CDT [facility] Basophils Absolute 0.02 x10E9/L 12/16/2016 4:44 PM CDT [facility] Immature Granulocytes Absolute 0.02 x10E9/L 12/16/2016 4:44 PM CDT [facility] nRBC Auto 0 /100 WBC 12/16/2016 4:44 PM CDT [facility] Blood BLOOD SPECIMEN / Unknown Lab Venipuncture / Unknown 12/16/2016 4:06 PM CDT 12/16/2016 4:26 PM CDT Trena Tanner MD LAB - HEMATOLOGY ORD ERABLES Performing Organization Address City/State/[facility] Co de Phone Number [facility] [address] [place] [phone] * (ABNORMAL) COMPREHENSIVE METABOLIC PANEL (12/16/2016 4:06 PM CDT) [facility] Glucose 77 70 - 105 mg/dL 12/16/2016 5:20 PM CDT [facility] Sodium 139 136 - 145 mmol/L 12/16/2016 5:20 PM CDT [facility] Potassium 4.2 3.5 - 5.1 mmol/L 12/16/2016 5:20 PM CDT [facility] Chloride 107 98 - 107 mmol/L 12/16/2016 5:20 PM CDT [facility] CO2 25 20 - 28 mmol/L 12/16/2016 5:20 PM CDT [facility] Calcium 9.34 9.08 - 10.48 mg/dL 12/16/2016 5:20 PM CDT [facility] Anion Gap 7 5 - 20 mmol/L 12/16/2016 5:20 PM CDT [facility] BUN 17.4 5.3 - 18.7 mg/dL 12/16/2016 5:20 PM CDT [facility] Creatinine 0.84 0.61 - 1.07 mg/dL 12/16/2016 5:20 PM CDT [facility] Alkaline Phosphatase 69(L) 100 - 390 U/L 12/16/2016 5:20 PM CDT [facility] ALT 18 8 - 65 U/L 12/16/2016 5:20 PM T [facility] AST 23 3 - 35 U/L 12/16/2016 5:20 PM T [facility] Protein Total 7.7 6.3 - 8.2 gm/dL 12/16/2016 5:20 PM CDT [facility] Albumin 4.4 3.3 - 4.9 gm/dL 12/16/2016 5:20 PM T [facility] Bilirubin Total 0.6 0.3 - 1.2 mg/dL 12/16/2016 5:20 PM T [facility] eGFR by MDRD mL/min/1.7 3m2 12/16/2016 5:20 PM T [facility] Comment: eGFR calculations are not performed for children under 18 years old. eGFR by MDRD mL/min/1.7 3m2 12/16/2016 5:20 PM T [facility] Comment: eGFR calculations are not performed for children under 18 years old. Blood BLOOD SPECIMEN / Unknown Lab Venipuncture / Unknown 12/16/2016 4:06 PM CDT 12/16/2016 4:26 PM CDT Trena Tanner MD LAB - CHEMISTRY CHERELLE COSME [facility] Organization Address City/State/[facility] Co de Phone Number [facility] [address] [place], [place] [id number] * IGA BLOOD (12/16/2016 4:06 PM CDT) IgA 113 65 - 421 mg/dL 12/16/2016 5:20 PM T [facility] Blood BLOOD SPECIMEN / Unknown Lab Venipuncture / Unknown 12/16/2016 4:06 PM CDT 12/16/2016 4:26 PM CDT Trena Tanner MD LAB - CHEMISTRY CHERELLE COSME [facility] Organization Address City/State/ZIP Co de Phone Number [facility] [address] [place] [address] Care Teams Rail Director Relationship Specialty Start Date End Date Sydney Rush MD [address] [place] [phone] PCP - General Family Medicine 07/10/13
--- OUTSIDE RECORDS SUMMARY | 2024-09-11 15:43 | XMS_ITS | Data Portability ---
Author Organization [facility] Resource Interactive, Main Office Address [address] [place] [address] Assessment No assessment recorded. Plan of Treatment Reminders Order Date Submit Date Provider Last Modified By Organization Details Last Modified Time Details Appointments None recorded. Lab CBC w/ auto diff [address] (Lab), [address] [place], [address], 3 13:45:41 TSH, serum or plasma [address] (Lab), [address] [place], [address], 3 13:51:17 glycohemogl obin, total, blood [address] (Lab), [address] [place], [address], 3 13:51:41 iron + total iron-bindin g capacity (TIBC), serum [address] (Lab), [address] [place], [address], 3 13:52:49 ferritin, serum or plasma [address] (Lab), [address] [place], [address], 3 13:53:13 vitamin B12, serum [address] (Lab), [address] [place], [address], 3 13:53:57 folate, serum [address] (Lab), [address] [place], [address], 3 13:55:59 CMP, serum or plasma [address] (Lab), [address] [place], [address], 3 13:57:00 test, serum or plasma [address] (Lab), [address] [place], [address], 3 13:57:47 CBC w/ auto diff 2022 023 [facility] (Lab), [address] [place], [address], 3 20:11:38 folate, serum 2022 023 [facility] (Lab), [address] [place], [address], 3 12:11:10 vitamin B12, serum 2022 023 [facility] (Lab), [address] [place], [address], 3 12:11:15 test, serum or plasma 2022 023 [facility] (Lab), [address] [place], [address], 3 21:39:45 rf (rheumatoid factor), serum 2022 023 [facility] (Lab), [address] [place], [address], 3 21:21:23 uric acid, serum or plasma 2022 023 [facility] (Lab), [address] [place], [address], 3 21:26:42 ESR (erythrocyt e sedimentati on rate), blood 2022 023 [facility] (Lab), [address] [place], [address], 3 20:49:08 PATRICIA (antinuclea r antibodies) screen, serum 2022 023 [facility] (Lab), [address] [place], [address], 3 13:33:53 CBC w/ auto diff 2022 023 [facility] (Lab), [address] [place], [address], 3 20:48:44 folate, serum 2022 023 [facility] (Lab), [address] [place], [address], 3 22:23:47 vitamin B12, serum 2022 023 [facility] (Lab), [address] [place], [address], 3 22:23:52 Referral gastroenter ologist referral 2022 023 [email or web address] [facility], [address], [address], [place], [address], 3 10:46:44 gastroenter ologist referral 2022 023 [email or web address] [facility], [address], [address], [place], [address], 4 17:52:18 Procedures None recorded. Surgeries None recorded. Imaging None recorded. Medication Orders pantoprazol e 40 mg tablet,cherrie yed release [email or web address] [facility] ([place], [place] [employer] [id number], [address] [place], [place], [id number], 3 18:48:05 famotidine 20 mg tablet 2022 023 [facility] [id number], [address] [place], [place], [id number], 3 12:38:44 pantoprazol e 40 mg tablet,cherrie yed release 2022 023 [facility] #63706, [address] [place], [place], [id number], 3 08:54:29 famotidine 20 mg tablet 2022 023 [facility] #64964, [address] [place], [place], [id number], 3 08:54:28 cyanocobala min (vit B-12) 1,000 mcg/mL injection solution 2022 023 [email or web address] [id number] Not available 3 09:38:30 cyanocobala min (vit B-12) 1,000 mcg/mL injection solution 2022 023 [email or web address] [id number] Not available 16:58:26 ProAir HFA 90 mcg/actuati on aerosol inhaler 2022 023 [facility] #02349, [address] [place], [place], [id number], 3 15:50:44 prednisone 20 mg tablet 2022 023 [id number], [address] [place], [place], [id number], 3 15:50:48 Patient TargetsNo targets recorded. Patient InstructionsNo instructions recorded. Reason for Referral Head Counselor Referral for Gastroesophageal reflux disease without esophagitis Referring Physician: Sydney Rush, [facility], Encounter Date: 01/13/2023 Head Counselor Referral for Gastroesophageal reflux disease without esophagitis Referring Physician: Sonal Bear [facility], Encounter Date: 06/06/2023 Results Created Date Observation Date Name Description Value Unit Range Abnormal Flag Note LastModifiedBy Organization Detail LastModifiedTime 12/03/1912/02/2022 CBC/C OMPLE TE BLD COUNT W/DIF F white blood cells 7.2 x10'3 /uL 4.2-10 .8 Not Available [facility] (Lab) [address] [place], [address], 12/02/2022 19:37:18 12/03/1912/02/2022 CBC/C OMPLE TE BLD COUNT W/DIF F red blood cells 5.52 x10'6 /uL 3.80-5 .20 high Not Available [facility] (Lab) [address] [place], [address], 12/02/2022 19:37:18 12/03/19 23 12/02/2022 CBC/C OMPLE TE BLD COUNT W/DIF F hemoglobin 16.1 g/dL 12.0-1 5.6 high Not Available [facility] (Lab) [address] [facility] [place] [place], [address], 12/02/2022 19:37:18 12/03/19 23 12/02/2022 CBC/C OMPLE TE BLD COUNT W/DIF F hematocrit 48.7 % 35.7-4 5.7 high Not Available [facility] (Lab) [address] [place], [address], 12/02/2022 19:37:18 12/03/19 23 12/02/2022 CBC/C OMPLE TE BLD COUNT W/DIF F mean red cell volume 88.2 fL 82.0-9 9.0 Not Available [facility] (Lab) [address] [place], [address], 12/02/2022 19:37:18 12/03/19 23 12/02/2022 CBC/C OMPLE TE BLD COUNT W/DIF F mean red cell hemoglobin 29.2 pg 27.0-3 3.0 Not Available [facility] (Lab) [address] [place], [address], 12/02/2022 19:37:18 12/03/19 23 12/02/2022 CBC/C OMPLE TE BLD COUNT W/DIF F mean RBC HGB concentratio n 33.1 g/dL 31.0-3 6.0 Not Available [facility] (Lab) [address] [place], [address], 12/02/2022 19:37:18 12/03/19 23 12/02/2022 CBC/C OMPLE TE BLD COUNT W/DIF F red cell distribution width 13.1 % 11.8-1 5.5 Not Available [facility] (Lab) [address] [place], [address], 12/02/2022 19:37:18 12/03/19 23 12/02/2022 CBC/C OMPLE TE BLD COUNT W/DIF F platelets 253 x10'3 /uL 150-40 0 Not Available [facility] (Lab) [address] [place], [address], 12/02/2022 19:37:18 12/03/1912/02/2022 CBC/C OMPLE TE BLD COUNT W/DIF F mean platelet volume 12.3 fL 9.0-12 .4 Not Available [facility] (Lab) [address] [place], [address], 12/02/2022 19:37:18 12/03/19 23 12/02/2022 CBC/C OMPLE TE BLD COUNT W/DIF F neutrophils 65.2 % 39.0-7 2.0 Not Available [facility] (Lab) [address] [place], [address], 12/02/2022 19:37:18 12/03/19 23 12/02/2022 CBC/C OMPLE TE BLD COUNT W/DIF F lymphocytes 25.7 % 16.0-4 7.0 Not Available [facility] (Lab) [address] [place], [address], 12/02/2022 19:37:18 12/03/1912/02/2022 CBC/C OMPLE TE BLD COUNT W/DIF F monocytes 7.2 % 5.0-12 .0 Not Available [facility] (Lab) [address] [place], [address], 12/02/2022 19:37:18 12/03/19 23 12/02/2022 CBC/C OMPLE TE BLD COUNT W/DIF F eosinophils 1.2 % 1.0-7. 0 Not Available [facility] (Lab) [address] [place], [address], 12/02/2022 19:37:18 12/03/19 23 12/02/2022 CBC/C OMPLE TE BLD COUNT W/DIF F basophils 0.4 % 0.0-2. 0 Not Available [facility] (Lab) [address] [place], [address], 12/02/2022 19:37:18 12/03/1912/02/2022 CBC/C OMPLE TE BLD COUNT W/DIF F immature granulocytes 0.3 % 0.00-0 .50 Not Available [facility] (Lab) [address] [place], [address], 12/02/2022 19:37:18 12/03/19 23 12/02/2022 CBC/C OMPLE TE BLD COUNT W/DIF F neutrophils, absolute count 4.70 x10'3 /uL 1.5-8. 0 Not Available [facility] (Lab) [address] [place], [address], 12/02/2022 19:37:18 12/03/1912/02/2022 CBC/C OMPLE TE BLD COUNT W/DIF F lymphocytes, absolute count 1.85 x10'3 /uL 1.07-3 .43 Not Available [facility] (Lab) [address] [place], [address], 12/02/2022 19:37:18 12/03/1912/02/2022 CBC/C OMPLE TE BLD COUNT W/DIF F monocytes, absolute count 0.52 x10'3 /uL 0.29-0 .99 Not Available [facility] (Lab) [address] [place], [address], 12/02/2022 19:37:18 12/03/19 23 12/02/2022 CBC/C OMPLE TE BLD COUNT W/DIF F eosinophils, absolute count 0.09 x10'3 /uL 0.02-0 .53 Not Available [facility] (Lab) [address] [place], [address], 12/02/2022 19:37:18 12/03/19 23 12/02/2022 CBC/C OMPLE TE BLD COUNT W/DIF F basophils, absolute count 0.03 x10'3 /uL 0.01-0 .08 Not Available [facility] (Lab) [address] [place], [address], 12/02/2022 19:37:18 12/03/19 23 12/02/2022 CBC/C OMPLE TE BLD COUNT W/DIF F immature granulocytes ,absolute 0.02 x10'3 /uL 0.00-0 .05 Not Available [facility] (Lab) [address] [place], [address], 12/02/2022 19:37:18 12/03/19 23 12/02/2022 CBC/C OMPLE TE BLD COUNT W/DIF F nucleated red blood cells 0.0 % -0 Not Available [facility] (Lab) [address] [place], [address], 12/02/2022 19:37:18 12/03/19 23 12/02/2022 CBC/C OMPLE TE BLD COUNT W/DIF F NRBC# 0.00 x10'3 /uL Not Available [facility] (Lab) [address] [place], [address], 12/02/2022 19:37:18 12/03/19 23 12/02/2022 IRON/ TIBC PANEL total iron binding capacity 335 mcg/d L 265-47 5 Not Available [facility] (Lab) [address] [place], [address], 12/02/2022 20:10:08 12/03/19 23 12/02/2022 IRON/ TIBC PANEL % transferrin saturation 40 % 20-55 Not Available [facility] (Lab) [address] [place], [address], 12/02/2022 20:10:08 12/03/19 23 12/02/2022 IRON/ TIBC PANEL unsaturated iron bind capacity 201 mcg/d L 126-38 2 Not Available [facility] (Lab) [address] [place], [address], 12/02/2022 20:10:08 12/03/19 23 12/02/2022 IRON/ TIBC PANEL iron 134 mcg/d L 42-175 Not Available [facility] (Lab) [address] [facility] [place], [address], 12/02/2022 20:10:08 12/03/19 23 12/02/2022 COMPR EHENS PETE METAB OLIC PANEL sodium 140 mmol/ L 137-14 5 Not Available [facility] (Lab) [address] [place], [address], 12/02/2022 20:03:27 12/03/19 23 12/02/2022 COMPR EHENS PETE METAB OLIC PANEL potassium 4.3 mmol/ L 3.5-5. 1 Not Available [facility] (Lab) [address] [place], [address], 12/02/2022 20:03:27 12/03/19 23 12/02/2022 COMPR EHENS PETE METAB OLIC PANEL chloride 105 mmol/ L 98-107 Not Available [facility] (Lab) [address] [place], [address], 12/02/2022 20:03:27 12/03/19 23 12/02/2022 COMPR EHENS PETE METAB OLIC PANEL carbon dioxide 23 mmol/ L 22-30 Not Available [facility] (Lab) [address] [place], [address], 12/02/2022 20:03:27 12/03/19 23 12/02/2022 COMPR EHENS PETE METAB OLIC PANEL anion gap 16.3 mmol/ L 14-22 Not Available [facility] (Lab) [address] [place], [address], 12/02/2022 20:03:27 12/03/19 23 12/02/2022 COMPR EHENS PETE METAB OLIC PANEL glucose 86 mg/dL 70-99 Not Available [facility] (Lab) [address] [place], [address], 12/02/2022 20:03:27 12/03/19 23 12/02/2022 COMPR EHENS PETE METAB OLIC PANEL BUN 19 mg/dL 8-19 Not Available [facility] (Lab) [address] [place], [address], 12/02/2022 20:03:27 12/03/19 23 12/02/2022 COMPR EHENS PETE METAB OLIC PANEL creatinine 1.00 mg/dL 0.66-1 .25 Not Available [facility] (Lab) [address] [place], [address], 12/02/2022 20:03:27 12/03/19 23 12/02/2022 COMPR EHENS PETE METAB OLIC PANEL GFR >60 Refer ence Range : [place] [facility] GFR [facility] Adult : >60 [...] calcu lator is avail able on the [facility] websi te: https :[email or web address] [email or web address] jo johnson/[email or web address] rizvial s/kdo qi/gf r_cal culat or Not Available [facility] (Lab) [address] [place], [address], 12/02/2022 20:03:27 12/03/19 23 12/02/2022 COMPR EHENS PETE METAB OLIC PANEL alkaline phosphatase 55 U/L 38-126 Not Available [facility] (Lab) [address] [place], [address], 12/02/2022 20:03:27 12/03/19 23 12/02/2022 COMPR EHENS PETE METAB OLIC PANEL alanine aminotransfe rase 27 U/L 0-35 Not Available [facility] (Lab) [address] [place], [address], 12/02/2022 20:03:27 12/03/19 23 12/02/2022 COMPR EHENS PETE METAB OLIC PANEL aspartate aminotransfe rase 28 U/L 15-37 Not Available [facility] (Lab) [address] [place], [address], 12/02/2022 20:03:27 12/03/19 23 12/02/2022 COMPR EHENS PETE METAB OLIC PANEL bilirubin, total 0.70 mg/dL 0.20-1 .30 Not Available [facility] (Lab) [address] [place], [address], 12/02/2022 20:03:27 12/03/19 23 12/02/2022 COMPR EHENS PETE METAB OLIC PANEL calcium 9.5 mg/dL 8.4-10 .2 Not Available [facility] (Lab) [address] [place], [address], 12/02/2022 20:03:27 12/03/19 23 12/02/2022 COMPR EHENS PETE METAB OLIC PANEL total protein 7.9 g/dL 6.3-8. 2 Not Available [facility] (Lab) [address] [place], [address], 12/02/2022 20:03:27 12/03/19 23 12/02/2022 COMPR EHENS PETE METAB OLIC PANEL albumin 4.9 g/dL 3.4-5. 0 Not Available [facility] (Lab) [address] [place], [address], 12/02/2022 20:03:27 12/03/19 23 12/02/2022 COMPR EHENS PETE METAB OLIC PANEL globulin 3.0 g/dL 2.6-4. 2 Not Available [facility] (Lab) [address] [place], [address], 12/02/2022 20:03:27 12/03/19 23 12/02/2022 COMPR EHENS PETE METAB OLIC PANEL A/G ratio 1.6 ratio 1.0-2. 0 Not Available [facility] (Lab) [address] [place], [address], 12/02/2022 20:03:27 12/03/19 23 12/02/2022 B-HCG TOTAL [...] 19 6,800 TO 42,90 0 Not Available [facility] (Lab) [address] [place], [address], 12/02/2022 20:11:09 12/03/19 23 12/02/2022 TSH thyroid-stim ulating hormone 1.030 uIU/m L 0.465- 4.680 Not Available [facility] (Lab) [address] [place], [address], 12/02/2022 20:41:34 12/03/19 23 12/02/2022 AGUSTO TIN ferritin 45 NG/mL 6.24-1 37 Not Available [facility] (Lab) [address] [place], [address], 12/02/2022 20:42:15 12/03/19 23 12/02/2022 FOLAT E, SERUM /PLAS MA folate 8.88 NG/mL 2.76-2 0.0 Not Available [facility] (Lab) [address] [place], [address], 12/02/2022 21:07:41 12/03/19 23 12/02/2022 HEMOG LOBIN A1C HA1C 4.7 % 4.0-6. 0 Diabe radha Scree peter Crite maggy: <5.7% Consi stent with absen ce of diabe radha 5.7-6 .4% Consi stent with incre ased risk for diabe radha (pred iabet es) >OR=6 .5% Consi stent with diabe radha REFER ENCE: Diabe radha Care 2016, 39(Gr ppl.1 ):s13 -s22 Not Available [facility] (Lab) [address] [place], [address], 12/02/2022 21:34:26 12/03/19 23 12/02/2022 VITAM IN B12 (LUZMARIA LUPIS ) vb12 233 pg/mL 239-93 1 low Not Available [facility] (Lab) [address] [place], [address], 12/02/2022 22:36:37 01/14/20 23 01/13/2023 CBC/C OMPLE TE BLD COUNT W/DIF F white blood cells 5.8 x10'3 /uL 4.2-10 .8 Not Available [facility] (Lab) [address] [place], [address], 01/13/2023 20:11:38 01/14/20 23 01/13/2023 CBC/C OMPLE TE BLD COUNT W/DIF F red blood cells 5.10 x10'6 /uL 3.80-5 .20 Not Available [facility] (Lab) [address] [place], [address], 01/13/2023 20:11:38 01/14/20 23 01/13/2023 CBC/C OMPLE TE BLD COUNT W/DIF F hemoglobin 15.0 g/dL 12.0-1 5.6 Not Available [facility] (Lab) [address] [place], [address], 01/13/2023 20:11:38 01/14/20 23 01/13/2023 CBC/C OMPLE TE BLD COUNT W/DIF F hematocrit 45.1 % 35.7-4 5.7 Not Available [facility] (Lab) [address] [place], [address], 01/13/2023 20:11:38 01/14/20 23 01/13/2023 CBC/C OMPLE TE BLD COUNT W/DIF F mean red cell volume 88.4 fL 82.0-9 9.0 Not Available [facility] (Lab) [address] [place], [address], 01/13/2023 20:11:38 01/14/20 23 01/13/2023 CBC/C OMPLE TE BLD COUNT W/DIF F mean red cell hemoglobin 29.4 pg 27.0-3 3.0 Not Available [facility] (Lab) [address] [place], [address], 01/13/2023 20:11:38 01/14/20 23 01/13/2023 CBC/C OMPLE TE BLD COUNT W/DIF F mean RBC HGB concentratio n 33.3 g/dL 31.0-3 6.0 Not Available [facility] (Lab) [address] [facility] [place], [address], 01/13/2023 20:11:38 01/14/20 23 01/13/2023 CBC/C OMPLE TE BLD COUNT W/DIF F red cell distribution width 13.0 % 11.8-1 5.5 Not Available [facility] (Lab) [address] [place], [address], 01/13/2023 20:11:38 01/14/20 23 01/13/2023 CBC/C OMPLE TE BLD COUNT W/DIF F platelets 217 x10'3 /uL 150-40 0 Not Available [facility] (Lab) [address] [place], [address], 01/13/2023 20:11:38 01/14/20 23 01/13/2023 CBC/C OMPLE TE BLD COUNT W/DIF F neutrophils 64.3 % 39.0-7 2.0 Not Available [facility] (Lab) [address] [place], [address], 01/13/2023 20:11:38 01/14/20 23 01/13/2023 CBC/C OMPLE TE BLD COUNT W/DIF F lymphocytes 27.1 % 16.0-4 7.0 Not Available [facility] (Lab) [address] [place], [address], 01/13/2023 20:11:38 01/14/20 23 01/13/2023 CBC/C OMPLE TE BLD COUNT W/DIF F monocytes 6.4 % 5.0-12 .0 Not Available [facility] (Lab) [address] [place], [address], 01/13/2023 20:11:38 01/14/20 23 01/13/2023 CBC/C OMPLE TE BLD COUNT W/DIF F eosinophils 1.4 % 1.0-7. 0 Not Available [facility] (Lab) [address] [place], [address], 01/13/2023 20:11:38 01/14/20 23 01/13/2023 CBC/C OMPLE TE BLD COUNT W/DIF F basophils 0.5 % 0.0-2. 0 Not Available [facility] (Lab) [address] [place], [address], 01/13/2023 20:11:38 01/14/20 23 01/13/2023 CBC/C OMPLE TE BLD COUNT W/DIF F immature granulocytes 0.3 % 0.00-0 .50 Not Available [facility] (Lab) [address] [place], [address], 01/13/2023 20:11:38 01/14/20 23 01/13/2023 CBC/C OMPLE TE BLD COUNT W/DIF F neutrophils, absolute count 3.72 x10'3 /uL 1.5-8. 0 Not Available [facility] (Lab) [address] [place], [address], 01/13/2023 20:11:38 01/14/20 23 01/13/2023 CBC/C OMPLE TE BLD COUNT W/DIF F lymphocytes, absolute count 1.57 x10'3 /uL 1.07-3 .43 Not Available [facility] (Lab) [address] [place], [address], 01/13/2023 20:11:38 01/14/20 23 01/13/2023 CBC/C OMPLE TE BLD COUNT W/DIF F monocytes, absolute count 0.37 x10'3 /uL 0.29-0 .99 Not Available [facility] (Lab) [address] [place], [address], 01/13/2023 20:11:38 01/14/20 23 01/13/2023 CBC/C OMPLE TE BLD COUNT W/DIF F eosinophils, absolute count 0.08 x10'3 /uL 0.02-0 .53 Not Available [facility] (Lab) [address] [place], [address], 01/13/2023 20:11:38 01/14/20 23 01/13/2023 CBC/C OMPLE TE BLD COUNT W/DIF F basophils, absolute count 0.03 x10'3 /uL 0.01-0 .08 Not Available [facility] (Lab) [address] [place], [address], 01/13/2023 20:11:38 01/14/20 23 01/13/2023 CBC/C OMPLE TE BLD COUNT W/DIF F immature granulocytes ,absolute 0.02 x10'3 /uL 0.00-0 .05 Not Available [facility] (Lab) [address] [place], [address], 01/13/2023 20:11:38 01/14/20 23 01/13/2023 CBC/C OMPLE TE BLD COUNT W/DIF F nucleated red blood cells 0.0 % -0 Not Available [facility] (Lab) [address] [place], [address], 01/13/2023 20:11:38 01/14/20 23 01/13/2023 CBC/C OMPLE TE BLD COUNT W/DIF F NRBC# 0.00 x10'3 /uL Not Available [facility] (Lab) [address] [place], [address], 01/13/2023 20:11:38 01/14/20 23 01/14/2023 FOLAT E, SERUM /PLAS MA folate 5.91 NG/mL 2.76-2 0.0 Not Available [facility] (Lab) [address] [place], [address], 01/14/2023 12:11:10 01/14/20 23 01/14/2023 VITAM IN B12 (LUZMARIA LUPIS ) vb12 484 pg/mL 239-93 1 Not Available [facility] (Lab) [address] [place], [address], 01/14/2023 12:11:15 03/03/20 23 03/03/2023 CBC/C OMPLE TE BLD COUNT W/DIF F white blood cells 5.4 x10'3 /uL 4.2-10 .8 Not Available [facility] (Lab) [address] [place], [address], 03/03/2023 20:48:44 03/03/20 23 03/03/2023 CBC/C OMPLE TE BLD COUNT W/DIF F red blood cells 5.35 x10'6 /uL 3.80-5 .20 high Not Available [facility] (Lab) [address] [place], [address], 03/03/2023 20:48:44 03/03/20 23 03/03/2023 CBC/C OMPLE TE BLD COUNT W/DIF F hemoglobin 15.6 g/dL 12.0-1 5.6 Not Available [facility] (Lab) [address] [place], [address], 03/03/2023 20:48:44 03/03/20 23 03/03/2023 CBC/C OMPLE TE BLD COUNT W/DIF F hematocrit 47.6 % 35.7-4 5.7 high Not Available [facility] (Lab) [address] [place], [address], 03/03/2023 20:48:44 03/03/20 23 03/03/2023 CBC/C OMPLE TE BLD COUNT W/DIF F mean red cell volume 89.0 fL 82.0-9 9.0 Not Available [facility] (Lab) [address] [facility] [place], [address], 03/03/2023 20:48:44 03/03/20 23 03/03/2023 CBC/C OMPLE TE BLD COUNT W/DIF F mean red cell hemoglobin 29.2 pg 27.0-3 3.0 Not Available [facility] (Lab) [address] [place], [address], 03/03/2023 20:48:44 03/03/20 23 03/03/2023 CBC/C OMPLE TE BLD COUNT W/DIF F mean RBC HGB concentratio n 32.8 g/dL 31.0-3 6.0 Not Available [facility] (Lab) [address] [place], [address], 03/03/2023 20:48:44 03/03/20 23 03/03/2023 CBC/C OMPLE TE BLD COUNT W/DIF F red cell distribution width 13.2 % 11.8-1 5.5 Not Available [facility] (Lab) [address] [place], [address], 03/03/2023 20:48:44 03/03/20 23 03/03/2023 CBC/C OMPLE TE BLD COUNT W/DIF F platelets 223 x10'3 /uL 150-40 0 Not Available [facility] (Lab) [address] [place], [address], 03/03/2023 20:48:44 03/03/20 23 03/03/2023 CBC/C OMPLE TE BLD COUNT W/DIF F mean platelet volume 12.9 fL 9.0-12 .4 high Not Available [facility] (Lab) [address] [place], [address], 03/03/2023 20:48:44 03/03/20 23 03/03/2023 CBC/C OMPLE TE BLD COUNT W/DIF F neutrophils 62.4 % 39.0-7 2.0 Not Available [facility] (Lab) [address] [place], [address], 03/03/2023 20:48:44 03/03/20 23 03/03/2023 CBC/C OMPLE TE BLD COUNT W/DIF F lymphocytes 28.7 % 16.0-4 7.0 Not Available [facility] (Lab) [address] [place], [address], 03/03/2023 20:48:44 03/03/20 23 03/03/2023 CBC/C OMPLE TE BLD COUNT W/DIF F monocytes 7.2 % 5.0-12 .0 Not Available [facility] (Lab) [address] [place], [address], 03/03/2023 20:48:44 03/03/20 23 03/03/2023 CBC/C OMPLE TE BLD COUNT W/DIF F eosinophils 1.1 % 1.0-7. 0 Not Available [facility] (Lab) [address] [place], [address], 03/03/2023 20:48:44 03/03/2003/03/2023 CBC/C OMPLE TE BLD COUNT W/DIF F basophils 0.4 % 0.0-2. 0 Not Available [facility] (Lab) [address] [place], [address], 03/03/2023 20:48:44 03/03/20 23 03/03/2023 CBC/C OMPLE TE BLD COUNT W/DIF F immature granulocytes 0.2 % 0.00-0 .50 Not Available [facility] (Lab) [address] [place], [address], 03/03/2023 20:48:44 03/03/20 23 03/03/2023 CBC/C OMPLE TE BLD COUNT W/DIF F neutrophils, absolute count 3.40 x10'3 /uL 1.5-8. 0 Not Available [facility] (Lab) [address] [place], [address], 03/03/2023 20:48:44 03/03/20 23 03/03/2023 CBC/C OMPLE TE BLD COUNT W/DIF F lymphocytes, absolute count 1.56 x10'3 /uL 1.07-3 .43 Not Available [facility] (Lab) [address] [place], [address], 03/03/2023 20:48:44 03/03/20 23 03/03/2023 CBC/C OMPLE TE BLD COUNT W/DIF F monocytes, absolute count 0.39 x10'3 /uL 0.29-0 .99 Not Available [facility] (Lab) [address] [place], [address], 03/03/2023 20:48:44 03/03/20 23 03/03/2023 CBC/C OMPLE TE BLD COUNT W/DIF F eosinophils, absolute count 0.06 x10'3 /uL 0.02-0 .53 Not Available [facility] (Lab) [address] [place], [address], 03/03/2023 20:48:44 03/03/20 23 03/03/2023 CBC/C OMPLE TE BLD COUNT W/DIF F basophils, absolute count 0.02 x10'3 /uL 0.01-0 .08 Not Available [facility] (Lab) [address] [place], [address], 03/03/2023 20:48:44 03/03/20 23 03/03/2023 CBC/C OMPLE TE BLD COUNT W/DIF F immature granulocytes ,absolute 0.01 x10'3 /uL 0.00-0 .05 Not Available [facility] (Lab) [address] [place], [address], 03/03/2023 20:48:44 03/03/20 23 03/03/2023 CBC/C OMPLE TE BLD COUNT W/DIF F nucleated red blood cells 0.0 % -0 Not Available [facility] (Lab) [address] [place], [address], 03/03/2023 20:48:44 03/03/20 23 03/03/2023 CBC/C OMPLE TE BLD COUNT W/DIF F NRBC# 0.00 x10'3 /uL Not Available [facility] (Lab) [address] [place], [address], 03/03/2023 20:48:44 03/03/20 23 03/03/2023 SEDIM ENTAT ION RATE erythrocyte sedimentatio n rate 13 mm/HR 0-20 Not Available [facility] (Lab) [address] [place], [address], 03/03/2023 20:49:08 03/03/2003/03/2023 RHEUM ATOID FACTO R rf <8.6 IU/mL 0.0-11 .9 Not Available [facility] (Lab) [address] [place], [address], 03/03/2023 21:21:23 03/03/2003/03/2023 URIC ACID SERUM uric acid 6.2 mg/dL 2.5-6. 2 Not Available [facility] (Lab) [address] [place], [address], 03/03/2023 21:26:42 03/03/20 23 03/03/2023 B-HCG TOTAL [...] 19 6,800 TO 42,90 0 Not Available [facility] (Lab) [address] [place], [address], 03/03/2023 21:39:45 03/03/20 23 03/03/2023 FOLAT E, SERUM /PLAS MA folate 8.64 NG/mL 2.76-2 0.0 Not Available [facility] (Lab) [address] [place], [address], 03/03/2023 22:23:47 03/03/20 23 03/03/2023 VITAM IN B12 (LUZMARIA LUPIS ) vb12 925 pg/mL 239-93 1 Not Available [facility] (Lab) [address] [place], [address], 03/03/2023 22:23:52 03/03/20 23 03/07/2023 PATRICIA BY [...] ). Perfo rmed at: CB [facility] [address] [facility], [place] [address] 6938 Lab Direc tor: Ronal tilley PhD, Phone : [phone] Not Available [facility] (Lab) [address] [facility] [place], [address], 03/07/2023 13:08:50 03/16/20 23 MRI, brain , w/wo contr ast [facility] [address] [place] [address] Patien t Name: PEARL OLIVAS Access ion #: [id number] Sex: F : 2000 1 Dictat [...] at 2022 11:14: 31 AM Page 1 [email or web address] [facility] (Imaging) [address] [place], [address], 03/22/2023 11:25:57 04/02/20 24 04/02/2024 US, doppl er, echoc ardio gram, w/ color flow No observ ation record ed. [email or web address] [facility] [address], [place], [address], 04/04/2024 10:48:56 Result Notes None recorded. Problems Name Problem SNOMED Code Status Onset Date Resolution Date Notes Provider Name and Address Organization Details Recorded Time Well child 759721243 Active Not Available [facility] 3 15:16:21 Painful mouth 891248135 Active Not Available [facility] 3 15:16:21 Sprain of right ankle 23956817353 700483 Active Not Available [facility] 3 15:16:22 Injury of ankle 226379285 Active Not Available [facility] 3 15:16:22 Otalgia 82036298 Active Not Available [facility] 3 15:16:22 Pain in throat 047237043 Active Not Available [facility] 3 15:16:22 Heartburn 81556567 Active Not Available [facility] 3 15:16:22 Adjustmen t disorder 89959216 Active Not Available [facility] 3 15:16:22 Ankle pain 798384146 Active Not Available [facility] 3 15:16:22 Insect sting 007387073 Active Not Available [facility] 3 15:16:22 Knee pain Active Not Available [facility] 3 15:16:22 Acute pharyngit is 877003002 Active Not Available [facility] 3 15:16:22 Menorrhag ia 807125743 Active Not Available [facility] 3 15:16:22 Pharyngit is 114866589 Active Not Available [facility] 3 15:16:23 Mood disorder 15060504 Active Not Available [facility] 3 15:16:23 Hip pain 47489566 Completed Not Available [facility] 3 15:16:23 Verruca vulgaris 92948603 Active Not Available [facility] 3 15:16:23 Pain in limb 16867019 Completed Not Available [facility] 3 15:16:23 Gastroeso phageal reflux disease without esophagit is 645065696 Active 2022 Sydney Rush MD [address], [place], [address] , Issue 3 12:30:24 Fatigue 16630566 Active 2022 Sydney Rush MD [address], [place], [address] , Issue 3 12:31:59 Cobalamin deficienc y 511280032 Active 2022 Sydney Rush MD [address], [place], [address] , Issue 3 11:46:44 Multiple joint pain 56057143 Active 2022 Sydney Rush MD [address], [place], [address] , Issue 3 09:40:52 Paresthes ia 77032688 Active 2022 Sydney Rush MD [address], [place], [address] , Issue 3 09:41:25 Amenorrhe a 33912699 Active 2022 Sydney Rush MD [address], [place], [address] , Issue 3 09:43:05 Dyspnea 512108555 Active 2022 SARAH Schreiber [address], [place], [address] , [employer] 3 15:45:35 Problem Notes None recorded. Procedures Surgical History None recorded. Imaging Results Imaging Date Name Status LastModified by Organiz ation Details LastModified Time 03/16/2023 MRI, brain, w/wo contrast completed [email or web address] [facility] (Imaging) [address] [place], [address], 03/22/2023 11:25:57 04/02/2024 US, doppler, echocardiogra m, w/ color flow completed [email or web address] [facility] [address], [place], [address], 04/04/2024 10:48:56 Procedure Notes None recorded. Medical Equipment None Reported. Allergies Allergen ID Allergen Name Allergen Category Reaction Reaction Severity Criticality Documentation Date Start Date Code Code System Note Provider Name and Address Organization Details Recorded Time 75883 escitalop carolyn Not available Not available Not available Not available 2022 70659 8 RxNorm Suici lauren ideat ions Not [...] 2 ml subq x 1 08/02 completed [facility] [id number] 27 Not Available Not Available Not Available [...] DateTime 11/10/2022 165.1 cm Ailyn Smart CMA [facility] 11/10/2022 10:37:07 Date Recorded Body height Body mass index (BMI) Body weight Body temperature Oxygen saturation Oxygen saturation in Arterial blood by Pulse oximetry Heart rate Systolic blood pressure Diastolic blood pressure Provider Name and Address Organization Details Last Updated DateTime 3 165.1 cm 25.5 kg/m2 21360.6 3 g 98.1 [degF] 97 % 97 % 67 /min 116 mm[Hg] 74 mm[Hg] Ann Chun MA [facility] 3 12:18:43 Date Recorded Body height Body mass index (BMI) Body weight Body temperature Heart rate Oxygen saturation Oxygen saturation in Arterial blood by Pulse oximetry Systolic blood pressure Diastolic blood pressure Provider Name and Address Organization Details Last Updated DateTime 3 165.1 cm 26 kg/m2 78334.4 1 g 97.2 [degF] 67 /min 98 % 98 % 118 mm[Hg] 78 mm[Hg] Robby Warren RN [facility] 3 08:44:58 Date Recorded Body height Body mass index (BMI) Body weight Body temperature Heart rate Oxygen saturation Oxygen saturation in Arterial blood by Pulse oximetry Systolic blood pressure Diastolic blood pressure Provider Name and Address Organization Details Last Updated DateTime 3 165.1 cm 25.6 kg/m2 29601.2 2 g 97.8 [degF] 102 /min 91 % 91 % 114 mm[Hg] 68 mm[Hg] Robby Warren RN [facility] 3 09:31:40 Date Recorded Body height Body mass index (BMI) Body weight Body temperature Heart rate Oxygen saturation Oxygen saturation in Arterial blood by Pulse oximetry Systolic blood pressure Diastolic blood pressure Provider Name and Address Organization Details Last Updated DateTime 3 165.1 cm 25.6 kg/m2 50773.2 2 g 98.5 [degF] 83 /min 97 % 97 % 104 mm[Hg] 62 mm[Hg] Heather Ortiz LPN [facility] 3 15:15:17 Social History Question Answer Notes LastModified by Organizat ion Details LastModified Time Tobacco Smoking Status Never Smoker Not Available [facility] 2022 15:13:27 What Is Your Level Of Alcohol Consumption? None MIGRATION.84686 75284 Information not available 2022 Do You Wear A Helmet When Biking? Yes MIGRATION.24760 78678 Information not available 2022 What Is Your Level Of Caffeine Consumption? Heavy MIGRATION. 72150 Information not available 2022 In The 14 Days Before Symptom Onset, Have You Had Close Contact With A Laboratory-confir med COVID-19 While That Case Was Ill? No MIGRATION.65936 77237 Information not available 2022 In The 14 Days Before Symptom Onset, Have You Had Close Contact With A Person Who Is Under Investigation For COVID-19 While That Person Was Ill? No MIGRATION.14351 18878 Information not available 2022 What Type Of Diet Are You Following? REGULAR MIGRATION.53127 18289 Information not available 2022 Which Illicit Or Recreational Drugs Have You Used? [place] [email or web address] Information not available 12/02/2022 Are There Any Guns Present In Your Home? No MIGRATION.22384 85352 Information not available 2022 Do You Use Insect Repellent Routinely? No MIGRATION.80590 99792 Information not available 2022 Where Do You Live? [place] MIGRATION.71427 88273 Information not available 2022 Do You Have Any Pets? No MIGRATION.48051 12822 Information not available 2022 What Is Your Relationship Status? Single MIGRATION.58712 86165 Information not available 2022 Do You Use Your Seat Belt Or Car Seat Routinely? Yes MIGRATION.03069 74540 Information not available 2022 Do You Have Smoke And Carbon Monoxide Detectors In Your Home? Yes MIGRATION.73926 30529 Information not available 2022 Are You Passively Exposed To Smoke? No MIGRATION.29954 00502 Information not available 2022 Are There Any Smokers In Your House? No MIGRATION.69758 84656 Information not available 2022 Do You Participate In Social Media? No MIGRATION.31226 23079 Information not available 2022 Do You Feel Stressed (tense, Restless, Nervous, Or Anxious, Or Unable To Sleep At Night)? [id number] MIGRATION.23057 40750 Information not available 2022 Do You Use Any Illicit Or Recreational Drugs? Yes [email or web address] Information not available 12/02/2022 Do You Use Sunscreen Routinely? No MIGRATION.82080 73723 Information not available 2022 Have You Recently Traveled Abroad? No MIGRATION.58114 48890 Information not available 2022 Have You Used IV Drugs? No [email or web address] Information not available 12/02/2022 Are You Currently In School? No MIGRATION.51269 79689 Information not available 2022 Do You Have Any Dietary Restrictions? No MIGRATION.71406 64379 Information not available 2022 Sex: Unknown Functional Status Question Answer Note LastModified by Organizat ion Details LastModified Time What is your exercise level? Heavy MIGRATION.9616209359 Information not available 2022 Mental Status None recorded. Family History Relationship Description Onset Age of this Age Resolved Age Notes LastModified by Organization Details LastModified Time Maternal Grandmother Diabetes mellitus MIGRATION.427 [id number] Not available 2022 15:13:38 Maternal Grandmother Hypertensive disorder MIGRATION.452 [id number] Not available 2022 15:13:38 Maternal Grandfather Diabetes mellitus MIGRATION.423 1529956 Not available 2022 15:13:38 Maternal Grandfather Hypertensive disorder MIGRATION.085 [id number] Not available 2022 15:13:38 Medical History No medical history recorded. 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 2022 15:19:24 Tdap 5 completed Not Available [facility] 2022 15:19:24 HPV, quadrivalent 6 completed Not Available [facility] 2022 15:19:24 HPV, quadrivalent 5 completed Not Available [facility] 2022 15:19:24 Influenza, live, quadrivalent, intranasal 5 completed Not Available [facility] 2022 15:19:24 HPV, quadrivalent 5 completed Not Available [facility] 2022 15:19:25 DTaP, 5 pertussis antigens 3 completed Not Available [facility] 2022 15:19:25 Past Encounters Encounter ID Performer Location Encounter Start Date Encounter Closed Date Diagnosis/Indication Diagnosis SNOMED-CT Code Diagnosis ICD10 Code Diagnosis Note [id number] [facility] [address] [facility] [place] [address] 10/21/2020 00:00:00 10/27/2020 20:57:34 [id number] [facility] [place] [address] [place] [address] 01/22/2021 00:00:00 01/22/2021 15:41:45 [id number] [facility] [place] [address] [place] [address] 03/03/2021 00:00:00 03/03/2021 09:34:38 [id number] [facility] [place] [address] [place] [address] 04/24/2021 00:00:00 04/24/2021 09:33:13 [id number] [facility] [place] [address] [place] [address] 06/01/2021 00:00:00 06/01/2021 11:59:53 [id number] [facility] [place] [address] [place] [address] 07/23/2021 00:00:00 07/23/2021 13:27:01 [id number] [facility] [place] [address] [place] [address] 10/12/2021 00:00:00 10/12/2021 10:46:02 [id number] [facility] [place] [address] [place] [address] 10/22/2021 00:00:00 10/22/2021 09:49:45 [id number] [facility] [place] [address] [place] [address] 01/22/2022 00:00:00 03/31/2022 13:28:57 [id number] [facility] [place] [address] [place] [address] 05/17/2022 00:00:00 05/17/2022 13:47:44 [id number] [facility] Primary [facility] [place] [address] [facility] [place] [address] 08/13/2022 00:00:00 08/13/2022 18:04:14 [id number] JONATHAN Salazar [facility] Primary [facility] [place] [address] [facility] [place] [address] 11/10/2022 10:01:55 11/10/2022 10:49:25 [id number] Sydney Rush MD [facility] Primary [facility] [place] [address] [facility] [address] [place] [address] 12/02/2022 12:03:59 12/02/2022 12:46:48 Gastroesophageal reflux disease without esophagitis 313237518 K21.9 Fatigue 54818190 R53.83 R58 [id number] Sydney Rush MD [facility] [place] [address] [facility] [address] [place] [address] 01/13/2023 08:41:45 01/13/2023 09:07:32 Gastroesophageal reflux disease without esophagitis 028045437 K21.9 no improvemen t yetcontinu e PPI and famotidine 20 mg bidAvoid greasy/spi cy/acidic foodEat small, frequent mealsGI referral given Cobalamin deficiency 190 132344 E53.8 likely GI relatedGI Referral givenok to continue oral b12 [id number] 1000 mcg IM x 1 [id number] Sydney Rush MD [facility] [place] [address] [facility] [address] [place] [address] 03/03/2023 09:26:34 03/03/2023 09:56:14 Gastroesophageal reflux disease without esophagitis 546583561 K21.9 no improvemen t yetcontinu e PPI and famotidine 20 mg bidAvoid greasy/spi cy/acidic foodEat small, frequent mealsGI referral given Cobalamin deficiency 190 318606 E53.8 likely GI relatedGI Referral givenok to continue oral b12 [id number] 1000 mcg IM x 1 Multiple joint pain 3567 8005 M25.50 Paresthesia 90755602 R20 .2 R51.9 Check b12 level, if low, continue to work on replacemen tIf normal, plan MRI brain Amenorrhea 57803309 N91. 2 [id number] SARAH Schreiber [facility] [place] [address] [facility] [address] [place] [address] 06/06/2023 15:07:40 06/06/2023 17:16:26 Gastroesophageal reflux disease without esophagitis 835723478 K21.9 Pt. still struggling with daily reflux.She was given GI referral but never received a phone call to schedule, she was given informatio n today to call and make appointmen t. Dyspnea 851357227 R06.00 New problem. Could possibly be related [...] Barrett Member ID Guarantor Name 11/10/2022 1 [facility] ON OR AFTER 01/29/21 (MEDICAID REPLACEMENT - HMO) Michelle Olivas [id number] Michelle Olivas 12/02/2022 1 [facility] ON OR AFTER 01/29/21 (MEDICAID REPLACEMENT - HMO) Michelle Olivas [id number] Michelle Benitez Olivas 01/13/2023 1 [facility] ON OR AFTER 01/29/21 (MEDICAID REPLACEMENT - HMO) Michelle Olivas [id number] Guya Eli Olivas 03/03/2023 1 [facility] ON OR AFTER 01/29/21 (MEDICAID REPLACEMENT - HMO) Michelle Olivas [id number] Michelle Benitez Olivas 06/06/2023 1 [facility] ON OR AFTER 01/29/21 (MEDICAID REPLACEMENT - HMO) Michelle Olivas [id number] Michelle Olivas Notes Date Note Type Note [...] make it worse. Sydney Rush MD [address] [facility], [facility] [address], [place], [address], [facility] [employer] 12/29/2022 18:48:36 01/13/2023 text/html since last depo [...] No interval improvement. Sydney Rush MD [address] [facility], [facility] [address], [place], [address], [facility] 01/13/2023 08:57:59 03/03/2023 text/html since last depo [...] was invalid . Sydney Rush MD [address] [employer], [address], [place], [address], Issue 03/03/2023 09:44:44 06/06/2023 text/html Pt. states this [...] SARAH Schreiber [address], [place], [address], Issue 06/06/2023 18:12:43 OBGyn Episode No OBEpisode recorded.
--- OUTSIDE RECORDS SUMMARY | 2024-09-11 15:43 | XMS_ITS | Clinical Summary ---
Author Organization [facility] Address [address] [place] [address] Care Team Providers Care Room Server Name Role Phone Sydney Rush MD Primary Care Provider Source Comments [facility],non-owned Affiliates and Associated Physician Practices is amultiple site organization consisting of ambulatory clinics and hospital sitesin [place], [place], [place] and [place]. This disclosure is being madepursuant to the Care Everywhere program and may not contain all information available regarding this patient. Last updated 18.[facility] Allergies No known active allergies Medications * [...] Department Care Team Description 08/29/2024 1:32 PM ESTIMATOR AND DRAFTER - 08/29/2024 11:59 PM [facility] Hospital Encounter [facility] [address] [place] [address] Truman Ledezma MD Discharge Disposition: Home or Self Care 08/29/2024 1:31 PM [facility] Hospital Encounter [facility] [address] [place] [address] Truman Ledezma MD Discharge Disposition: Home or Self Care 08/29/[address] [address] Angelina Andujar Future Appointment 08/27/2024 Travel 08/27/2024 Telephone [facility] [address] [place] [phone] Roberta De La Vega Appointment (LM for [...] Comments Blood Pressure 115/73 08/29/2024 2:35 PM ESTIMATOR AND DRAFTER Pulse 71 08/29/2024 2:35 PM ESTIMATOR AND DRAFTER Temperature 36.3 C (97.3 F) 01/12/2017 10:45 AM CDT Respiratory Rate 16 01/12/2017 11:15 AM CDT Oxygen Saturation 97% 01/12/2017 11:00 AM CDT Inhaled Oxygen Concentration 100% 01/12/2017 1 0:45 AM CDT Weight 76.2 kg (168 lb) 08/29/2024 2:35 PM ESTIMATOR AND DRAFTER Height 165.1 cm (5' 5 ) 08/29/2024 2:35 PM ESTIMATOR AND DRAFTER Body Mass Index 27.96 08/29/2024 2:35 PM ESTIMATOR AND DRAFTER Plan of Treatment Upcoming Encounters Date Type Department Care Team (Late st Contact Info) Description 09/20/2024 10:45 AM ESTIMATOR AND DRAFTER Appointment [address] [address] Truman Ledezma MD [address] [id number] 09/20/2024 10:45 AM ESTIMATOR AND DRAFTER Appointment [address] [address] Health Maintenance Due Date Last Done Comments [...] - COMPLETE Routine 08/29/2024 1 :43 PM ESTIMATOR AND DRAFTER Encounter for anatomic survey (HCC) Abnormal ultrasound 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 Para 1 N3U2T3V2 1. live 2019. Gest. age 39 w [...] 1 lb 15 oz EFW by Hadlock ([id number]) Head / Face / Neck Biometry: CM [...] view. RVOT view. LVOT view. 3-vessel view. 5-lvwlmc-nykmyso view. Situs. Aortic arch view. Bicaval view. 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 [address] PCP - General Family Medicine 07/10/13
--- OUTSIDE RECORDS SUMMARY | 2024-09-11 15:43 | XMS_ITS | Data Portability ---
Author Organization [facility] [place] Address [address] [address] [place] [address] Assessment Encounter Date Assessment Date Assessment LastModified by Organization Details LastModified Time 07/06/2024 07/06/2024 Patient is __17_weeks . Discussed plan. Not available 07/06/2024 10:44:34 07/27/2024 07/27/2024 Patient is _20__weeks . Discussed plan. [email or web address] Not available 07/27/2024 14:10:03 08/22/2024 08/22/2024 Patient is _24__weeks . Discussed plan. [email or web address] Not available 08/22/2024 19:00:36 Plan of Treatment Reminders Order Date Submit Date Provider Last Modified By Organization Details Last Modified Time Details Appointments OB ROUTINE 2024 09:15A M Aylin Bay CNM Not available Not available Not available Lab None recorded. Referral None recorded. Procedures None recorded. Surgeries None recorded. Imaging US, obstetric , 2nd or 3rd trimester 2023 024 [email or web address] [place], [address], [place], [address], 07/29/2024 14:15:03 US, obstetric , follow-up 2024 025 [email or web address] [place], [address], [place], [address], 08/22/2024 21:50:37 Medication Orders None recorded. Patient TargetsNo targets recorded. Patient InstructionsNo instructions recorded. Reason for Referral None Reported. Results Created Date Observation Date Name Description Value Unit Range Abnormal Flag Note LastModifiedBy Organization Detail LastModifiedTime 06/24/2006/24/2024 [UNIT Y] FERNANDO Garcia sickle cell disease/beta -thalassemia /hemoglobino pathies carrier screen NEGATI VE normal Not Available [facility] [address], [place], [address], 06/24/2024 08:10:46 06/24/20 24 06/24/2024 [UNIT Y] FERNANDO HAMLIN Jose alpha-thalas semia carrier screen NEGATI VE normal Not Available [facility] [address], [place], [address], 06/24/2024 08:10:46 06/24/20 24 06/24/2024 [UNIT Y] FERNANDO HAMLIN Jose cystic fibrosis carrier screen NEGATI VE normal Not Available [facility] [address], [place], [address], 06/24/2024 08:10:46 06/24/20 24 06/24/2024 [UNIT Y] FERNANDO HAMLIN Jose spinal muscular atrophy carrier screen NEGATI VE 2 SMN1 copies , SNP not presen t normal Not Available [facility] [address], [place], [address], 06/24/2024 08:10:46 06/24/20 24 06/24/2024 [UNIT Y] FERNANDO HAMLIN Jose for detailed report, see pdf See PDF normal Not Available [facility] [address], [place], [address], 06/24/2024 08:10:46 06/08/2006/08/2024 CULTU RE: URINE result report SEE RESULT S BELOW Test: Cultu re: Urine Speci men Sourc e: Urine - Clean Catch Speci men Type: Urine Speci men Date: 2023 1326 Resul t Date: 06/11 1334 Resul t Statu s: Final resul t Abnor mal: No Resul burke Lab: [facility] [address] [facility] [address] Tel: CULTU RE ----- ----- ----- --- Organ ism(s ) consi stent with uroge nital or skin sonja . Repea t cultu re if sympt oms indic ate. Not Available [facility] (Lab) [address], [place], [address], 06/11/2024 14:37:47 06/08/20 24 06/08/2024 CBC W/DIF F WBC 11.0 10'3/ uL 3.5-10 .5 high Not Available [facility] (Lab) [address], [place], [address], 06/13/2024 14:06:52 06/08/20 24 06/08/2024 CBC W/DIF F RBC 5.11 10'6/ uL (based on docume nted legal sex) 3.80-5 .20 Not Available [facility] (Lab) [address], [place], [address], 06/13/2024 14:06:52 06/08/20 24 06/08/2024 CBC W/DIF F HGB 15.1 g/dL (based on docume nted legal sex) 11.6-1 5.4 Not Available [facility] (Lab) [address] [place], [address], 06/13/2024 14:06:52 06/08/20 24 06/08/2024 CBC W/DIF F HCT 45.4 % (based on docume nted legal sex) 34.0-4 5.0 high Not Available [facility] (Lab) [address], [place], [address], 06/13/2024 14:06:52 06/08/20 24 06/08/2024 CBC W/DIF F MCV 88.8 fL 80.0-9 9.0 Not Available [facility] (Lab) [address], [place], [address], 06/13/2024 14:06:52 06/08/20 24 06/08/2024 CBC W/DIF F MCH 29.5 pg 27.0-3 4.0 Not Available [facility] (Lab) [address], [place], [address], 06/13/2024 14:06:52 06/08/20 24 06/08/2024 CBC W/DIF F MCHC 33.3 g/dL 32.0-3 5.5 Not Available [facility] (Lab) [address], [place], [address], 06/13/2024 14:06:52 06/08/20 24 06/08/2024 CBC W/DIF F RDW 13.8 % 11.0-1 5.0 Not Available [facility] (Lab) [address], [place], [address], 06/13/2024 14:06:52 06/08/20 24 06/08/2024 CBC W/DIF F plt 215 10'3/ uL 150-40 0 Not Available [facility] (Lab) [address], [place], [address], 06/13/2024 14:06:52 06/08/20 24 06/08/2024 CBC W/DIF F MPV 12.8 fL 8.8-12 .1 high Not Available [facility] (Lab) [address], [place], [address], 06/13/2024 14:06:52 06/08/20 24 06/08/2024 CBC W/DIF F NRBC's 0.0 % 0.0 Not Available [facility] (Lab) [address], [place], [address], 06/13/2024 14:06:52 06/08/20 24 06/08/2024 CBC W/DIF F absolute NRBCs 0.0 10'3/ uL no refere nce range establ ished Not Available [facility] (Lab) [address], [place], [address], 06/13/2024 14:06:52 06/08/20 24 06/08/2024 CBC W/DIF F neutrophils 80.1 % 34.0-7 3.0 high Not Available [facility] (Lab) [address], [place], [address], 06/13/2024 14:06:52 06/08/20 24 06/08/2024 CBC W/DIF F lymphocytes 12.8 % 15.0-5 0.0 low Not Available [facility] (Lab) [address], [place], [address], 06/13/2024 14:06:52 06/08/20 24 06/08/2024 CBC W/DIF F monocytes 5.8 % 1.0-15 .0 Not Available [facility] (Lab) [address], [place], [address], 06/13/2024 14:06:52 06/08/20 24 06/08/2024 CBC W/DIF F eosinophils 0.6 % 0.0-8. 0 Not Available [facility] (Lab) [address], [place], [address], 06/13/2024 14:06:52 06/08/20 24 06/08/2024 CBC W/DIF F basophils 0.3 % 0.0-2. 0 Not Available [facility] (Lab) [address], [place], [address], 06/13/2024 14:06:52 06/08/20 24 06/08/2024 CBC W/DIF F immature granulocytes 0.4 % no define d refere nce range Not Available [facility] (Lab) [address] [place], [address], 06/13/2024 14:06:52 06/08/20 24 06/08/2024 CBC W/DIF F absolute neutrophils 8.8 10'3/ uL 1.5-8. 0 high Not Available [facility] (Lab) [address], [place], [address], 06/13/2024 14:06:52 06/08/20 24 06/08/2024 CBC W/DIF F absolute lymphocytes 1.4 10'3/ uL 1.0-4. 0 Not Available [facility] (Lab) [address], [place], [address], 06/13/2024 14:06:52 06/08/20 24 06/08/2024 CBC W/DIF F absolute monocytes 0.6 10'3/ uL 0.2-1. 0 Not Available [facility] (Lab) [address], [place], [address], 06/13/2024 14:06:52 06/08/20 24 06/08/2024 CBC W/DIF F absolute eosinophils 0.1 10'3/ uL 0.0-0. 6 Not Available [facility] (Lab) [address], [place], [address], 06/13/2024 14:06:52 06/08/20 24 06/08/2024 CBC W/DIF F absolute basophils 0.0 10'3/ uL 0.0-0. 3 Not Available [facility] (Lab) [address], [place], [address], 06/13/2024 14:06:52 06/08/20 24 06/08/2024 CBC W/DIF [...] resul ts are expec rosalie. Not Available [facility] (Lab) [address], [place], [address], 06/13/2024 14:06:52 06/08/20 24 06/08/2024 HIV 1/2 ANTIG EN/AN TIBOD Y, REFLE X CONFI RMATI ON HIV antigen/anti body Nonrea ctive nonrea ctive HIV-1 antig en and HIV-1 /HIV- 2 antib odies were not detec rosalie. No labor atory evide nce of HIV infec tion. Not Available [facility] (Lab) [address], [place], [address], 06/13/2024 14:06:52 06/08/20 24 06/08/2024 HEPAT ITIS B SURFA CE ANTIG EN hepatitis B surface antigen Non-re active non-re active This assay was perfo rmed using [employer] n reage nts and test kits. Value s obtai jeanine with other assay metho ds or kits canno t be used inter baum eably . Not Available [facility] (Lab) [address], [place], [address], 06/13/2024 14:06:53 06/08/20 24 06/08/2024 HEPAT ITIS C ANTIB VARINDER SCREE N, REFLE X TO CONFI RMATI ON hepatitis C antibody Non-re active non-re active Antib odies to HCV Not Detec rosalie, does not exclu de the possi bilit y of expos ure to HCV. Not Available [facility] (Lab) [address], [place], [address], 06/13/2024 14:06:53 06/08/20 24 06/08/2024 HEMOG LOBIN [...] >8.0% Actio n sugge sted Not Available [facility] (Lab) [address], [place], [address], 06/13/2024 14:06:54 06/08/20 24 06/08/2024 RUBEL LA IGG ANTIB VARINDER, QUANT rubella antibodies, IgG Reacti ve reacti ve Not Available [facility] (Lab) [address], [place], [address], 06/13/2024 14:06:54 06/08/20 24 06/08/2024 RUBEL LA IGG ANTIB VARINDER, QUANT rubella antibodies, IgG quant 63.1 IU/mL >=10 Non-r eacti ve (Non- Immun e) <10 IU/mL React raissa (Immu ne) > or = 10 IU/mL Not Available [facility] (Lab) [address], [place], [address], 06/13/2024 14:06:54 06/08/20 24 06/08/2024 TYPE/ RH/SC REEN ABO/Rh type O NEG Not Available [facility] (Lab) [address] [place], [address], 06/13/2024 14:06:55 06/08/20 24 06/08/2024 TYPE/ RH/SC REEN antibody screen POS abnormal Previ ously : NoNTI 06/09 10:22 Not Available [facility] (Lab) [address], [place], [address], 06/13/2024 14:06:55 06/08/20 24 06/08/2024 TYPE/ RH/SC REEN exp date 2023 23:59 Not Available [facility] (Lab) [address], [place], [address], 06/13/2024 14:06:55 06/08/20 24 06/08/2024 COOMB S, DIREC T ANTIG LOBUL IN direct antiglobulin test - polyspecific NEG Not Available [facility] (Lab) [address], [place], [address], 06/13/2024 14:06:55 06/08/20 24 06/08/2024 ANTIB VARINDER SCREE N - PEG absc peg interpretati on NEG Not Available [facility] (Lab) [address], [place], [address], 06/13/2024 14:06:56 06/08/20 24 06/08/2024 ANTIB VARINDER [...] men in 2-4 weeks . Not Available [facility] (Lab) [address], [place], [address], 06/13/2024 14:06:56 06/08/20 24 06/08/2024 RPR SCREE N, REFLE X TITER /CONF IRMAT ION RPR screen Nonrea ctive nonrea ctive Not Available [facility] (Lab) [address], [place], [address], 06/13/2024 14:06:57 06/08/20 24 06/08/2024 ANTIB VARINDER [...] ve. A comple te antigl obulin crossm [facility] is necess rupesh and extra time will be requir ed to find compat ible blood. Inter prete d By: Lena Irving MD 06/13 13:03 Not Available [facility] (Lab) [address], [place], [address], 06/13/2024 14:06:57 06/08/20 24 06/08/2024 drug scree n, urine Amphetamines : negati ve Not Available [place] [address], [place], [address], 06/08/2024 12:14:32 06/08/20 24 06/08/2024 drug scree n, urine Cannabinoids : negati ve Not Available [place] [address], [place], [address], 06/08/2024 12:14:32 06/08/20 24 06/08/2024 drug scree n, urine Cocaine: negati ve Not Available [place] [address], [place], [address], 06/08/2024 12:14:32 06/08/20 24 06/08/2024 drug scree n, urine Opiates: negati ve Not Available [place] [address], [place], [address], 06/08/2024 12:14:32 06/08/20 24 06/08/2024 drug scree n, urine Phenocyclidi ne: negati ve Not Available [place] [address], [place], [address], 06/08/2024 12:14:32 06/08/20 24 06/08/2024 drug scree n, urine Barbiturates : negati ve Not Available [place] [address], [place], [address], 06/08/2024 12:14:32 06/08/20 24 06/08/2024 drug scree n, urine Benzodiazepi yuridia: negati ve Not Available [place] [address], [place], [address], 06/08/2024 12:14:32 06/08/20 24 06/08/2024 drug scree n, urine Ethanol: negati ve Not Available [place] [address], [place], [address], 06/08/2024 12:14:32 06/08/20 24 06/08/2024 drug scree n, urine Hallucinogen s: negati ve Not Available [place] [address], [place], [address], 06/08/2024 12:14:32 06/08/20 24 06/08/2024 drug scree n, urine Inhalants: negati ve Not Available [place] [address], [place], [address], 06/08/2024 12:14:32 06/08/20 24 06/08/2024 drug scree n, urine Anabolic Steroids: negati ve Not Available [place] [address], [place], [address], 06/08/2024 12:14:32 06/08/20 24 06/08/2024 drug scree n, urine Other: negati ve Not Available [place] [address], [place], [address], 06/08/2024 12:14:32 07/06/20 24 07/06/2024 ANTIB VARINDER SCREE N antibody screen NEG Previ ously ident ified antib varinder has dropp ed below detec table level s Not Available [facility] (Lab) [address], [place], [address], 07/07/2024 08:48:08 06/08/20 24 06/08/2024 US, obste tric, nucha l trans lucen cy No observ ation record ed. [email or web address] [place] [address], [place], [address], 06/08/2024 13:01:59 06/08/20 24 06/08/2024 US, obste tric, nucha l trans lucen cy No observ ation record ed. [email or web address] [address] [facility], [place], [address], 06/09/2024 14:52:07 07/27/20 24 07/27/2024 US, obste tric, 2nd or 3rd trime ster No observ ation record ed. [email or web address] [place] [address], [place], [address], 07/27/2024 17:24:31 07/27/20 24 07/27/2024 US, obste tric, follo w-up No observ ation record ed. [email or web address] [address], [place], [address], 07/30/2024 09:15:54 08/22/19 25 08/22/2024 US, obste tric, follo w-up No observ ation record ed. [email or web address] [place] [address], [place], [address], 08/22/2024 18:46:26 08/22/19 25 08/22/2024 US, obste tric, follo w-up No observ ation record ed. [address], [place], [address], 08/24/2024 09:29:33 08/29/19 25 08/29/2024 US, obste tric, follo w-up No observ ation record ed. [email or web address] [facility] [address], [place], [address], 09/02/2024 22:49:33 08/31/19 25 08/29/2024 US, obste tric, follo w-up No observ ation record ed. [facility] [address], [place], [address], 09/05/2024 09:15:26 09/06/19 25 09/06/2024 non-s tress test No observ ation record ed. [address] [facility] [address], [place], [address], 09/10/2024 09:30:44 Result Notes None recorded. 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 4 18:31:24 Asthma 042757652 Active 2023 Lupe nguyen, [facility] 4 18:31:52 Pregnanc y 23995097 Active 2023 Lupe nguyen, [facility] 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 4 12:51:43 Vanishin g twin syndrome 636276417 Active Aylin Bay, [facility] [address], [place], [address], [place] [facility] 4 12:51:43 Aortic root finding 164318701 Active mildly prominen t - Referral faxed to [facility] 08/24 Level iI 08/29 [facility] 09/20 1045 US/ echo and office visit Carine Carlos MA [facility], [facility] 5 09:16:20 Aortic root finding 930436865 Active mildly prominen t - Referral faxed to [facility] 08/24 Level iI 08/29 [facility] 09/20 1045 US/ echo and office visit Carine Carlos MA [facility], [facility] 5 09:16:20 Pregnanc y 29537681 Completed 201906/04/2020 Lupeyulissa Kumar [facility], [facility] 4 12:17:22 Problem Notes None recorded. Procedures Surgical History Date Name Laterality Status Provider Name and Address Organization Details Recorded Time 11/03/19 24 Date of Last Pap Smear completed Lupe Kumar [facility] 03/28/2024 20:37:26 08/01/19 14 tonsillectomy completed Lupeyulissa Kumar [facility] 03/28/2020 10:00:48 Imaging Results Imaging Date Name Status LastModified by Organization Details LastModified Time 06/08/2024 US, obstetric, nuchal translucency completed [email or web address] [place] [address], [place], [address], 06/08/2024 13:01:59 06/08/2024 US, obstetric, nuchal translucency completed [email or web address] [address], [place], [address], 06/09/2024 14:52:07 07/27/2024 US, obstetric, 2nd [facility]rd [facility] [address], [place], [address], 07/27/2024 17:24:31 07/27/2024 US, obstetric, follow-up completed [email or web address] [address], [place], [address], 07/30/2024 09:15:54 08/22/2024 US, obstetric, follow-up completed [email or web address] [place] [address] [address], [place], [address], 08/22/2024 18:46:26 08/22/2024 US, obstetric, follow-up completed [email or web address] [address], [place], [address], 08/24/2024 09:29:33 08/29/2024 US, obstetric, follow-up completed [email or web address] [facility] [address], [place], [address], 09/02/2024 22:49:33 08/29/2024 US, obstetric, follow-up completed [email or web address] [facility] [address], [address], 09/05/2024 09:15:26 09/06/2024 non-stress test active [address] [facility] [address], [place], [address], 09/10/2024 09:30:44 Procedure Notes None recorded. Medical Equipment None [...] Updated DateTime 07/06/2024 166.37 cm 25.6 kg/m2 45940.40 972 g 119 mm[Hg] 78 mm[Hg] Lupe Kumar [facility] 4 10:43:05 Date Recorded Body weight Body mass index (BMI) Body height Systolic blood pressure Diastolic blood pressure Provider Name and Address Organization Details Last Updated DateTime 07/27/2024 11379.37 157 g 26.4 kg/m2 166.37 cm 126 mm[Hg] 85 mm[Hg] Lupe Kumar [facility] 4 14:04:00 Date Recorded Body weight Body mass index (BMI) Body height Systolic blood pressure Diastolic blood pressure Provider Name and Address Organization Details Last Updated DateTime 08/22/2024 03858.51 816 g 27.5 kg/m2 166.37 cm 132 mm[Hg] 84 mm[Hg] Lupe Kumar [facility] 5 18:29:54 Social History Question Answer Notes LastModified by Organizat ion Details LastModified Time Tobacco Smoking Status Never Smoker Not Available [email or web address] 06/03/2020 03:28:11 What Is Your Level Of Alcohol Consumption? None [id number] Information not available 06/03/2020 If You Are , What Was Your Level Of Alcohol Consumption Prior To ? None Information not available 04/25/2024 Are You Blind Or Do You Have Difficulty Seeing? No Information not available 03/29/2022 What Is Your Level Of Caffeine Consumption? Occasional [email or web address] Information not available 04/25/2024 In The 14 [...] E-cigarettes Or Vape? Never Used Electronic Cigarettes [id number] Information not available 06/03/2020 What Was The Date Of Your Most Recent Tobacco Screening? 07/27/2024 [email or web address] Information not available 07/27/2024 Do You Have Smoke And Carbon Monoxide Detectors In Your Home? Yes [email or web address] Information not available 04/25/2024 Do You Or Have You Ever Used Smokeless Tobacco? Never Used Smokeless Tobacco [id number] Information not available 06/03/2020 How Much Tobacco Do You Smoke? No [id number] Information not available 06/03/2020 Do You Use Any Illicit Or Recreational Drugs? Yes Marijuana Information not available 04/25/2024 Do You Use Sunscreen Routinely? Yes [email or web address] Information not available 04/25/2024 Sex: Unknown Functional [...] 03/29/2022 What is your exercise level? Occasional [id number] Information not available 06/03/2020 Mental Status None recorded. Family History Relationship Description Onset Age of this Age Resolved Age Notes LastModified by Organization Details LastModified Time Paternal Grandmother Diabetes mellitus [email or web address] Not available 11/16/2019 12:15:06 Paternal Grandmother [...] Diagnosis ICD10 Code Diagnosis Note [address] [facility] [address],[place] [address] 11/20/2019 10:07:21 11/20/2019 10:57:25 Routine care 110694267 Z34.02 [facility] [address],[place] [address] 12/18/2019 11:14:00 12/18/2019 13:03:19 screening for malformation 899366922 Z36.3 [address] [facility] [address],[place] [address] 12/18/2019 11:14:32 12/18/2019 13:02:41 Normal 73493605 Z34.92 7548 Chandu Monson MD [place] [address],[place] [address] 01/10/2020 11:42:10 01/10/2020 18:04:09 Routine care 250335493 Z34.02 82190 Aylin Bay CNM [place] [address],[place] [address] 02/05/2020 10:54:42 02/05/2020 11:31:54 Routine care 682139472 Z34.93 00513 Chandu Monson MD [place] [address],[place] [address] 02/19/2020 11:50:36 02/19/2020 12:38:13 Large for gestation age fetus 680073753 O35.8XX9 59839 Gabi Duque [place] [address],[place] [address] 02/28/2020 10:50:40 02/28/2020 11:56:08 Uterine size for dates discrepancy 789255181 O26.843 Z3A.31 86041 Chandu Monson MD [place] [address],[place] [address] 03/06/2020 12:10:22 03/06/2020 12:42:34 Routine care 208310853 Z34.02 58724 [facility] [address],[place] [address] 03/19/2020 11:38:56 03/19/2020 15:28:29 Routine care 693527917 Z34.93 45686 Aylin Bay [facility] [address],[place] [address] 03/28/2020 09:41:26 03/28/2020 10:25:38 Routine care 248478020 Z34.93 67366 Aylin Bay [facility] [address],[place] [address] 04/02/2020 12:44:30 04/02/2020 13:46:48 Routine care 041826983 Z34.[address] [facility] [address],[place] [address] 04/09/2020 12:12:16 04/10/2020 15:39:22 Routine care 318899212 Z34.93 77438 Donita Hemphill [facility] [address],[place] [address] 04/09/2020 12:54:51 04/09/2020 13:29:44 Reduced movement 338888206 O36.8130 04735 [facility] [address],[place] [address] 04/14/2020 16:51:08 04/14/2020 17:48:58 Routine care 225067254 Z34.[address] [facility] [address],[place] [address] 06/04/2020 09:22:06 06/04/2020 11:37:23 state 96992812 Z39.2 Continue to watch for signs/symp toms [...] plan if desiredp Abnormal v aginal bleeding 020026683 N93.9 Abnormal bleeding may be due to depo provera. Will check u/s and labs. [address]35 Sylvie Garvey [place] [address],[place] [address] 06/05/2020 10:16:39 06/05/2020 10:57:21 Abnormal vaginal bleeding [id number] N93.9 [id number] ENRIQUE Manley [place] [address],[place] [address] 03/29/2022 09:58:08 03/29/2022 11:15:57 Contraception care management [id number] Z30.9 We discussed normal to have some [...] review of plan of care. Abdominal pain [id number] R10.9 [id number] ENRIQUE Manley [place] [address] [address] 08/25/2023 09:51:13 08/25/2023 14:05:25 Missed period [id number] N92.5 UPT (-)[place] [facility] ordered[facility]ussed her period hx, reviewed timed IC, encouraged daily PNV starting nowcontinu e to track cycles, recommend returning in 1 month for WWE - due for primary pap Time spent in visit is a total of 18 mins with at least 50% of visit consisting of counseling and review of plan of care. Reproducti ve care management [id number] Z31.9 [id number] Fanny Sykes [facility] [place] [address] [address] 11/03/2023 09:40:36 11/03/2023 13:57:25 Screening procedure 28067275 Z13.9 Gynecologi c examination 36000551 Z01.419 Z11.3 Z11.8 WWEBC - none. TTCdiscuss [...] paper copy of today's plan if desired. [id number] Aylin Bay [facility] [place] [address],[place] [address] 03/16/2024 14:08:22 03/16/2024 15:25:22 Trying to conceive 100529460 Z31.9 take vitamin dailycheck labs todayplan mid luteal progestero ne day 21 or 7 days after + ovulationd iscussed COST, handout given, will acquire semen analysis records Anovulation 77538837 N97 .0 check mid luteal progestero [place] [id number] [facility] [address],[place] [address] 04/19/2024 11:11:20 04/19/2024 13:13:24 Uterine size for dates discrepancy [id number] O26.841 O30.041 O36.80X0 Z3A.01 [id number] [facility] [address],[place] [address] 04/25/2024 16:48:55 04/26/2024 01:49:01 Uncertain viability of 342622152 O36.80X0 O30.041 Z3A.01 [id number] Aylin Bay [facility] [place] [address],[place] [address] 04/25/2024 16:49:26 04/27/2024 09:25:08 Amenorrhea 38769495 N91.2 Twin 49144365 O30.009 continue to monitor growthpren atal vitamin dailyok for zofran if needed Migraine 52419950 G43.90 9 try exedrin migraine if no relief fioricet ok [id number] [facility] [address],[place] [address] 05/10/2024 14:51:05 05/10/2024 15:24:11 Uncertain viability of 110724497 O36.80X0 O31.10X9 Z3A.09 [id number] Aylin Bay [facility] [place] [address],[place] [address] 05/11/2024 09:11:35 05/11/2024 11:31:30 Missed miscarriage 43531983 O02.1 twin B Amenorrhea 84520429 N91. 2 twin A +FHR, will continue to monitorpap up to datereview ed education and precaution sf/u 12 weeks new ob and first look, will determine when genetics may be collected for NIPT [id number] [facility] [address],[place] [address] 05/16/2024 14:16:45 05/16/2024 14:53:41 Abdominal pain in 888968423 O99.891 O31.11X0 Z3A.10 [id number] [facility] [address],[place] [address] 05/16/2024 14:44:18 05/16/2024 16:56:25 Pain in pelvis 21153617 R10.2 Abdominal pain 91938984 R10.9 [id number] [facility] [address],[place] [address] 06/08/2024 11:12:53 06/08/2024 11:57:37 screening 565375907 Z36.82 O31.10X9 Z3A.13 [id number] [facility] [address],[place] [address] 06/08/2024 11:13:15 06/08/2024 12:37:51 Gestation period, 13 weeks 69020475 Z3A.13 Routine an tenatal care 768209171 Z34.93 Migraine 70616963 G43.90 9 [id number] [facility] [address],[place] [address] 07/06/2024 10:23:36 07/06/2024 13:25:04 Gestation period, 17 weeks 14991577 Z3A.17 [facility] [id number] [facility] [address],[place] [address] 07/27/2024 11:49:24 07/27/2024 14:42:58 screening for malformation 227165328 Z36.3 Z3A.20 [id number] Aylin [facility] [address],[place] [address] 07/27/2024 11:49:36 07/27/2024 14:42:49 Gestation period, 20 weeks 83698071 Z3A.20 [id number] [facility] [address],[place] [address] 08/22/2024 17:23:27 08/22/2024 18:34:48 screening 163309723 Z36.2 Z3A.24 [id number] Aylin [facility] [address],[place] [address] 08/22/2024 17:23:43 08/24/2024 05:14:19 Gestation period, 24 weeks 888665923 Z3A.24 Recurrent bleeding of nose 6840511249 102 R04.0 plan saline spray daily Health Concerns Section Related Observation LastModified by Organization Detai ls LastModified Time None Recorded Concern Status LastModified by Organization Details LastModified Time None Recorded Advance Directives Directive None Recorded Payers Encounter Date Sequence Insurance Name Policy Number Policy Barrett Covered Member ID Barrett Member ID Guarantor Name 07/06/2024 1 [facility] ON OR AFTER 01/29/21 (MEDICAID REPLACEMENT - HMO) Michelle Olivas [id number] Michelle Olivas 07/27/2024 1 [facility] ON OR AFTER 01/29/21 (MEDICAID REPLACEMENT - HMO) Michelle Olivas [id number] Michelle Olivas 07/27/2024 1 [facility] ON OR AFTER 01/29/21 (MEDICAID REPLACEMENT - HMO) Michelle Olivas [id number] Michelle Olivas 08/22/2024 1 [facility] ON OR AFTER 01/29/21 (MEDICAID REPLACEMENT - HMO) Michelle Olivas [id number] Michelle Olivas 08/22/2024 1 [facility] ON OR AFTER 01/29/21 (MEDICAID REPLACEMENT - HMO) Michelle Olivas [id number] Michelle Pérezina OBGyn Episode Ob Episode Information Episode Created Date Number of Fetuses Patient Bloodtype Patient rh Status Prepregnancy Weight lbs Domestic Partner Domestic Partner Phone Father Name Product Safety Lead Status 11/20/19 20 1 O Negative 150 [...] Weight in lbs Pre/Post Dialysis Refused Weight 149.015560840302 BP Diastolic BP Location Tested BP Systolic [...] Weight in lbs Pre/Post Dialysis Refused Weight 153.913416596154 BP Diastolic BP Location Tested BP Systolic [...] Weight in lbs Pre/Post Dialysis Refused Weight 150.647228419185 BP Diastolic BP Location Tested BP Systolic BP Type 82 127 sitting Fetus Heart Rate Present A 155 Fetus Movement A No Comments G1 at 13+2 by sure LMP = 9 w [place] She has MOREIRA about every other day relieved with Tylenol. Nausea but no emesis. She had spotting in early September but none since Flowsheet Date 01/10/2020 Serna Score Blood Edema Fundus Height Fundus Units Glucose Ketones Leukocytes Nitrite Labor Signs Protein Cervic Dilation Cervic Effacement Cervic Station 25 trace Type Weight in lbs Pre/Post Dialysis Refused Weight 157.257405173469 BP Diastolic BP Location Tested BP Systolic BP Type 76 127 Fetus Heart Rate Present A 155 Fetus Movement A Yes Comments Flowsheet Date 02/05/2020 Serna Score Blood Edema Fundus Height Fundus Units Glucose Ketones Leukocytes Nitrite Labor Signs Protein Cervic Dilation Cervic Effacement Cervic Station neg trace 27 trace Type Weight in lbs Pre/Post Dialysis Refused Weight 160.241788253916 BP Diastolic BP Location Tested BP Systolic BP Type 75 114 Fetus Heart Rate Present A 156 Present Fetus Movement A Yes Comments PATIENT STATES THAT HAVING S WELLING, swelling resolves by am, monitor at home, rx for GCT and rhogam givenbaaracelis [place] Flowsheet Date 02/19/2020 Serna Score Blood Edema Fundus Height Fundus Units Glucose Ketones Leukocytes Nitrite Labor Signs Protein Cervic Dilation Cervic Effacement Cervic Station 33 trace Type Weight in lbs Pre/Post Dialysis Refused Weight 162.757958333221 BP Diastolic BP Location Tested BP Systolic [...] Weight in lbs Pre/Post Dialysis Refused Weight 166.613154956994 BP Diastolic BP Location Tested BP Systolic BP Type 79 127 Fetus Heart Rate Present A 145 Fetus Movement A Yes Comments normal blood sugars Flowsheet Date 03/19/2020 Serna Score Blood Edema Fundus Height Fundus Units Glucose Ketones Leukocytes Nitrite Labor Signs Protein Cervic Dilation Cervic Effacement Cervic Station neg trace 35 trace Type Weight in lbs Pre/Post Dialysis Refused Weight 171.018443217774 BP Diastolic BP Location Tested BP Systolic [...] Weight in lbs Pre/Post Dialysis Refused Weight 167.229262525423 BP Diastolic BP Location Tested BP Systolic [...] Weight in lbs Pre/Post Dialysis Refused Weight 168.249446190764 BP Diastolic BP Location Tested BP Systolic [...] Weight in lbs Pre/Post Dialysis Refused Weight 172.914506145264 BP Diastolic BP Location Tested BP Systolic [...] Weight in lbs Pre/Post Dialysis Refused Weight 173.599359319354 BP Diastolic BP Location Tested BP Systolic [...] Weight in lbs Pre/Post Dialysis Refused Weight 153.087387910098 BP Diastolic BP Location Tested BP Systolic [...] Estim ated Date of Delivery false Thalassemia (Gabonese, Icelandic, Mediterranean, Or Background): MCV < 80 false Neural Tube Defect (Meningomyelocele, Spina Bifi da, Or Anencephaly) false Congenital Heart Defect false Down Syndrome false Buster-Sachs (eg, Restoration, Cajun, Tajik-Costilla) f alse Manpreet Disease false Sickle Cell [...] Domestic Partner Domestic Partner Phone Father Name Product Safety Lead Status 04/25/20 1 DELETED Jam Calculation Initial [...] Domestic Partner Domestic Partner Phone Father Name Product Safety Lead Status 06/08/20 24 1 O Negative 153 Home [employer] OPEN Fetus Data First Name Last Name Admitted to NICU Weight (g) Sex Living Outcome Pediatric Complications Fetus ID Race Codes Race Delivery Type [id number] Problems Problem Notes rhogam 04/02/24 Problem Name Start Date End Date Resolution Snomed Code Not e 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 [id number] james pregn ya Vanishing twin syndrome 800513244 Aortic root finding 851627129 mildly prominent - Referral faxed to [facility] 08/24 Level iI 08/29 [facility] RESIDENTIAL 09/20 1045 US/ echo and office visit [...] Weight in lbs Pre/Post Dialysis Refused Weight 153.916904191006 BP Diastolic BP Location Tested BP Systolic [...] Type Weight in lbs Pre/Post Dialysis Refused 156.847771573958 BP Diastolic BP Location Tested BP Systolic [...] Type Weight in lbs Pre/Post Dialysis Refused 161.121624814198 BP Diastolic BP Location Tested BP Systolic [...] Type Weight in lbs Pre/Post Dialysis Refused 168.074978249479 BP Diastolic BP Location Tested BP Systolic [...]
--- OUTSIDE RECORDS SUMMARY | 2024-09-11 15:43 | XMS_ITS | Clinical Summary ---
Author Organization [facility] Address [facility] [place] [address] Care Team Providers Care Rear Admiral Name Role Phone Sydney Rush MD Primary Care Provider [phone] Allergies No known active allergies Medications methylPREDNISol [...] on file Legal Sex Female 9:31 AM [employer] Gender Identity Not on file Sexual Orientation [...] to complete this topic Insurance Care Teams Rear Admiral Relationship Specialty Start Date End Date Sydney Rush MD [address] [place] [address] [place] [id number] PCP - General FAMILY PRACTICE 06/27/23
--- OUTSIDE RECORDS SUMMARY | 2024-09-11 17:39 | XMS_ITS | Patient Health Summary ---
Author Organization [facility] Address [address] [place] [address] Care Team Providers Care Claim Examiner Name Role Phone Sydney Rush MD Primary Care Provider [phone] Note from [facility],non-owned Affiliates and Associated Physician Practices is amultiple site organization consisting of ambulatory clinics and hospital sitesin [place], [place], [place] and [place]. This disclosure is being madepursuant to the Care Everywhere program and may not contain all information available regarding this patient. Last updated 18.[facility] Allergies No known active allergies Medications [...] Nausea/Vomiting Reasons: Nausea and Vomiting in * pkakvzo-aiwmgiqiwirso-aliyyhzs 250-250-65 MG tablet Take 1 (one) tablet [...] Comments Blood Pressure 115/73 08/29/2024 2:35 PM ESCORT BLIND Pulse 71 08/29/2024 2:35 PM [facility] Temperature 36.3 C (97.3 F) 01/12/2017 10:45 AM CDT Respiratory Rate 16 01/12/2017 11:15 AM CDT Oxygen Saturation 97% 01/12/2017 11:00 AM CDT Inhaled Oxygen Concentration 100% 01/12/2017 1 0:45 AM CDT Weight 76.2 kg (168 lb) 08/29/2024 2:35 PM [facility] Height 165.1 cm (5' 5 ) 08/29/2024 2:35 PM [facility] Body Mass Index 27.96 08/29/2024 2:35 PM [facility] Procedures * SONOGRAM - COMPLETE(Performed 08/29/2024) Performed [...] * SONOGRAM - COMPLETE (08/29/2024 1:43 PM [facility]) Linked Results Indication ======== Mildly dilated aortic arch on outside scan, Reportedly low-risk cf-DNA 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 Para 1 [id number] 1. live 2019. Gest. age 39 w + 2 d. Weight 2,693 g. Sex of child: male. Details: Lab Tests Test Date Result NIPT Low risk per patient Maternal Assessment Physical Exam Height 165 cm, 5 ft 5 in. Initial weight 76 kg, 168 lb. Initial BMI 27.96 kg/m Method ====== Transabdominal ultrasound. View: Good view ========= Jaems . Number of fetuses: 1 Dating ====== [...] 1 lb 15 oz EFW by Hadlock ([id number]) Head / Face / Neck Biometry: CM [...] view. RVOT view. LVOT view. 3-vessel view. 2-lripcm-dppemen view. Situs. Aortic arch view. Bicaval view. [...] LMP & early U/S * Referred to [facility] for obstetrical U/S & request for [...] determine at present Please notify the baby's Human Resources Office Assistant of the above history Follow-up ======== U/S at 32 weeks Coding ====== Procedures 19338: US Preg Uterus Detailed Neuro Hero PACS Anatomical Region Laterality Modality Other 08/29/2024 1:43 PM [facility] R Ishaan Monson MD [facility] ORDERABLES * US ABDOMEN LIMITED (01/21/2017 [...] CDT) Case Report Surgical Pathology Report Case: [id number] Authorizing Provider: Trena Tanner MD Collected: 01/12/2017 10:19 AM Ordering Location: ENDOSCOPY SERVICES Received: 01/12/2017 11:08 AM Pathologist: Juan Jones MD Specimens: A) - Duodenal Biopsy B) - Stomach Biopsy C) - Esophageal Biopsy, distal D) - Esophageal Biopsy, proximal 01/17/2017 10:21 AM [facility] Final Diagnosis A. DUODENUM, BIOPSY: -NO SIGNIFICANT HISTOPATHOLOGICAL CHANGES B. STOMACH, BIOPSY: -NO SIGNIFICANT HISTOPATHOLOGICAL CHANGES C. ESOPHAGUS, DISTAL, BIOPSY: -MINIMAL HISTOLOGICAL ABNORMALITIES -SEE MICROSCOPIC DESCRIPTION D. ESOPHAGUS, PROXIMAL, BIOPSY: -MINIMAL HISTOLOGICAL ABNORMALITIES -SEE MICROSCOPIC DESCRIPTION 01/17/2017 10:21 AM [facility] Clinical History The patient is a 16-year-old girl with abdominal pain and dysphagia who underwent upper endoscopy which was found to be normal. 01/17/2017 10:21 AM [facility] Gross Description The specimens are received [...] toto as D1. (CT/ns) 01/17/2017 10:21 AM [facility] Microscopic Description 12 H&E Sections of [...] a high power field. 01/17/2017 10:21 AM [facility] Disclaimer The performance characteristics of all immunohistochemical and indirect immunofluorescence stains (if any) cited in this report were determined by the Histopathology Laboratory of [facility]. Some of these tests were [...] the attending (teaching) pathologist. 01/17/2017 10:21 AM [facility] Embedded Images 01/17/2017 10:21 AM CDT [facility] Pathology/Cytology DUODENAL BIOPSY SPECIMEN / Unknown [...] - PATHOLOGY/CYTO LOGY ORDERABLES Performing Organization Address [facility] Co de Phone Number [facility] [place] [address] * HELICOBACTER PYLORI UREASE (STL) (01/12/2017 10:19 AM CDT) Helicobacter pylori Urease Initial Negative Negative 01/13/2017 3:29 PM CDT [facility] Helicobacter pylori Urease Final Negative Negative 01/13/2017 3:29 PM CDT [facility] Comment:This is an appended report. These results have been appended to a previously preliminary verified report. Microbiology GASTRIC ANTRAL BIOPSY SPECIMEN / Unknown 01/12/2017 10:19 AM CDT 01/12/2017 10:31 AM CDT Trena Tanner MD LAB - MICROBIOLOGY O RDERABLES Performing Organization Address City/[facility]/ZIP Co de Phone Number [facility] [address] [place] [address] * HCG URINE QUALITATIVE - POCT (IP) BEAKER (01/12/2017 9:00 AM CDT) HCG Qual Urine Negative Negative [facility] POCT TESTING QC Verified Yes Yes [facility] PO CT TESTING Urine URINE / Unknown 01/12/2017 9 :00 AM CDT Trena Tanner MD LAB - POINT OF CARE ORDERABLES [facility] POCT TESTING [address] [place], [place] [address] [phone] * EGD (01/12/2017 7:05 AM CDT) Report Endoscopy POC _ Patient Name: Michelle Olivas Date of : 2000 Admit Type: Outpatient Age: 16 Gender: Female Attending MD: Trena Tanner MD Order #: [id number] _ Procedure: Upper GI endoscopy Indications: Generalized abdominal pain, Dysphagia Providers: Trena Tanner MD Referring MD: Sydney Ruhs MD Medicines: General Anesthesia Complications: No immediate [...] Gallbladder ultrasound Procedure Code(s): --- Professional --- 02959, Esophagogastrodu odenoscopy, flexible, transoral; with biopsy, single or multiple --- Technical --- 11121, Esophagogastrodu odenoscopy, flexible, transoral; with biopsy, single or multiple Diagnosis Code(s): --- Professional --- R10.84, Generalized abdominal pain R13.10, Dysphagia, unspecified --- Technical --- R10.84, Generalized abdominal pain R13.10, Dysphagia, unspecified CPT copyright 2015 [employer]. All rights reserved. The codes documented in this report are preliminary and upon medical billing coder review may be revised to meet current compliance requirements. Dr. Trena Tanner MD Trena Tanner MD 01/12/2017 10:38:42 AM Number of Addenda: 0 Note Initiated On: 01/12/2017 7:05 AM Procedure Date: 01/12/2017 7:05:47 AM This report has been signed electronically. [facility] ENDOSCOPY 01/12/2017 7:05 AM CDT Trena Tanner MD GI PROCEDURE ORDERAB LES [facility] ENDOSCOPY [address] [place] [address] * TISSUE TRANSGLUTAMINASE AB IGA (12/16/2016 4:06 PM CDT) TTG Antibody IgA <2 0 - 3 U/mL 12/17/2016 2:12 PM CDT [facility] ([facility]) Comment: Negative 0 - 3 Weak Positive 4 - 10 Positive >10 Tissue Transglutaminase (tTG) has been identified as the endomysial antigen. Studies have demonstr- ated that endomysial IgA antibodies have over 99% specificity for gluten sensitive enteropathy. Blood BLOOD SPECIMEN / Unknown Lab Venipuncture / Unknown 12/16/2016 4:06 PM CDT 12/16/2016 4:27 PM CDT Narrative [facility] ([facility]) - 12/17/2016 2:12 PM CDT Performed at: [facility] [address] [place], [place] [id number] Supervisor [place]: Jeffery Perkins PhD, Phone: [phone] Trena Tanner MD LAB - SEROLOGY ORDER RAOUL Performing Organization Address City/[facility] Co de Phone Number [facility]) [address] [place] [address] * C-REACTIVE PROTEIN (12/16/2016 4:06 PM CDT) C-Reactive Protein <0.20 <=0.50 mg/dL 12/16/2016 4:55 PM CDT [facility] Blood BLOOD SPECIMEN / Unknown Lab Venipuncture / Unknown 12/16/2016 4:06 PM CDT 12/16/2016 4:26 PM CDT Trena Tanner MD LAB - CHEMISTRY CHERELLE COSME Performing Organization Address City/[facility]/ZIP Co de Phone Number [facility] [address] [place] [address] * SED RATE WESTERGREN (12/16/2016 4:06 PM CDT) Erythrocyte Sedimentation Rate Westergren 3 0 - 12 mm/hr 12/16/2016 5:38 PM CDT [facility] Blood BLOOD SPECIMEN / Unknown Lab Venipuncture / Unknown 12/16/2016 4:06 PM CDT 12/16/2016 4:26 PM CDT Trena Tanner MD LAB - HEMATOLOGY ORD ERABLES [facility] [place] [address] * (ABNORMAL) CBC W AUTO DIFFERENTIAL (12/16/2016 4:06 PM CDT) WBC 7.4 4.5 - 14.5 x10E9/L 12/16/2016 4:44 PM CDT [facility] WBC Corrected x10E9/L 12/16/2016 4:44 PM CDT [facility] RBC 5.30(H) 4.10 - 5.10 x10E12/L 12/16/2016 4:44 PM CDT [facility] Hemoglobin 15.8 12.0 - 16.0 gm/dL 12/16/2016 4:44 PM CDT [facility] Hematocrit 44.7 36.0 - 47.0 % 12/16/2016 4:44 PM CDT [facility] MCV 84.3 78.0 - 98.0 fl 12/16/2016 4:44 PM CDT [facility] MCH 29.8 25.0 - 35.0 pg 12/16/2016 4:44 PM CDT [facility] MCHC 35.3 31.0 - 37.0 gm/dL 12/16/2016 4:44 PM CDT [facility] Platelet Count 224 100 - 400 x10E9/L 12/16/2016 4:44 PM CDT [facility] RDW-CV 12.9 11.5 - 14.0 % 12/16/2016 4:44 PM CDT [facility] MPV 10.8(H) 6.0 - 9.5 fl 12/16/2016 4:44 PM CDT [facility] Neutrophils % 57.6 24.0 - 66.0 % 12/16/2016 4:44 PM CDT [facility] Lymphocytes % 31.6 22.0 - 61.0 % 12/16/2016 4:44 PM CDT [facility] Monocytes % 7.9 3.0 - 15.0 % 12/16/2016 4:44 PM CDT [facility] Eosinophils % 2.3 0.0 - 10.0 % 12/16/2016 4:44 PM CDT [facility] Basophils % 0.3 % 12/16/2016 4:44 PM CDT [facility] Immature Granulocytes 0.3 % 12/16/2016 4:44 PM CDT [facility] Neutrophil Absolute 4.24 x10E9/L 12/16/2016 4:44 PM CDT [facility] Lymphocytes Absolute 2.32 x10E9/L 12/16/2016 4:44 PM CDT [facility] Monocytes Absolute 0.58 x10E9/L 12/16/2016 4:44 PM CDT [facility] Eosinophils Absolute 0.17 x10E9/L 12/16/2016 4:44 PM CDT [facility] Basophils Absolute 0.02 x10E9/L 12/16/2016 4:44 PM CDT [facility] Immature Granulocytes Absolute 0.02 x10E9/L 12/16/2016 4:44 PM CDT [facility] nRBC Auto 0 /100 WBC 12/16/2016 4:44 PM CDT [facility] Blood BLOOD SPECIMEN / Unknown Lab Venipuncture / Unknown 12/16/2016 4:06 PM CDT 12/16/2016 4:26 PM CDT Trena Tanner MD LAB - HEMATOLOGY ORD ERABLES Performing Organization Address City/State/[facility] Co de Phone Number [facility] [address] [place] [address] * (ABNORMAL) COMPREHENSIVE METABOLIC PANEL (12/16/2016 4:06 PM CDT) [facility] Glucose 77 70 - 105 mg/dL 12/16/2016 5:20 PM CDT [facility] Sodium 139 136 - 145 mmol/L 12/16/2016 5:20 PM CDT [facility] Potassium 4.2 3.5 - 5.1 mmol/L 12/16/2016 5:20 PM CDT [facility] Chloride 107 98 - 107 mmol/L 12/16/2016 5:20 PM CDT [facility] CO2 25 20 - 28 mmol/L 12/16/2016 5:20 PM CDT [facility] Calcium 9.34 9.08 - 10.48 mg/dL 12/16/2016 5:20 PM CDT [facility] Anion Gap 7 5 - 20 mmol/L 12/16/2016 5:20 PM CDT [facility] BUN 17.4 5.3 - 18.7 mg/dL 12/16/2016 5:20 PM CDT [facility] Creatinine 0.84 0.61 - 1.07 mg/dL 12/16/2016 5:20 PM CDT [facility] Alkaline Phosphatase 69(L) 100 - 390 U/L 12/16/2016 5:20 PM CDT [facility] ALT 18 8 - 65 U/L 12/16/2016 5:20 PM T [facility] AST 23 3 - 35 U/L 12/16/2016 5:20 PM T [facility] Protein Total 7.7 6.3 - 8.2 gm/dL 12/16/2016 5:20 PM CDT [facility] Albumin 4.4 3.3 - 4.9 gm/dL 12/16/2016 5:20 PM T [facility] Bilirubin Total 0.6 0.3 - 1.2 mg/dL 12/16/2016 5:20 PM T [facility] eGFR by MDRD mL/min/1.7 3m2 12/16/2016 5:20 PM T [facility] Comment: eGFR calculations are not performed for children under 18 years old. eGFR by MDRD mL/min/1.7 3m2 12/16/2016 5:20 PM T [facility] Comment: eGFR calculations are not performed for children under 18 years old. Blood BLOOD SPECIMEN / Unknown Lab Venipuncture / Unknown 12/16/2016 4:06 PM CDT 12/16/2016 4:26 PM CDT Trena Tanner MD LAB - CHEMISTRY CHERELLE COSME [facility] Organization Address City/State/[facility] Co de Phone Number [facility] [address] [place], [place] [id number] * IGA BLOOD (12/16/2016 4:06 PM CDT) IgA 113 65 - 421 mg/dL 12/16/2016 5:20 PM T [facility] Blood BLOOD SPECIMEN / Unknown Lab Venipuncture / Unknown 12/16/2016 4:06 PM CDT 12/16/2016 4:26 PM CDT Trena Tanner MD LAB - CHEMISTRY CHERELLE COSME [facility] Organization Address City/State/ZIP Co de Phone Number [facility] [address] [place] [address] Care Teams Claim Examiner Relationship Specialty Start Date End Date Sydney Rush MD [address] [place] [id number] PCP - General Family Medicine 07/10/13
--- OUTSIDE RECORDS SUMMARY | 2024-09-11 17:39 | XMS_ITS | Clinical Summary ---
Author Organization [facility] [place] Address [address] [place] [address] Care Team Providers Care Data Center Operator Name Role Phone Sydney Rush MD Primary Care Provider [phone] Source Comments [facility] [place],non-owned Affiliates and Associated Physician Practices is amultiple site organization consisting of ambulatory clinics and hospital sitesin [place], [place], [place] and [place]. This disclosure is being madepursuant to the Care Everywhere program and may not contain all information available regarding this patient. Last updated 18.[facility] [place] Allergies No known active allergies Medications * [...] Department Care Team Description 08/29/2024 1:32 PM WASHERETTE MACHINE OPERATOR - 08/29/2024 11:[address] [facility] Hospital Encounter [facility] [address] [place] [address] Truman Ledezma MD Discharge Disposition: Home or Self Care 08/29/2024 1:[address] [facility] Hospital Encounter [facility] [address] [place] [address] Truman Ledezma MD Discharge Disposition: Home or Self Care 08/29/[address] [address] Angelina Andujar Future Appointment 08/27/2024 Travel 08/27/2024 Telephone [facility] [address] [place] [address] Roberta De La Vega Appointment (LM for [...] Comments Blood Pressure 115/73 08/29/2024 2:35 PM WASHERETTE MACHINE OPERATOR Pulse 71 08/29/2024 2:35 PM WASHERETTE MACHINE OPERATOR Temperature 36.3 C (97.3 F) 01/12/2017 10:45 AM CDT Respiratory Rate 16 01/12/2017 11:15 AM CDT Oxygen Saturation 97% 01/12/2017 11:00 AM CDT Inhaled Oxygen Concentration 100% 01/12/2017 1 0:45 AM CDT Weight 76.2 kg (168 lb) 08/29/2024 2:35 PM WASHERETTE MACHINE OPERATOR Height 165.1 cm (5' 5 ) 08/29/2024 2:35 PM WASHERETTE MACHINE OPERATOR Body Mass Index 27.96 08/29/2024 2:35 PM WASHERETTE MACHINE OPERATOR Plan of Treatment Upcoming Encounters Date Type Department Care Team (Late st Contact Info) Description 09/20/2024 10:45 AM WASHERETTE MACHINE OPERATOR Appointment [address] [address] Truman Ledezma MD [address] [phone] 09/20/2024 10:45 AM WASHERETTE MACHINE OPERATOR Appointment [address] [address] Health Maintenance Due Date Last Done Comments [...] - COMPLETE Routine 08/29/2024 1 :43 PM WASHERETTE MACHINE OPERATOR Encounter for anatomic survey (HCC) Abnormal ultrasound 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 (HCC) from Last 3 Months Results * SONOGRAM - COMPLETE (08/29/2024 1:43 PM WASHERETTE MACHINE OPERATOR) Linked Results Indication ======== Mildly dilated aortic arch on outside scan, Reportedly low-risk cf-DNA 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 Para 1 [id number] 1. live 2019. Gest. age 39 w [...] 1 lb 15 oz EFW by Hadlock ([id number]) Head / Face / Neck Biometry: CM [...] view. RVOT view. LVOT view. 3-vessel view. 7-teqjiz-ewkuktl view. Situs. Aortic arch view. Bicaval view. [...] LMP & early U/S * Referred to [facility] for obstetrical U/S & request for consult [...] determine at present Please notify the baby's Web Publisher of the above history Follow-up ======== U/S at 32 weeks Coding ====== Procedures [id number]: US Preg Uterus Detailed [facility] [employer] PACS Anatomical Region Laterality Modality Other 08/29/2024 1:43 PM WASHERETTE MACHINE OPERATOR R Ishaan CHILDERS ORDERABLES from Last 3 Months Care Teams Data Center Operator Relationship Specialty Start Date End Date Sydney Rush MD [address] [place] [address] [place] [address] PCP - General Family Medicine 07/10/13
--- OUTSIDE RECORDS SUMMARY | 2024-09-11 17:39 | XMS_ITS | Referral Summary ---
Author Organization [facility] Address [address] [place] [address] Care Team Providers Care High School History Teacher Name Role Phone Sydney Rush MD Primary Care Provider [phone] Source Comments [facility],non-owned Affiliates and Associated Physician Practices is amultiple site organization consisting of ambulatory clinics and hospital sitesin [place], [place], [place] and [place]. This disclosure is being madepursuant to the Care Everywhere program and may not contain all information available regarding this patient. Last updated 18.[facility] Encounters Date Type Department Care Team Description 08/29/[address] [address] Angelina Andujar Future Appointment 08/29/2024 1:32 PM ROLLER HAND - 08/29/2024 11:59 PM ROLLER HAND Hospital Encounter [facility] [address] [place] [phone] Truman Ledezma MD Discharge Disposition: Home or Self Care 08/29/2024 1:31 PM ROLLER HAND Hospital Encounter [facility] [address] [place] [phone] Truman Ledezma MD Discharge Disposition: Home or Self Care 08/27/2024 Travel 08/27/2024 Telephone [facility] [address] [place] [address] Roberta De La Vega A [...] Comments Blood Pressure 115/73 08/29/2024 2:35 PM ROLLER HAND Pulse 71 08/29/2024 2:35 PM ROLLER HAND Temperature 36.3 C (97.3 F) 01/12/2017 10:45 AM CDT Respiratory Rate 16 01/12/2017 11:15 AM CDT Oxygen Saturation 97% 01/12/2017 11:00 AM CDT Inhaled Oxygen Concentration 100% 01/12/2017 1 0:45 AM CDT Weight 76.2 kg (168 lb) 08/29/2024 2:35 PM ROLLER HAND Height 165.1 cm (5' 5 ) 08/29/2024 2:35 PM ROLLER HAND Body Mass Index 27.96 08/29/2024 2:35 PM ROLLER HAND Functional Status Functional Status Response Date of [...] st Contact Info) Description 09/20/2024 10:45 AM ROLLER HAND Appointment [address] [address] Truman Ledezma MD [address] [facility] [address] [place] [phone] 09/20/2024 10:45 AM ROLLER HAND Appointment [address] [address] Procedures Procedure Name Priority Date/Time Associated Diagnosis Comments SONOGRAM - COMPLETE Routine 08/29/2024 1 :43 PM ROLLER HAND Encounter for anatomic survey (HCC) Abnormal ultrasound 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 Para 1 [id number] 1. live 2019. Gest. age 39 w [...] 1 lb 15 oz EFW by Hadlock ([id number]) Head / Face / Neck Biometry: CM [...] view. RVOT view. LVOT view. 3-vessel view. 3-lwtcpk-xlgvqxt view. Situs. Aortic arch view. Bicaval view. [...] LMP & early U/S * Referred to [facility] for obstetrical U/S & request for [...] determine at present Please notify the baby's Rn Complex Care of the above history Follow-up ======== U/S at 32 weeks Coding ====== Procedures [id number]: US Preg Uterus Detailed [facility] [employer] PACS Anatomical Region Laterality Modality Other 08/29/2024 1:43 PM ROLLER HAND R Ishaan Monson MD [facility] ORDERABLES from Last 3 Months Care Teams High School History Teacher Relationship Specialty Start Date End Date Sydney Rush MD [address] [place] [address] [place] [address] PCP - General Family Medicine 07/10/13
--- OUTSIDE RECORDS SUMMARY | 2024-09-11 17:39 | XMS_ITS | Clinical Summary ---
Author Organization [facility] Address On license of [facility] [place] [address] Care Team Providers Care Academic Hospitalist Name Role Phone Sydney Rush MD Primary Care Provider [phone] Allergies No known active allergies Medications methylPREDNISol [...] on file Legal Sex Female 9:31 AM PMO LEAD Gender Identity Not on file Sexual Orientation [...] to complete this topic Insurance Care Teams Academic Hospitalist Relationship Specialty Start Date End Date Sydney Rush MD [address] [place] [address] [place] [phone] PCP - General FAMILY PRACTICE 06/27/23
[2024-09-11 17:49] LABS: Influenza A QL RT-PCR Positive (Negative); Influenza B QL RT-PCR Negative (Negative); RSV RNA, RT-PCR Negative (Negative); SARS-CoV-2 RNA PCR Negative (Negative)
[2024-09-11 17:51] LABS: Strep Group A RT-PCR NOT DETECTED (Negative)
--- NOTE | 2024-09-11 17:57 | ECG_ITS ---
Test Date: 2024-09-11 18:31:49 Measurements Intervals [place] Rate: 110 P: 34 [place]: 120 QRS: 15 QRSD: 76 T: 8 QT: 308 QTc: 418 Interpretive Statements SINUS TACHYCARDIA DELAYED PRECORDIAL R/S TRANSITION BORDERLINE ST-T WAVE ABNORMALITY- INFERIOR LEADS ABNORMAL ECG Compared to ECG 04/17/2024 14:54:20 HEART RATE HAS INCREASED Electronically Signed On 09-11-2024 19:55:52 THERMAL ENGINEER by Neo Johnson D.O.
--- NOTE | 2024-09-11 17:58 | ED_ITS ---
HPI - URI/Sore Throat General Chief Complaint: Upper Respiratory Infection Stated Complaint: URI complaints w/ multiple other complaints Time Seen by Provider: 09/11/24 17:15 History of Present Illness HPI Narrative: Patient is a 23-year-old female who presents to the ER with a 4 day history of tachycardia and hypertension. She reports she is 27 weeks and was [facility]. Patient reports she was discharged home, but continues to experience the symptoms in addition to coughing and being congested. She endorses significant weakness and intermittent lower abdominal cramping. Patient reports her son was just diagnosed with flu and strep. She endorses intermittent vomiting, but reports it is ?white foam and not bile. Patient denies any urinary symptoms, chest pain, wheezing, or back pain. Related Data Home Medications ?Medication ?Instructions ?Recorded ?Confirmed ?Last Taken ?Type cyclobenzaprine 5 mg tablet 5 mg PO .TID PRN PRN back pain 08/13/24 09/06/24 08/20/24 History vit no.95-ferrous 1 tablet PO DAILY 09/06/24 09/06/24 09/06/24 History fumarate 28 mg-folic acid 800 mcg tablet () Allergies Allergy/AdvReac Type Severity Reaction Status Date / Time No Known Allergies Allergy Verified 09/06/24 15:35 Review of Systems 2 Review of Systems: All systems reviewed & are unremarkable except as noted in HPI and below PMFSH Past Medical History Medical History History of use of contraceptive intrauterine device (IUD) Tonsillitis Surgical History Surgical History Hx of tonsillectomy Social History Social History Smoking status: Never smoker Substance use: never Gender identity (if verbalized by the patient): Female Spiritual care concerns: No Exam 2 Narrative: GENERAL: Ill-appearing, well-nourished, non-toxic, in no acute distress. HEAD: Normocephalic, atraumatic. NECK: Supple. No adenopathy, no masses. RESPIRATORY: Airway patent, respirations nonlabored. Clear to auscultation bilaterally, no rales, rhonchi, wheezing. CARDIOVASCULAR: Tachycardia, regular rhythm without murmurs, rubs, or gallops. Peripheral pulses 2+ and equal bilaterally. Mildly edematous bilateral lower extremities. ABDOMINAL: Soft, bilateral lower quadrant tenderness with palpation, nondistended, no hepatosplenomegaly. Normoactive BS. MUSCULOSKELETAL: Moves all extremities. Strength/ROM intact without gross deformities. SKIN: Warm, dry, normal color. No rashes. NEURO: A&O X3. Speech clear. Cranial nerves intact. Steady gait. No ataxic movements. PSYCHIATRIC: Appropriate mood and affect. Normal interaction. Course Vital Signs Vital signs: Vital Signs Temperature 37.2 C 09/11/24 15:30 Pulse Rate 116 H 09/11/24 15:30 Respiratory Rate 16 09/11/24 15:30 Blood Pressure 124/84 09/11/24 15:30 Pulse Oximetry 98 09/11/24 15:30 Oxygen Delivery Room Air 09/11/24 15:30 Temperature 37.2 C 09/11/24 15:30 Pulse Rate 106 H 09/11/24 19:46 Respiratory Rate 20 09/11/24 19:46 Blood Pressure 104/61 09/11/24 19:46 Pulse Oximetry 97 09/11/24 19:46 Oxygen Delivery Room Air 09/11/24 18:41 MDM - URI/Sore Throat MDM Narrative Medical decision making narrative: Patient is a 23-year-old female who presents to the ER with a 4 day history of tachycardia and hypertension. She reports she is 27 weeks and was [facility]. Patient reports she was discharged home, but continues to experience the symptoms in addition to coughing and being congested. She endorses significant weakness and intermittent lower abdominal cramping. Patient reports her son was just diagnosed with flu and strep. She endorses intermittent vomiting, but reports it is ?white foam and not bile. Patient denies any urinary symptoms, chest pain, wheezing, or back pain. Labs Ordered: CBC, CMP, strep, COVID/flu/RSV swab, UA Imaging Ordered: None necessary Medications Ordered: 1 L normal saline IV bolus, Tylenol 1000 mg p.o. Results: Patient is influenza A positive. Diagnosis: Influenza A positive, dehydration Consults: OBGYN (Dr. Guerrero)- She recommended pt be discharged home with plans to follow-up with her colleague as planned in ten days. She has little concern for pre-eclampsia at this point, as pt's BP readings has been WNL here in the ER. Patient Education/Shared MDM: 1930-OBGYN nurse advised pt have total protein and uric acid level drawn. Results shared with patient. She endorses improvement following medication administration, but still endorses mild back pain. Patient strongly advised to maintain hydration status upon discharge and follow-up with her OBGYN, as planned. She will be discharged home with prescription for Tamiflu, all for supportive care. Strict return precautions provided. Patient verbalized understanding is in agreement with plan. Vital signs stable at time of discharge. All questions answered. Differential Diagnosis Differential diagnosis: Likely upper respiratory infection, bronchitis, influenza and other (dehydration) Lab Data Attestation: I reviewed the patient's lab results. 09/11/24 18:48 09/11/24 18:48 Labs: Lab Results 09/11/24 09/11/24 09/11/24 Range/Units 16:57 16:58 18:48 WBC 8.9 (4.5-10.0) K/mm3 RBC 4.22 (4.2-5.4) M/mm3 Hgb 13.0 (12.0-15.0) g/dL Hct 37.3 (37.0-47.0) % MCV 88.4 (80-100) fl MCH 30.8 (26-34) pg MCHC 34.9 (32-36) g/dl RDW 13.7 (11.5-14.5) % Plt Count 144 L (150-375) k/mm3 MPV 11.0 H (7.4-10.4) fl Immature Gran % (Auto) 0.8 H (0-0.5) % Neut % (Auto) 82.8 H (45.5-73.1) % Lymph % (Auto) 7.8 L (18.3-44.2) % [place] % (Auto) 8.4 (2.6-8.5) % Eos % (Auto) 0.0 (0-4.4) % Baso % (Auto) 0.2 (0.2-1.2) % Lymph # (Auto) 0.70 L (0.9-3.2) K/mm3 [place] # (Auto) 0.8 H (0.1-0.6) K/mm3 Eos # (Auto) 0.0 (0-0.3) K/mm3 Baso # (Auto) 0.0 (0.0-0.1) K/mm3 Abs Immat Gran (auto) 0.07 H (0.00-0.031) K/mm3 Absolute Neuts (auto) 7.4 H (1.3-6.7) K/mm3 Absolute Nucleated RBC 0.000 (0.0-0.012) K/mm3 Nucleated RBC % 0.0 (0.0-0.2) % Sodium 131 L (137-145) mmol/L Potassium 3.6 (3.4-5.0) mmol/L Chloride 100 (98-107) mmol/L Carbon Dioxide 20 L (22-30) mmol/L Anion Gap 11 (4-12) mmol/L BUN 5 L D (7-17) mg/dL Creatinine 0.48 L (0.7-1.0) mg/dL Estim Creat Clear Calc 156 ml/min Estimated GFR > 60 (59 - ) Glucose 81 (65-110) mg/dL Uric Acid 4.3 (2.5-7.5) mg/dL Calcium 8.8 (8.4-10.2) mg/dL Total Bilirubin 0.7 (0.2-1.3) mg/dL AST 33 (14-36) U/L ALT 37 H (6-35) U/L Alkaline Phosphatase 138 H (38-126) U/L Total Protein 7.0 (6.3-8.2) g/dL Albumin 3.6 (3.5-5.1) g/dL Urine Color (Yellow) Urine Appearance (Clear) Urine pH (5.0-9.0) Ur Specific [place] (1.001-1.035) Urine Protein (Negative) mg/dL Urine Glucose (UA) (Negative) mg/dL Urine Ketones (Negative) mg/dL Ur Blood (Man) (Negative) Urine Nitrate (Negative) Urine Bilirubin (Negative) Urine Urobilinogen (<2.0) mg/dL Leukocyte Esterase Rfl (Negative) SANTIAGO/UL U Random Total Protein mg/dL Urine Creatinine mg/dL Protein/Creat Ratio 2 (0-0.20) mg/mg Influenza A (RT-PCR) Positive A (Negative) Influenza B (RT-PCR) Negative (Negative) RSV (RT-PCR) Negative (Negative) SARS-CoV-2 RNA (RT-PCR) Negative (Negative) Group A Strep (PCR) Not detected (Negative) 09/11/24 Range/Units 18:50 WBC (4.5-10.0) K/mm3 RBC (4.2-5.4) M/mm3 Hgb (12.0-15.0) g/dL Hct (37.0-47.0) % MCV (80-100) fl MCH (26-34) pg MCHC (32-36) g/dl RDW (11.5-14.5) % Plt Count (150-375) k/mm3 MPV (7.4-10.4) fl Immature Gran % (Auto) (0-0.5) % Neut % (Auto) (45.5-73.1) % Lymph % (Auto) (18.3-44.2) % [place] % (Auto) (2.6-8.5) % Eos % (Auto) (0-4.4) % Baso % (Auto) (0.2-1.2) % Lymph # (Auto) (0.9-3.2) K/mm3 [place] # (Auto) (0.1-0.6) K/mm3 Eos # (Auto) (0-0.3) K/mm3 Baso # (Auto) (0.0-0.1) K/mm3 Abs Immat Gran (auto) (0.00-0.031) K/mm3 Absolute Neuts (auto) (1.3-6.7) K/mm3 Absolute Nucleated RBC (0.0-0.012) K/mm3 Nucleated RBC % (0.0-0.2) % Sodium (137-145) mmol/L Potassium (3.4-5.0) mmol/L Chloride (98-107) mmol/L Carbon Dioxide (22-30) mmol/L Anion Gap (4-12) mmol/L BUN (7-17) mg/dL Creatinine (0.7-1.0) mg/dL Estim Creat Clear Calc ml/min Estimated GFR (59 - ) Glucose (65-110) mg/dL Uric Acid (2.5-7.5) mg/dL Calcium (8.4-10.2) mg/dL Total Bilirubin (0.2-1.3) mg/dL AST (14-36) U/L ALT (6-35) U/L Alkaline Phosphatase (38-126) U/L Total Protein (6.3-8.2) g/dL Albumin (3.5-5.1) g/dL Urine Color Yellow (Yellow) Urine Appearance Clear (Clear) Urine pH 6.0 (5.0-9.0) Ur Specific [place] 1.008 (1.001-1.035) Urine Protein Negative (Negative) mg/dL Urine Glucose (UA) Negative (Negative) mg/dL Urine Ketones 1+ H (Negative) mg/dL Ur Blood (Man) Negative (Negative) Urine Nitrate Negative (Negative) Urine Bilirubin Negative (Negative) Urine Urobilinogen 1.0 (<2.0) mg/dL Leukocyte Esterase Rfl Negative (Negative) SANTIAGO/UL U Random Total Protein 16 mg/dL Urine Creatinine 54.4 mg/dL Protein/Creat Ratio 2 0.29 H (0-0.20) mg/mg Influenza A (RT-PCR) (Negative) Influenza B (RT-PCR) (Negative) RSV (RT-PCR) (Negative) SARS-CoV-2 RNA (RT-PCR) (Negative) Group A Strep (PCR) (Negative) Discharge Plan Discharge Clinical Impression: Upper respiratory infection, Influenza, Dehydration during Patient Disposition: Home, Self-Care Condition: Stable Instructions: Antibiotic Form, Influenza (ED) Additional Instructions: Please return to the ER with an worsening symptoms. Follow-up with your OBGYN as previously scheduled, or sooner if symptoms worsen. Take all medications as prescribed. Patient Language: Icelandic Prescriptions: New oseltamivir [Tamiflu] 75 mg capsule 75 mg PO Q12H 5 Days Qty: 10 0RF No Action acetaminophen 500 mg capsule 1,000 mg PO Q6H PRN (Reason: pain) Qty: 30 0RF PNV cmb#95-ferrous fumarate-FA [] 28 mg iron- 800 mcg tablet 1 tablet PO DAILY cyclobenzaprine 5 mg tablet 5 mg PO .TID PRN PRN (Reason: back pain) Follow-up/Referrals: UNKNOWN,DOCTOR [Primary Care Provider] - Time of Disposition: :58
--- NOTE | 2024-09-11 18:22 | PC.NURSE ---
OB nurse at bedside
[2024-09-11] MEDS: SODIUM CHLORIDE 0.9% IV 1,000 ML 999 ML IV CONT (18:50)
[2024-09-11 19:00] LABS: Basophils Percent Auto 0.2 % (0.2-1.2); Hematocrit 37.3 % (37.0-47.0); Immature Granulocyte Absolute 0.07 K/mm3 (0.00-0.031); Immature Granulocyte Percent A 0.8 % (0-0.5); Lymphocytes Percent Auto 7.8 % (18.3-44.2); Mean Corpuscular HGB Conc 34.9 g/dl (32-36); Mean Corpuscular Hemoglobin 30.8 pg (26-34); Mean Corpuscular Volume 88.4 fl (80-100); Monocytes Absolute Auto 0.8 K/mm3 (0.1-0.6); Monocytes Percent Auto 8.4 % (2.6-8.5); Neutrophils Absolute Auto 7.4 K/mm3 (1.3-6.7); Neutrophils Percent Auto 82.8 % (45.5-73.1); Platelet Count Result 144 k/mm3 (150-375); Red Blood Count 4.22 M/mm3 (4.2-5.4); Red Cell Distribution Width 13.7 % (11.5-14.5); White Blood Count 8.9 K/mm3 (4.5-10.0)
[2024-09-11 19:06] LABS: Add Urine Microscopic? NO; Appearance Urine Clear (Clear); Bilirubin Urine Negative (Negative); Blood Urine Negative (Negative); Color Urine Yellow (Yellow); Glucose Urine UA Negative (Negative); Ketones Urine 1+ mg/dL (Negative); Leukocyte Esterase Ur Negative LEU/UL (Negative); Nitrate Urine Negative (Negative); Protein Urine Negative (Negative); Specific Grav Ur 1.008 (1.001-1.035)
[2024-09-11 19:10] LABS: Alanine Aminotransferase 37 U/L (6-35); Albumin Level 3.6 g/dL (3.5-5.1); Alkaline Phosphatase 138 U/L (38-126); Anion Gap 11 mmol/L (4-12); Aspartate Amino Transferase 33 U/L (14-36); Bilirubin,Total 0.7 mg/dL (0.2-1.3); Blood Urea Nitrogen 5 mg/dL (7-17); Calcium 8.8 mg/dL (8.4-10.2); Carbon Dioxide 20 mmol/L (22-30); Chloride 100 mmol/L (98-107); Estimated CRCL calculation 156 ml/min; Estimated Glomerular Filt Rate > 60; Glucose 81 mg/dL (65-110); Potassium 3.6 mmol/L (3.4-5.0); Sodium 131 mmol/L (137-145)
[2024-09-11 20:58] LABS: Uric Acid 4.3 mg/dL (2.5-7.5)
[2024-09-11 21:26] LABS: Creatinine Urine 54.4 mg/dL; Total Protein Urine Random 16 mg/dL; Ur Ttl Prot Creatinine Ratio 0.29 mg/mg (0-0.20)
--- NOTE | 2024-09-11 22:14 | PC.NURSE ---
Pt requested IV be removed d/t pain at IV site. Pt stated that she is allergic to adhesive. IV removed. Pt refusing to have another IV placed. Pt informed MD ordered more IV fluids. Pt verb understanding and still does not want another IV placed. MD aware.
== END 2024-09-11 22:24 | disposition home or self-care (01) ==
PROVIDERS: Emergency Medicine; Physician Assistant; Emergency Provider Registered Nurse
DX: O99.512 Diseases of the respiratory system complicating pregnancy, second trimester (principal); J10.1 Influenza due to other identified influenza virus with other respiratory manifestations; O99.282 Endocrine, nutritional and metabolic diseases complicating pregnancy, second trimester; E86.0 Dehydration; Z20.822 Contact with and (suspected) exposure to COVID-19; Z3A.27 27 weeks gestation of pregnancy
CPT/HCPCS: 36415; 80053; 81003; 82570; 84156; 84550; 85025; 87637; 87651; 93005; 96360; 96361; 99284; J7030

== ENCOUNTER 2024-10-05 20:58 | Inpatient (IN) | payer OTHER, SELFPAY ==
[2024-10-05] VITALS (35 sets, daily range): BP systolic 109–135; BP diastolic 67–92; PULSE 73–176; RESP 16; TEMP 36.6; O2SAT 96–100; BMI 28.3
--- OUTSIDE RECORDS SUMMARY | 2024-10-05 21:05 | XMS_ITS | Data Portability ---
Author Organization [facility] [place] Address [address] [place] [address] Assessment Encounter Date Assessment Date Assessment LastModified by Organization Details LastModified Time 08/22/2024 08/22/2024 Patient is _24__weeks . Discussed plan. [email or web address] Not available 08/22/2024 19:00:36 09/21/2024 09/21/2024 Patient is __28_weeks . Discussed plan. [email or web address] Not available 09/21/2024 10:29:47 Plan of Treatment Reminders Order Date Submit Date Provider Last Modified By Organization Details Last Modified Time Details Appointments OB ROUTINE 2024 02:30P M [place] CNM Not available Not available Not available Lab CBC w/ auto diff 2024 025 [facility] (Lab), [address], [place], [address], 09/23/2024 23:59:42 CMP, serum or plasma 2024 025 [facility] (Lab), [address], [place], [address], 09/23/2024 23:59:42 uric acid, serum or plasma 2024 025 [facility] (Lab), [address], [place], [address], 09/23/2024 23:59:43 urinalysi s, dipstick 2024 025 [email or web address] [place], [address], [place], [address], 09/21/2024 10:46:41 culture, urine 2024 025 [facility] (Lab), [address], [place], [address], 09/23/2024 23:59:58 bile acids, total, serum 2024 025 [facility] (Lab), [address], [place], [address], 09/23/2024 23:59:43 Referral None recorded. Procedures None recorded. Surgeries None recorded. Imaging US, obstetric , follow-up [address], [address], [address], [place], [address], 10/04/2024 20:26:16 US, obstetric , follow-up [address], [facility] [address], [place], [address], 08/22/2024 21:50:37 US, obstetric , 2nd or 3rd trimester [address] [facility] [address], [place], [address], 07/29/2024 14:15:03 Medication Orders None recorded. Patient TargetsNo targets recorded. Patient InstructionsNo instructions recorded. Reason for Referral None Reported. Results Created Date Observation Date Name Description Value Unit Range Abnormal Flag Note LastModifiedBy Organization Detail LastModifiedTime 07/06/20 24 07/06/2024 ANTIB VARINDER SCREE N antibody screen NEG Previ ously ident ified antib varinder has dropp ed below detec table level s Not Available [facility] (Lab) [address], [place], [address], 07/07/2024 08:48:08 09/21/19 25 09/21/2024 CBC W/DIF F WBC 12.3 10'3/ uL 3.5-10 .5 high Not Available [facility] (Lab) [address], [place], [address], 09/23/2024 23:59:41 09/21/19 25 09/21/2024 CBC W/DIF F RBC 4.46 10'6/ uL (based on docume nted legal sex) 3.80-5 .20 Not Available [facility] (Lab) [address], [place], [address], 09/23/2024 23:59:41 09/21/19 25 09/21/2024 CBC W/DIF F HGB 13.4 g/dL (based on docume nted legal sex) 11.6-1 5.4 Not Available [facility] (Lab) [address], [place], [address], 09/23/2024 23:59:41 09/21/19 25 09/21/2024 CBC W/DIF F HCT 40.2 % (based on docume nted legal sex) 34.0-4 5.0 Not Available [facility] (Lab) [address], [place], [address], 09/23/2024 23:59:41 09/21/19 25 09/21/2024 CBC W/DIF F MCV 90.1 fL 80.0-9 9.0 Not Available [facility] (Lab) [address], [place], [address], 09/23/2024 23:59:41 09/21/19 25 09/21/2024 CBC W/DIF F MCH 30.0 pg 27.0-3 4.0 Not Available [facility] (Lab) [address] [place], [address], 09/23/2024 23:59:41 09/21/19 25 09/21/2024 CBC W/DIF F MCHC 33.3 g/dL 32.0-3 5.5 Not Available [facility] (Lab) [address], [place], [address], 09/23/2024 23:59:41 09/21/19 25 09/21/2024 CBC W/DIF F RDW 13.7 % 11.0-1 5.0 Not Available [facility] (Lab) [address], [place], [address], 09/23/2024 23:59:41 09/21/19 25 09/21/2024 CBC W/DIF F plt 240 10'3/ uL 150-40 0 Not Available [facility] (Lab) [address], [place], [address], 09/23/2024 23:59:41 09/21/19 25 09/21/2024 CBC W/DIF F MPV 14.0 fL 8.8-12 .1 high Not Available [facility] (Lab) [address], [place], [address], 09/23/2024 23:59:41 09/21/19 25 09/21/2024 CBC W/DIF F neutrophils 80.1 % 34.0-7 3.0 high Not Available [facility] (Lab) [address], [place], [address], 09/23/2024 23:59:41 09/21/19 25 09/21/2024 CBC W/DIF F lymphocytes 11.9 % 15.0-5 0.0 low Not Available [facility] (Lab) [address], [place], [address], 09/23/2024 23:59:41 09/21/19 25 09/21/2024 CBC W/DIF F monocytes 6.3 % 1.0-15 .0 Not Available [facility] (Lab) [address], [place], [address], 09/23/2024 23:59:41 09/21/19 25 09/21/2024 CBC W/DIF F eosinophils 0.5 % 0.0-8. 0 Not Available [facility] (Lab) [address], [place], [address], 09/23/2024 23:59:41 09/21/19 25 09/21/2024 CBC W/DIF F basophils 0.2 % 0.0-2. 0 Not Available [facility] (Lab) [address], [place], [address], 09/23/2024 23:59:41 09/21/19 25 09/21/2024 CBC W/DIF F immature granulocytes 1.0 % no define d refere nce range Immat ure Granu locyt es (IG) repre sents autom ated enume ratio n of Metam yeloc ytes, Myelo cytes and Promy elocy radha when IG is < 5%. Blast s are not inclu ded in IG and repor rosalie separ ately if prese nt. Not Available [facility] (Lab) [address], [place], [address], 09/23/2024 23:59:41 09/21/19 25 09/21/2024 CBC W/DIF F absolute neutrophils 9.9 10'3/ uL 1.5-8. 0 high Not Available [facility] (Lab) [address], [place], [address], 09/23/2024 23:59:41 09/21/19 25 09/21/2024 CBC W/DIF F absolute lymphocytes 1.5 10'3/ uL 1.0-4. 0 Not Available [facility] (Lab) [address], [place], [address], 09/23/2024 23:59:41 09/21/19 25 09/21/2024 CBC W/DIF F absolute monocytes 0.8 10'3/ uL 0.2-1. 0 Not Available [facility] (Lab) [address], [place], [address], 09/23/2024 23:59:41 09/21/19 25 09/21/2024 CBC W/DIF F absolute eosinophils 0.1 10'3/ uL 0.0-0. 6 Not Available [facility] (Lab) [address], [place], [address], 09/23/2024 23:59:41 09/21/19 25 09/21/2024 CBC W/DIF F absolute basophils 0.0 10'3/ uL 0.0-0. 3 Not Available [facility] (Lab) [address], [place], [address], 09/23/2024 23:59:41 09/21/19 25 09/21/2024 CBC W/DIF F absolute immature granulocytes 0.1 10'3/ uL 0.00-0 .10 Refer ence range s for nonbi nary/ inter sex or unspe cifie d gende r patie nts have not been estab lishe d. Pleas e refer to the follo wing table for range s estab lishe d for cisge nder patie nts and evalu ate in the clini matty campbell xt of the indiv idual patie nt: [email or web address] :[email or web address] [email or web address] g/gen [email or web address] Not Available [facility] (Lab) [address], [place], [address], 09/23/2024 23:59:41 09/21/19 25 09/21/2024 GTT - GESTA ZANDER L BOBUACAR N, ACOG OB glucose, 1 hour screen 136 mg/dL 70-135 high Not Available [facility] (Lab) [address], [place], [address], 09/23/2024 23:59:42 09/21/19 25 09/21/2024 HIV 1/2 ANTIG EN/AN TIBOD Y, REFLE X CONFI RMATI ON HIV antigen/anti body Nonrea ctive nonrea ctive HIV-1 antig en and HIV-1 /HIV- 2 antib odies were not detec rosalie. No labor atory evide nce of HIV infec tion. Not Available [facility] (Lab) [address] [facility], [place], [address], 09/23/2024 23:59:42 09/21/19 25 09/21/2024 CMP(C OMPRE HENSI VE METAB OLIC PANEL ) sodium 134 mmol/ L 133-14 6 Not Available [facility] (Lab) [address] [facility], [place], [address], 09/23/2024 23:59:42 09/21/19 25 09/21/2024 CMP(C OMPRE HENSI VE METAB OLIC PANEL ) potassium 3.9 mmol/ L 3.5-5. 1 Not Available [facility] (Lab) [address] [facility], [place], [address], 09/23/2024 23:59:42 09/21/19 25 09/21/2024 CMP(C OMPRE HENSI VE METAB OLIC PANEL ) chloride 103 mmol/ L 98-107 Not Available [facility] (Lab) [address] [facility], [place], [address], 09/23/2024 23:59:42 09/21/19 25 09/21/2024 CMP(C OMPRE HENSI VE METAB OLIC PANEL ) carbon dioxide 22 mmol/ L 21-31 Not Available [facility] (Lab) [address] [facility], [place], [address], 09/23/2024 23:59:42 09/21/19 25 09/21/2024 CMP(C OMPRE HENSI VE METAB OLIC PANEL ) anion gap 9 mmol/ L 4-13 Not Available [facility] (Lab) [address] [facility], [place], [address], 09/23/2024 23:59:42 09/21/19 25 09/21/2024 CMP(C OMPRE HENSI VE METAB OLIC PANEL ) blood urea nitrogen 10 mg/dL 7-25 Not Available [facility] (Lab) [address] [facility], [place], [address], 09/23/2024 23:59:42 09/21/19 25 09/21/2024 CMP(C OMPRE HENSI VE METAB OLIC PANEL ) creatinine 0.57 mg/dL 0.60-1 .30 low Not Available [facility] (Lab) [address] [facility], [place], [address], 09/23/2024 23:59:42 09/21/19 25 09/21/2024 CMP(C OMPRE HENSI VE METAB OLIC PANEL ) egfrcr (CKD-epi 2020) >90 mL/mi n/1.7 3_m2 >=60 Not Available [facility] (Lab) [address], [place], [address], 09/23/2024 23:59:42 09/21/19 25 09/21/2024 CMP(C OMPRE HENSI VE METAB OLIC PANEL ) calcium 8.4 mg/dL 8.3-10 .5 Not Available [facility] (Lab) [address] [facility], [place], [address], 09/23/2024 23:59:42 09/21/19 25 09/21/2024 CMP(C OMPRE HENSI VE METAB OLIC PANEL ) glucose 135 mg/dL 70-100 high Not Available [facility] (Lab) [address] [facility], [place], [address], 09/23/2024 23:59:42 09/21/19 25 09/21/2024 CMP(C OMPRE HENSI VE METAB OLIC PANEL ) protein, total 6.0 g/dL 6.4-8. 3 low Not Available [facility] (Lab) [address] [facility], [place], [address], 09/23/2024 23:59:42 09/21/19 25 09/21/2024 CMP(C OMPRE HENSI VE METAB OLIC PANEL ) albumin 3.4 g/dL 3.5-5. 0 low Not Available [facility] (Lab) [address] [facility], [place], [address], 09/23/2024 23:59:42 09/21/19 25 09/21/2024 CMP(C OMPRE HENSI VE METAB OLIC PANEL ) ALT 46 units /L 9-43 high Not Available [facility] (Lab) [address] [facility], [place], [address], 09/23/2024 23:59:42 09/21/19 25 09/21/2024 CMP(C OMPRE HENSI VE METAB OLIC PANEL ) alkaline phosphatase 123 units /L 34-104 high Not Available [facility] (Lab) [address], [place], [address], 09/23/2024 23:59:42 09/21/19 25 09/21/2024 CMP(C OMPRE HENSI VE METAB OLIC PANEL ) AST 23 units /L 13-39 Not Available [facility] (Lab) [address], [place], [address], 09/23/2024 23:59:42 09/21/19 25 09/21/2024 CMP(C OMPRE HENSI VE METAB OLIC PANEL ) bilirubin, total 0.5 mg/dL 0.2-1. 2 Not Available [facility] (Lab) [address] [place], [address], 09/23/2024 23:59:42 09/21/19 25 09/21/2024 URIC ACID uric acid 4.8 mg/dL 2.3-6. 6 Not Available [facility] (Lab) [address] [place], [address], 09/23/2024 23:59:43 09/21/19 25 09/21/2024 RPR SCREE N, REFLE X TITER /CONF IRMAT ION RPR screen Nonrea ctive nonrea ctive Not Available [facility] (Lab) [address], [place], [address], 09/23/2024 23:59:43 09/21/19 25 09/21/2024 BILE ACIDS , TOTAL bile acids, total 7 umol/ L 0-10 Test Perfo rmed by: [facility] [address] [place] [address] Not Available [facility] (Lab) [address] [facility], [place], [address], 09/23/2024 23:59:43 09/21/19 25 09/21/2024 CULTU RE: URINE result report SEE RESULT S BELOW Test: Cultu re: Urine Speci men Sourc e: Urine - Clean Catch Speci men Type: Urine Speci men Date: 2024 1005 Resul t Date: 2024 1118 Resul t Statu s: Final resul t Abnor mal: No Resul ting Lab: [facility] [address] [facility] [address] Tel: CULTU RE ----- ----- ----- --- Cultu re resul t (>=3 organ isms prese nt) indic ates possi ble conta minat ion. Repea t cultu re if sympt oms indic ate. Not Available [facility] (Lab) [address] , [place], [address], 09/23/2024 23:59:58 09/21/19 25 09/21/2024 urina lysis , dipst ick Leukocytes +2 Not Available [facility] [address], [place], [address], 09/21/2024 10:45:00 09/21/19 25 09/21/2024 urina lysis , dipst ick Nitrite normal Not Available [place] [address], [place], [address], 09/21/2024 10:45:00 09/21/19 25 09/21/2024 urina lysis , dipst ick Urobilinogen normal Not Available [facility] barbra [address], [place], [address], 09/21/2024 10:45:00 09/21/19 25 09/21/2024 urina lysis , dipst ick Protein trace Not Available [place] [address], [place], [address], 09/21/2024 10:45:00 09/21/19 25 09/21/2024 urina lysis , dipst ick pH 7 Not Available [place] [address], [place], [address], 09/21/2024 10:45:00 09/21/19 25 09/21/2024 urina lysis , dipst ick Specific Hubbard 1.015 Not Available [facility] [address], [place], [address], 09/21/2024 10:45:00 09/21/19 25 09/21/2024 urina lysis , dipst ick Ketone normal Not Available [place] [address], [place], [address], 09/21/2024 10:45:00 09/21/19 25 09/21/2024 urina lysis , dipst ick Bilirubin normal Not Available [facility] [address], [place], [address], 09/21/2024 10:45:00 09/21/19 25 09/21/2024 urina lysis , dipst ick Glucose normal Not Available [place] [address], [place], [address], 09/21/2024 10:45:00 09/21/19 25 09/21/2024 urina lysis , dipst ick Appearance normal Not Available [facility] [address], [place], [address], 09/21/2024 10:45:00 09/21/19 25 09/21/2024 urina lysis , dipst ick Color normal Not Available [place] [address], [place], [address], 09/21/2024 10:45:00 09/27/19 25 09/27/2024 GTT - GESTA ZANDER L, 3 HOUR, ACOG glucose, fasting acog 99 mg/dL 70-94 high Not Available [facility] (Lab) [address] [facility], [place], [address], 09/28/2024 13:40:46 09/27/19 25 09/27/2024 GTT - GESTA ZANDER L, 3 HOUR, ACOG glucose, 1 hour acog 89 mg/dL 70-179 Not Available [facility] (Lab) [address] [facility], [place], [address], 09/28/2024 13:40:46 09/27/19 25 09/27/2024 GTT - GESTA ZANDER L, 3 HOUR, ACOG glucose, 2 hour acog 104 mg/dL 70-154 Not Available [facility] (Lab) [address] [place], [address], 09/28/2024 13:40:46 09/27/19 25 09/27/2024 GTT - GESTA ZANDER L, 3 HOUR, ACOG glucose, 3 hour acog 92 mg/dL 70-139 Not Available [facility] (Lab) [address] [facility], [place], [address], 09/28/2024 13:40:46 09/27/19 25 09/27/2024 CMP/C BC/UR IC ACID uric acid 4.8 mg/dL 2.3-6. 6 Not Available [facility] (Lab) [address] [place], [address], 09/28/2024 13:40:47 09/27/19 25 09/27/2024 CMP/C BC/UR IC ACID sodium 138 mmol/ L 133-14 6 Not Available [facility] (Lab) [address] [facility], [place], [address], 09/28/2024 13:40:47 09/27/19 25 09/27/2024 CMP/C BC/UR IC ACID potassium 3.9 mmol/ L 3.5-5. 1 Not Available [facility] (Lab) [address] [facility], [place], [address], 09/28/2024 13:40:47 09/27/19 25 09/27/2024 CMP/C BC/UR IC ACID chloride 104 mmol/ L 98-107 Not Available [facility] (Lab) [address] [facility], [place], [address], 09/28/2024 13:40:47 09/27/19 25 09/27/2024 CMP/C BC/UR IC ACID carbon dioxide 25 mmol/ L 21-31 Not Available [facility] (Lab) [address] [facility], [place], [address], 09/28/2024 13:40:47 09/27/19 25 09/27/2024 CMP/C BC/UR IC ACID anion gap 9 mmol/ L 4-13 Not Available [facility] (Lab) [address] [place], [address], 09/28/2024 13:40:47 09/27/19 25 09/27/2024 CMP/C BC/UR IC ACID blood urea nitrogen 11 mg/dL 7-25 Not Available [facility] (Lab) [address] [place], [address], 09/28/2024 13:40:47 09/27/19 25 09/27/2024 CMP/C BC/UR IC ACID creatinine 0.53 mg/dL 0.60-1 .30 low Not Available [facility] (Lab) [address] [place], [address], 09/28/2024 13:40:47 09/27/19 25 09/27/2024 CMP/C BC/UR IC ACID egfrcr (CKD-epi 2020) >90 mL/mi n/1.7 3_m2 >=60 Not Available [facility] (Lab) [address] [facility], [place], [address], 09/28/2024 13:40:47 09/27/19 25 09/27/2024 CMP/C BC/UR IC ACID calcium 8.2 mg/dL 8.3-10 .5 low Not Available [facility] (Lab) [address], [place], [address], 09/28/2024 13:40:47 09/27/19 25 09/27/2024 CMP/C BC/UR IC ACID glucose 89 mg/dL 70-100 Not Available [facility] (Lab) [address] [facility], [place], [address], 09/28/2024 13:40:47 09/27/19 25 09/27/2024 CMP/C BC/UR IC ACID protein, total 5.7 g/dL 6.4-8. 3 low Not Available [facility] (Lab) [address] [facility], [place], [address], 09/28/2024 13:40:47 09/27/19 25 09/27/2024 CMP/C BC/UR IC ACID albumin 3.2 g/dL 3.5-5. 0 low Not Available [facility] (Lab) [address] [facility], [place], [address], 09/28/2024 13:40:47 09/27/19 25 09/27/2024 CMP/C BC/UR IC ACID ALT 29 units /L 9-43 Not Available [facility] (Lab) [address] [place], [address], 09/28/2024 13:40:47 09/27/19 25 09/27/2024 CMP/C BC/UR IC ACID alkaline phosphatase 124 units /L 34-104 high Not Available [facility] (Lab) [address] [facility], [place], [address], 09/28/2024 13:40:47 09/27/19 25 09/27/2024 CMP/C BC/UR IC ACID AST 19 units /L 13-39 Not Available [facility] (Lab) [address] [facility], [place], [address], 09/28/2024 13:40:47 09/27/19 25 09/27/2024 CMP/C BC/UR IC ACID bilirubin, total 0.5 mg/dL 0.2-1. 2 Not Available [facility] (Lab) [address], [place], [address], 09/28/2024 13:40:47 09/27/19 25 09/27/2024 CMP/C BC/UR IC ACID WBC 9.1 10'3/ uL 3.5-10 .5 Not Available [facility] (Lab) [address], [place], [address], 09/28/2024 13:40:47 09/27/19 25 09/27/2024 CMP/C BC/UR IC ACID RBC 4.01 10'6/ uL (based on docume nted legal sex) 3.80-5 .20 Not Available [facility] (Lab) [address] [place], [address], 09/28/2024 13:40:47 09/27/19 25 09/27/2024 CMP/C BC/UR IC ACID HGB 12.6 g/dL (based on docume nted legal sex) 11.6-1 5.4 Not Available [facility] (Lab) [address], [place], [address], 09/28/2024 13:40:47 09/27/19 25 09/27/2024 CMP/C BC/UR IC ACID HCT 36.9 % (based on docume nted legal sex) 34.0-4 5.0 Not Available [facility] (Lab) [address], [place], [address], 09/28/2024 13:40:47 09/27/19 25 09/27/2024 CMP/C BC/UR IC ACID MCV 92.0 fL 80.0-9 9.0 Not Available [facility] (Lab) [address], [place], [address], 09/28/2024 13:40:47 09/27/19 25 09/27/2024 CMP/C BC/UR IC ACID MCH 31.4 pg 27.0-3 4.0 Not Available [facility] (Lab) [address], [place], [address], 09/28/2024 13:40:47 09/27/19 25 09/27/2024 CMP/C BC/UR IC ACID MCHC 34.1 g/dL 32.0-3 5.5 Not Available [facility] (Lab) [address], [place], [address], 09/28/2024 13:40:47 09/27/19 25 09/27/2024 CMP/C BC/UR IC ACID RDW 13.9 % 11.0-1 5.0 Not Available [facility] (Lab) [address], [place], [address], 09/28/2024 13:40:47 09/27/19 25 09/27/2024 CMP/C BC/UR IC ACID plt 195 10'3/ uL 150-40 0 Not Available [facility] (Lab) [address], [place], [address], 09/28/2024 13:40:47 09/27/19 25 09/27/2024 CMP/C BC/UR IC ACID MPV 14.0 fL 8.8-12 .1 high Not Available [facility] (Lab) [address] [place], [address], 09/28/2024 13:40:47 09/27/19 25 09/27/2024 CMP/C BC/UR IC ACID neutrophils 75.0 % 34.0-7 3.0 high Not Available [facility] (Lab) [address] [facility], [place], [address], 09/28/2024 13:40:47 09/27/19 25 09/27/2024 CMP/C BC/UR IC ACID lymphocytes 15.3 % 15.0-5 0.0 Not Available [facility] (Lab) [address] [facility], [place], [address], 09/28/2024 13:40:47 09/27/19 25 09/27/2024 CMP/C BC/UR IC ACID monocytes 8.4 % 1.0-15 .0 Not Available [facility] (Lab) [address] [facility], [place], [address], 09/28/2024 13:40:47 09/27/19 25 09/27/2024 CMP/C BC/UR IC ACID eosinophils 0.6 % 0.0-8. 0 Not Available [facility] (Lab) [address] [facility], [place], [address], 09/28/2024 13:40:47 09/27/19 25 09/27/2024 CMP/C BC/UR IC ACID basophils 0.3 % 0.0-2. 0 Not Available [facility] (Lab) [address] [place], [address], 09/28/2024 13:40:47 09/27/19 25 09/27/2024 CMP/C BC/UR IC ACID immature granulocytes 0.4 % no define d refere nce range Immat ure Granu locyt es (IG) repre sents autom ated enume ratio n of Metam yeloc ytes, Myelo cytes and Promy elocy radha when IG is < 5%. Blast s are not inclu ded in IG and repor rosalie separ ately if prese nt. Not Available [facility] (Lab) [address] [facility], [place], [address], 09/28/2024 13:40:47 09/27/19 25 09/27/2024 CMP/C BC/UR IC ACID absolute neutrophils 6.8 10'3/ uL 1.5-8. 0 Not Available [facility] (Lab) [address] [facility], [place], [address], 09/28/2024 13:40:47 09/27/19 25 09/27/2024 CMP/C BC/UR IC ACID absolute lymphocytes 1.4 10'3/ uL 1.0-4. 0 Not Available [facility] (Lab) [address] [facility], [place], [address], 09/28/2024 13:40:47 09/27/19 25 09/27/2024 CMP/C BC/UR IC ACID absolute monocytes 0.8 10'3/ uL 0.2-1. 0 Not Available [facility] (Lab) [address] [facility], [place], [address], 09/28/2024 13:40:47 09/27/19 25 09/27/2024 CMP/C BC/UR IC ACID absolute eosinophils 0.1 10'3/ uL 0.0-0. 6 Not Available [facility] (Lab) [address] [place], [address], 09/28/2024 13:40:47 09/27/19 25 09/27/2024 CMP/C BC/UR IC ACID absolute basophils 0.0 10'3/ uL 0.0-0. 3 Not Available [facility] (Lab) [address] [place], [address], 09/28/2024 13:40:47 09/27/19 25 09/27/2024 CMP/C BC/UR IC ACID absolute immature granulocytes 0.0 10'3/ uL 0.00-0 .10 Refer ence range s for nonbi nary/ inter sex or unspe cifie d gende r patie nts have not been estab lishe d. Arnold e refer to the follo wing table for range s estab lishe d for cisge nder patie nts and evalu ate in the clini matty campbell xt of the indiv idual patie nt: https ://saurav aranda book. nm.or g/gen derx Not Available [facility] (Lab) [address] [facility], [place], [address], 09/28/2024 13:40:47 09/27/19 25 09/27/2024 BILE ACIDS , TOTAL bile acids, total 7 umol/ L 0-10 Test Perfo rmed by: Wilfredo magallon [facility]n [facility] [address] Not Available [facility] (Lab) [address] [facility], [place], [address], 09/28/2024 13:40:48 07/27/20 24 07/27/2024 US, obste tric, 2nd or 3rd trime ster No observ ation record ed. [facility] [address], [place], [address], 07/27/2024 17:24:31 07/27/20 24 07/27/2024 US, obste tric, follo w-up No observ ation record ed. [email or web address], [place], [address], 07/30/2024 09:15:54 08/22/19 25 08/22/2024 US, obste tric, follo w-up No observ ation record ed. [email or web address] [place] [address] [address], [place], [address], 08/22/2024 18:46:26 08/22/19 25 08/22/2024 US, obste tric, follo w-up No observ ation record ed. [email or web address] [address], [place], [address], 08/24/2024 09:29:33 08/29/19 25 08/29/2024 US, obste tric, follo w-up No observ ation record ed. [email or web address] [facility] [address], [place], [address], 09/02/2024 22:49:33 08/31/19 25 08/29/2024 US, obste tric, follo w-up No observ ation record ed. [email or web address] [facility] [address], [place], [address], 09/05/2024 09:15:26 09/06/19 25 09/06/2024 non-s tress test No observ ation record ed. [address] [facility] [address], [place], [address], 09/12/2024 08:17:35 09/21/19 25 09/21/2024 non-s tress test No observ ation record ed. [address] [facility] [address], [place], [address], 09/24/2024 22:30:24 10/05/19 25 10/04/2024 US, obste tric, follo w-up No observ ation record ed. [address], [place], [address], 10/04/2024 17:54:08 10/05/19 25 10/04/2024 US, obste tric, follo w-up No observ ation record ed. [email or web address] [place] [address], [place], [address], 10/04/2024 15:32:29 Result Notes None recorded. 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 09/25/202 4 18:31:24 Asthma 513611692 Active 2023 Lupe Kumar null, [facility] 4 18:31:52 Pregnanc y 11966456 Active 2023 Lupe Kumar null, [facility] 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 4 12:51:43 Vanishin g twin syndrome 258937918 Active Aylin Bay, KATHI [address], [place], [address], [facility] 4 12:51:43 Aortic root finding 701856869 Active mildly prominen t - Referral faxed to [facility] 08/24 Level iI 08/29 [facility] 09/20 1045 US/ echo and office visit Carine Carlos MA echo done needs rpt in 4 weeks, will then give delivery rec Postnata l surviell ance of aortic dilation is required Janessa nguyen [facility] 5 23:23:28 Aortic root finding 680842463 Active mildly prominen t - Referral faxed to [facility] 08/24 Level iI 08/29 [facility] 09/20 1045 US/ echo and office visit Carine Carlos MA echo done needs rpt in 4 weeks, will then give delivery rec Postnata l surviell ance of aortic dilation is required Janessa nguyen, [facility] 5 23:23:28 Blood glucose outside referenc e range 843294446 Active failed fasting on 3hr gtt checking bs x 4wks Janessa nguyen [facility] 5 09:08:56 Blood glucose outside referenc e range 887294544 Active failed fasting on 3hr gtt checking bs x 4wks Janessa Russo patrick, [facility] 5 09:08:56 Pregnanc y 44959121 Completed 201906/04/2020 Lupe nguyen [facility] 4 12:17:22 Problem Notes None recorded. Procedures Surgical History Date Name Laterality Status Provider Name and Address Organization Details Recorded Time 11/03/19 24 Date of Last Pap Smear completed Lupe Kumar [facility] 03/28/2024 20:37:26 08/01/19 14 tonsillectomy completed Lupe Kumar [facility] 03/28/2020 10:00:48 Imaging Results Imaging Date Name Status LastModified by Organiz ation Details LastModified Time 07/27/2024 US, obstetric, 2nd or 3rd trimester completed tito [facility] [address], [place], [address], 07/27/2024 17:24:31 07/27/2024 US, obstetric, follow-up completed [email or web address] [address], [place], [address], 07/30/2024 09:15:54 08/22/2024 US, obstetric, follow-up completed [email or web address] [facility] [address], [place], [address], 08/22/2024 18:46:26 08/22/2024 US, obstetric, follow-up completed [email or web address] [address], [place], [address], 08/24/2024 09:29:33 08/29/2024 US, obstetric, follow-up completed [place] [address], [place], [address], 09/02/2024 22:49:33 08/29/2024 US, obstetric, follow-up completed [facility] [address], [place], [address], 09/05/2024 09:15:26 09/06/2024 non-stress test completed [email or web address] [facility] [address], [place], [address], 09/12/2024 08:17:35 09/21/2024 non-stress test completed [address], [place], [address], 09/24/2024 22:30:24 10/04/2024 US, obstetric, follow-up active [email or web address] [address], [place], [address], 10/04/2024 17:54:08 10/04/2024 US, obstetric, follow-up completed [email or web address] [place] [address], [place], [address], 10/04/2024 15:32:29 Procedure Notes None recorded. Medical Equipment None Reported. Allergies No known drug allergies Medications Name Sig Start Date Stop Date Status Note LastModified by Organization Details LastModified Time cyclobenzap rine 10 mg tablet 03/29 completed Not Available Not Available Not Available amoxicillin 500 mg capsule 09/21 completed Not Available Not Available Not Available azithromyci n 250 mg tablet 08/25 completed Not Available Not Available Not Available fluconazole 150 mg tablet Take 1 tablet by oral route as directed for 1 day. 09/21 completed Not Available Not Available Not Available [...] completed Not Available Not Available Not Available oseltamivir 75 mg capsule 09/21 completed Not Available Not Available Not Available ranitidine 150 mg tablet 01/09 completed Not Available Not Available Not Available ursodiol 300 mg capsule Take 1 capsule twice a day by oral route as directed for 30 days. active Not Available Not Available No t Available ibuprofen 600 mg tablet 03/29 completed [...] completed Not Available Not Available Not Available tobramycin 0.3 %-dexametha sone 0.1 % eye drops,suspe nsion INSTILL 1 DROP INTO AFFECTED EYE(S) BY OPHTHALMI C ROUTE EVERY 6 HOURS active Not Available Not Available No t Available neomycin-po lymyxin-hyd rocort 3.5 mg-10,000 unit/mL-1 % ear drops,susp 03/29 completed Not Available Not Available Not Available cyclobenzap rine 5 mg tablet 2024 active Not Available Not Available Not Avai lable 03/29 completed Not Available Not Available Not Available OneTouch Verio test strips active Not Available Not Available Not Available OneTouch Verio Flex Meter active Not Available Not Available Not Available OneTouch Delica Plus Lancet 33 gauge active Not Available Not Available Not Available Vitals Date Recorded Body weight Body mass index (BMI) Body height Systolic blood pressure Diastolic blood pressure Provider Name and Address Organization Details Last Updated DateTime 07/27/2024 39216.37 157 g 26.4 kg/m2 166.37 cm 126 mm[Hg] 85 mm[Hg] [facility] 4 14:04:00 Date Recorded Body weight Body mass index (BMI) Body height Systolic blood pressure Diastolic blood pressure Provider Name and Address Organization Details Last Updated DateTime 08/22/2024 72596.51 816 g 27.5 kg/m2 166.37 cm 132 mm[Hg] 84 mm[Hg] [facility] 5 18:29:54 Date Recorded Body weight Body mass index (BMI) Body height Systolic blood pressure Diastolic blood pressure Provider Name and Address Organization Details Last Updated DateTime 09/21/2024 82484.92 579 g 27.4 kg/m2 166.37 cm 127 mm[Hg] 82 mm[Hg] [facility] 5 10:26:35 Social History Question Answer Notes LastModified by Organizat ion Details LastModified Time Tobacco Smoking Status Never Smoker Not Available [email or web address] 06/03/2020 03:28:11 What Is Your Level Of Alcohol Consumption? None [id number] Information not available 06/03/2020 If You Are , What Was Your Level Of Alcohol Consumption Prior To ? None [email or web address] Information not available 04/25/2024 Are You Blind Or Do You Have Difficulty Seeing? No Information not available 03/29/2022 What Is Your Level Of Caffeine Consumption? Occasional [email or web address] Information not available 04/25/2024 In The 14 [...] E-cigarettes Or Vape? Never Used Electronic Cigarettes [id number] Information not available 06/03/2020 What Was The Date Of Your Most Recent Tobacco Screening? 07/27/2024 [email or web address] Information not available 07/27/2024 Do You Have Smoke And Carbon Monoxide Detectors In Your Home? Yes [email or web address] Information not available 04/25/2024 Do You Or Have You Ever Used Smokeless Tobacco? Never Used Smokeless Tobacco [id number] Information not available 06/03/2020 How Much Tobacco Do You Smoke? No [id number] Information not available 06/03/2020 Do You Use Any Illicit Or Recreational Drugs? Yes Marijuana [email or web address] Information not available 04/25/2024 Do You Use Sunscreen Routinely? Yes [email or web address] Information not available 04/25/2024 Sex: Unknown Functional [...] 03/29/2022 What is your exercise level? Occasional [id number] Information not available 06/03/2020 Mental Status None recorded. Family History Relationship Description Onset Age of this Age Resolved Age Notes LastModified by Organization Details LastModified Time Paternal Grandmother Diabetes mellitus cory [email or web address] Not available 11/16/2019 12:15:06 Paternal Grandmother Hypertensive [...] ICD10 Code Diagnosis Note [address] [place] [address] [address] 11/20/2019 10:07:21 11/20/2019 10:57:25 Routine care 791703143 Z34.[address] [facility] [address] [address] 12/18/2019 11:14:00 12/18/2019 13:03:19 screening for malformation 957892207 Z36.3 4722 Jacob Valente [place] [address] [address] 12/18/2019 11:14:32 12/18/2019 13:02:41 Normal 58310146 Z34.92 7548 Chandu Monson MD [place] [address],[place] [address] 01/10/2020 11:42:10 01/10/2020 18:04:09 Routine care 038699079 Z34.02 45432 Aylin Bay [facility] [address],[place] [address] 02/05/2020 10:54:42 02/05/2020 11:31:54 Routine care 679260111 Z34.93 91174 Chandu Monson MD [place] [address],[place] [address] 02/19/2020 11:50:36 02/19/2020 12:38:13 Large for gestation age fetus 155198758 O35.8XX9 59412 Gabi Duque [facility] [place] [address],[place] [address] 02/28/2020 10:50:40 02/28/2020 11:56:08 Uterine size for dates discrepancy 224952709 O26.843 Z3A.31 20760 Chandu Monson MD [place] [address],[place] [address] 03/06/2020 12:10:22 03/06/2020 12:42:34 Routine care 530530469 Z34.02 84356 [facility] [address],[place] [address] 03/19/2020 11:38:56 03/19/2020 15:28:29 Routine care 260664667 Z34.93 23983 Aylin Bay [facility] [address],[place] [address] 03/28/2020 09:41:26 03/28/2020 10:25:38 Routine care 147551917 Z34.93 61740 Aylin Bay [facility] [address],[place] [address] 04/02/2020 12:44:30 04/02/2020 13:46:48 Routine care 552529934 Z34.93 50812 [facility] [address],[place] [address] 04/09/2020 12:12:16 04/10/2020 15:39:22 Routine care 142184987 Z34.93 94820 Donita Hemphill [facility] [address],[place] [address] 04/09/2020 12:54:51 04/09/2020 13:29:44 Reduced movement 815428277 O36.8130 83141 [place] [address],[place] [address] 04/14/2020 16:51:08 04/14/2020 17:48:58 Routine care 665807641 Z34.93 50939 [place] [address],[place] [address] 06/04/2020 09:22:06 06/04/2020 11:37:23 state 49601170 Z39.2 Continue to watch for signs/symp toms [...] plan if desiredp Abnormal v aginal bleeding 081363712 N93.9 Abnormal bleeding may be due to depo provera. Will check u/s and labs. [address] [facility] [address],[place] [address] 06/05/2020 10:16:39 06/05/2020 10:57:21 Abnormal vaginal bleeding 658151047 N93.9 [id number] ENRIQUE Manley [place] [address],[place] [address] 03/29/2022 09:58:08 03/29/2022 11:15:57 Contraception care management 154316154 Z30.9 We discussed normal to have some [...] review of plan of care. Abdominal pain 60774819 R10.9 [id number] ENRIQUE Manley [place] [address] [address] 08/25/2023 09:51:13 08/25/2023 14:05:25 Missed period 48118784 N92.5 UPT (-[facility] [place] cussed her period hx, reviewed timed IC, encouraged daily PNV starting nowcontinu e to track cycles, recommend returning in 1 month for WWE - due for primary pap Time spent in visit is a total of 18 mins with at least 50% of visit consisting of counseling and review of plan of care. Reproducti ve care management 358099940 Z31.9 062002 Fanny Sykes R[place] [address] [address] 11/03/2023 09:40:36 11/03/2023 13:57:25 Screening procedure 75519109 Z13.9 Gynecologi c examination 63851692 Z01.419 Z11.3 Z11.8 WWEB - none. TTCdiscuss ed timed IC, daily [...] paper copy of today's plan if desired. [id number] [facility] [address],[place] [address] 03/16/2024 14:08:22 03/16/2024 15:25:22 Trying to conceive 931869568 Z31.9 take vitamin dailycheck labs todayplan mid luteal progestero ne day 21 or 7 days after + ovulationd iscussed COST, handout given, will acquire semen analysis records Anovulation 50864320 N97 .0 check mid luteal progestero [place] [id number] [facility] [address],[place] [address] 04/19/2024 11:11:20 04/19/2024 13:13:24 Uterine size for dates discrepancy 497078730 O26.841 O30.041 O36.80X0 Z3A.01 [id number] [facility] [address],[place] [address] 04/25/2024 16:48:55 04/26/2024 01:49:01 Uncertain viability of 537551142 O36.80X0 O30.041 Z3A.01 [id number] Aylin Bay CN[facility] [place] [address],[place] [address] 04/25/2024 16:49:26 04/27/2024 09:25:08 Amenorrhea 40071008 N91.2 Twin 11275634 O30.009 continue to monitor growthpren atal vitamin dailyok for zofran if needed Migraine 11185350 G43.90 9 try exedrin migraine if no relief fioricet ok 107849 [facility] [address],[place] [address] 05/10/2024 14:51:05 05/10/2024 15:24:11 Uncertain viability of 947302938 O36.80X0 O31.10X9 Z3A.[address] [facility] [address],[place] [address] 05/11/2024 09:11:35 05/11/2024 11:31:30 Missed miscarriage 00505988 O02.1 twin B Amenorrhea 38565301 N91. 2 twin A +FHR, will continue to monitorpap up to datereview ed education and precaution sf/u 12 weeks new ob and first look, will determine when genetics may be collected for NIPT [id number] [facility] [address],[place] [address] 05/16/2024 14:16:45 05/16/2024 14:53:41 Abdominal pain in 339068247 O99.891 O31.11X0 Z3A.10 300083 Aylin Bay [facility] [address],[place] [address] 05/16/2024 14:44:18 05/16/2024 16:56:25 Pain in pelvis 43334755 R10.2 Abdominal pain 12786657 R10.9 [id number] [facility] [address],[place] [address] 06/08/2024 11:12:53 06/08/2024 11:57:37 screening 136878346 Z36.82 O31.10X9 Z3A.[id number] [facility] [address],[place] [address] 06/08/2024 11:13:15 06/08/2024 12:37:51 Gestation period, 13 weeks 76201862 Z3A.13 Routine an tenatal care 236985058 Z34.93 Migraine 18984123 G43.[address] [facility] [address],[place] [address] 07/06/2024 10:23:36 07/06/2024 13:25:04 Gestation period, 17 weeks 86067774 Z3A.17 continue vitamin [id number] Sylvie Garvey [place] [address],[place] [address] 07/27/2024 11:49:24 07/27/2024 14:42:58 screening for malformation 285907756 Z36.3 Z3A.20 234593 Aylin Bay [facility] [address],[place] [address] 07/27/2024 11:49:36 07/27/2024 14:42:49 Gestation period, 20 weeks 15301875 Z3A.20 404901 [facility] [address],[place] [address] 08/22/2024 17:23:27 08/22/2024 18:34:48 screening 637145398 Z36.2 Z3A.24 386230 Aylin Bay [facility] [address],[place] [address] 08/22/2024 17:23:43 08/24/2024 05:14:19 Gestation period, 24 weeks 383642396 Z3A.24 Recurrent bleeding of nose 0926842696 102 R04.0 plan saline spray daily [id number] Aylin Bay [facility] [address],[place] [address] 09/21/2024 09:55:44 09/21/2024 10:53:21 Gestation period, 28 weeks 99010536 Z3A.28 continue vitamin - induced hypertension 67294420 O13.9 Itching 031189770 L29.9 Urinary symptoms 8477543 08 R39.9 611503 [facility] [address],[place] [address] 10/04/2024 11:10:41 10/04/2024 13:29:38 Suspected abnormality affecting management of mother 2771257526 4678533 O35.8XX0 Z3A.30 Health Concerns Section Related Observation LastModified by Organization Detai ls LastModified Time None Recorded Concern Status LastModified by Organization Details LastModified Time None Recorded Advance Directives Directive None Recorded Payers Encounter Date Sequence Insurance Name Policy Number Policy Barrett Covered Member ID Barrett Member ID Guarantor Name 07/27/2024 1 [employer] ON OR AFTER 01/29/21 (MEDICAID REPLACEMENT - HMO) Michelle Olivas [id number] Adrionna N Olivas 08/22/2024 1 [employer] ON OR AFTER 01/29/21 (MEDICAID REPLACEMENT - HMO) Michelle Olivas [id number] Adrionna N Olivas 08/22/2024 1 [employer] ON OR AFTER 01/29/21 (MEDICAID REPLACEMENT - HMO) Michelle Olivas [id number] Adrionna N Olivas 09/21/2024 1 [employer] ON OR AFTER 01/29/21 (MEDICAID REPLACEMENT - HMO) Michelle Pérezina [id number] Adrionna N Olivas 10/04/2024 1 [employer] ON OR AFTER 01/29/21 (MEDICAID REPLACEMENT - HMO) Michelle Pérezina [id number] Guya Jose Olivas OBGyn Episode Ob Episode Information Episode Created Date Number of Fetuses Patient Bloodtype Patient rh Status Prepregnancy Weight lbs Domestic Partner Domestic Partner Phone Father Name Clin Nurse Status 11/20/19 20 1 O Negative 150 [...] Weight in lbs Pre/Post Dialysis Refused Weight 149.271192189486 BP Diastolic BP Location Tested BP Systolic [...] Weight in lbs Pre/Post Dialysis Refused Weight 153.846638772516 BP Diastolic BP Location Tested BP Systolic [...] Weight in lbs Pre/Post Dialysis Refused Weight 150.099610781586 BP Diastolic BP Location Tested BP Systolic BP Type 82 127 sitting Fetus Heart Rate Present A 155 Fetus Movement A No Comments G1 at 13+2 by sure LMP = 9 w [place] She has BEARD about every other day relieved with Tylenol. Nausea but no emesis. She had spotting in early September but none since Flowsheet Date 01/10/2020 Serna Score Blood Edema Fundus Height Fundus Units Glucose Ketones Leukocytes Nitrite Labor Signs Protein Cervic Dilation Cervic Effacement Cervic Station 25 trace Type Weight in lbs Pre/Post Dialysis Refused Weight 157.446982876510 BP Diastolic BP Location Tested BP Systolic BP Type 76 127 Fetus Heart Rate Present A 155 Fetus Movement A Yes Comments Flowsheet Date 02/05/2020 Serna Score Blood Edema Fundus Height Fundus Units Glucose Ketones Leukocytes Nitrite Labor Signs Protein Cervic Dilation Cervic Effacement Cervic Station neg trace 27 trace Type Weight in lbs Pre/Post Dialysis Refused Weight 160.138602519629 BP Diastolic BP Location Tested BP Systolic BP Type 75 114 Fetus Heart Rate Present A 156 Present Fetus Movement A Yes Comments PATIENT STATES THAT HAVING S WELLING, swelling resolves by am, monitor at home, rx for GCT and rhogam givenbaby hossein [place] Flowsheet Date 02/19/2020 Serna Score Blood Edema Fundus Height Fundus Units Glucose Ketones Leukocytes Nitrite Labor Signs Protein Cervic Dilation Cervic Effacement Cervic Station 33 trace Type Weight in lbs Pre/Post Dialysis Refused Weight 162.158541953900 BP Diastolic BP Location Tested BP Systolic [...] Weight in lbs Pre/Post Dialysis Refused Weight 166.025818762392 BP Diastolic BP Location Tested BP Systolic BP Type 79 127 Fetus Heart Rate Present A 145 Fetus Movement A Yes Comments normal blood sugars Flowsheet Date 03/19/2020 Serna Score Blood Edema Fundus Height Fundus Units Glucose Ketones Leukocytes Nitrite Labor Signs Protein Cervic Dilation Cervic Effacement Cervic Station neg trace 35 trace Type Weight in lbs Pre/Post Dialysis Refused Weight 171.418690300412 BP Diastolic BP Location Tested BP Systolic [...] Weight in lbs Pre/Post Dialysis Refused Weight 167.541446167130 BP Diastolic BP Location Tested BP Systolic [...] Weight in lbs Pre/Post Dialysis Refused Weight 168.658171249037 BP Diastolic BP Location Tested BP Systolic [...] Weight in lbs Pre/Post Dialysis Refused Weight 172.908051814030 BP Diastolic BP Location Tested BP Systolic [...] Weight in lbs Pre/Post Dialysis Refused Weight 173.489177728904 BP Diastolic BP Location Tested BP Systolic [...] Weight in lbs Pre/Post Dialysis Refused Weight 153.887945587119 BP Diastolic BP Location Tested BP Systolic [...] Estim ated Date of Delivery false Thalassemia (Palestinian, Slovenian, Mediterranean, Or Background): MCV < 80 false Neural Tube Defect (Meningomyelocele, Spina Bifi da, Or Anencephaly) false Congenital Heart Defect false Down Syndrome false Buster-Sachs (eg, Protestant, Cajun, Turks And Ca[place] Islander-Patillas) f alse Manpreet Disease false Sickle Cell Disease Or Trait () false Hemophilia Or Other Blood Disorders false Muscular Dystrophy false Cystic Fibrosis false Crenshaw's Chorea false Intellectual Disability/Autism false If Yes, [...] Domestic Partner Domestic Partner Phone Father Name Clin Nurse Status 04/25/20 20 1 DELETED Jam Calculation Initial Jam Date [...] Domestic Partner Domestic Partner Phone Father Name Clin Nurse Status 06/08/20 24 1 O Negative 153 Home [employer] OPEN Fetus Data First Name Last Name Admitted to NICU Weight (g) Sex Living Outcome Pediatric Complications Fetus ID Race Codes Race Delivery Type [id number] Problems Problem Notes rhogam 04/02/24- due november 06, 2024 rx givenElevated PCR 0.45 BPs normotensive Problem Name Start Date End Date Resolution Snomed Code Not e Blood glucose outside reference range 819847080 failed fasting on 3hr gtt checking bs x 4wks 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 276574148 james pregn ya Vanishing twin syndrome 381954793 Aortic root finding 658213281 mildly prominent - [facility]erral [facility] echo and office visit Jgreen,CMAfetal echo done needs rpt in 4 weeks, will then give delivery recPostnatal surviellance of aortic dilation is required Jam Calculation Initial Jam Date Initial Exam [...] Weight in lbs Pre/Post Dialysis Refused Weight 153.807671694153 BP Diastolic BP Location Tested BP Systolic [...] Type Weight in lbs Pre/Post Dialysis Refused 156.431475918585 BP Diastolic BP Location Tested BP Systolic [...] Type Weight in lbs Pre/Post Dialysis Refused 161.999263636416 BP Diastolic BP Location Tested BP Systolic [...] Type Weight in lbs Pre/Post Dialysis Refused 168.756161825833 BP Diastolic BP Location Tested BP Systolic BP Type 84 132 Fetus Heart Rate Present Fetus Movement A Yes Comments patient is having nose bleed s, cough up blood, BH contractions, discharge and swelling. nasasl spray daily, ptl precautions, gct at next visit, mfm consult for prominent aortic root, f/u here in 4 weeks, wearing support belt and is helping Flowsheet Date 09/21/2024 Serna Score Blood Edema Fundus Height Fundus Units Glucose Ketones Leukocytes Nitrite Labor Signs Protein Cervic Dilation Cervic Effacement Cervic Station neg trace Type Weight in lbs Pre/Post Dialysis Refused [id number] BP Diastolic BP Location Tested BP Systolic BP Type 82 127 Fetus Heart Rate Present Fetus Movement A Yes Comments Patient states that was at [facility] and deliver last week with Flu and high heart rate and blood pressure. Was at [facility] for her echo yesterday. Patient states that having swelling, itching, nausea and vomirting. check labs, normotensive bp, denies beard, visual changes, plan rpt ryne early october. +FM ok for unisom if needed for sleep, has zofran for nausea. growth at next visit per mfm. check maternity belt at next visit, will bring, velcro not working, education and precautions f/u 2 weeks, ok for tdap Flowsheet Date 10/04/2024 Serna Score Blood Edema Fundus Height Fundus [...]
--- OUTSIDE RECORDS SUMMARY | 2024-10-05 21:05 | XMS_ITS | Clinical Summary ---
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
--- OUTSIDE RECORDS SUMMARY | 2024-10-05 21:05 | XMS_ITS | Patient Health Summary ---
Author Organization [facility] Address [address] [place] [address] Care Team Providers Care Recovery Agent Name Role Phone Sydney Rush MD Primary Care Provider [phone] Note from [facility],non-owned Affiliates and Associated Physician Practices is amultiple site organization consisting of ambulatory clinics and hospital sitesin [place], [place], [place] and [place]. This disclosure is being madepursuant to the Care Everywhere program and may not contain all information available regarding this patient. Last updated 18.[facility] Allergies No known active allergies Medications [...] Nausea/Vomiting Reasons: Nausea and Vomiting in * xfmzgir-arisaqjtxihxm-scpkzwga 250-250-65 MG tablet Take 1 (one) tablet by mouth every 6 hours as needed for Headache * cyclobenzaprine (Flexeril) 10 MG tablet Take 1 (one) tablet by mouth 3 times daily as needed for Muscle Spasms Reasons: Muscle Spasm Active Problems Problem Noted Date Diagnosed Date [...] Comments Blood Pressure 115/73 08/29/2024 2:35 PM VOCATIONAL TECHNICAL EDUCATION TEACHER Pulse 71 08/29/2024 2:35 PM VOCATIONAL TECHNICAL EDUCATION TEACHER Temperature 36.3 C (97.3 F) 01/12/2017 10:45 AM CDT Respiratory Rate 16 01/12/2017 11:15 AM CDT Oxygen Saturation 97% 01/12/2017 11:00 AM CDT Inhaled Oxygen Concentration 100% 01/12/2017 1 0:45 AM CDT Weight 76.2 kg (168 lb) 08/29/2024 2:35 PM VOCATIONAL TECHNICAL EDUCATION TEACHER Height 165.1 cm (5' 5 ) 08/29/2024 2:35 PM VOCATIONAL TECHNICAL EDUCATION TEACHER Body Mass Index 27.96 08/29/2024 2:35 PM VOCATIONAL TECHNICAL EDUCATION TEACHER Procedures * ECHO COMPLETE CG(Performed 09/20/2024) Performed for Suspected abnormality affecting management of mother, antepartum, single or unspecified fetus (HCC) * SONOGRAM - COMPLETE(Performed 08/29/2024) Performed for Encounter for anatomic survey (HCC), Abnormal ultrasound, Vanishing twin syndrome (HCC), 25 weeks gestation of ([facility]) * US ABDOMEN LIMITED(Performed 01/21/2017) Performed for [...] Performed for Generalized abdominal pain Results * ECHO COMPLETE CG (09/20/2024 11:26 AM VOCATIONAL TECHNICAL EDUCATION TEACHER) MV E pk rubio 25.9 cm/s SSM CV F UJI PACS MV A pk rubio 50.15 cm/s SSM CV F UJI PACS Anatomical Region Laterality Modality Ultrasound 09/20/2024 10:5 5 AM VOCATIONAL TECHNICAL EDUCATION TEACHER Narrative 09/20/2024 4:33 PM VOCATIONAL TECHNICAL EDUCATION TEACHER Name: Michelle Olivas Patient Exam Info Gender: Female Patient Status: O/P : 2000 Admit Date: 09/20/2024 Exam Date/Time: 09/20/2024 10:55 AM Site: [facility] Current Location: CARE EStaffOrdering Provider: Truman Ledezma Interpreting Physician: Marimar Prasad MD Air Director: Lino Ribera [facility] Study Info Procedure: ECHO COMPLETE CG Indications: O35.9XX0 - Suspected abnormality affecting management of mother, antepartum, single or unspecified fetus (HCC) Maternal Gestational Status GA by EDC: 28 wks , 3 days EDC: 12/10/2024 Type: James Age: 23 yrs Lie: Vertex Summary * Ductus arteriosus appears small, but with unobstructed right to left flow. * No evidence of RV strain. * No intracardiac abnormalities demonstrated. * Small atrial and ventricular septal defects and persistent ductus arteriosus cannot be excluded as findings. Anatomic Relationships Left sided cardiac apex (levocardia). There is normal visceral-cardiac situs, and normal segmental cardiac anatomical relationship. Systemic Veins There is normal systemic venous return. Pulmonary Veins The visualized pulmonary veins drain normally to the left atrium. Right Atrium The right atrial size is normal. Left Atrium The left atrial size is normal. Atrial Septum Patent foramen ovale with open foramen flap. Color flow is right to left. Right Ventricle The right ventricular cavity size is normal. The right ventricular wall thickness is normal. The right ventricular systolic function is normal. RV Outflow Tract The right ventricular outflow tract is normal. Left Ventricle The left ventricular cavity size is normal. The left ventricular wall thickness is normal. The left ventricular systolic function is normal. Ventricular Septum There is no ventricular septal defect with no shunting. LV Outflow Tract The left ventricular outflow tract is normal. Tricuspid Valve The tricuspid valve is structurally normal. The tricuspid inflow pattern is normal. Tricuspid velocity is within the normal range. There is no tricuspid regurgitation. Mitral Valve The mitral valve is structurally normal. The mitral inflow pattern is normal. Mitral velocity is within the normal range. There is no mitral regurgitation. Aorta aortic arch visualized and is without obstruction by 2D, color flow and Doppler. Pulmonary Arteries The main pulmonary artery is normal, with confluent branch pulmonary arteries. Ductus Arteriosus The ductus arteriosus appears small. The antegrade flow velocity and pattern in the ductal arch is normal, no evidence of restriction. Doppler Flow in the ductus venosus is normal. The umbilical vein flow pattern is normal. The umbilical artery flow pattern is normal. Hydrops Assessment No pericardial effusion. No ascites present. No pleural effusion(s). Rhythm The rhythm is normal. There is 1:1 AV conduction. Pulmonary Valve The pulmonic valve is normal-sized. The transpulmonic velocity is within normal range. There is no pulmonic regurgitation. Aortic Valve The aortic valve is normal-sized. The transaortic velocity is within normal range. There is no aortic regurgitation. Doppler Measurements (Fetus A) Atrioventricular Valves Name Value Normal Z-Score Percentile Atrioventricular Valves Doppler TV E Peak Velocity 0.4 m/s TV A Peak Velocity 0.6 m/s MV E Peak Velocity 0.3 m/s MV A Peak Velocity 0.5 m/s (Fetus A) Semilunar Valves Name Value Normal Z-Score Percentile Semilunar Valves Doppler PV Peak Velocity. 0.7 m/s AV Peak Velocity () 1.1 m/s Report Signatures Finalized by Marimar Prasad MD on 09/20/2024 04:33 PM Procedure Note Marimar Prasad MD - 09/20/2024 Name: Michelle Olivas Patient Exam Info Gender: Female Patient Status: O/P : 2000 Admit Date: 09/20/2024 Exam Date/Time: 09/20/2024 10:55 AM Site: [facility] Current Location: CARE EStaffOrdering Provider: Truman Ledezma Interpreting Physician: Marimar Prasad MD Air Director: Lino Ribera [facility] Study Info Procedure: ECHO COMPLETE CG Indications: O35.9XX0 - Suspected abnormality affecting management ofmother, antepartum, single or unspecified fetus (HCC) Maternal Gestational Status GA by EDC: 28 wks , 3 days EDC: 12/10/2024 Type: James Age: 23 yrs Lie: Vertex Summary * Ductus arteriosus appears small, but with unobstructed right to leftflow. * No evidence of RV strain. * No intracardiac abnormalities demonstrated. * Small atrial and ventricular septal defects and persistent ductus arteriosus cannot be excluded as findings. Anatomic Relationships Left sided cardiac apex (levocardia). There is normal visceral-cardiac situs, and normal segmental cardiac anatomical relationship. Systemic Veins There is normal systemic venous return. Pulmonary Veins The visualized pulmonary veins drain normally to the left atrium. Right Atrium The right atrial size is normal. Left Atrium The left atrial size is normal. Atrial Septum Patent foramen ovale with open foramen flap. Color flow is right toleft. Right Ventricle The right ventricular cavity size is normal. The right ventricularwall thickness is normal. The right ventricular systolic function is normal. RV Outflow Tract The right ventricular outflow tract is normal. Left Ventricle The left ventricular cavity size is normal. The left ventricular wall thickness is normal. The left ventricular systolic function is normal. Ventricular Septum There is no ventricular septal defect with no shunting. LV Outflow Tract The left ventricular outflow tract is normal. Tricuspid Valve The tricuspid valve is structurally normal. The tricuspid inflow patternis normal. Tricuspid velocity is within the normal range. There is notricuspid regurgitation. Mitral Valve The mitral valve is structurally normal. The mitral inflow pattern is normal. Mitral velocity is within the normal range. There is no mitral regurgitation. Aorta aortic arch visualized and is without obstruction by 2D, colorflow and Doppler. Pulmonary Arteries The main pulmonary artery is normal, with confluent branch pulmonary arteries. Ductus Arteriosus The ductus arteriosus appears small. The antegrade flow velocity andpattern in the ductal arch is normal, no evidence of restriction. Doppler Flow in the ductus venosus is normal. The umbilical vein flow patternis normal. The umbilical artery flow pattern is normal. Hydrops Assessment No pericardial effusion. No ascites present. No pleural effusion(s). Rhythm The rhythm is normal. There is 1:1 AV conduction. Pulmonary Valve The pulmonic valve is normal-sized. The transpulmonic velocity iswithin normal range. There is no pulmonic regurgitation. Aortic Valve The aortic valve is normal-sized. The transaortic velocity is withinnormal range. There is no aortic regurgitation. Doppler Measurements (Fetus A) Atrioventricular Valves Name Value Normal Z-ScorePercentile Atrioventricular Valves Doppler TV E Peak Velocity 0.4 m/s TV A Peak Velocity 0.6 m/s MV E Peak Velocity 0.3 m/s MV A Peak Velocity 0.5 m/s (Fetus A) Semilunar Valves Name Value Normal Z-ScorePercentile Semilunar Valves Doppler PV Peak Velocity. 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 Para 1 [id number] 1. live 2019. Gest. age 39 w [...] 1 lb 15 oz EFW by Hadlock ([id number]) Head / Face / Neck Biometry: CM [...] view. RVOT view. LVOT view. 3-vessel view. 9-orewbq-iaejvul view. Situs. Aortic arch view. Bicaval view. [...] LMP & early U/S * Referred to [facility] for obstetrical U/S & request for [...] determine at present Please notify the baby's Industrial Radiographer of the above history Follow-up ======== U/S at 32 weeks Coding ====== Procedures [id number]: US Preg Uterus Detailed [facility] Zettics PACS Anatomical Region Laterality Modality Other 08/29/2024 1:43 PM VOCATIONAL TECHNICAL EDUCATION TEACHER R Ishaan Monson MD [facility] ORDERABLES * US ABDOMEN LIMITED (01/21/2017 [...] CDT) Case Report Surgical Pathology Report Case: [id number] Authorizing Provider: Trena Tanner MD Collected: 01/12/2017 10:19 AM Ordering Location: ENDOSCOPY SERVICES Received: 01/12/2017 11:08 AM Pathologist: Juan Jones MD Specimens: A) - Duodenal Biopsy B) - Stomach Biopsy C) - Esophageal Biopsy, distal D) - Esophageal Biopsy, proximal 01/17/2017 10:21 AM CDT [facility] Final Diagnosis A. DUODENUM, BIOPSY: -NO SIGNIFICANT HISTOPATHOLOGICAL CHANGES B. STOMACH, BIOPSY: -NO SIGNIFICANT HISTOPATHOLOGICAL CHANGES C. ESOPHAGUS, DISTAL, BIOPSY: -MINIMAL HISTOLOGICAL ABNORMALITIES -SEE MICROSCOPIC DESCRIPTION D. ESOPHAGUS, PROXIMAL, BIOPSY: -MINIMAL HISTOLOGICAL ABNORMALITIES -SEE MICROSCOPIC DESCRIPTION 01/17/2017 10:21 AM [facility] Clinical History The patient is a 16-year-old girl with abdominal pain and dysphagia who underwent upper endoscopy which was found to be normal. 01/17/2017 10:21 AM [facility] Gross Description The specimens are [...] as D1. (CT/ns) 01/17/2017 10:21 AM [facility] Microscopic Description 12 H&E Sections [...] high power field. 01/17/2017 10:21 AM [facility] Disclaimer The performance characteristics of all immunohistochemical and indirect immunofluorescence stains (if any) cited in this report were determined by the Histopathology Laboratory of [facility]. Some of these tests were developed by [...] attending (teaching) pathologist. 01/17/2017 10:21 AM CDT [facility] Embedded Images 01/17/2017 10:21 AM CDT [facility] Pathology/Cytology DUODENAL BIOPSY SPECIMEN / [...] - PATHOLOGY/CYTO LOGY ORDERABLES Performing Organization Address [facility] Co de Phone Number [facility] [address] [place] [phone] * HELICOBACTER PYLORI UREASE (STL) (01/12/2017 10:19 AM CDT) Helicobacter pylori Urease Initial Negative Negative 01/13/2017 3:29 PM CDT [facility] Helicobacter pylori Urease Final Negative Negative 01/13/2017 3:29 PM CDT [facility] Comment:This is an appended report. These results have been appended to a previously preliminary verified report. Microbiology GASTRIC ANTRAL BIOPSY SPECIMEN / Unknown 01/12/2017 10:19 AM CDT 01/12/2017 10:31 AM CDT Trena Tanner MD LAB - MICROBIOLOGY O RDERABLES Performing Organization Address [facility] Co de Phone Number [facility] [address] [place] [phone] * HCG URINE QUALITATIVE - POCT (IP) BEAKER (01/12/2017 9:00 AM CDT) HCG Qual Urine Negative Negative [facility] PO[facility] TEST[facility] QC Verified Yes Yes [facility] PO CT TESTING Urine URINE / Unknown 01/12/2017 9 :00 AM CDT Trena Tanner MD LAB - POINT OF CARE ORDERABLES [facility] [address] [place] [address], [facility] [phone] * EGD (01/12/2017 7:05 AM CDT) Report Endoscopy POC _ Patient Name: Michelle Olivas Date of : 2000 Admit Type: Outpatient Age: 16 Gender: Female Attending MD: Trena Tanner MD Order #: [id number] _ Procedure: Upper GI endoscopy Indications: Generalized [...] Gallbladder ultrasound Procedure Code(s): --- Professional --- 23343, Esophagogastrodu odenoscopy, flexible, transoral; with biopsy, single or multiple --- Technical --- 65565, Esophagogastrodu odenoscopy, flexible, transoral; with biopsy, single or multiple Diagnosis Code(s): --- Professional --- R10.84, Generalized abdominal pain R13.10, Dysphagia, unspecified --- Technical --- R10.84, Generalized abdominal pain R13.10, Dysphagia, unspecified CPT copyright 2015 [employer]. All rights reserved. The codes documented in this report are preliminary and upon medical biller/coder review may be revised to meet current compliance requirements. Dr. Trena Tanner MD Trena Tanner MD 01/12/2017 10:38:42 AM Number of Addenda: 0 Note Initiated On: 01/12/2017 7:05 AM Procedure Date: 01/12/2017 7:05:47 AM This report has been signed electronically. [facility] 01/12/2017 7:05 AM CDT Trena Tanner MD GI PROCEDURE ORDERAB LES [facility] [address] [place] [address] * TISSUE TRANSGLUTAMINASE AB IGA (12/16/2016 4:06 PM CDT) TTG Antibody IgA <2 0 - 3 U/mL 12/17/2016 2:12 PM CDT [facility] ([facility]) Comment: Negative 0 - 3 Weak Positive 4 - 10 Positive >10 Tissue Transglutaminase (tTG) has been identified as the endomysial antigen. Studies have demonstr- ated that endomysial IgA antibodies have over 99% specificity for gluten sensitive enteropathy. Blood BLOOD SPECIMEN / Unknown Lab Venipuncture / Unknown 12/16/2016 4:06 PM CDT 12/16/2016 4:27 PM CDT Narrative [facility] ([facility]) - 12/17/2016 2:12 PM CDT Performed at: [address] [place] [id number] Electronic Prepress Operator: Jeffery Perkins PhD, Phone: [phone] Trena Tanner MD LAB - SEROLOGY ORDER RAOUL Performing Organization Address City/[facility]/ZIP Co de Phone Number [facility] ([facility]) [address] [place] [address] * C-REACTIVE PROTEIN (12/16/2016 4:06 PM CDT) Pathologist [facility] C-Reactive Protein <0.20 <=0.50 mg/dL 12/16/2016 4:55 PM CDT [facility] Blood BLOOD SPECIMEN / Unknown Lab Venipuncture / Unknown 12/16/2016 4:06 PM CDT 12/16/2016 4:26 PM CDT Trena Tanner MD LAB - CHEMISTRY CHERELLE COSME [facility] [address] [place] [address] * SED RATE WESTERGREN (12/16/2016 4:06 PM CDT) Pathologist [facility] Erythrocyte Sedimentation Rate Westergren 3 0 - 12 mm/hr 12/16/2016 5:38 PM CDT [facility] Blood BLOOD SPECIMEN / Unknown Lab Venipuncture / Unknown 12/16/2016 4:06 PM CDT 12/16/2016 4:26 PM CDT Trena Tanner MD LAB - HEMATOLOGY ORD ERABLES [facility] [address] [place] [address] * (ABNORMAL) CBC W AUTO DIFFERENTIAL (12/16/2016 4:06 PM CDT) [facility] WBC 7.4 4.5 - 14.5 x10E9/L 12/16/2016 4:44 PM CDT [facility] WBC Corrected x10E9/L 12/16/2016 4:44 PM CDT [facility] RBC 5.30(H) 4.10 - 5.10 x10E12/L 12/16/2016 4:44 PM CDT [facility] Hemoglobin 15.8 12.0 - 16.0 gm/dL 12/16/2016 4:44 PM CDT [facility] Hematocrit 44.7 36.0 - 47.0 % 12/16/2016 4:44 PM CDT [facility] MCV 84.3 78.0 - 98.0 fl 12/16/2016 4:44 PM CDT [facility] MCH 29.8 25.0 - 35.0 pg 12/16/2016 4:44 PM CDT [facility] MCHC 35.3 31.0 - 37.0 gm/dL 12/16/2016 4:44 PM CDT [facility] Platelet Count 224 100 - 400 x10E9/L 12/16/2016 4:44 PM CDT [facility] RDW-CV 12.9 11.5 - 14.0 % 12/16/2016 4:44 PM CDT [facility] MPV 10.8(H) 6.0 - 9.5 fl 12/16/2016 4:44 PM CDT [facility] Neutrophils % 57.6 24.0 - 66.0 % 12/16/2016 4:44 PM CDT [facility] Lymphocytes % 31.6 22.0 - 61.0 % 12/16/2016 4:44 PM CDT [facility] Monocytes % 7.9 3.0 - 15.0 % 12/16/2016 4:44 PM CDT [facility] Eosinophils % 2.3 0.0 - 10.0 % 12/16/2016 4:44 PM CDT [facility] Basophils % 0.3 % 12/16/2016 4:44 PM CDT [facility] Immature Granulocytes 0.3 % 12/16/2016 4:44 PM CDT [facility] Neutrophil Absolute 4.24 x10E9/L 12/16/2016 4:44 PM CDT [facility] Lymphocytes Absolute 2.32 x10E9/L 12/16/2016 4:44 PM CDT [facility] Monocytes Absolute 0.58 x10E9/L 12/16/2016 4:44 PM CDT [facility] Eosinophils Absolute 0.17 x10E9/L 12/16/2016 4:44 PM CDT [facility] Basophils Absolute 0.02 x10E9/L 12/16/2016 4:44 PM CDT [facility] Immature Granulocytes Absolute 0.02 x10E9/L 12/16/2016 4:44 PM CDT [facility] nRBC Auto 0 /100 WBC 12/16/2016 4:44 PM CDT [facility] Blood BLOOD SPECIMEN / Unknown Lab Venipuncture / Unknown 12/16/2016 4:06 PM CDT 12/16/2016 4:26 PM CDT Trena Tanner MD LAB - HEMATOLOGY ORD ERABLES Performing Organization Address City/State/[facility] Co de Phone Number [facility] [address] [place], [place] [id number] * (ABNORMAL) COMPREHENSIVE METABOLIC PANEL (12/16/2016 4:06 PM CDT) [facility] Glucose 77 70 - 105 mg/dL 12/16/2016 5:20 PM CDT [facility] Sodium 139 136 - 145 mmol/L 12/16/2016 5:20 PM CDT [facility] Potassium 4.2 3.5 - 5.1 mmol/L 12/16/2016 5:20 PM CDT [facility] Chloride 107 98 - 107 mmol/L 12/16/2016 5:20 PM CDT [facility] CO2 25 20 - 28 mmol/L 12/16/2016 5:20 PM CDT [facility] Calcium 9.34 9.08 - 10.48 mg/dL 12/16/2016 5:20 PM T [facility] Anion Gap 7 5 - 20 mmol/L 12/16/2016 5:20 PM CDT [facility] BUN 17.4 5.3 - 18.7 mg/dL 12/16/2016 5:20 PM T [facility] Creatinine 0.84 0.61 - 1.07 mg/dL 12/16/2016 5:20 PM T [facility] Alkaline Phosphatase 69(L) 100 - 390 U/L 12/16/2016 5:20 PM T [facility] ALT 18 8 - 65 U/L 12/16/2016 5:20 PM T [facility] AST 23 3 - 35 U/L 12/16/2016 5:20 PM T [facility] Protein Total 7.7 6.3 - 8.2 gm/dL 12/16/2016 5:20 PM T [facility] Albumin 4.4 3.3 - 4.9 gm/dL 12/16/2016 5:20 PM T [facility] Bilirubin Total 0.6 0.3 - 1.2 mg/dL 12/16/2016 5:20 PM T [facility] eGFR by MDRD mL/min/1.7 3m2 12/16/2016 5:20 PM T [facility] Comment: eGFR calculations are not performed for children under 18 years old. eGFR by MDRD mL/min/1.7 3m2 12/16/2016 5:20 PM T [facility] Comment: eGFR calculations are not performed for children under 18 years old. Blood BLOOD SPECIMEN / Unknown Lab Venipuncture / Unknown 12/16/2016 4:06 PM CDT 12/16/2016 4:26 PM CDT Trena Tanner MD LAB - CHEMISTRY CHERELLE COSME [facility] Organization Address City/State/ZIP Co de Phone Number [facility] [address] [place], [place] [id number] * IGA BLOOD (12/16/2016 4:06 PM CDT) IgA 113 65 - 421 mg/dL 12/16/2016 5:20 PM T [facility] Blood BLOOD SPECIMEN / Unknown Lab Venipuncture / Unknown 12/16/2016 4:06 PM CDT 12/16/2016 4:26 PM CDT Trena Tanner MD LAB - CHEMISTRY CHERELLE COSME [facility] [place] [address] Care Teams Recovery Agent Relationship Specialty Start Date End Date Sydney Rush MD [address] [place] [address] PADMINI Garcia [phone] PCP - General Family Medicine 07/10/13
--- OUTSIDE RECORDS SUMMARY | 2024-10-05 21:05 | XMS_ITS | Clinical Summary ---
Author Organization [facility] [employer] Address [address] [place] [address] Care Team Providers Care Route Jumper Name Role Phone Sydney Rush MD Primary Care Provider [phone] Source Comments [facility] [employer],non-owned Affiliates and Associated Physician Practices is amultiple site organization consisting of ambulatory clinics and hospital sitesin [place], [place], [place] and [place]. This disclosure is being madepursuant to the Care Everywhere program and may not contain all information available regarding this patient. Last updated 18.[facility] [employer] Allergies No known active allergies Medications * Be aware that medications may not be up to date on this document. Alwaysverify current medications with the patient. Medication Sig Dispensed Refills Start Date End Date Status Other White dissolving pill for nausea Active Vit-DSS-Fe Fum-FA ( vitamin with iron) tabletIndications:Pr egnancy Take 1 (one) tablet by mouth once daily Reasons: Active ondansetron (Zofran) 4 MG tabletIndications:Na usea and/or Vomiting in Take 1 (one) tablet by mouth every 6 hours as needed for Nausea/Vomiting Reasons: Nausea and Vomiting in Active aspirin-acetaminophe n-caffeine 250-250-65 MG tablet Take 1 (one) tablet by mouth every 6 hours as needed for Headache Active cyclobenzaprine (Flexeril) 10 MG tabletIndications:Mu scle Spasm Take 1 (one) tablet by mouth 3 times daily as needed for Muscle Spasms Reasons: Muscle Spasm Active Active Problems Problem Noted Date Diagnosed Date Pain, abdominal, generalized 01/12/2017 Estimated Date of Delivery Comme nts Yes 12/10/2024 Based on last me nstrual period of 03/05/2024 Encounters Date Type Department Care Team Description 09/20/2024 10:31 AM TIRE SERVICE SUPERVISOR - 09/20/2024 11:59 PM TIRE SERVICE SUPERVISOR Hospital Encounter [address] [address] Truman Ledezma MD Peterson, Renuka E., MD Discharge Disposition: Home or Self Care 09/20/2024 10:31 AM TIRE SERVICE SUPERVISOR - 09/20/2024 4:35 PM TIRE SERVICE SUPERVISOR Hospital Encounter [address] [address] Marimar Prasad MD 08/29/2024 1:32 PM TIRE SERVICE SUPERVISOR - 08/29/2024 11:59 PM TIRE SERVICE SUPERVISOR Hospital Encounter [facility] [address] [place] [id number] Truman Ledezma MD Discharge Disposition: Home or Self Care 08/29/2024 1:[address] [facility] Hospital Encounter [facility] [address] [place] [id number] Truman Ledezma MD Discharge Disposition: Home or Self Care 08/29/[address] [address] Angelina Andujar Future Appointment 08/27/2024 Travel 08/27/2024 Telephone [facility] [address] [place] [id number] Roberta De La Vega Appointment (LM for [...] Comments Blood Pressure 115/73 08/29/2024 2:35 PM TIRE SERVICE SUPERVISOR Pulse 71 08/29/2024 2:35 PM TIRE SERVICE SUPERVISOR Temperature 36.3 C (97.3 F) 01/12/2017 10:45 AM CDT Respiratory Rate 16 01/12/2017 11:15 AM CDT Oxygen Saturation 97% 01/12/2017 11:00 AM CDT Inhaled Oxygen Concentration 100% 01/12/2017 1 0:45 AM CDT Weight 76.2 kg (168 lb) 08/29/2024 2:35 PM TIRE SERVICE SUPERVISOR Height 165.1 cm (5' 5 ) 08/29/2024 2:35 PM TIRE SERVICE SUPERVISOR Body Mass Index 27.96 08/29/2024 2:35 PM TIRE SERVICE SUPERVISOR Plan of Treatment Upcoming Encounters Date Type Department Care Team (Late st Contact Info) Description 10/18/2024 10:00 AM CDT Appointment [address] [id number] 10/18/2024 10:00 AM CDT Appointment [address] [address] Health Maintenance Due Date Last Done Comments PAP SMEAR 2001 HIV SCREENING 2016 HPV VACCINE (1 - 3-dose series) 2016 CHLAMYDIA/GONORRHEA SCREENING 2017 MENINGOCOCCAL (Group B) VACCINE (1 of 2 - Standard) 2017 HEPATITIS C SCREENING 09/25/2019 DTAP/TDAP/TD VACCINES (1 - Tdap) 2020 HEPATITIS B VACCINE (1 of 3 - 19+ 3-dose series) 2020 COVID-19 VACCINE ( - 2023-2 5 season) 2024 INFLUENZA VACCINE [...] Procedure Name Priority Date/Time Associated Diagnosis Comments ECHO COMPLETE CG Routine 09/20/2024 11:26 AM TIRE SERVICE SUPERVISOR Suspected abnormality affecting management of mother, antepartum, single or unspecified fetus (HCC) SONOGRAM - COMPLETE Routine 08/29/2024 1 :43 PM TIRE SERVICE SUPERVISOR Encounter for anatomic survey (HCC) Abnormal ultrasound 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 (HCC) from Last 3 Months Results * ECHO COMPLETE CG (09/20/2024 11:26 AM TIRE SERVICE SUPERVISOR) MV E pk rubio 25.9 cm/s [facility] CV F UJI PACS MV A pk rubio 50.15 cm/s [facility]SM CV F UJI PACS Anatomical Region Laterality Modality Ultrasound 09/20/2024 10:5 5 AM TIRE SERVICE SUPERVISOR Narrative 09/20/2024 4:33 PM TIRE SERVICE SUPERVISOR Name: Michelle Olivas Patient Exam Info Gender: Female Patient Status: O/P : 2000 Admit Date: 09/20/2024 Exam Date/Time: 09/20/2024 10:55 AM Site: [facility] Current Location: CARE EStaffOrdering Provider: Truman Ledezma Interpreting Physician: Marimar Prasad MD Visitor Services Specialist: Lino Ribera RDCS Study Info Procedure: ECHO COMPLETE CG Indications: [...] 09/20/2024 Exam Date/Time: 09/20/2024 10:55 AM Site: [facility] Current Location: CARE EStaffOrdering Provider: Truman Ledezma Interpreting Physician: Marimar Prasad MD Visitor Services Specialist: Lino Ribera [facility] Study Info Procedure: ECHO COMPLETE CG Indications: [...] * SONOGRAM - COMPLETE (08/29/2024 1:43 PM TIRE SERVICE SUPERVISOR) Linked Results Indication ======== Mildly dilated aortic arch on outside scan, Reportedly low-risk cf-DNA 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 Para 1 [id number] 1. live 2019. Gest. age 39 w [...] 1 lb 15 oz EFW by Hadlock ([id number]) Head / Face / Neck Biometry: CM [...] view. RVOT view. LVOT view. 3-vessel view. 4-ndohjp-lmydvbt view. Situs. Aortic arch view. Bicaval view. [...] LMP & early U/S * Referred to [facility] for obstetrical U/S & request for [...] determine at present Please notify the baby's Animal Shelter Supervisor of the above history Follow-up ======== U/S at 32 weeks Coding ====== Procedures 62059: US Preg Uterus Detailed [facility] [employer] PACS Anatomical Region Laterality Modality Other 08/29/2024 1:43 PM TIRE SERVICE SUPERVISOR R Ishaan Monson MD [facility] ORDERABLES from Last 3 Months Care Teams Route Jumper Relationship Specialty Start Date End Date Sydney Rush MD [address] [place] [address] [place] [id number] PCP - General Family Medicine 07/10/13
--- OUTSIDE RECORDS SUMMARY | 2024-10-05 21:05 | XMS_ITS | Data Portability ---
Author Organization [facility], Main Office Address [address] [place] [address] Assessment No assessment recorded. Plan of Treatment Reminders Order Date Submit Date Provider Last Modified By Organization Details Last Modified Time Details Appointments None recorded. Lab test, serum or plasma 2022 023 [facility] (Lab), [address] [place], [address], 3 21:39:45 rf (rheumatoid factor), serum 2022 023 [facility] (Lab), [address] [place], [address], 3 21:21:23 uric acid, serum or plasma 2022 023 [facility] (Lab), [address] [place], [address], 3 21:26:42 ESR (erythrocyt e sedimentati on rate), blood 2022 023 [facility] (Lab), [address] [place], [address], 3 20:49:08 PATRICIA (antinuclea r antibodies) screen, serum 2022 023 [facility] (Lab), [address] [place], [address], 3 13:33:53 CBC w/ auto diff 2022 023 [facility] (Lab), [address] [place], [address], 3 20:48:44 folate, serum 2022 023 [facility] (Lab), [address] [place], [address], 3 22:23:47 vitamin B12, serum 2022 023 [facility] (Lab), [address] [place], [address], 3 22:23:52 CBC w/ auto diff 2022 023 [facility] (Lab), [address] [place], [address], 3 20:11:38 folate, serum 2022 023 [facility] (Lab), [address] [place], [address], 3 12:11:10 vitamin B12, serum 2022 023 [facility] (Lab), [address] [place], [address], 3 12:11:15 CBC w/ auto diff [address] (Lab), [address] [place], [address], 3 13:45:41 TSH, serum or plasma [address] (Lab), [address] [place], [address], 3 13:51:17 glycohemogl obin, total, blood [address] (Lab), [address] [place], [address], 13:51:41 iron + total iron-bindin g capacity (TIBC), serum [address] (Lab), [address] [place], [address], 13:52:49 ferritin, serum or plasma [address] (Lab), [address] [place], [address], 3 13:53:13 vitamin B12, serum [address] (Lab), [address] [place], [address], 13:53:57 folate, serum [address] (Lab), [address] [place], [address], 3 13:55:59 CMP, serum or plasma [address] (Lab), [address] [place], [address], 13:57:00 test, serum or plasma [address] (Lab), [address] [place], [address], 3 13:57:47 Referral gastroenter ologist referral 2022 023 [email or web address] [facility], [address], [id number], [place], [address], 4 17:52:18 gastroenter ologist referral 2022 023 [email or web address] [id number] [facility], [address], [id number], [place], [address], 3 10:46:44 Procedures None recorded. Surgeries None recorded. Imaging None recorded. Medication Orders ProAir HFA 90 mcg/actuati on aerosol inhaler 2022 023 [id number], [address], [place], [id number], 3 15:50:44 prednisone 20 mg tablet 2022 023 [place] [facility][id number], [address], [place], [id number], 3 15:50:48 cyanocobala min (vit B-12) 1,000 mcg/mL injection solution 2022 023 [email or web address] [id number] Not available 3 16:58:26 pantoprazol e 40 mg tablet,cherrie yed release 2022 023 [place] [facility][id number], [address], [place], [id number], 3 08:54:29 famotidine 20 mg tablet 2022 023 [place] [facility] #[id number], [address], [place], [id number], 3 08:54:28 cyanocobala min (vit B-12) 1,000 mcg/mL injection solution 2022 023 [email or web address] [id number] Not available 09:38:30 pantoprazol e 40 mg tablet,cherrie yed release [email or web address] [facility] #[id number], [address], [place], [id number], 3 18:48:05 famotidine 20 mg tablet [address] [facility] #[id number], [address], [place], [id number], 3 12:38:44 Patient TargetsNo targets recorded. Patient InstructionsNo instructions recorded. 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 Referral for Gastroesophageal reflux disease without esophagitis Referring Physician: Sonal Bear [facility] [place], Encounter Date: 06/06/2023 Results Created Date Observation Date Name Description Value Unit Range Abnormal Flag Note LastModifiedBy Organization Detail LastModifiedTime 12/03/1912/02/2022 CBC/C OMPLE TE BLD COUNT W/DIF F white blood cells 7.2 x10'3 /uL 4.2-10 .8 Not Available [facility] (Lab) [address] [place], [address], 12/02/2022 19:37:18 12/03/19 23 12/02/2022 CBC/C OMPLE TE BLD COUNT W/DIF F red blood cells 5.52 x10'6 /uL 3.80-5 .20 high Not Available [facility] (Lab) [address] [place], [address], 12/02/2022 19:37:18 12/03/19 23 12/02/2022 CBC/C OMPLE TE BLD COUNT W/DIF F hemoglobin 16.1 g/dL 12.0-1 5.6 high Not Available [facility] (Lab) [address] [facility] [place], [address], 12/02/2022 19:37:18 12/03/19 23 12/02/2022 CBC/C OMPLE TE BLD COUNT W/DIF F hematocrit 48.7 % 35.7-4 5.7 high Not Available [facility] (Lab) [address] [place], [address], 12/02/2022 19:37:18 12/03/19 23 12/02/2022 CBC/C OMPLE TE BLD COUNT W/DIF F mean red cell volume 88.2 fL 82.0-9 9.0 Not Available [facility] (Lab) [address] [place], [address], 12/02/2022 19:37:18 12/03/19 23 12/02/2022 CBC/C OMPLE TE BLD COUNT W/DIF F mean red cell hemoglobin 29.2 pg 27.0-3 3.0 Not Available [facility] (Lab) [address] [place], [address], 12/02/2022 19:37:18 12/03/19 23 12/02/2022 CBC/C OMPLE TE BLD COUNT W/DIF F mean RBC HGB concentratio n 33.1 g/dL 31.0-3 6.0 Not Available [facility] (Lab) [address] [place], [address], 12/02/2022 19:37:18 12/03/19 23 12/02/2022 CBC/C OMPLE TE BLD COUNT W/DIF F red cell distribution width 13.1 % 11.8-1 5.5 Not Available [facility] (Lab) [address] [place], [address], 12/02/2022 19:37:18 12/03/19 23 12/02/2022 CBC/C OMPLE TE BLD COUNT W/DIF F platelets 253 x10'3 /uL 150-40 0 Not Available [facility] (Lab) [address] [place], [address], 12/02/2022 19:37:18 12/03/1912/02/2022 CBC/C OMPLE TE BLD COUNT W/DIF F mean platelet volume 12.3 fL 9.0-12 .4 Not Available [facility] (Lab) [address] [place], [address], 12/02/2022 19:37:18 12/03/19 23 12/02/2022 CBC/C OMPLE TE BLD COUNT W/DIF F neutrophils 65.2 % 39.0-7 2.0 Not Available [facility] (Lab) [address] [place], [address], 12/02/2022 19:37:18 12/03/19 23 12/02/2022 CBC/C OMPLE TE BLD COUNT W/DIF F lymphocytes 25.7 % 16.0-4 7.0 Not Available [facility] (Lab) [address] [place], [address], 12/02/2022 19:37:18 12/03/1912/02/2022 CBC/C OMPLE TE BLD COUNT W/DIF F monocytes 7.2 % 5.0-12 .0 Not Available [facility] (Lab) [address] [place], [address], 12/02/2022 19:37:18 12/03/19 23 12/02/2022 CBC/C OMPLE TE BLD COUNT W/DIF F eosinophils 1.2 % 1.0-7. 0 Not Available [facility] (Lab) [address] [place], [address], 12/02/2022 19:37:18 12/03/19 23 12/02/2022 CBC/C OMPLE TE BLD COUNT W/DIF F basophils 0.4 % 0.0-2. 0 Not Available [facility] (Lab) [address] [place], [address], 12/02/2022 19:37:18 12/03/1912/02/2022 CBC/C OMPLE TE BLD COUNT W/DIF F immature granulocytes 0.3 % 0.00-0 .50 Not Available [facility] (Lab) [address] [place], [address], 12/02/2022 19:37:18 12/03/19 23 12/02/2022 CBC/C OMPLE TE BLD COUNT W/DIF F neutrophils, absolute count 4.70 x10'3 /uL 1.5-8. 0 Not Available [facility] (Lab) [address] [place], [address], 12/02/2022 19:37:18 12/03/1912/02/2022 CBC/C OMPLE TE BLD COUNT W/DIF F lymphocytes, absolute count 1.85 x10'3 /uL 1.07-3 .43 Not Available [facility] (Lab) [address] [place], [address], 12/02/2022 19:37:18 12/03/1912/02/2022 CBC/C OMPLE TE BLD COUNT W/DIF F monocytes, absolute count 0.52 x10'3 /uL 0.29-0 .99 Not Available [facility] (Lab) [address] [place], [address], 12/02/2022 19:37:18 12/03/19 23 12/02/2022 CBC/C OMPLE TE BLD COUNT W/DIF F eosinophils, absolute count 0.09 x10'3 /uL 0.02-0 .53 Not Available [facility] (Lab) [address] [place], [address], 12/02/2022 19:37:18 12/03/19 23 12/02/2022 CBC/C OMPLE TE BLD COUNT W/DIF F basophils, absolute count 0.03 x10'3 /uL 0.01-0 .08 Not Available [facility] (Lab) [address] [place], [address], 12/02/2022 19:37:18 12/03/19 23 12/02/2022 CBC/C OMPLE TE BLD COUNT W/DIF F immature granulocytes ,absolute 0.02 x10'3 /uL 0.00-0 .05 Not Available [facility] (Lab) [address] [place], [address], 12/02/2022 19:37:18 12/03/19 23 12/02/2022 CBC/C OMPLE TE BLD COUNT W/DIF F nucleated red blood cells 0.0 % -0 Not Available [facility] (Lab) [address] [place], [address], 12/02/2022 19:37:18 12/03/19 23 12/02/2022 CBC/C OMPLE TE BLD COUNT W/DIF F NRBC# 0.00 x10'3 /uL Not Available [facility] (Lab) [address] [place], [address], 12/02/2022 19:37:18 12/03/19 23 12/02/2022 IRON/ TIBC PANEL total iron binding capacity 335 mcg/d L 265-47 5 Not Available [facility] (Lab) [address] [place], [address], 12/02/2022 20:10:08 12/03/19 23 12/02/2022 IRON/ TIBC PANEL % transferrin saturation 40 % 20-55 Not Available [facility] (Lab) [address] [place], [address], 12/02/2022 20:10:08 12/03/19 23 12/02/2022 IRON/ TIBC PANEL unsaturated iron bind capacity 201 mcg/d L 126-38 2 Not Available [facility] (Lab) [address] [place], [address], 12/02/2022 20:10:08 12/03/19 23 12/02/2022 IRON/ TIBC PANEL iron 134 mcg/d L 42-175 Not Available [facility] (Lab) [address] [facility] [place], [address], 12/02/2022 20:10:08 12/03/19 23 12/02/2022 COMPR EHENS PETE METAB OLIC PANEL sodium 140 mmol/ L 137-14 5 Not Available [facility] (Lab) [address] [place], [address], 12/02/2022 20:03:27 12/03/19 23 12/02/2022 COMPR EHENS PETE METAB OLIC PANEL potassium 4.3 mmol/ L 3.5-5. 1 Not Available [facility] (Lab) [address] [place], [address], 12/02/2022 20:03:27 12/03/19 23 12/02/2022 COMPR EHENS PETE METAB OLIC PANEL chloride 105 mmol/ L 98-107 Not Available [facility] (Lab) [address] [place], [address], 12/02/2022 20:03:27 12/03/19 23 12/02/2022 COMPR EHENS PETE METAB OLIC PANEL carbon dioxide 23 mmol/ L 22-30 Not Available [facility] (Lab) [address] [place], [address], 12/02/2022 20:03:27 12/03/19 23 12/02/2022 COMPR EHENS PETE METAB OLIC PANEL anion gap 16.3 mmol/ L 14-22 Not Available [facility] (Lab) [address] [place], [address], 12/02/2022 20:03:27 12/03/19 23 12/02/2022 COMPR EHENS PETE METAB OLIC PANEL glucose 86 mg/dL 70-99 Not Available [facility] (Lab) [address] [place], [address], 12/02/2022 20:03:27 12/03/19 23 12/02/2022 COMPR EHENS PETE METAB OLIC PANEL BUN 19 mg/dL 8-19 Not Available [facility] (Lab) [address] [place], [address], 12/02/2022 20:03:27 12/03/19 23 12/02/2022 COMPR EHENS PETE METAB OLIC PANEL creatinine 1.00 mg/dL 0.66-1 .25 Not Available [facility] (Lab) [address] [place], [address], 12/02/2022 20:03:27 12/03/19 23 12/02/2022 COMPR EHENS PETE METAB OLIC PANEL GFR >60 Refer ence [place] : [place] ge GFR Healt hy Adult : >60 [...] calcu lator is avail able on the [facility] websi te: https :[email or web address] moss.mary jo johnson/yolanda rizvial s/kdo qi/gf r_cal culat or Not Available [facility] (Lab) [address] [place], [address], 12/02/2022 20:03:27 12/03/19 23 12/02/2022 COMPR EHENS PETE METAB OLIC PANEL alkaline phosphatase 55 U/L 38-126 Not Available [facility] (Lab) [address] [place], [address], 12/02/2022 20:03:27 12/03/19 23 12/02/2022 COMPR EHENS PETE METAB OLIC PANEL alanine aminotransfe rase 27 U/L 0-35 Not Available [facility] (Lab) [address] [place], [address], 12/02/2022 20:03:27 12/03/19 23 12/02/2022 COMPR EHENS PETE METAB OLIC PANEL aspartate aminotransfe rase 28 U/L 15-37 Not Available [facility] (Lab) [address] [place], [address], 12/02/2022 20:03:27 12/03/19 23 12/02/2022 COMPR EHENS PETE METAB OLIC PANEL bilirubin, total 0.70 mg/dL 0.20-1 .30 Not Available [facility] (Lab) [address] [place], [address], 12/02/2022 20:03:27 12/03/19 23 12/02/2022 COMPR EHENS PETE METAB OLIC PANEL calcium 9.5 mg/dL 8.4-10 .2 Not Available [facility] (Lab) [address] [place], [address], 12/02/2022 20:03:27 12/03/19 23 12/02/2022 COMPR EHENS PETE METAB OLIC PANEL total protein 7.9 g/dL 6.3-8. 2 Not Available [facility] (Lab) [address] [place], [address], 12/02/2022 20:03:27 12/03/19 23 12/02/2022 COMPR EHENS PETE METAB OLIC PANEL albumin 4.9 g/dL 3.4-5. 0 Not Available [facility] (Lab) [address] [place], [address], 12/02/2022 20:03:27 12/03/19 23 12/02/2022 COMPR EHENS PETE METAB OLIC PANEL globulin 3.0 g/dL 2.6-4. 2 Not Available [facility] (Lab) [address] [place], [address], 12/02/2022 20:03:27 12/03/19 23 12/02/2022 COMPR EHENS PETE METAB OLIC PANEL A/G ratio 1.6 ratio 1.0-2. 0 Not Available [facility] (Lab) [address] [place], [address], 12/02/2022 20:03:27 12/03/19 23 12/02/2022 B-HCG TOTAL [...] 19 6,800 TO 42,90 0 Not Available [facility] (Lab) [address] [place], [address], 12/02/2022 20:11:09 12/03/19 23 12/02/2022 TSH thyroid-stim ulating hormone 1.030 uIU/m L 0.465- 4.680 Not Available [facility] (Lab) [address] [place], [address], 12/02/2022 20:41:34 12/03/19 23 12/02/2022 AGUSTO TIN ferritin 45 NG/mL 6.24-1 37 Not Available [facility] (Lab) [address] [place], [address], 12/02/2022 20:42:15 12/03/19 23 12/02/2022 FOLAT E, SERUM /PLAS MA folate 8.88 NG/mL 2.76-2 0.0 Not Available [facility] (Lab) [address] [place], [address], 12/02/2022 21:07:41 12/03/19 23 12/02/2022 HEMOG LOBIN A1C HA1C 4.7 % 4.0-6. 0 Diabe radha Scree peter Crite maggy: <5.7% Consi stent with absen ce of diabe radha 5.7-6 .4% Consi stent with incre ased risk for diabe radha (pred iabet es) >OR=6 .5% Consi stent with diabe radha REFER ENCE: Diabe radha Care 2016, 39(Gr ppl.1 ):s13 -s22 Not Available [facility] (Lab) [address] [place], [address], 12/02/2022 21:34:26 12/03/19 23 12/02/2022 VITAM IN B12 (LUZMARIA LUPIS ) vb12 233 pg/mL 239-93 1 low Not Available [facility] (Lab) [address] [place], [address], 12/02/2022 22:36:37 01/14/20 23 01/13/2023 CBC/C OMPLE TE BLD COUNT W/DIF F white blood cells 5.8 x10'3 /uL 4.2-10 .8 Not Available [facility] (Lab) [address] [place], [address], 01/13/2023 20:11:38 01/14/20 23 01/13/2023 CBC/C OMPLE TE BLD COUNT W/DIF F red blood cells 5.10 x10'6 /uL 3.80-5 .20 Not Available [facility] (Lab) [address] [place], [address], 01/13/2023 20:11:38 01/14/20 23 01/13/2023 CBC/C OMPLE TE BLD COUNT W/DIF F hemoglobin 15.0 g/dL 12.0-1 5.6 Not Available [facility] (Lab) [address] [place], [address], 01/13/2023 20:11:38 01/14/20 23 01/13/2023 CBC/C OMPLE TE BLD COUNT W/DIF F hematocrit 45.1 % 35.7-4 5.7 Not Available [facility] (Lab) [address] [place], [address], 01/13/2023 20:11:38 01/14/20 23 01/13/2023 CBC/C OMPLE TE BLD COUNT W/DIF F mean red cell volume 88.4 fL 82.0-9 9.0 Not Available [facility] (Lab) [address] [place], [address], 01/13/2023 20:11:38 01/14/20 23 01/13/2023 CBC/C OMPLE TE BLD COUNT W/DIF F mean red cell hemoglobin 29.4 pg 27.0-3 3.0 Not Available [facility] (Lab) [address] [place], [address], 01/13/2023 20:11:38 01/14/20 23 01/13/2023 CBC/C OMPLE TE BLD COUNT W/DIF F mean RBC HGB concentratio n 33.3 g/dL 31.0-3 6.0 Not Available [facility] (Lab) [address] [facility] [place], [address], 01/13/2023 20:11:38 01/14/20 23 01/13/2023 CBC/C OMPLE TE BLD COUNT W/DIF F red cell distribution width 13.0 % 11.8-1 5.5 Not Available [facility] (Lab) [address] [place], [address], 01/13/2023 20:11:38 01/14/20 23 01/13/2023 CBC/C OMPLE TE BLD COUNT W/DIF F platelets 217 x10'3 /uL 150-40 0 Not Available [facility] (Lab) [address] [place], [address], 01/13/2023 20:11:38 01/14/20 23 01/13/2023 CBC/C OMPLE TE BLD COUNT W/DIF F neutrophils 64.3 % 39.0-7 2.0 Not Available [facility] (Lab) [address] [place], [address], 01/13/2023 20:11:38 01/14/20 23 01/13/2023 CBC/C OMPLE TE BLD COUNT W/DIF F lymphocytes 27.1 % 16.0-4 7.0 Not Available [facility] (Lab) [address] [place], [address], 01/13/2023 20:11:38 01/14/20 23 01/13/2023 CBC/C OMPLE TE BLD COUNT W/DIF F monocytes 6.4 % 5.0-12 .0 Not Available [facility] (Lab) [address] [place], [address], 01/13/2023 20:11:38 01/14/20 23 01/13/2023 CBC/C OMPLE TE BLD COUNT W/DIF F eosinophils 1.4 % 1.0-7. 0 Not Available [facility] (Lab) [address] [place], [address], 01/13/2023 20:11:38 01/14/20 23 01/13/2023 CBC/C OMPLE TE BLD COUNT W/DIF F basophils 0.5 % 0.0-2. 0 Not Available [facility] (Lab) [address] [place], [address], 01/13/2023 20:11:38 01/14/20 23 01/13/2023 CBC/C OMPLE TE BLD COUNT W/DIF F immature granulocytes 0.3 % 0.00-0 .50 Not Available [facility] (Lab) [address] [place], [address], 01/13/2023 20:11:38 01/14/20 23 01/13/2023 CBC/C OMPLE TE BLD COUNT W/DIF F neutrophils, absolute count 3.72 x10'3 /uL 1.5-8. 0 Not Available [facility] (Lab) [address] [place], [address], 01/13/2023 20:11:38 01/14/20 23 01/13/2023 CBC/C OMPLE TE BLD COUNT W/DIF F lymphocytes, absolute count 1.57 x10'3 /uL 1.07-3 .43 Not Available [facility] (Lab) [address] [place], [address], 01/13/2023 20:11:38 01/14/20 23 01/13/2023 CBC/C OMPLE TE BLD COUNT W/DIF F monocytes, absolute count 0.37 x10'3 /uL 0.29-0 .99 Not Available [facility] (Lab) [address] [place], [address], 01/13/2023 20:11:38 01/14/20 23 01/13/2023 CBC/C OMPLE TE BLD COUNT W/DIF F eosinophils, absolute count 0.08 x10'3 /uL 0.02-0 .53 Not Available [facility] (Lab) [address] [place], [address], 01/13/2023 20:11:38 01/14/20 23 01/13/2023 CBC/C OMPLE TE BLD COUNT W/DIF F basophils, absolute count 0.03 x10'3 /uL 0.01-0 .08 Not Available [facility] (Lab) [address] [place], [address], 01/13/2023 20:11:38 01/14/20 23 01/13/2023 CBC/C OMPLE TE BLD COUNT W/DIF F immature granulocytes ,absolute 0.02 x10'3 /uL 0.00-0 .05 Not Available [facility] (Lab) [address] [place], [address], 01/13/2023 20:11:38 01/14/20 23 01/13/2023 CBC/C OMPLE TE BLD COUNT W/DIF F nucleated red blood cells 0.0 % -0 Not Available [facility] (Lab) [address] [place], [address], 01/13/2023 20:11:38 01/14/20 23 01/13/2023 CBC/C OMPLE TE BLD COUNT W/DIF F NRBC# 0.00 x10'3 /uL Not Available [facility] (Lab) [address] [place], [address], 01/13/2023 20:11:38 01/14/20 23 01/14/2023 FOLAT E, SERUM /PLAS MA folate 5.91 NG/mL 2.76-2 0.0 Not Available [facility] (Lab) [address] [place], [address], 01/14/2023 12:11:10 01/14/20 23 01/14/2023 VITAM IN B12 (LUZMARIA LUPIS ) vb12 484 pg/mL 239-93 1 Not Available [facility] (Lab) [address] [place], [address], 01/14/2023 12:11:15 03/03/20 23 03/03/2023 CBC/C OMPLE TE BLD COUNT W/DIF F white blood cells 5.4 x10'3 /uL 4.2-10 .8 Not Available [facility] (Lab) [address] [place], [address], 03/03/2023 20:48:44 03/03/20 23 03/03/2023 CBC/C OMPLE TE BLD COUNT W/DIF F red blood cells 5.35 x10'6 /uL 3.80-5 .20 high Not Available [facility] (Lab) [address] [place], [address], 03/03/2023 20:48:44 03/03/20 23 03/03/2023 CBC/C OMPLE TE BLD COUNT W/DIF F hemoglobin 15.6 g/dL 12.0-1 5.6 Not Available [facility] (Lab) [address] [place], [address], 03/03/2023 20:48:44 03/03/20 23 03/03/2023 CBC/C OMPLE TE BLD COUNT W/DIF F hematocrit 47.6 % 35.7-4 5.7 high Not Available [facility] (Lab) [address] [place], [address], 03/03/2023 20:48:44 03/03/20 23 03/03/2023 CBC/C OMPLE TE BLD COUNT W/DIF F mean red cell volume 89.0 fL 82.0-9 9.0 Not Available [facility] (Lab) [address] [facility] [place], [address], 03/03/2023 20:48:44 03/03/20 23 03/03/2023 CBC/C OMPLE TE BLD COUNT W/DIF F mean red cell hemoglobin 29.2 pg 27.0-3 3.0 Not Available [facility] (Lab) [address] [place], [address], 03/03/2023 20:48:44 03/03/20 23 03/03/2023 CBC/C OMPLE TE BLD COUNT W/DIF F mean RBC HGB concentratio n 32.8 g/dL 31.0-3 6.0 Not Available [facility] (Lab) [address] [place], [address], 03/03/2023 20:48:44 03/03/20 23 03/03/2023 CBC/C OMPLE TE BLD COUNT W/DIF F red cell distribution width 13.2 % 11.8-1 5.5 Not Available [facility] (Lab) [address] [place], [address], 03/03/2023 20:48:44 03/03/20 23 03/03/2023 CBC/C OMPLE TE BLD COUNT W/DIF F platelets 223 x10'3 /uL 150-40 0 Not Available [facility] (Lab) [address] [place], [address], 03/03/2023 20:48:44 03/03/20 23 03/03/2023 CBC/C OMPLE TE BLD COUNT W/DIF F mean platelet volume 12.9 fL 9.0-12 .4 high Not Available [facility] (Lab) [address] [place], [address], 03/03/2023 20:48:44 03/03/20 23 03/03/2023 CBC/C OMPLE TE BLD COUNT W/DIF F neutrophils 62.4 % 39.0-7 2.0 Not Available [facility] (Lab) [address] [place], [address], 03/03/2023 20:48:44 03/03/20 23 03/03/2023 CBC/C OMPLE TE BLD COUNT W/DIF F lymphocytes 28.7 % 16.0-4 7.0 Not Available [facility] (Lab) [address] [place], [address], 03/03/2023 20:48:44 03/03/20 23 03/03/2023 CBC/C OMPLE TE BLD COUNT W/DIF F monocytes 7.2 % 5.0-12 .0 Not Available [facility] (Lab) [address] [place], [address], 03/03/2023 20:48:44 03/03/20 23 03/03/2023 CBC/C OMPLE TE BLD COUNT W/DIF F eosinophils 1.1 % 1.0-7. 0 Not Available [facility] (Lab) [address] [place], [address], 03/03/2023 20:48:44 03/03/2003/03/2023 CBC/C OMPLE TE BLD COUNT W/DIF F basophils 0.4 % 0.0-2. 0 Not Available [facility] (Lab) [address] [place], [address], 03/03/2023 20:48:44 03/03/20 23 03/03/2023 CBC/C OMPLE TE BLD COUNT W/DIF F immature granulocytes 0.2 % 0.00-0 .50 Not Available [facility] (Lab) [address] [place], [address], 03/03/2023 20:48:44 03/03/20 23 03/03/2023 CBC/C OMPLE TE BLD COUNT W/DIF F neutrophils, absolute count 3.40 x10'3 /uL 1.5-8. 0 Not Available [facility] (Lab) [address] [place], [address], 03/03/2023 20:48:44 03/03/20 23 03/03/2023 CBC/C OMPLE TE BLD COUNT W/DIF F lymphocytes, absolute count 1.56 x10'3 /uL 1.07-3 .43 Not Available [facility] (Lab) [address] [place], [address], 03/03/2023 20:48:44 03/03/20 23 03/03/2023 CBC/C OMPLE TE BLD COUNT W/DIF F monocytes, absolute count 0.39 x10'3 /uL 0.29-0 .99 Not Available [facility] (Lab) [address] [place], [address], 03/03/2023 20:48:44 03/03/20 23 03/03/2023 CBC/C OMPLE TE BLD COUNT W/DIF F eosinophils, absolute count 0.06 x10'3 /uL 0.02-0 .53 Not Available [facility] (Lab) [address] [place], [address], 03/03/2023 20:48:44 03/03/20 23 03/03/2023 CBC/C OMPLE TE BLD COUNT W/DIF F basophils, absolute count 0.02 x10'3 /uL 0.01-0 .08 Not Available [facility] (Lab) [address] [place], [address], 03/03/2023 20:48:44 03/03/20 23 03/03/2023 CBC/C OMPLE TE BLD COUNT W/DIF F immature granulocytes ,absolute 0.01 x10'3 /uL 0.00-0 .05 Not Available [facility] (Lab) [address] [place], [address], 03/03/2023 20:48:44 03/03/20 23 03/03/2023 CBC/C OMPLE TE BLD COUNT W/DIF F nucleated red blood cells 0.0 % -0 Not Available [facility] (Lab) [address] [place], [address], 03/03/2023 20:48:44 03/03/20 23 03/03/2023 CBC/C OMPLE TE BLD COUNT W/DIF F NRBC# 0.00 x10'3 /uL Not Available [facility] (Lab) [address] [place], [address], 03/03/2023 20:48:44 03/03/20 23 03/03/2023 SEDIM ENTAT ION RATE erythrocyte sedimentatio n rate 13 mm/HR 0-20 Not Available [facility] (Lab) [address] [place], [address], 03/03/2023 20:49:08 03/03/2003/03/2023 RHEUM ATOID FACTO R rf <8.6 IU/mL 0.0-11 .9 Not Available [facility] (Lab) [address] [place], [address], 03/03/2023 21:21:23 03/03/2003/03/2023 URIC ACID SERUM uric acid 6.2 mg/dL 2.5-6. 2 Not Available [facility] (Lab) [address] [place], [address], 03/03/2023 21:26:42 03/03/20 23 03/03/2023 B-HCG TOTAL [...] 19 6,800 TO 42,90 0 Not Available [facility] (Lab) [address] [place], [address], 03/03/2023 21:39:45 03/03/20 23 03/03/2023 FOLAT E, SERUM /PLAS MA folate 8.64 NG/mL 2.76-2 0.0 Not Available [facility] (Lab) [address] [place], [address], 03/03/2023 22:23:47 03/03/20 23 03/03/2023 VITAM IN B12 (LUZMARIA LUPIS ) vb12 925 pg/mL 239-93 1 Not Available [facility] (Lab) [address] [place], [address], 03/03/2023 22:23:52 03/03/20 23 03/07/2023 PATRICIA BY [...] ). Perfo rmed at: [facility] [address] [facility], [place] [address] 1146 Lab Direc tor: Ronal tilley PhD, Phone : [phone] Not Available [facility] (Lab) [address] [place], [address], 03/07/2023 13:08:50 03/16/20 23 MRI, brain , w/wo contr ast [facility] [address] [place] [address] Patien t Name: PEARL OLIVAS Access ion #: [id number] Sex: F : 2000 1 Dictat [...] at 2022 11:14: 31 AM Page 1 [email or web address] [facility] (Imaging) [address] [place], [address], 03/22/2023 11:25:57 04/02/20 24 04/02/2024 US, doppl er, echoc ardio gram, w/ color flow No observ ation record ed. [email or web address] [facility] [address], [place], [address], 04/04/2024 10:48:56 Result Notes None recorded. Problems Name Problem SNOMED Code Status Onset Date Resolution Date Notes Provider Name and Address Organization Details Recorded Time Well child 690736390 Active Not Available [facility] 3 15:16:21 Painful mouth 669488624 Active Not Available [facility] 3 15:16:21 Sprain of right ankle 07865270883 261323 Active Not Available [facility] 3 15:16:22 Injury of ankle 396639771 Active Not Available [facility] 3 15:16:22 Otalgia 56161654 Active Not Available [facility] 3 15:16:22 Pain in throat 826563678 Active Not Available [facility] 3 15:16:22 Heartburn 72418406 Active Not Available [facility] 3 15:16:22 Adjustmen t disorder 16465805 Active Not Available [facility] 3 15:16:22 Ankle pain 542905766 Active Not Available [facility] 3 15:16:22 Insect sting 268318905 Active Not Available [facility] 3 15:16:22 Knee pain Active Not Available [facility] 3 15:16:22 Acute pharyngit is 337828544 Active Not Available [facility] 3 15:16:22 Menorrhag ia 147408186 Active Not Available [facility] 3 15:16:22 Pharyngit is 743607677 Active Not Available [facility] 3 15:16:23 Mood disorder 02487724 Active Not Available [facility] 3 15:16:23 Hip pain 99213721 Completed Not Available [facility] 3 15:16:23 Verruca vulgaris 65932468 Active Not Available [facility] 3 15:16:23 Pain in limb 74990059 Completed Not Available [facility] 3 15:16:23 Gastroeso phageal reflux disease without esophagit is 484695308 Active 2022 Sydney Rush MD [address], [place], [address] , [facility] 3 12:30:24 Fatigue 73391607 Active 2022 Sydney Rush MD [address], [place], [address] , [facility] 3 12:31:59 Cobalamin deficienc y 480954494 Active 2022 Sydney Rush MD [address], [place], [address] , [facility] 3 11:46:44 Multiple joint pain 35611471 Active 2022 Sydney Rush MD [address], [place], [address] , [facility] 3 09:40:52 Paresthes ia 05269017 Active 2022 Sydney Rush MD [address], [place], [address] , [facility] 3 09:41:25 Amenorrhe a 60025142 Active 2022 Sydney Rush MD [address], [place], [address] , [facility] 3 09:43:05 Dyspnea 169838307 Active 2022 SARAH Schreiber [address], [place], [address] , [employer] [facility] 3 15:45:35 Problem Notes None recorded. Procedures Surgical History None recorded. Imaging Results Imaging Date Name Status LastModified by Organiz ation Details LastModified Time 03/16/2023 MRI, brain, w/wo contrast completed [email or web address] [facility] (Imaging) [address] [place], [address], 03/22/2023 11:25:57 04/02/2024 US, doppler, echocardiogra m, w/ color flow completed [email or web address] [facility] [address], [place], [address], 04/04/2024 10:48:56 Procedure Notes None recorded. Medical Equipment None Reported. Allergies Allergen ID Allergen Name Allergen Category Reaction Reaction Severity Criticality Documentation Date Start Date Code Code System Note Provider Name and Address Organization Details Recorded Time 72021 escitalop carolyn Not available Not available Not available Not available 2022 83842 8 RxNorm Suici lauren ideat ions Not [...] 2 ml subq x 1 08/02 completed [facility]# [id number] 27 Not Available Not Available Not Available [...] DateTime 11/10/2022 165.1 cm Ailyn Smart CMA [email or web address] 11/10/2022 10:37:07 Date Recorded Body height Body mass index (BMI) Body weight Body temperature Oxygen saturation Oxygen saturation in Arterial blood by Pulse oximetry Heart rate Systolic blood pressure Diastolic blood pressure Provider Name and Address Organization Details Last Updated DateTime 3 165.1 cm 25.5 kg/m2 62113.6 3 g 98.1 [degF] 97 % 97 % 67 /min 116 mm[Hg] 74 mm[Hg] Ann Chun MA [email or web address] 3 12:18:43 Date Recorded Body height Body mass index (BMI) Body weight Body temperature Heart rate Oxygen saturation Oxygen saturation in Arterial blood by Pulse oximetry Systolic blood pressure Diastolic blood pressure Provider Name and Address Organization Details Last Updated DateTime 3 165.1 cm 26 kg/m2 75232.4 1 g 97.2 [degF] 67 /min 98 % 98 % 118 mm[Hg] 78 mm[Hg] Robby Warren RN [facility] [employer] [facility] 3 08:44:58 Date Recorded Body height Body mass index (BMI) Body weight Body temperature Heart rate Oxygen saturation Oxygen saturation in Arterial blood by Pulse oximetry Systolic blood pressure Diastolic blood pressure Provider Name and Address Organization Details Last Updated DateTime 3 165.1 cm 25.6 kg/m2 86167.2 2 g 97.8 [degF] 102 /min 91 % 91 % 114 mm[Hg] 68 mm[Hg] Robby Warren RN [facility] [employer] [facility] 3 09:31:40 Date Recorded Body height Body mass index (BMI) Body weight Body temperature Heart rate Oxygen saturation Oxygen saturation in Arterial blood by Pulse oximetry Systolic blood pressure Diastolic blood pressure Provider Name and Address Organization Details Last Updated DateTime 3 165.1 cm 25.6 kg/m2 42667.2 2 g 98.5 [degF] 83 /min 97 % 97 % 104 mm[Hg] 62 mm[Hg] Heather Ortiz LPN [facility] [employer] [facility] 3 15:15:17 Social History Question Answer Notes LastModified by Organizat ion Details LastModified Time Tobacco Smoking Status Never Smoker Not Available [facility] 2022 15:13:27 What Is Your Level Of Alcohol Consumption? None MIGRATION.71293 [id number] Information not available 2022 Do You Wear A Helmet When Biking? Yes MIGRATION.20115 50344 Information not available 2022 What Is Your Level Of Caffeine Consumption? Heavy MIGRATION. 21684 Information not available 2022 In The 14 Days Before Symptom Onset, Have You Had Close Contact With A Laboratory-confir med COVID-19 While That Case Was Ill? No MIGRATION.73251 60151 Information not available 2022 In The 14 Days Before Symptom Onset, Have You Had Close Contact With A Person Who Is Under Investigation For COVID-19 While That Person Was Ill? No MIGRATION.55329 57198 Information not available 2022 What Type Of Diet Are You Following? REGULAR MIGRATION.15726 27719 Information not available 2022 Which Illicit Or Recreational Drugs Have You Used? [place] [email or web address] Information not available 12/02/2022 Are There Any Guns Present In Your Home? No MIGRATION.08207 25199 Information not available 2022 Do You Use Insect Repellent Routinely? No MIGRATION.25946 72721 Information not available 2022 Where Do You Live? [place] MIGRATION.31232 31846 Information not available 2022 Do You Have Any Pets? No MIGRATION.88496 72716 Information not available 2022 What Is Your Relationship Status? Single MIGRATION.43506 59990 Information not available 2022 Do You Use Your Seat Belt Or Car Seat Routinely? Yes MIGRATION.41153 10618 Information not available 2022 Do You Have Smoke And Carbon Monoxide Detectors In Your Home? Yes MIGRATION.19140 90144 Information not available 2022 Are You Passively Exposed To Smoke? No MIGRATION.81916 50091 Information not available 2022 Are There Any Smokers In Your House? No MIGRATION.49843 43928 Information not available 2022 Do You Participate In Social Media? No MIGRATION.68459 82407 Information not available 2022 Do You Feel Stressed (tense, Restless, Nervous, Or Anxious, Or Unable To Sleep At Night)? [id number] MIGRATION.98669 45742 Information not available 2022 Do You Use Any Illicit Or Recreational Drugs? Yes [email or web address] Information not available 12/02/2022 Do You Use Sunscreen Routinely? No MIGRATION.05416 67502 Information not available 2022 Have You Recently Traveled Abroad? No MIGRATION.68594 88775 Information not available 2022 Have You Used IV Drugs? No [email or web address] Information not available 12/02/2022 Are You Currently In School? No MIGRATION.37045 36501 Information not available 2022 Do You Have Any Dietary Restrictions? No MIGRATION.00482 08323 Information not available 2022 Sex: Unknown Functional Status Question Answer Note LastModified by Organizat ion Details LastModified Time What is your exercise level? Heavy MIGRATION.[id number] Information not available 2022 Mental Status None recorded. Family History Relationship Description Onset Age of this Age Resolved Age Notes LastModified by Organization Details LastModified Time Maternal Grandmother Diabetes mellitus MIGRATION.499 [id number] Not available 2022 15:13:38 Maternal Grandmother Hypertensive disorder MIGRATION.326 7555881 Not available 2022 15:13:38 Maternal Grandfather Diabetes mellitus MIGRATION.717 8521261 Not available 2022 15:13:38 Maternal Grandfather Hypertensive disorder MIGRATION.198 8500973 Not available 2022 15:13:38 Medical History No medical history recorded. 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 Child Caregiver a Breast Problems NO Weight gain N Obstetrics History GPAL:G 1 P 1 0 0 1 Type Value Full Term 1 Living 1 Total 1 Immunizations Vaccine Type Date Status Note Provider Nam e and Address Organization Details Recorded Time meningococcal MCV4P 5 completed Not Available [facility] 2022 15:19:24 Tdap 5 completed Not Available [facility] 2022 15:19:24 HPV, quadrivalent 6 completed Not Available [facility] 2022 15:19:24 HPV, quadrivalent 5 completed Not Available [facility] 2022 15:19:24 Influenza, live, quadrivalent, intranasal 5 completed Not Available [facility] 2022 15:19:24 HPV, quadrivalent 5 completed Not Available [facility] 2022 15:19:25 DTaP, 5 pertussis antigens 3 completed Not Available [facility] 2022 15:19:25 Past Encounters Encounter ID Performer Location Encounter Start Date Encounter Closed Date Diagnosis/Indication Diagnosis SNOMED-CT Code Diagnosis ICD10 Code Diagnosis Note [id number] [facility] [address] [facility] [address] [place] [address] 10/21/2020 00:00:00 10/27/2020 20:57:34 [id number] [facility] [place] [address] [place] [address] 01/22/2021 00:00:00 01/22/2021 15:41:45 [id number] [facility] [place] [address] [place] [address] 03/03/2021 00:00:00 03/03/2021 09:34:38 [id number] [facility] [place] [address] [place] [address] 04/24/2021 00:00:00 04/24/2021 09:33:13 [id number] [facility] [place] [address] [place] [address] 06/01/2021 00:00:00 06/01/2021 11:59:53 [id number] [facility] [place] [address] [place] [address] 07/23/2021 00:00:00 07/23/2021 13:27:01 [id number] [facility] [place] [address] [place] [address] 10/12/2021 00:00:00 10/12/2021 10:46:02 [id number] [facility] [place] [address] [place] [address] 10/22/2021 00:00:00 10/22/2021 09:49:45 [id number] [facility] [place] [address] [place] [address] 01/22/2022 00:00:00 03/31/2022 13:28:57 [id number] [facility] [place] [address] [place] [address] 05/17/2022 00:00:00 05/17/2022 13:47:44 [id number] [facility] [place] [address] [facility] [address] [place] [address] 08/13/2022 00:00:00 08/13/2022 18:04:14 [id number] JONATHAN Salazar [facility] [place] [address] [facility] [address] [place] [address] 11/10/2022 10:01:55 11/10/2022 10:49:25 [id number] Sydney Rush MD [facility] [place] [address] [facility] [address] [place] [address] 12/02/2022 12:03:59 12/02/2022 12:46:48 Gastroesophageal reflux disease without esophagitis 247850947 K21.9 Fatigue 04745738 R53.83 R58 [id number] Sydney Rush MD [facility] [place] [address] [facility] [address] [place] [address] 01/13/2023 08:41:45 01/13/2023 09:07:32 Gastroesophageal reflux disease without esophagitis 920550417 K21.9 no improvemen t yetcontinu e PPI and famotidine 20 mg bidAvoid greasy/spi cy/acidic foodEat small, frequent mealsGI referral given Cobalamin deficiency 190 817258 E53.8 likely GI relatedGI Referral givenok to continue oral b12 [id number] 1000 mcg IM x 1 [id number] Sydney Rush MD [facility] [place] [address] [facility] [address] [place] [address] 03/03/2023 09:26:34 03/03/2023 09:56:14 Gastroesophageal reflux disease without esophagitis 406589015 K21.9 no improvemen t yetcontinu e PPI and famotidine 20 mg bidAvoid greasy/spi cy/acidic foodEat small, frequent mealsGI referral given Cobalamin deficiency 190 574865 E53.8 likely GI relatedGI Referral givenok to continue oral b12 fogrfc62 1000 mcg IM x 1 Multiple joint pain 3567 8005 M25.50 Paresthesia 64662179 R20 .2 R51.9 Check b12 level, if low, continue to work on replacemen tIf normal, plan MRI brain Amenorrhea 68215124 N91. 2 [id number] SARAH Schreiber [facility] [place] [address] [facility] [address] [place] [address] 06/06/2023 15:07:40 06/06/2023 17:16:26 Gastroesophageal reflux disease without esophagitis 229010741 K21.9 Pt. still struggling with daily reflux.She was given GI referral but never received a phone call to schedule, she was given informatio n today to call and make appointmen t. Dyspnea 986360806 R06.00 New problem. Could possibly be related [...] Barrett Member ID Guarantor Name 11/10/2022 1 [facility] ON OR AFTER 01/29/21 (MEDICAID REPLACEMENT - HMO) Michelle Olivas [id number] Michelle Olivas 12/02/2022 1 [facility] ON OR AFTER 01/29/21 (MEDICAID REPLACEMENT - HMO) Michelle Olivas [id number] Michelle Benitez Olivas 01/13/2023 1 [facility] ON OR AFTER 01/29/21 (MEDICAID REPLACEMENT - HMO) Michelle Olivas [id number] Guya Eli Olivas 03/03/2023 1 [facility] ON OR AFTER 01/29/21 (MEDICAID REPLACEMENT - HMO) Michelle Olivas [id number] Michelle Benitez Olivas 06/06/2023 1 [facility] ON OR AFTER 01/29/21 (MEDICAID REPLACEMENT - HMO) Michelle Olivas [id number] Michelle Olivas Notes Date Note Type Note [...] make it worse. Sydney Rush MD [address] [facility] [facility] [address], [place], [address], [employer] [facility] [facility] [facility] [employer] 12/29/2022 18:48:36 01/13/2023 text/html since last depo [...] No interval improvement. Sydney Rush MD [address] [facility] [facility] [address], [place], [address], [employer] [facility] [employer] 01/13/2023 08:57:59 03/03/2023 text/html since last depo [...] was invalid . Sydney Rush MD [address], [place], [address], [facility] 03/03/2023 09:44:44 06/06/2023 text/html Pt. states this [...] SARAH Schreiber [address], [place], [address], [facility] 06/06/2023 18:12:43 OBGyn Episode No OBEpisode recorded.
--- OUTSIDE RECORDS SUMMARY | 2024-10-05 21:05 | XMS_ITS | Continuity of Care Document ---
Author Organization [facility] [place] Address [address] [address] [place] [address] Assessment No assessment recorded. Plan of Treatment Reminders Order Date Submit Date Provider Last Modified By Organization Details Last Modified Time Details Appointments OB ROUTINE 2024 02:30P M Aylin Bay CNM Not available Not available Not available Lab None recorded . Referral None recorded . Procedures None recorded . Surgeries None recorded . Imaging US, obstetri c, follow-u p 2024 025 [email or web address] [place], [address], [address], [place], [address], 10/04/2024 20:26:16 Medication Orders None recorded . Patient TargetsNo targets recorded. Patient InstructionsNo instructions recorded. Reason for Referral None Reported. Results Created Date Observation Date Name Description Value Unit Range Abnormal Flag Note LastModifiedBy Organization Detail LastModifiedTime 06/08/20 24 06/08/2024 US, obste tric, nucha l trans lucen cy No observ ation record ed. [email or web address] [place] [address], [place], [address], 06/08/2024 13:01:59 06/08/20 24 06/08/2024 US, obste tric, nucha l trans lucen cy No observ ation record ed. [email or web address] [address], [place], [address], 06/09/2024 14:52:07 12/27/20 24 07/27/2024 US, obste tric, 2nd or 3rd trime ster No observ ation record ed. [email or web address] [place] [address], [place], [address], 07/27/2024 17:24:31 07/27/20 24 07/27/2024 US, obste tric, follo w-up No observ ation record ed. [email or web address] [address], [place], [address], 07/30/2024 09:15:54 08/22/19 25 08/22/2024 US, obste tric, follo w-up No observ ation record ed. [email or web address] [place] [address], [place], [address], 08/22/2024 18:46:26 08/22/19 25 08/22/2024 US, obste tric, follo w-up No observ ation record ed. [email or web address] [address], [place], [address], 08/24/2024 09:29:33 08/29/19 25 08/29/2024 US, obste tric, follo w-up No observ ation record ed. [email or web address] [facility] [address], [place], [address], 09/02/2024 22:49:33 08/31/19 25 08/29/2024 US, obste tric, follo w-up No observ ation record ed. [email or web address] [facility] [address], [place], [address], 09/05/2024 09:15:26 09/06/19 25 09/06/2024 non-s tress test No observ ation record ed. [address] [facility] [address], [place], [address], 09/12/2024 08:17:35 09/21/19 25 09/21/2024 non-s tress test No observ ation record ed. [email or web address] [facility] [address], [place], [address], 09/24/2024 22:30:24 10/05/19 25 10/04/2024 US, obste tric, follo w-up No observ ation record ed. [address], [place], [address], 10/04/2024 17:54:08 10/05/19 25 10/04/2024 US, obste tric, follo w-up No observ ation record ed. [email or web address] [place] [address], [place], [address], 10/04/2024 15:32:29 Result Notes None recorded. Problems Name Problem SNOMED Code Status Onset Date Resolution Date Notes Provider Name and Address Organization Details Recorded Time Twin pregnanc y 27229926 Active 2023 Lupe nguyen, [facility] 4 18:31:24 Asthma 169321475 Active 2023 Lupe nguyen, [facility] 4 18:31:52 Pregnanc y 37727677 Active 2023 Lupe nguyen, [facility] 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 4 12:51:43 Aortic root finding 285074623 Active mildly prominen t - Referral faxed to [facility] 08/24 Level iI 08/29 [facility] 09/20 1045 US/ echo and office visit Carine Carlos MA echo done needs rpt in 4 weeks, will then give delivery rec Postnata l surviell ance of aortic dilation is required Janessa nguyen [facility] 5 23:23:28 Aortic root finding 553155389 Active mildly prominen t - Referral faxed to [facility] 08/24 Level iI 08/29 [facility] 09/20 1045 US/ echo and office visit Carine Carlos MA echo done needs rpt in 4 weeks, will then give delivery rec Postnata l surviell ance of aortic dilation is required Janessa nguyen [facility] 5 23:23:28 Blood glucose outside referenc e range 559032951 Active failed fasting on 3hr gtt checking bs x 4wks Janessa Russo [facility] 5 09:08:56 Blood glucose outside referenc e range 259425712 Active failed fasting on 3hr gtt checking bs x 4wks Janessa Russo [facility] 5 09:08:56 Pregnanc y 47922074 Completed 201906/04/2020 Lupe nguyen [facility] 4 12:17:22 Problem Notes None recorded. Procedures Surgical History Date Name Laterality Status Provider Name and Address Organization Details Recorded Time 11/03/19 24 Date of Last Pap Smear completed Lupe Kumar [facility] 03/28/2024 20:37:26 08/01/19 14 tonsillectomy completed Lupe Kumar [facility] 03/28/2020 10:00:48 Imaging Results Imaging Date Name Status LastModified by Organiz ation Details LastModified Time 10/04/2024 US, obstetric, follow-up completed [email or web address] [place] [address], [place], [address], 10/04/2024 15:32:29 Procedure Notes None recorded. Medical [...] Not Available Not Available Not Available Vitals None Recorded Social History Question Answer Notes LastModified by Organizat ion Details LastModified Time Tobacco Smoking Status Never Smoker Not Available [employer] 06/03/2020 03:28:11 What Is Your Level Of Alcohol Consumption? None [id number] Information not available 06/03/2020 If You Are , What Was Your Level Of Alcohol Consumption Prior To ? None [email or web address] Information not available 04/25/2024 Are You Blind Or Do You Have Difficulty Seeing? No Information not available 03/29/2022 What Is Your Level Of Caffeine Consumption? Occasional [email or web address] Information not available 04/25/2024 In The 14 Days Before Symptom Onset, Have You Had Close Contact With A Laboratory-confir med COVID-19 While That Case Was Ill[email or web address] Information not available 11/03/2023 In The 14 [...] E-cigarettes Or Vape? Never Used Electronic Cigarettes [id number] Information not available 06/03/2020 What Was The Date Of Your Most Recent Tobacco Screening? 07/27/2024 [email or web address] Information not available 07/27/2024 Do You Have Smoke And Carbon Monoxide Detectors In Your Home? Yes [email or web address] Information not available 04/25/2024 Do You Or Have You Ever Used Smokeless Tobacco? Never Used Smokeless Tobacco [id number] Information not available 06/03/2020 How Much Tobacco Do You Smoke? No [id number] Information not available 06/03/2020 Do You Use Any Illicit Or Recreational Drugs? Yes Marijuana [email or web address] Information not available 04/25/2024 Do You Use Sunscreen Routinely? Yes [email or web address] Information not available 04/25/2024 Sex: Unknown Functional [...] 03/29/2022 What is your exercise level? Occasional [id number] Information not available 06/03/2020 Mental Status None recorded. Family History Relationship Description Onset Age of this Age Resolved Age Notes LastModified by Organization Details LastModified Time Paternal Grandmother Diabetes mellitus cory [email or web address] Not available 11/16/2019 12:15:06 Paternal Grandmother Hypertensive disorder cory l Not available 11/16/2019 12:15:18 Notes:Paternal grandmother: Hypertension, Diabetes mellitus Medical History Condition Response Allergies (Food, seasonal, environmental ) Y Other Y Drug/Latex Allergies/Reactions N Breast Cancer N Blood Transfusion N Dermatologic Disorders N [...] Neurologic/Epilepsy N Endometriosis N High Cholesterol N Fibromyalgia N Headaches Y Kidney Disease N Heart Problems N Thyroid Problems N Kidney or Bladder Problems N GI Problems N Eating Disorder [...] SNOMED-CT Code Diagnosis ICD10 Code Diagnosis Note [id number] [facility] [address] [address] 09/21/2024 09:55:44 09/21/2024 10:53:21 Gestation period, 28 weeks 84464328 Z3A.28 continue vitamin - induced hypertension 23857724 O13.9 Itching 675219318 L29.9 Urinary symptoms 1970618 08 R39.9 406409 Gabi Duque [place] [address] [address] 10/04/2024 11:10:41 10/04/2024 13:29:38 Suspected abnormality affecting management of mother 6502711055 3323514 O35.8XX0 Z3A.30 Health Concerns Section Related Observation LastModified by Organization Detai ls LastModified Time None Recorded Concern Status LastModified by Organization Details LastModified Time None Recorded Payers Encounter Date Sequence Insurance Name Policy Number Policy Barrett Covered Member ID Barrett Member ID Guarantor Name 10/04/2024 1 [facility] ON OR AFTER 01/29/21 (MEDICAID REPLACEMENT - HMO) Michelle Olivas [id number] Michelle Olivas OBGyn Episode Ob Episode Information Episode Created Date Number of Fetuses Patient Bloodtype Patient rh Status Prepregnancy Weight lbs Domestic Partner Domestic Partner Phone Father Name Hot Dog Vendor Status 06/08/20 24 1 O Negative 153 Home [employer] OPEN Fetus Data First Name Last Name Admitted to NICU Weight (g) Sex Living Outcome Pediatric Complications Fetus ID Race Codes Race Delivery Type [id number] Problems Problem Notes rhogam 04/02/24- due november 06, 2024 rx givenElevated PCR 0.45 BPs normotensive Problem Name Start Date End Date Resolution Snomed Code Not e Blood glucose outside reference range 693165366 failed fasting on 3hr gtt checking bs x 4wks 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 643386234 james pregn ya Vanishing twin syndrome 494203306 Aortic root finding 988088707 mildly prominent - Referral faxed to [facility] 08/24 Level iI 08/29 [facility] 09/20 1045 US/ echo and office visit [...] Weight in lbs Pre/Post Dialysis Refused Weight 153.413619944247 BP Diastolic BP Location Tested BP Systolic [...] Type Weight in lbs Pre/Post Dialysis Refused 156.606912322991 BP Diastolic BP Location Tested BP Systolic [...] Type Weight in lbs Pre/Post Dialysis Refused 161.572282978157 BP Diastolic BP Location Tested BP Systolic [...] Type Weight in lbs Pre/Post Dialysis Refused 168.053192213141 BP Diastolic BP Location Tested BP Systolic [...] Type Weight in lbs Pre/Post Dialysis Refused 167.473884935343 BP Diastolic BP Location Tested BP Systolic BP Type 82 127 Fetus Heart Rate Present Fetus Movement A Yes Comments Patient states that was at [facility] and deliver last week with Flu and high heart rate and blood pressure. Was at [facility] for her echo yesterday. Patient states that having swelling, itching, nausea and vomirting. check labs, normotensive bp, denies beard, visual changes, plan rpt rogam early october. +FM ok for unisom if [...]
--- OUTSIDE RECORDS SUMMARY | 2024-10-05 21:05 | XMS_ITS | Referral Summary ---
Author Organization [facility] Address [address] [place] [address] Care Team Providers Care Dump Motor Operator Name Role Phone Sydney Rush MD Primary Care Provider [phone] Source Comments [facility],non-[facility] Affiliates and Associated Physician Practices is amultiple site organization consisting of ambulatory clinics and hospital sitesin [place], [place], [place] and [place]. This disclosure is being madepursuant to the Care Everywhere program and may not contain all information available regarding this patient. Last updated 18.[facility] Encounters Date Type Department Care Team Description 09/20/2024 10:31 AM DERRICK BOAT LEVERMAN - 09/20/2024 4:35 PM [facility] Hospital Encounter [address] [address] Marimra Prasad MD 09/20/2024 10:31 AM [facility]EVER[facility] - 09/20/2024 11:59 PM [facility] Hospital Encounter [address] [address] Truman Ledezma MD Peterson, Renuka E., MD Discharge Disposition: Home or Self Care 08/29/[address] [address] Shawnmurtaza Angelina R Future Appointment 08/29/2024 1:32 PM [facility]ERRICK BOAT LEVERMAN - 08/29/2024 11:59 PM [facility] Hospital Encounter [facility] [address] [place] [address] Truman Ledezma MD Discharge Disposition: Home or Self Care 08/29/2024 1:31 PM [facility] BO[facility] L[facility] Hospital Encounter [facility] [address] [place] [address] Truman Ledezma MD Discharge Disposition: Home or Self Care 08/27/2024 Travel 08/27/2024 Telephone [facility] [address] [place] [address] Roberta De La Vega Appointment (LM for [...] Comments Blood Pressure 115/73 08/29/2024 2:35 PM [facility]ICK BOAT LEVERMAN Pulse 71 08/29/2024 2:35 PM [facility]ICK [facility] LEVERMAN Temperature 36.3 C (97.3 F) 01/12/2017 10:45 AM CDT Respiratory Rate 16 01/12/2017 11:15 AM CDT Oxygen Saturation 97% 01/12/2017 11:00 AM CDT Inhaled Oxygen Concentration 100% 01/12/2017 1 0:45 AM CDT Weight 76.2 kg (168 lb) 08/29/2024 2:35 PM [facility]EVERMAN Height 165.1 cm (5' 5 ) 08/29/2024 2:35 PM DERRICK BOAT LEVERMAN Body Mass Index 27.96 08/29/2024 2:35 PM DERRICK BOAT LEVERMAN Functional Status Functional Status Response Date of [...] Info) Description 10/18/2024 10:00 AM CDT Appointment [address] [address] 10/18/2024 10:00 AM CDT Appointment [address] [address] Procedures Procedure Name Priority Date/Time Associated Diagnosis Comments ECHO COMPLETE CG Routine 09/20/2024 11:26 AM [facility]ERRICK BOAT LEVERMAN Suspected abnormality affecting management of mother, antepartum, single or unspecified fetus (HCC) SONOGRAM - COMPLETE Routine 08/29/2024 1 :43 PM [facility]ERRICK BOAT LEVERMAN Encounter for anatomic survey (HCC) Abnormal ultrasound 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 (HCC) from Last 3 Months Results * ECHO COMPLETE CG (09/20/2024 11:26 AM DERRICK BOAT LEVERMAN) MV E pk rubio 25.9 cm/s SSM CV F UJI PACS MV A pk rubio 50.15 cm/s SSM CV F UJI PACS Anatomical Region Laterality Modality Ultrasound 09/20/2024 10:5 5 AM [facility]ERRICK BOAT LEVERMAN Narrative 09/20/2024 4:33 PM DERRICK BOAT LEVERMAN Name: Michelle Olivas Patient Exam Info Gender: Female Patient Status: O/P : 2000 Admit Date: 09/20/2024 Exam Date/Time: 09/20/2024 10:55 AM Site: [facility] Current Location: CARE EStaffOrdering Provider: Truman Ledezma Interpreting Physician: Marimar Prasad MD Electrolytic Etcher: Lino Ribera [facility] Study Info Procedure: ECHO COMPLETE [...] 09/20/2024 Exam Date/Time: 09/20/2024 10:55 AM Site: [facility] Current Location: CARE EStaffOrdering Provider: Truman Ledezma Interpreting Physician: Marimar Prasad MD Electrolytic Etcher: Lino Ribera [facility] Study Info Procedure: ECHO COMPLETE [...] * SONOGRAM - COMPLETE (08/29/2024 1:43 PM DERRICK BOAT LEVERMAN) Linked Results Indication ======== Mildly dilated aortic arch on outside scan, Reportedly low-risk cf-DNA 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 Para 1 [id number] 1. live 2019. Gest. age 39 w [...] 1 lb 15 oz EFW by Hadlock ([id number]) Head / Face / Neck Biometry: CM [...] view. RVOT view. LVOT view. 3-vessel view. 7-tmvmlo-bmvzsrs view. Situs. Aortic arch view. Bicaval view. [...] LMP & early U/S * Referred to [facility] for obstetrical U/S & request for [...] determine at present Please notify the baby's Bond Underwriter of the above history Follow-up ======== U/S at 32 weeks Coding ====== Procedures 21082: US Preg Uterus Detailed [employer] PACS Anatomical Region Laterality Modality Other 08/29/2024 1:43 PM DERRICK BOAT LEVERMAN R Ishaan Monson MD [facility] ORDERABLES from Last 3 Months Care Teams Dump Motor Operator Relationship Specialty Start Date End Date Sydney Rush MD [address] [place] [address] [place] [address] PCP - General Family Medicine 07/10/13
[2024-10-05 21:24] LABS: Basophils Percent Auto 0.2 % (0.2-1.2); Eosinophils Absolute Auto 0.1 K/mm3 (0-0.3); Eosinophils Percent Auto 0.9 % (0-4.4); Hematocrit 39.7 % (37.0-47.0); Hemoglobin 13.6 g/dL (12.0-15.0); Immature Granulocyte Absolute 0.06 K/mm3 (0.00-0.031); Immature Granulocyte Percent A 0.5 % (0-0.5); Lymphocytes Absolute Auto 1.98 K/mm3 (0.9-3.2); Lymphocytes Percent Auto 16.3 % (18.3-44.2); Mean Corpuscular HGB Conc 34.3 g/dl (32-36); Mean Corpuscular Hemoglobin 30.3 pg (26-34); Mean Corpuscular Volume 88.4 fl (80-100); Mean Platelet Volume 11.2 fl (7.4-10.4); Monocytes Percent Auto 8.3 % (2.6-8.5); Neutrophils Percent Auto 73.8 % (45.5-73.1); Platelet Count Result 193 k/mm3 (150-375); Red Blood Count 4.49 M/mm3 (4.2-5.4); Red Cell Distribution Width 13.5 % (11.5-14.5); White Blood Count 12.2 K/mm3 (4.5-10.0)
--- NOTE | 2024-10-05 21:39 | WPDHPUPDATE1 ---
History and Physical Update Update Date/Time: 10/05/24 21:39 24-year-old multiparous female who called complaining of contractions at 30 weeks gestation. She was asked to come to Labor and delivery. Upon admission she was complete with a bulging bag, completely dilated. Reassuring heart tones. Artificial rupture membranes was performed. This was done after ultrasound to confirm position. History and Physical has been reviewed, including an updated exam of the patient. There are NO changes in the patient's condition. Risks, benefits, and alternatives have been discussed and questions answered. Patient agrees to proceed with procedure.
--- NOTE | 2024-10-05 21:40 | PM.OBPRVD ---
OB - Vaginal Delivery Note Procedure Delivery date: 10/05/24 Events: Other (Pre term labor) Delivery augmentation: Rupture of Membranes Delivery monitor: External FHT and External Uterine Route of delivery: Episiotomy description: None Laceration Description: None Specimen: No Quantitative Blood Loss (ml): 150 Anesthesia type: None Disposition: Floor
--- NOTE | 2024-10-05 21:41 | LDADM ---
This patient, Michelle Olivas, was admitted to Labor/Delivery/Recovery 106 on 10/05/24 at 20:58. Plans for labor, pain management and were discussed with patient. Patient/family oriented to hospital policies and general routines including ID bracelet, bed and alarms, visiting hours, pain management, procedures, bathroom and other care routines, personal items, smoking policy, room service/diet and guest tray routines, security routines, and visiting hours. Patient/Family are encouraged to report perceived risks to care and to ask questions if they do not understand what they are told or what they should do. See OBIX for further documentation.
[2024-10-05] MEDS: ACETAMINOPHEN 325 MG TABLET 650 MG (21:46)
[2024-10-05] MEDS: OXYTOCIN 30 UNITS/NS 500 ML 30 UNITS/500 ML BAG 125 UNITS IV CONT (21:57)
[2024-10-05 22:11] LABS: Syphilis IgG/IgM Antibody Negative (Negative)
[2024-10-05] MEDS: OXYTOCIN 30 UNITS/NS 500 ML 30 UNITS/500 ML BAG IV CONT (22:17)
[2024-10-05 22:25] LABS: HIV 1/2 Ab P24 Ag Result Negative (Negative)
--- NOTE | 2024-10-06 01:19 | OBPPTRN ---
10/06/2024 Patient transferred to post room #288. Patient oriented to unit, room, information board, rooming in, admission packet. Patient verbalizes understanding.
[2024-10-06 05:00] VITALS: BP 109/64; PULSE 66; RESP 16; TEMP 36.2; O2SAT 96
[2024-10-06 05:16] LABS: Hematocrit 38.9 % (37.0-47.0)
[2024-10-06 05:56] LABS: Hepatitis B Surface Antigen Negative (Negative); Rubella IgG Antibody 30.8 IU/ML
[2024-10-06 07:00] VITALS: BP 111/72; PULSE 60; RESP 18; TEMP 36.4; O2SAT 98
[2024-10-06] MEDS: DOCUSATE SODIUM 100 MG CAPSULE PO (07:01)
[2024-10-06 07:26] LABS: Amphetamine Screen Urine Negative (Negative); Barbiturate Screen Urine Negative (Negative); Benzodiazepines Screen Urine Negative (Negative); Cannabinoid Screen Urine Negative (Negative); Cocaine Screen Urine Negative (Negative); Methadone Screen Urine Negative (Negative); Opiate Screen Urine Negative (Negative); Phencyclidine Screen Urine Negative (Negative)
--- NOTE | 2024-10-06 08:45 | P.DS_ITS ---
DS: Admitting Diagnosis Discharge Date October 06, 2024 Admitting Diagnosis Pre term labor DS: Discharge Diagnosis Discharge Diagnosis (1) labor in third trimester: Code(s): O60.03 - labor without delivery, third trimester Status: Acute (2) Vaginal delivery: Code(s): O80 - Encounter for full-term uncomplicated delivery Status: Acute OB - DS: Summary OB Procedures : None OB Procedures Intrapartum: Spontaneous Vag Delivery OB Procedures: : None Peripartum Data Laceration Description: None Episiotomy description: None Time Spent with Patient Time attestation: Total time spent providing and/or coordinating discharge services: DS: Data Data Completed and Pending Labs on day of discharge: Labs from last 24 hours 10/06/24 10/06/24 10/06/24 07:04 04:54 04:53 WBC RBC Hgb 13.0 Hct 38.9 MCV MCH MCHC RDW Plt Count MPV Immature Gran % (Auto) Neut % (Auto) Lymph % (Auto) [place] % (Auto) Eos % (Auto) Baso % (Auto) Lymph # (Auto) [place] # (Auto) Eos # (Auto) Baso # (Auto) Abs Immat Gran (auto) Absolute Neuts (auto) Absolute Nucleated RBC Nucleated RBC % Urine Opiates Screen Negative Urine Methadone Screen Negative Ur Barbiturates Screen Negative Ur Phencyclidine Scrn Negative Ur Amphetamine Screen Negative U Benzodiazepines Scrn Negative Urine Cocaine Screen Negative U Cannabinoids Screen Negative Syphilis IgG/IgM Ab Hep Bs Antigen Negative HIV 1&2 Ab/P24 Ag 4thGn Rubella IgG Antibody 30.8 Blood Type O Negative Antibody Screen TNP Antibody Identification Antigen Identification KYLE, IgG Interpret KYLE, Poly Interpret KYLE, Complement Interp Screen Negative Baby's Blood Type B pos Baby's KYLE Negative Doses of RhIg Required 1 10/05/24 21:19 WBC 12.2 H RBC 4.49 Hgb 13.6 Hct 39.7 MCV 88.4 MCH 30.3 MCHC 34.3 RDW 13.5 Plt Count 193 MPV 11.2 H Immature Gran % (Auto) 0.5 Neut % (Auto) 73.8 H Lymph % (Auto) 16.3 L [place] % (Auto) 8.3 Eos % (Auto) 0.9 Baso % (Auto) 0.2 Lymph # (Auto) 1.98 [place] # (Auto) 1.0 H Eos # (Auto) 0.1 Baso # (Auto) 0.0 Abs Immat Gran (auto) 0.06 H Absolute Neuts (auto) 9.0 H Absolute Nucleated RBC 0.000 Nucleated RBC % 0.0 Urine Opiates Screen Urine Methadone Screen Ur Barbiturates Screen Ur Phencyclidine Scrn Ur Amphetamine Screen U Benzodiazepines Scrn Urine Cocaine Screen U Cannabinoids Screen Syphilis IgG/IgM Ab Negative Hep Bs Antigen HIV 1&2 Ab/P24 Ag 4thGn Negative Rubella IgG Antibody Blood Type O Negative Antibody Screen Positive Antibody Identification Passive Due to RH Imm Glob Antigen Identification Cancelled KYLE, IgG Interpret Not Performed KYLE, Poly Interpret Neg KYLE, Complement Interp Not Performed Screen Baby's Blood Type Baby's KYLE Doses of RhIg Required Discharge Plan Discharge Discharging Clinician: Chandu Monson Patient Disposition: Home, Self-Care Activity: pelvic rest Diet: regular Patient Instructions: Antibiotic Form Patient Language: Ukrainian Stand Alone Forms: General Discharge Information Follow-up/Referrals: Chandu Monson MD [Physician] - Discharge Medications: No Action acetaminophen 500 mg capsule 1,000 mg PO Q6H PRN (Reason: pain) Qty: 30 0RF PNV cmb#95-ferrous fumarate-FA [] 28 mg iron- 800 mcg tablet 1 tablet PO DAILY cyclobenzaprine 5 mg tablet 5 mg PO .TID PRN PRN (Reason: back pain) Date of admission: 10/05/24 20:58 Primary Care Provider: UNKNOWN,DOCTOR Admitting Provider: Chandu Monson Attending physician on admission: Chandu Monson Condition: Stable
--- NOTE | 2024-10-06 08:45 | PM.OBPNVD ---
OB - PN: Subj Subjective Date/time seen: 10/06/24 08:45 Patient comments: no complaints, pain well controlled, incisional pain, tolerating diet and flatus present OB - PN: Obj Data Labs 10/06/24 04:53 Labs: Laboratory Results - last 24 hr 10/05/24 10/06/24 10/06/24 21:19 04:53 04:54 WBC 12.2 H RBC 4.49 Hgb 13.6 13.0 Hct 39.7 38.9 MCV 88.4 MCH 30.3 MCHC 34.3 RDW 13.5 Plt Count 193 MPV 11.2 H Immature Gran % (Auto) 0.5 Neut % (Auto) 73.8 H Lymph % (Auto) 16.3 L [place] % (Auto) 8.3 Eos % (Auto) 0.9 Baso % (Auto) 0.2 Lymph # (Auto) 1.98 [place] # (Auto) 1.0 H Eos # (Auto) 0.1 Baso # (Auto) 0.0 Abs Immat Gran (auto) 0.06 H Absolute Neuts (auto) 9.0 H Absolute Nucleated RBC 0.000 Nucleated RBC % 0.0 Urine Opiates Screen Urine Methadone Screen Ur Barbiturates Screen Ur Phencyclidine Scrn Ur Amphetamine Screen U Benzodiazepines Scrn Urine Cocaine Screen U Cannabinoids Screen Syphilis IgG/IgM Ab Negative Hep Bs Antigen Negative HIV 1&2 Ab/P24 Ag 4thGn Negative Rubella IgG Antibody 30.8 Blood Type O Negative O Negative Antibody Screen Positive TNP Antibody Identification Passive Due to RH Imm Glob Antigen Identification Cancelled KYLE, IgG Interpret Not Performed KYLE, Poly Interpret Neg KYLE, Complement Interp Not Performed Screen Negative Baby's Blood Type B pos Baby's KYLE Negative Doses of RhIg Required 1 10/06/24 07:04 WBC RBC Hgb Hct MCV MCH MCHC RDW Plt Count MPV Immature Gran % (Auto) Neut % (Auto) Lymph % (Auto) [place] % (Auto) Eos % (Auto) Baso % (Auto) Lymph # (Auto) [place] # (Auto) Eos # (Auto) Baso # (Auto) Abs Immat Gran (auto) Absolute Neuts (auto) Absolute Nucleated RBC Nucleated RBC % Urine Opiates Screen Negative Urine Methadone Screen Negative Ur Barbiturates Screen Negative Ur Phencyclidine Scrn Negative Ur Amphetamine Screen Negative U Benzodiazepines Scrn Negative Urine Cocaine Screen Negative U Cannabinoids Screen Negative Syphilis IgG/IgM Ab Hep Bs Antigen HIV 1&2 Ab/P24 Ag 4thGn Rubella IgG Antibody Blood Type Antibody Screen Antibody Identification Antigen Identification KYLE, IgG Interpret KYLE, Poly Interpret KYLE, Complement Interp Screen Baby's Blood Type Baby's KYLE Doses of RhIg Required OB - PN A/P Plan day: 1 Plan: routine care Comments: No problems, routine care Time Spent With Patient Time: Total time spent is greater than 50% in coordination of care (as documented) at patient's floor/unit and/or counseling patient: Exam Const: General: comfortable, no acute distress and alert Resp: Effort & Inspection: normal respiratory effort Auscultation: no crackles, no rales and no rhonchi Cardio: Rate: regular rate Heart sounds: no click, no murmurs and no rubs GI: Inspection: non-distended GI Palp: No Tenderness to palpation present (GI) Auscultation: normal bowel sounds Other: Incision - CDI Extrem: General: normal to inspection, no pedal edema and no calf tenderness
[2024-10-06] MEDS: RHO(D) IMMUNE GLOBULIN 300 MCG/2 ML SYRINGE IM (10:13)
== END 2024-10-06 09:50 | disposition home or self-care (01) | DRG 560 ==
LOC: ANHLDR 21:22 → ANHOB2 10-06 01:01
PROVIDERS: Admitting Provider Obstetrics & Gynecology; Visit Provider Obstetrics & Gynecology
DX: O60.14X0 Preterm labor third trimester with preterm delivery third trimester, not applicable or unspecified (principal); Z37.0 Single live birth; Z3A.30 30 weeks gestation of pregnancy; O62.3 Precipitate labor
CPT/HCPCS: 36415; 80307; 85014; 85018; 85025; 85461; 86593; 86703; 86762; 86850; 86880; 86900; 86901; 87340; 90384; A9270; G0432; J2590; J2790